=== PATIENT | female | born 1960 | race Caucasian/White ===

== ENCOUNTER 2021-08-04 07:15 | Emergency (ER) | payer MEDICAID, SELFPAY ==
[2021-08-04 07:18] VITALS: BP 138/58; PULSE 62; RESP 16; TEMP 36.5; O2SAT 97; BMI 17.6
--- NOTE | 2021-08-04 07:18 | W.ED.BACK ---
HPI - Back Pain/Injury General: Chief Complaint: Back Pain/Injury Stated Complaint: BACK PAIN Time Seen by Provider: 08/04/21 07:17 History of Present Illness: MD elicited complaint: back pain Pertinent past history: prior back pain Onset (ago): week(s) Timing: constant Severity: moderate Quality: aching Location: lumbar spine Radiation: none Exacerbating factors: none, sitting upright, walking and coughing/sneezing Relieving factors: supine Associated symptoms: Reports difficulty walking, tingling/numbness/burning and weakness; Deny abdominal pain, arthralgias, chills, change in bowel habits, dysuria, fatigue, fecal incontinence, fever(s), hematuria, myalgias, nausea, numbness, syncope, urinary frequency, urinary urgency or vomiting Review of Systems Const: Denies: fever(s), chills or fatigue ENMT: Denies: throat pain, ear or mastoid pain, nasal discharge or nasal congestion Card: Denies: syncope Resp: Denies: dyspnea, productive cough or non-productive cough GI: Denies: abdominal pain, nausea, vomiting, fecal incontinence or change in bowel habits : Denies: dysuria, urinary urgency or hematuria Skin/Breast: Denies: rash or pruritus Neuro: Reports: difficulty walking PFSH ED PFSH: Family History Mother Dementia Lung disease Cancer Sister Dementia Diabetes Cancer Father Lung disease Cancer Family/Other Stroke Brother Cancer Social History Smoking and tobacco status: current every day smoker Second hand smoke exposure: Yes Alcohol intake: current Alcohol intake frequency: 3 or more drinks per day Physical Exam Const: COMMON NORMALS: no acute distress GENERAL APPEARANCE: cooperative and comfortable ORIENTATION/CONSCIOUSNESS: Yes awake, Yes oriented to person, Yes oriented to place and Yes oriented to time HENMT: COMMON NORMALS: normocephalic, atraumatic and hearing grossly normal bilaterally HEAD & SCALP: normocephalic and atraumatic Neck/C-Spine: COMMON NORMALS: no JVD Resp: COMMON NORMALS: normal respiratory effort, No retractions, No use of accessory muscles and clear to auscultation bilaterally AUSCULTATION: clear to auscultation bilaterally Cardio: COMMON NORMALS: no JVD, regular rate, regular rhythm and No murmurs present (Cardio) RATE: regular rate RHYTHM: regular rhythm GI: COMMON NORMALS: Soft to palpation and No hepatosplenomegaly present AUSCULTATION: Yes normoactive bowel sounds PALPATION: Yes Soft to palpation, No Tenderness to palpation present (GI), No Guarding due to palpation present (GI) and Yes No hepatosplenomegaly present Extremity: COMMON NORMALS: normal to inspection, capillary refill normal, no clubbing, cyanosis or edema, no calf tenderness and no pedal edema OTHER: Straight leg raising negative deep tendon reflex patellar tendon +2/4 sensation lower extremities normal. Neuro: SENSORIUM/ORIENTATION: Yes oriented to person, Yes oriented to place and Yes oriented to time Skin: COMMON NORMALS: no rashes or lesions noted GENERAL SKIN EXAM: no rashes or lesions noted Course Vital Signs: Vital signs: Vital Signs Temperature 97.7 F 08/04/21 07:18 Pulse Rate 78 08/04/21 12:15 Respiratory Rate 18 08/04/21 12:15 Blood Pressure 128/64 08/04/21 12:15 Pulse Oximetry 93 08/04/21 12:15 MDM - Back Pain/Injury MDM Narrative: Medical decision making narrative: No acute change lumbar spine chest x-ray normal reviewed findings with the patient. Discharge home start on hydrocodone Medrol Dosepak tizanidine diclofenac. Have her stop the ibuprofen follow-up with your primary care doctor she may need further advanced imaging in an outpatient basis. Discharge Plan Discharge Patient Disposition: Home Clinical Impression: Sciatica Condition: Stable Prescriptions: New hydrocodone-acetaminophen 5-325 mg tablet 1 tab PO Q6H PRN (Reason: pain) Qty: 10 RF: 0 Medrol (Bigg) 4 mg tablets,dose pack See Rx Instructions .ROUTE .COMPLEX Qty: 21 RF: 0 tizanidine 4 mg capsule 4 mg PO Q6H PRN (Reason: muscle spasticity) Qty: 20 RF: 0 diclofenac sodium 75 mg tablet,delayed release (DR/EC) 75 mg PO Q12H PRN (Reason: pain) Qty: 20 RF: 0 Discontinued ibuprofen 200 mg capsule 400 mg PO Q6H PRNRF: 0 No Action budesonide-formoterol [Symbicort] 160-4.5 mcg/actuation HFA aerosol inhaler 2 puff inhalation BID RF: 0 metoprolol succinate 25 mg tablet extended release 24 hr 12.5 mg PO DAILY RF: 0 nitroglycerin 0.4 mg tablet, sublingual 0.4 mg sublingual Q5M PRNRF: 0 Discharge Orders: Discharge ED (Routine); Ordered 08/04/21 Ordered By: Blair Simons Referrals: Janie Moreau APN [Staff Physician] - Discharge Diet: Usual diet Discharge Activity: Increase activity as tolerated Patient Instructions: Opioid Safety Activity Restrictions/Additional Instructions: Follow-up with your primary care doctor within the next 3 to 5 days. Return to the emergency room if your pain worsens. Coding Level of Care Code ED Roads Superintendent for Bossman Fajardo
--- NOTE | 2021-08-04 07:28 | XR_ITS ---
WS: [id number] Lumbar spine, 3 views, 08/04/2021 Clinical Data: pain Comparison: None. Findings: No compression fractures or subluxation is seen. There is disc space narrowing at L5-S1. The transver se processes and SI joints are normal. There is osteoarthritic spurring of all the lumbar vertebral bodies. There is calcification of the ab dominal aorta but no aneurysm. XR/XR lumbar spine 2-3V* 01830 Impression: 1. Disc narrowing at L5-S1. 2. Osteoarthritis L1-L5.
[2021-08-04] MEDS: orphenadrine 30 mg/mL Inj 2 mL 60 MG IVP (07:48)
[2021-08-04] MEDS: dexamethasone 10 mg/mL INJ IVP (07:49)
[2021-08-04] MEDS: ketorolac 30 mg/mL INJ IVP (07:49)
[2021-08-04 09:18] VITALS: RESP 10; O2SAT 94
[2021-08-04] MEDS: morphine 4 mg/mL SDV 1 mL 2 MG IVP (09:18)
[2021-08-04 09:21] VITALS: BP 116/71; PULSE 58; RESP 12; O2SAT 94
--- NOTE | 2021-08-04 09:25 | PC.NURSE ---
Pt arrvied via EMS from home where she lives by herself, pt reports she has been having significant back pain since this past Sunday. Pt was lying on her couch when EMS arrived and attempted to get up from the couch on her own, EMS reports pt was unable to get up on her won and had to be carried to their cot. Pt reports mid-lower back pain that is constant, rates pain at /. Pt placed om monitor, Pt A/O x4.
[2021-08-04] MEDS: ipratropium-albuterol 3 mL Neb INHALATION (09:28)
[2021-08-04 09:29] VITALS: PULSE 53; RESP 16; O2SAT 93
--- NOTE | 2021-08-04 09:35 | ECG_ITS ---
[facility] Test Date: 2021-08-04 Pat Name: Martha Damico Department: Room: Gender: Female Sexual Assault Response Coordinator: : 1960 Requested By: Blair Walls Order Number: [id number] Kaila MD: Yuri Campa M.D. Measurements Intervals [place] Rate: 52 P: 44 CA: 142 QRS: 76 QRSD: 79 T: 72 QT: 433 QTc: 405 Interpretive Statements SINUS BRADYCARDIA Compared to ECG 10/12/2017 21:42:04 Sinus rhythm no longer present Electronically Signed On 08-04-2021 17:08:04 CDT by Yuri Campa M.D. [id number]
--- NOTE | 2021-08-04 10:11 | XR_ITS ---
WS: [id number] Portable AP upright chest, 08/04/2021 Clinical Data: dyspnea/cough Comparison: Portable chest, 10/12/2017. Findings: No nodules, masses or effusions are seen. The heart is normal. The pulmonary vascularity is not increased. No pneumonia or pneumothorax is seen. The diaphragms are flattened. Monitor leads are on the chest wall. XR/XR chest 1V portable [id number] Impression: Hyperinflation.
[2021-08-04 10:53] VITALS: RESP 12; O2SAT 94
[2021-08-04] MEDS: morphine 4 mg/mL SDV 1 mL IVP (10:53)
--- NOTE | 2021-08-04 12:00 | PC.NURSE ---
Pt c/o about inability to put on clothes and I cannot cook, I haven't eaten Provided pt with lunch. Notified provider and CN of pt's c/o. Pt c/o about needing paper scrubs all I have is my longjohns . Provided pt with paperscrubs. Pt stated I need a uber . Notified CN for ride. CM consulted for ride.
[2021-08-04 12:15] VITALS: BP 128/64; PULSE 78; RESP 18; O2SAT 93
--- NOTE | 2021-08-05 11:35 | DCPLANNER ---
assistant clinical nurse manager spoke with patient, she would like for piano case maker to schedule a follow up appointment for patient with primary care, to discuss getting services in the home. assistant clinical nurse manager called [facility] in , gave clinic patients information. A follow up appointment was scheduled for Sunday, August 19, 2021 at 9:00 with Janie Moreau. assistant clinical nurse manager called patient and gave patient the appointment information.
== END 2021-08-04 12:56 | disposition home or self-care (01) ==
PROVIDERS: Emergency Provider Family Medicine
DX: M54.30 Sciatica, unspecified side (principal); F17.200 Nicotine dependence, unspecified, uncomplicated
CPT/HCPCS: 71045; 72100; 93005; 94640; 96374; 96376; 99284; J1100; J1885; J2270; J2360

== ENCOUNTER 2021-09-15 08:46 | Emergency (ER) | payer MEDICAID, SELFPAY ==
--- NOTE | 2021-09-15 08:47 | XR_ITS ---
WS: [id number] XR chest 1V portable [id number] REASON FOR EXAM: Syncopal episode FINDINGS: Chest is unchanged compared to 08/04/2021. The lungs are hyperexpanded. No acute pulmonary parenchymal or pleural abnormality is identified. Mild degenerative change in the mid and lower thoracic spine. XR/XR chest 1V portable [id number] IMPRESSION: No acute chest abnormality.
--- NOTE | 2021-09-15 08:48 | ECG_ITS ---
[facility] Test Date: 2021-09-15 Pat Name: Martha Damico Department: Room: Gender: Female Inspector Line: : 1960 Requested By: Jett Bassett Order Number: [id number] Kaila MD: EULALIO HILLS Measurements Intervals [place] Rate: 71 P: -15 NE: 140 QRS: 71 QRSD: 86 T: 53 QT: 376 QTc: 409 Interpretive Statements SINUS RHYTHM Compared to ECG 09/15/2021 09:24:15 No significant changes Electronically Signed On 09-15-2021 19:54:17 STOCK PULLER by EULALIO HILLS [id number]
[2021-09-15 08:53] VITALS: BP 105/75; PULSE 85; RESP 18; TEMP 37.2; O2SAT 95; BMI 17.6
[2021-09-15 09:04] VITALS: PULSE 85; RESP 17; O2SAT 95
--- NOTE | 2021-09-15 09:19 | ED_ITS ---
Documented by User: HAN Skelton 09/16/21 07:21 HPI - Syncope General: Chief Complaint: Syncope Stated Complaint: SYNCOPE Time Seen by Provider: 09/15/21 08:47 History of Present Illness: HPI narrative: Patient is a 61-year-old female comes to the ED via EMS for syncopal episode. Patient states she has a history of an arrhythmia and and emphysema. Episode occurred around 7 AM this morning while she was sitting and watching TV. She describes feeling some heart palpitations for a few seconds and then she describes feeling like her heart was slowing down and then she lost consciousness. Patient thinks she might have been out for a few seconds at the most. When she came to she was still sitting on her couch. Denies any bladder or bowel incontinence during episode. It was unwitnessed and she was all alone at the time. After episode she feels back to her normal baseline state. Denies any preceding headache, chest pain, shortness of breath, nausea or diaphoresis preceding the episode. Afterwards she is asymptomatic and is not having any palpitations. Patient takes metoprolol in the mornings and had not taken her dose of metoprolol before syncopal episode. She does endorse having episodes where she feels dizzy when she goes from a sitting or lying position to standing up. Denies any past syncopal episodes or seizures. Associated symptoms: Deny abdominal pain, chest pain, fever(s), headache(s), lightheadedness, nausea or short of breath Review of Systems Const: Denies: fever(s), chills or fatigue Eyes: Denies: change in vision or eye discomfort ENMT: Denies: throat pain, odynophagia, nasal discharge or nasal congestion Card: Reports: palpitations and syncope; Denies: chest pain, edema, swelling of feet/ankles, lightheadedness, dyspnea on exertion or orthopnea Resp: Denies: dyspnea, productive cough or non-productive cough GI: Denies: abdominal pain, nausea, vomiting, diarrhea, constipation or hematochezia : Denies: flank pain, dysuria or hematuria Musc: Denies: neck pain, back pain or extremity swelling Skin/Breast: Denies: rash or new lesions Neuro: Denies: headache(s), numbness in extremities or weakness in extremities PFSH ED PFSH: Medical History Afib Chest pain COPD (chronic obstructive pulmonary disease) PTSD (post-traumatic stress disorder) Tobacco use Family History Mother Dementia Lung disease Cancer Sister Dementia Diabetes Cancer Father Lung disease Cancer Family/Other Stroke Brother Cancer Social History Smoking and tobacco status: current every day smoker Second hand smoke exposure: Yes Alcohol intake: current Alcohol intake frequency: 3 or more drinks per day Physical Exam Const: COMMON NORMALS: no acute distress, patient oriented x3, healthy appearing and alert GENERAL APPEARANCE: cooperative and comfortable HENMT: COMMON NORMALS: normocephalic HEAD & SCALP: normocephalic MOUTH: Normal oral and palatal mucosa present THROAT: posterior oropharynx normal and uvula midline Eye: COMMON NORMALS: Equal, round and reactive pupils present PUPIL: Yes Equal, round and reactive pupils present Neck/C-Spine: COMMON NORMALS: supple GENERAL: Yes normal visual inspection Resp: COMMON NORMALS: normal respiratory effort, No retractions, No use of accessory muscles and clear to auscultation bilaterally AUSCULTATION: clear to auscultation bilaterally Cardio: COMMON NORMALS: regular rate, regular rhythm, S1 normal heart sound present, S2 normal heart sound present, No gallops present (Cardio), No clicks present (Cardio), No murmurs present (Cardio) and Peripheral pulses 2+ throughout RATE: regular rate RHYTHM: regular rhythm HEART SOUNDS: S1 normal heart sound present and S2 normal heart sound present PERIPHERAL PULSES: Peripheral pulses 2+ throughout GI: COMMON NORMALS: Normal to inspection, nondistended, normoactive bowel sounds present, Soft to palpation, non-tender and no masses PALPATION: Yes Soft to palpation : COMMON NORMALS: Yes no CVA tenderness BLADDER/KIDNEY EXAM: Yes no CVA tenderness Back/Pelvis: COMMON NORMALS: no CVA tenderness Extremity: COMMON NORMALS: normal to inspection Neuro: COMMON NORMALS: patient oriented x3 and moves all extremities SENSORIUM/ORIENTATION: Yes alert Skin: GENERAL SKIN EXAM: dry skin Course Vital Signs: Vital signs: Vital Signs Temperature 98.9 F 09/15/21 08:53 Pulse Rate 74 09/15/21 10:55 Respiratory Rate 24 H 09/15/21 10:55 Blood Pressure 104/72 09/15/21 10:55 Pulse Oximetry 95 09/15/21 10:55 Orthostatic vitals?laying down heart rate 75 blood pressure 113/65, sitting heart rate 85 and blood pressure 107/67, standing heart rate 93 blood pressure 93/67. MDM - Syncope MDM Narrative: Medical decision making narrative: Patient is a 61-year-old female comes to the ED with syncopal episode. Patient says she was sitting down at home and felt some palpitations in a brief syncopal episode. She had no fall during episode and was still sitting when she regained consciousness. She returned back to her normal baseline state after LOC. Vitals stable. Exam benign and neuro exam showed no deficits. CBC and CMP were unremarkable. Troponin negative. Chest x-ray showed no acute findings. EKG showed normal sinus rhythm with no acute findings. CT head showed no intracranial hemorrhage or edema. Orthostatic vitals did show a drop in systolic blood pressure from lying to standing patient reports dizziness a lot of times when she gets up from lying or sitting to standing position. Patient diagnosed with vasovagal syncope and orthostatic hypotension. Patient left the unit before I was able to officially discharge patient and give her discharge instructions. The nurse called on patient and she had left ED with IV still in place. The nurse was trying to get patient come back here to the facility to have IV removed. Lab Data: Labs: Lab Results 09/15/21 09/15/21 09/15/21 09:35 09:35 09:35 WBC 7.7 10^3/uL 10^3/ uL (4.0-10.0) RBC 5.17 10^6/uL 10^6 /uL (4.1-5.3) Hgb 16.3 g/dL H g/dL (11.5-15.3) Hct 47.7 % H % (37.0-47.0) MCV 92.3 fl fl (81-99) MCH 31.5 pg pg (28.0-34.0) MCHC 34.2 g/dL g/dL (30.0-36.0) RDW 11.9 % L % (12.1-15.1) Plt Count 309 10^3/cmm 10^3 /cmm (130-400) MPV 9.8 fL fL (7.4-10.4) Neut % (Auto) 69.8 % % Lymph % (Auto) 20.0 % % [place] % (Auto) 7.3 % % Eos % (Auto) 1.8 % % Baso % (Auto) 0.8 % % Neut # (Auto) 5.39 10^3/uL 10^3 /uL (1.8-7.7) Lymph # (Auto) 1.5 10^3/uL 10^3/ uL (0.8-4.8) [place] # (Auto) 0.6 10^3/uL 10^3/ uL (0.2-0.9) Eos # (Auto) 0.1 10^3/uL 10^3/ uL (0.0-0.8) Baso # (Auto) 0.1 10^3/uL 10^3/ uL (0.0-0.1) Nucleated RBC % (a uto) 0 % % Nucleated RBCs # 0.0 /100WBC /100W BC Sodium 139 mmol/L mmol/L (136-145) Potassium 4.2 mmol/L mmol/L (3.5-5.1) Chloride 101 mmol/L mmol/L (98-107) Carbon Dioxide 22 mmol/L mmol/L (22-29) Anion Gap 20.2 H (5-19) BUN 12 mg/dL mg/dL (8-23) Creatinine 0.7 mg/dL mg/dL (0.5-0.9) GFR Calculation 84.5 mL/min L mL/ min (90-130) Glucose 123 mg/dL H mg/dL (65-115) Calculated Osmolal ity 289 mOsm/kg mOsm/ kg (285-295) Calcium 9.2 mg/dL mg/dL (8.5-10.5) Total Bilirubin 0.4 mg/dL mg/dL (0.15-1.2) AST 18 U/L U/L (0-32) ALT 19 U/L U/L (0-33) Alkaline Phosphata se 69 IU/L IU/L (35-105) Troponin T Baselin e 13 ng/L H ng/L (0-10) Troponin T 120 Min samish Delta Troponin T NT-Pro-B Natriuret Pep 72 pg/mL pg/mL (0-125) Total Protein 7.2 g/dL g/dL (6.6-8.7) Albumin 4.6 g/dL g/dL (3.5-5.2) Globulin 2.6 g/dL g/dL (1.3-4.6) Urine Color Urine Appearance Urine pH Ur Specific Gravit y Urine Protein Urine Glucose (UA) Urine Ketones Urine Blood Urine Nitrate Urine Bilirubin Urine Urobilinogen Ur Leukocyte Sandra ase 09/15/21 09/15/21 10:48 12:15 WBC RBC Hgb Hct MCV MCH MCHC RDW Plt Count MPV Neut % (Auto) Lymph % (Auto) [place] % (Auto) Eos % (Auto) Baso % (Auto) Neut # (Auto) Lymph # (Auto) [place] # (Auto) Eos # (Auto) Baso # (Auto) Nucleated RBC % (a uto) Nucleated RBCs # Sodium Potassium Chloride Carbon Dioxide Anion Gap BUN Creatinine GFR Calculation Glucose Calculated Osmolal ity Calcium Total Bilirubin AST ALT Alkaline Phosphata se Troponin T Baselin e Troponin T 120 Min samish 9.49 ng/L ng/L (0-10) Delta Troponin T -3.51 ABS# L ABS# (0-10) NT-Pro-B Natriuret Pep Total Protein Albumin Globulin Urine Color Yellow (Yellow) Urine Appearance Clear (CLEAR) Urine pH 6 (5-7) Ur Specific Gravit y 1.020 (1.005-1.030) Urine Protein Neg (Negative) Urine Glucose (UA) Norm (Normal) Urine Ketones 1+ H (Negative) Urine Blood Neg (Negative) Urine Nitrate Negative (Negative) Urine Bilirubin Neg (Negative) Urine Urobilinogen Norm mg/dL mg/dL (Negative) Ur Leukocyte Sandra ase Negative (Negative) Imaging Data^: CXR: Attestation: I personally reviewed and interpreted this imaging study as follows: Radiologist's impression: [address] [id number] ReportSigned Patient: Annabel Damico #: [id number]: 8Acct#:[id number]/Sex: 61 / FADM Date: 09/15/21Loc: ERRoom/Bed:Attending Dr: Ordering Provider/Ordering MD: Jett Bassett Date of Service: 09/15/21 Procedure(s): XR chest 1V portable [id number] Accession Number(s): [id number] Report Number: [id number] WS: [id number] XR chest 1V portable [id number] REASON FOR EXAM: Syncopal episode FINDINGS: Chest is unchanged compared to 08/04/2021. The lungs are hyperexpanded. No acute pulmonary parenchymal or pleural abnormality is identified. Mild degenerative change in the mid and lower thoracic spine. XR/XR chest 1V portable [id number] IMPRESSION: No acute chest abnormality. Dictated By:Pritesh Montana Jr MDSigned By:Pritesh Montana Jr MDSigned Date/Time:09/15/21903DD/ 1 CT Head: Attestation: I personally reviewed and interpreted this imaging study as follows: Radiologist's impression: [facility] [place] [address] CT Scan Report Signed Patient: Martha Damico Unit #: [id number] : 1960 Age/Sex: 61 / F ADM Date: 09/15/21 Loc: ER Room/Bed: Attending Dr: Ordering Provider/Ordering MD: Jett Bassett Date of Service: 09/15/21 Procedure(s): CT head wo con* [id number] Accession Number(s): [id number] Report Number: [id number] WS: [id number] CT HEAD NONCONTRAST HISTORY: Syncopal episode TECHNIQUE: Contiguous axial imaging performed through the brain in 2.5 mm imaging. Bone and soft tissue windows. Sagittal and coronal reformats reviewed. [facility] one of these dose optimization techniques: automated exposure control; mA and/or kV adjustment per patient size (includes targeted exams where dose is matched to clinical indication); or iterative reconstruction. DLP: 619.64 mGy.cm COMPARISON: None available. No acute intracranial hemorrhage, midline shift or mass effect. Prior lacunar infarct in the RIGHT caudate. No significant atrophy. Additional small lacunar infarct in the insular ribbon on the LEFT. Ventricles: Normal size with no hydrocephalus. Paranasal sinuses: As visualized are clear. Mastoid air cells: Well pneumatized. Calvarium and scalp: Skull is intact with no soft tissue edema or swelling. CT/CT head wo con* [id number] IMPRESSION: 1. No acute intracranial hemorrhage or edema. 2. Small remote lacunar infarcts in the LEFT insular ribbon and RIGHT caudate head. Dictated By: Nell Sorensen DO Signed By: Nell Sorensen DO Signed Date/Time: 09/15/21 1016 DD/ 1013 EKG Data^: EKG 1: Attestation: I personally reviewed and interpreted this EKG as follows: EKG interpretation date: 09/15/21 Interpretation: Normal sinus rhythm, 74 bpm, no ST segment elevation or depression seen. Discharge Plan Discharge Patient Disposition: Home Clinical Impression: Syncope, vasovagal, Orthostatic hypotension Condition: Stable Prescriptions: No Action budesonide-formoterol [Symbicort] 160-4.5 mcg/actuation HFA aerosol inhaler 2 puff inhalation BID RF: 0 metoprolol succinate 25 mg tablet extended release 24 hr 12.5 mg PO DAILY RF: 0 nitroglycerin 0.4 mg tablet, sublingual 0.4 mg sublingual Q5M PRNRF: 0 hydrocodone-acetaminophen 5-325 mg tablet 1 tab PO Q6H PRN (Reason: pain) Qty: 10 RF: 0 Medrol (Bigg) 4 mg tablets,dose pack See Rx Instructions .ROUTE .COMPLEX Qty: 21 RF: 0 tizanidine 4 mg capsule 4 mg PO Q6H PRN (Reason: muscle spasticity) Qty: 20 RF: 0 diclofenac sodium 75 mg tablet,delayed release (DR/EC) 75 mg PO Q12H PRN (Reason: pain) Qty: 20 RF: 0 Discharge Orders: Discharge ED (Routine); Ordered 09/15/21 Ordered By: Jett Bassett Discharge Diet: Regular Discharge Activity: Resume usual activity Activity Restrictions/Additional Instructions: Follow-up with medical provider as directed in 5 to 7 days reevaluation. Continue taking home medications as previously prescribed. Return to the ER or your medical provider if condition worsens. Please read and understand discharge instructions. Thank you for choosing [facility] for your healthcare needs today. Please realize this is an emergency room and that we are providing you with a medical screening exam and this may not be complete and all inclusive of all the testing and or work up that you may need to determine your ailment or severity of your illness. It is very important that you follow up as instructed or that you return to the Emergency Department should you have concerns or if your condi tion changes or worsens in any way. Coding Level of Care Code ED Project Lead for [employer] Fwd Exam Comprehensive Documented by User: Blair Simons DO 09/16/21 12:39 HPI - Syncope General: Chief Complaint: Syncope Stated Complaint: SYNCOPE Time Seen by Provider: 09/15/21 08:47 PFSH ED PFSH: Medical History Afib Chest pain COPD (chronic obstructive pulmonary disease) PTSD (post-traumatic stress disorder) Tobacco use Family History Mother Dementia Lung disease Cancer Sister Dementia Diabetes Cancer Father Lung disease Cancer Family/Other Stroke Brother Cancer Social History Smoking and tobacco status: current every day smoker Second hand smoke exposure: Yes Alcohol intake: current Alcohol intake frequency: 3 or more drinks per day Course Vital Signs: Vital signs: Vital Signs Temperature 98.9 F 09/15/21 08:53 Pulse Rate 74 09/15/21 10:55 Respiratory Rate 24 H 09/15/21 10:55 Blood Pressure 104/72 09/15/21 10:55 Pulse Oximetry 95 09/15/21 10:55 MDM - Syncope MDM Narrative: Medical decision making narrative: Chart reviewed and patient discussed with midlevel. Agree with assessment and plan. Lab Data: Labs: Lab Results 09/15/21 09/15/21 09/15/21 09:35 09:35 09:35 WBC 7.7 10^3/uL 10^3/ uL (4.0-10.0) RBC 5.17 10^6/uL 10^6 /uL (4.1-5.3) Hgb 16.3 g/dL H g/dL (11.5-15.3) Hct 47.7 % H % (37.0-47.0) MCV 92.3 fl fl (81-99) MCH 31.5 pg pg (28.0-34.0) MCHC 34.2 g/dL g/dL (30.0-36.0) RDW 11.9 % L % (12.1-15.1) Plt Count 309 10^3/cmm 10^3 /cmm (130-400) MPV 9.8 fL fL (7.4-10.4) Neut % (Auto) 69.8 % % Lymph % (Auto) 20.0 % % [place] % (Auto) 7.3 % % Eos % (Auto) 1.8 % % Baso % (Auto) 0.8 % % Neut # (Auto) 5.39 10^3/uL 10^3 /uL (1.8-7.7) Lymph # (Auto) 1.5 10^3/uL 10^3/ uL (0.8-4.8) [place] # (Auto) 0.6 10^3/uL 10^3/ uL (0.2-0.9) Eos # (Auto) 0.1 10^3/uL 10^3/ uL (0.0-0.8) Baso # (Auto) 0.1 10^3/uL 10^3/ uL (0.0-0.1) Nucleated RBC % (a uto) 0 % % Nucleated RBCs # 0.0 /100WBC /100W BC Sodium 139 mmol/L mmol/L (136-145) Potassium 4.2 mmol/L mmol/L (3.5-5.1) Chloride 101 mmol/L mmol/L (98-107) Carbon Dioxide 22 mmol/L mmol/L (22-29) Anion Gap 20.2 H (5-19) BUN 12 mg/dL mg/dL (8-23) Creatinine 0.7 mg/dL mg/dL (0.5-0.9) GFR Calculation 84.5 mL/min L mL/ min (90-130) Glucose 123 mg/dL H mg/dL (65-115) Calculated Osmolal ity 289 mOsm/kg mOsm/ kg (285-295) Calcium 9.2 mg/dL mg/dL (8.5-10.5) Total Bilirubin 0.4 mg/dL mg/dL (0.15-1.2) AST 18 U/L U/L (0-32) ALT 19 U/L U/L (0-33) Alkaline Phosphata se 69 IU/L IU/L (35-105) Troponin T Baselin e 13 ng/L H ng/L (0-10) Troponin T 120 Min samish Delta Troponin T NT-Pro-B Natriuret Pep 72 pg/mL pg/mL (0-125) Total Protein 7.2 g/dL g/dL (6.6-8.7) Albumin 4.6 g/dL g/dL (3.5-5.2) Globulin 2.6 g/dL g/dL (1.3-4.6) Urine Color Urine Appearance Urine pH Ur Specific Gravit y Urine Protein Urine Glucose (UA) Urine Ketones Urine Blood Urine Nitrate Urine Bilirubin Urine Urobilinogen Ur Leukocyte Sandra ase 09/15/21 09/15/21 10:48 12:15 WBC RBC Hgb Hct MCV MCH MCHC RDW Plt Count MPV Neut % (Auto) Lymph % (Auto) [place] % (Auto) Eos % (Auto) Baso % (Auto) Neut # (Auto) Lymph # (Auto) [place] # (Auto) Eos # (Auto) Baso # (Auto) Nucleated RBC % (a uto) Nucleated RBCs # Sodium Potassium Chloride Carbon Dioxide Anion Gap BUN Creatinine GFR Calculation Glucose Calculated Osmolal ity Calcium Total Bilirubin AST ALT Alkaline Phosphata se Troponin T Baselin e Troponin T 120 Min samish 9.49 ng/L ng/L (0-10) Delta Troponin T -3.51 ABS# L ABS# (0-10) NT-Pro-B Natriuret Pep Total Protein Albumin Globulin Urine Color Yellow (Yellow) Urine Appearance Clear (CLEAR) Urine pH 6 (5-7) Ur Specific Gravit y 1.020 (1.005-1.030) Urine Protein Neg (Negative) Urine Glucose (UA) Norm (Normal) Urine Ketones 1+ H (Negative) Urine Blood Neg (Negative) Urine Nitrate Negative (Negative) Urine Bilirubin Neg (Negative) Urine Urobilinogen Norm mg/dL mg/dL (Negative) Ur Leukocyte Sandra ase Negative (Negative) Discharge Plan Discharge Patient Disposition: Home Clinical Impression: Syncope, vasovagal, Orthostatic hypotension Condition: Stable Prescriptions: No Action budesonide-formoterol [Symbicort] 160-4.5 mcg/actuation HFA aerosol inhaler 2 puff inhalation BID RF: 0 metoprolol succinate 25 mg tablet extended release 24 hr 12.5 mg PO DAILY RF: 0 nitroglycerin 0.4 mg tablet, sublingual 0.4 mg sublingual Q5M PRNRF: 0 hydrocodone-acetaminophen 5-325 mg tablet 1 tab PO Q6H PRN (Reason: pain) Qty: 10 RF: 0 Medrol (Bigg) 4 mg tablets,dose pack See Rx Instructions .ROUTE .COMPLEX Qty: 21 RF: 0 tizanidine 4 mg capsule 4 mg PO Q6H PRN (Reason: muscle spasticity) Qty: 20 RF: 0 diclofenac sodium 75 mg tablet,delayed release (DR/EC) 75 mg PO Q12H PRN (Reason: pain) Qty: 20 RF: 0 Discharge Orders: Discharge ED (Routine); Ordered 09/15/21 Ordered By: Jett Bassett Discharge Diet: Regular Discharge Activity: Resume usual activity Activity Restrictions/Additional Instructions: Follow-up with medical provider as directed in 5 to 7 days reevaluation. Continue taking home medications as previously prescribed. Return to the ER or your medical provider if condition worsens. Please read and understand discharge instructions. Thank you for choosing [facility] for your healthcare needs today. Please realize this is an emergency room and that we are providing you with a medical screening exam and this may not be complete and all inclusive of all the testing and or work up that you may need to determine your ailment or severity of your illness. It is very important that you follow up as instructed or that you return to the Emergency Department should you have concerns or if your condition changes or worsens in any way. Coding Level of Care Code ED Project Lead for [employer] Fwhugh Exam Comprehensive
--- NOTE | 2021-09-15 09:20 | CT_ITS ---
WS: [id number] CT HEAD NONCONTRAST HISTORY: Syncopal episode TECHNIQUE: Contiguous axial imaging performed through the brain in 2.5 mm imaging. Bone and soft tiss ue windows. Sagittal and coronal reformats reviewed. All CT scans at [facility] use at least one of these dose optimization techniques: automated exposure control; mA and/or kV adjustment per pa tient size (includes targeted exams where dose is matched to clinical indication); or iterative recon struction. DLP: 619.64 mGy.cm COMPARISON: None available. No acute intracranial hemorrhage, midline shift or mass effect. Prior lacunar infarct in the RIGHT caudate. No significant atrophy. Additional small lacunar infarct in the insular ribbon on the LEFT. Ventricles: Normal size with no hydrocephalus. Paranasal sinuses: As visualized are clear. Mastoid air cells: Well pneumatized. Calvarium and scalp: Skull is intact with no soft tissue edema or swelling. CT/CT head wo con* [id number] IMPRESSION: 1. No acute intracranial hemorrhage or edema. 2. Small remote lacunar infarcts in the LEFT insular ribbon and RIGHT caudate head.
--- NOTE | 2021-09-15 09:42 | PC.NURSE ---
Pt placed on continual cardiac, BP, and SpO2 monitoring upon arrival into room.
[2021-09-15 09:45] LABS: Basophils # 0.1 10^3/uL (0.0-0.1); Basophils % 0.8 %; Eosinophils # 0.1 10^3/uL (0.0-0.8); Eosinophils % 1.8 %; Hematocrit 47.7 % (37.0-47.0); Hemoglobin 16.3 g/dL (11.5-15.3); Lymphocytes # 1.5 10^3/uL (0.8-4.8); Mean Corpuscular HGB Conc 34.2 g/dL (30.0-36.0); Mean Corpuscular Hemoglobin 31.5 pg (28.0-34.0); Mean Corpuscular Volume 92.3 fl (81-99); Mean Platelet Volume 9.8 fL (7.4-10.4); Monocytes # 0.6 10^3/uL (0.2-0.9); Monocytes % 7.3 %; Neutrophils # 5.39 10^3/uL (1.8-7.7); Neutrophils % 69.8 %; Nucleated Red Blood Cells % 0 %; Platelet Count 309 10^3/cmm (130-400); Red Blood Count 5.17 10^6/uL (4.1-5.3); Red Cell Distribution Width 11.9 % (12.1-15.1); White Blood Count 7.7 10^3/uL (4.0-10.0)
[2021-09-15 09:57] VITALS: BP 107/67; BP 113/65; BP 93/67; PULSE 75; PULSE 85; PULSE 93
[2021-09-15 10:03] VITALS: BP 113/65; PULSE 75; RESP 20
[2021-09-15 10:04] LABS: Troponin(5th) Baseline 13 ng/L (0-10)
[2021-09-15 10:18] LABS: Alanine Aminotransferase 19 U/L (0-33); Albumin Level 4.6 g/dL (3.5-5.2); Alkaline Phosphatase 69 IU/L (35-105); Anion Gap 20.2 (5-19); Aspartate Amino Transferase 18 U/L (0-32); Blood Urea Nitrogen 12 mg/dL (8-23); Calcium 9.2 mg/dL (8.5-10.5); Carbon Dioxide 22 mmol/L (22-29); Chloride 101 mmol/L (98-107); Globulin 2.6 g/dL (1.3-4.6); Glomerular Filtration Rate 84.5 mL/min (90-130); Glucose 123 mg/dL (65-115); NT Pro B Type Natriuretic Pept 72 pg/mL (0-125); Osmolality Calculated 289 mOsm/kg (285-295); Potassium 4.2 mmol/L (3.5-5.1); Sodium 139 mmol/L (136-145); Total Bilirubin 0.4 mg/dL (0.15-1.2); Total Protein 7.2 g/dL (6.6-8.7)
--- NOTE | 2021-09-15 10:48 | ECG_ITS ---
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
[2021-09-15 10:55] VITALS: BP 104/72; PULSE 74; RESP 24; O2SAT 95
[2021-09-15 10:58] LABS: Add Urine Microscopic? NO; Charge for UA Resulting for Rev
[2021-09-15 11:17] LABS: Bilirubin Urine Neg (Negative); Blood Urine Neg (Negative); Glucose Urine UA Norm (Normal); Ketones Urine 1+ (Negative); Leukocyte Esterase Urine Negative (Negative); Nitrate Urine Negative (Negative); Protein Urine Neg (Negative); Urine Appearance Clear (CLEAR); Urine Color Yellow (Yellow); Urobilinogen Urine Norm (Negative); pH Urine 6 (5-7)
[2021-09-15 12:43] LABS: Troponin 5 2HR 9.49 ng/L (0-10)
[2021-09-15 12:47] LABS: Troponin 5 2HR Delta -3.51 ABS# (0-10)
--- NOTE | 2021-09-15 13:38 | PC.NURSE ---
Pt was found to have left on her own without signing discharge papers. Made contact via phone with pt and she was at home and pt stated she just left. Pt did state her IV was still in place in her arm. Contacted [facility] to make contact with pt.
== END 2021-09-15 15:06 | disposition home or self-care (01) ==
PROVIDERS: Emergency Provider Physician Assistant
DX: I95.1 Orthostatic hypotension (principal); J44.9 Chronic obstructive pulmonary disease, unspecified; F17.210 Nicotine dependence, cigarettes, uncomplicated
CPT/HCPCS: 70450; 71045; 80053; 81003; 83880; 84484; 85025; 93005; 99283

== ENCOUNTER → 2022-04-11 12:30 | Outpatient (BNVA) | payer MEDICAID, SELFPAY | PROVIDERS: PCP Family Medicine; Visit Provider Internal Medicine Pulmonary Disease | DX: R06.02 Shortness of breath (principal); F17.210 Nicotine dependence, cigarettes, uncomplicated; Z12.2 Encounter for screening for malignant neoplasm of respiratory organs; Z71.6 Tobacco abuse counseling; J44.9 Chronic obstructive pulmonary disease, unspecified | CPT/HCPCS: 99204 ==

== ENCOUNTER 2022-04-19 07:01 | Outpatient (CLI) | payer MEDICAID, SELFPAY ==
--- NOTE | 2022-04-19 07:00 | CT_ITS ---
WS: [id number] LDCT LUNG CANCER SCREENING HISTORY: lung screening TECHNIQUE: Axial imaging performed from the apices to 1 cm below the costophrenic angles. Coronal and sagittal reformats are submitted with axial MIP series. All CT scans at [facility] use at least one of these dose optimization techniques: automated exposure control; mA and/or kV adjustment per patient size (includes targeted exams where dose is matched to clinical indication); or iterativ e reconstruction. DLP: 77.81 mGy.cm DIvol: Mean CTDIvol: 1.60 (mGy) COMPARISON: None available. Diagnostic quality: Satisfactory. Lung Nodules: There are a few tiny scattered micronodules. These nodules are 2 mm or less. No nodules for which follow-up is recommended. No endobronchial lesion. Lungs: Severe hyperinflation and centrilobular emphysema. Heart: Normal size heart. No pericardial effusion. Other findings: No adenopathy. Normal size pulmonary artery. Tiny hiatal hernia. LEFT adrenal 14 x [address]/CT lung screening [id number] IMPRESSION: LUNG-RADS: 2-Benign Appearance or Behavior FOLLOW UP: 12 Month: Continue annual screening with LDCT OTHER FINDINGS (S MODIFIER): None.
== END 2022-04-19 07:02 | disposition home or self-care (01) ==
PROVIDERS: PCP Family Medicine; Visit Provider Internal Medicine Pulmonary Disease
DX: Z12.2 Encounter for screening for malignant neoplasm of respiratory organs (principal); F17.210 Nicotine dependence, cigarettes, uncomplicated
CPT/HCPCS: 71271

== ENCOUNTER 2022-05-16 06:38 | Outpatient (CLI) | payer MEDICAID, SELFPAY ==
--- NOTE | 2022-05-16 13:46 | PFTS_ITS ---
Date of Study:05/16/22 Date of Dictation: MECHANICS: Forced vital capacity (FVC) is reduced. Forced expiratory volume in one second (FEV1) is reduced. FEV1/FVC is reduced. FLOW VOLUME LOOP: Reduced flow at all lung volumes with significant scooping. LUNG VOLUMES: Total lung capacity (TLC) is increased. Residual volume (RV) is increased. DIFFUSING CAPACITY FOR CARBON MONOXIDE: Severely reduced. INTERPRETATION: The prebronchodilator spirometry is consistent with very severe airflow obstruction. No postbronchodilator spirometry was performed. Lung volumes are consistent with severe hyperinflation and air trapping. Gas exchange (DLCO) is severely reduced. MTDD
== END 2022-05-16 06:39 | disposition home or self-care (01) ==
LOC: RT 06:39
PROVIDERS: PCP Family Medicine; Visit Provider Internal Medicine Pulmonary Disease
DX: R06.02 Shortness of breath (principal)
CPT/HCPCS: 94010; 94618; 94726; 94729

== ENCOUNTER → 2022-05-18 13:17 | Outpatient (BNVA) | payer MEDICAID, SELFPAY | PROVIDERS: PCP Family Medicine; Visit Provider Internal Medicine Cardiovascular Disease | DX: R06.02 Shortness of breath (principal); J44.9 Chronic obstructive pulmonary disease, unspecified; F17.210 Nicotine dependence, cigarettes, uncomplicated | CPT/HCPCS: 93005; 99204 ==

== ENCOUNTER 2023-05-08 14:14 | Outpatient (CLI) | payer OTHER, MEDICAID, SELFPAY ==
--- NOTE | 2023-05-08 14:22 | CT_ITS ---
WS: [id number] CT CHEST, ABDOMEN AND PELVIS WITH CONTRAST HISTORY: ABNORMAL WEIGHT LOSS TECHNIQUE: Contiguous 5 mm axial imaging performed through the chest, abdomen and pelvis IV contrast, oral contrast has been provided. Coronal and sagittal reformats chest. Coronal and sagittal reformat s through the abdomen and pelvis. All CT scans at [facility] use at least one of these dose o ptimization techniques: automated exposure control; mA and/or kV adjustment per patient size (include s targeted exams where dose is matched to clinical indication); or iterative reconstruction. CONTRAST: Omnipaque 350; 100 mL IV. DLP: 390.55 mGy.cm COMPARISON: No similar studies. Chest CT: Severe pulmonary hypertension with centrilobular emphysema. No mass or nodules. Moderate at herosclerosis aorta. Normal sized pulmonary artery. Normal size heart. No pericardial or pleural effu sions. No adenopathy. Abdomen CT: Normal liver and spleen. Normal gallbladder and right adrenal gland. Left adrenal mass me asures 13 x 13 mm. This was previously described on 04/19/2022 with negative Hounsfield units. Consist ent with an adenoma. Normal pancreas. Moderate atherosclerosis aorta. Normal size kidneys. Focal kenneth ical thinning and scarring superior pole right kidney. Nonobstructing calcification left renal pelvis . Stomach is well distended with oral contrast. No small bowel obstruction. No colon obstruction. Diane l appendix. No ascites or adenopathy. 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 Pelvic CT: No free fluid. Well distended urinary bladder. Uterus is midline. No destructive bone lesions. IMPRESSION: 1. Severe centrilobular emphysema. 2. No pulmonary mass or nodule. No adenopathy. 3. No ascites or adenopathy in the abdomen or pelvis. 4. Left adrenal mass, 13 x 13 mm. Consistent with an adenoma as seen on 04/19/2022. 5. High-grade stenosis versus occlusion mid left common iliac artery.
[2023-05-08] MEDS: iohexol 350 mg/mL 500 mL Btl (per mL) IV (15:36)
[2023-05-08] MEDS: iohexol 350 mg/mL 500 mL Btl (per mL) PO (15:36)
== END 2023-05-08 14:15 | disposition home or self-care (01) ==
PROVIDERS: PCP Family Medicine; Visit Provider Family Medicine
DX: R63.4 Abnormal weight loss (principal); J43.2 Centrilobular emphysema; E27.9 Disorder of adrenal gland, unspecified; I77.89 Other specified disorders of arteries and arterioles
CPT/HCPCS: 71260; 74177; Q9967

== ENCOUNTER 2025-04-21 16:36 | Observation (INO) | payer OTHER, MEDICAID, SELFPAY ==
[2025-04-21 16:40] VITALS: BP 142/82; PULSE 107; RESP 24; TEMP 36.6; O2SAT 94; BMI 14.6
--- NOTE | 2025-04-21 16:50 | ED_ITS ---
HPI - SOB/Dyspnea 2 General: Chief Complaint: Shortness of Breath/Dyspnea Stated Complaint: SOB Time Seen by Provider: 04/21/25 16:38 History of Present Illness: HPI Narrative: 65-year-old female presents emergency ro om pulmonary shortness of breath and wheezing. Progressively worse over the last several days. She does not usually use oxygen she does use nebulizers she been using a more more often she is not getting a good result with them anymore. EMS found her to be at a low O2 sat of 83% on room air. No recent fevers or chills no chest pain or abdominal pain Associated symptoms: Reports chest congestion; Deny abdominal pain, chest pain or fever(s) Related Data Home Medications ?Medication ?Instructions ?Recorded ?Confirmed budesonide-formoterol HFA 160 2 puff inhalation BID 06/28/23 mcg-4.5 mcg/actuation aerosol inhaler (Symbicort) multivitamin 1 tab PO DAILY 04/11/2206/02 acetaminophen 325 mg tablet 325 mg PO QID PRN 05/18/22 06/28/23 Allergies Allergy/AdvReac Type Severity Reaction Status Date / Time diphenhydramine (From Allergy Unknown Verified 06/28/23 11:31 Benadryl) Review of Systems 2 Const: Denies: fever(s) or chills Card: Denies: chest pain Resp: Reports: dyspnea, non-productive cough, wheezing and chest congestion GI: Denies: abdominal pain : Denies: dysuria, urinary frequency or urinary urgency Musc: Denies: neck pain or back pain Skin/Breast: Denies: rash PFSH ED 2 PFSH: Medical History Chest pain COPD (chronic obstructive pulmonary disease) Afib PTSD (post-traumatic stress disorder) Tobacco use Family History Mother Dementia Lung disease Cancer Sister Dementia Diabetes Cancer Father Lung disease Cancer Family/Other Stroke Brother Cancer Social History Smoking and tobacco/nicotine status: former use of tobacco/nicotine Quit status (tobacco/nicotine): has quit using Year quit tobacco: 15 months ago Former quit date comment: 1 pack per day x 52 years Second hand smoke exposure: Yes Alcohol intake: current Alcohol intake frequency: 3 or more drinks per day Physical Exam 2 Const: ORIENTATION/CONSCIOUSNESS: Yes awake, Yes oriented to person, Yes oriented to place and Yes oriented to time HENMT: COMMON NORMALS: normocephalic, atraumatic and hearing grossly normal bilaterally HEAD & SCALP: normocephalic and atraumatic Resp: AUSCULTATION: wheezes Cardio: COMMON NORMALS: regular rate, regular rhythm and No murmurs present (Cardio) RATE: regular rate RHYTHM: regular rhythm GI: COMMON NORMALS: Soft to palpation and No hepatosplenomegaly present A USCULTATION: Yes normoactive bowel sounds PALPATION: Yes Soft to palpation, No Tenderness to palpation present (GI), No Guarding due to palpation present (GI) and Yes No hepatosplenomegaly present Extremity: COMMON NORMALS: normal to inspection, capillary refill normal, no clubbing, cyanosis or edema, no calf tenderness and no pedal edema Neuro: SENSORIUM/ORIENTATION: Yes oriented to person, Yes oriented to place and Yes oriented to time Skin: COMMON NORMALS: no rashes or lesions noted GENERAL SKIN EXAM: no rashes or lesions noted Course 2 Vital Signs: Vital signs: Vital Signs Temperature 97.8 F 04/21/25 16:40 Pulse Rate 98 04/21/25 17:18 Respiratory Rate 18 04/21/25 17:18 Blood Pressure 142/82 04/21/25 16:40 Pulse Oximetry 95 04/21/25 17:18 Oxygen Delivery Me thod Nasal Cannula 04/21/25 17:18 Oxygen Flow Rate 3 04/21/25 17:18 MDM - SOB/Dyspnea Medical Decision Making Labs and imaging reviewed. Patient has significant hyperinflation but no pneumonia. Blood gas shows mild hypercapnia but no significant respiratory acidosis at this time. Patient has acute hypoxic respiratory failure COPD exacerbation improved with oxygen supplementation at 3 L and nebulizers. Will admit for COPD exacerbation discussed Dr. Gonzalez placed on observation Medical Records I reviewed the patient's medical records. Lab Data I reviewed the patient's lab results. 04/21/25 17:18 04/21/25 17:18 Labs/Radiology: Radiology Impressions Chest X-Ray 04/21/25 16:50 IMPRESSION: 1. No acute findings. 2. Emphysema. Laboratory Results WBC 10.49 10^3/uL (3.29-11.43) 04/21/25 17:18 RBC 5.42 10^6/uL (3.85-5.65) 04/21/25 17:18 Hgb 16.20 g/dL (11.27-16.99) 04/21/25 17:18 Hct 49.7 % (36-47) H 04/21/25 17:18 MCV 91.7 fl (85-98) 04/21/25 17:18 MCH 29.9 pg (27-33) 04/21/25 17:18 MCHC 32.6 g/dL (30-55) 04/21/25 17:18 RDW 12.3 % (12.1-15.1) 04/21/25 17:18 Plt Count 323 10^3/cmm (157-399) 04/21/25 17:18 MPV 9.9 fL (7.4-10.4) 04/21/25 17:18 Neut % (Auto) 79.6 % 04/21/25 17:18 Lymph % (Auto) 10.7 % 04/21/25 17:18 Floyd % (Auto) 8.1 % 04/21/25 17:18 Eos % (Auto) 0.8 % 04/21/25 17:18 Baso % (Auto) 0.5 % 04/21/25 17:18 Neut # (Auto) 8.36 10^3/uL (1.8-7.7) H 04/21/25 17:18 Lymph # (Auto) 1.1 10^3/uL (0.8-4.8) 04/21/25 17:18 Floyd # (Auto) 0.9 10^3/uL (0.2-0.9) 04/21/25 17:18 Eos # (Auto) 0.1 10^3/uL (0.0-0.8) 04/21/25 17:18 Baso # (Auto) 0.1 10^3/uL (0.0-0.1) 04/21/25 17:18 Nucleated RBC % (auto) 0 % 04/21/25 17:18 Nucleated RBCs # 0.0 /100WBC 04/21/25 17:18 Specimen Type Arterial 04/21/25 17:12 Sample Site Radial, left 04/21/25 17:12 ABG pH 7.41 (7.35-7.45) 04/21/25 17:12 ABG pCO2 50.0 mmHg (35-45) H 04/21/25 17:12 ABG pO2 80.4 mmHg (80.0-100.0) 04/21/25 17:12 ABG PO2/FiO2 Ratio 251 04/21/25 17:12 ABG HCO3 31.9 mmol/L (22-26) H 04/21/25 17:12 ABG O2 Saturation 96.8 04/21/25 17:12 ABG Base Excess 5.8 mmol/L (-2.0-2.0) H 04/21/25 17:12 Narendra Test Pos 04/21/25 17:12 A-a O2 Gradient 11.2 mmHg (5-10) H 04/21/25 17:12 Hematocrit 51.4 % (37-47) H 04/21/25 17:12 Hgb O2 Saturation 92.5 % (95-100) L 04/21/25 17:12 Carboxyhemoglobin 4.5 %THgb (0.4-20.1) 04/21/25 17:12 Methemoglobin 0.0 % (0.4-1.5) L 04/21/25 17:12 Total Hemoglobin 16.8 g/dL (12-16) H 04/21/25 17:12 Sodium 141.0 mmol/L (131-143) 04/21/25 17:12 Potassium 4.2 mmol/L (3.5-5.0) 04/21/25 17:12 Glucose 143.0 mg/dL (70-115) H 04/21/25 17:12 Ionized Calcium 1.2 mmol/L (1.1-1.4) 04/21/25 17:12 O2 Delivery Device Nc 04/21/25 17:12 O2 Liters/Min 3.0 % 04/21/25 17:12 FiO2 32.0 % 04/21/25 17:12 Adjunct Spanish Instructor ID glc 04/21/25 17:12 All radiology interpretation(s) finalized by discharge Discharge Plan Discharge Patient Disposition: Placed in Observation Clinical Impression: Acute respiratory failure with hypoxia, Acute exacerbation of chronic obstructive airways disease Coding Level of Care Code 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
--- NOTE | 2025-04-21 16:50 | XRR_ITS ---
PROCEDURE INFORMATION: Exam: XR Chest Exam date and time: 04/21/2025 4:53 PM Age: 65 years old Clinical indication: Shortness of breath; Additional info: Dyspnea/cough TECHNIQUE: Imaging protocol: Radiologic exam of the chest. Views: 1 view. COMPARISON: CT chest abdpel w/*[id number] 05/08/2023 3:27 PM FINDINGS: Lungs: Lung volumes are large and there is attenuation of interstitial markings in the upper lungs consistent with centrilobular emphysema. There is no consolidation. Pleural spaces: There is no pleural effusion or pneumothorax. Heart/Mediastinum: Cardiomediastinal contours are unremarkable. Bones/joints: Bones are unremarkable. XR/XR chest 1V portable [id number] IMPRESSION: 1. No acute findings. 2. Emphysema.
--- NOTE | 2025-04-21 16:51 | ECG_ITS ---
[facility] Date: 2025-04-21 Pat Name: Martha Damico Department: Room: Gender: Female Infection Prevention Specialist: : 1960 Requested By: Blair Walls Order Number: [id number] Kaila MD: Yuri Campa M.D. Measurements Intervals Melvin Rate: 106 P: -15 WI: 111 QRS: 83 QRSD: 77 T: 52 QT: 308 QTc: 409 Interpretive Statements SINUS TACHYCARDIA WITH SHORT WI INTERVAL Compared to ECG 09/15/2021 11:28:04 Short WI interval now present Sinus rhythm no longer present Electronically Signed On 04-23-2025 09:04:36 CDT by Yuri Campa M.D. [email or web address]
--- OUTSIDE RECORDS SUMMARY | 2025-04-21 16:53 | XMS_ITS | Clinical Summary ---
Author Organization [facility] Address [address] [place] [address] Care Team Providers Care Named Account Executive Name Role Phone Non-Staff, Physician Primary Care Provider Unava ilable Allergies Active Allergy Reactions Criticality Noted Date Comments Diphenhydramine Hcl Hives High 04/19/2012 Medications multivitamin (DAILY-YESIKA) Oral tablet Take 1 Tab by mouth daily. Active OMEGA-3 FATTY ACIDS (FISH OIL ORAL) Take 1 Cap by mouth daily. Active Glucosamine Sulfate 1,000 mg Capsule Take by mouth. Active ALPRAZolam (XANAX) 0.5 mg tabletIndication s:Agoraphobia Take as needed for anxiety, every 72 hrs. 20 Tablet 0 08/12/2015 Active Active Problems Problem Noted Date Diagnosed Date Cigarette dependence 08/12/2015 Family History Medical History Relation Name Comments Cancer Brother Heart Disease Brother Cancer Father Heart Disease Father Cancer Maternal Grandfather Stroke Maternal Grandfather Cancer Maternal Grandmother Stroke Maternal Grandmother Cancer Mother Heart Disease Mother Cancer Paternal Grandfather Cancer Paternal Grandmother Cancer Sister Heart Disease Sister Relation Name Status Comments Brother Father Maternal Grandfather Maternal Grandmother Mother Paternal Grandfather Paternal Grandmother Sister Social History Tobacco Use Types Packs/Day Years Used Date Smoking Tobacco: Every Day Cigarettes Smokeless Tobacco: Never Alcohol Use Standard Drinks/Week Comments No 0 (1 standard drink = 0.6 oz pur e alcohol) on weekends Comments No Sex and Gender Information Value Date Recorded Sex Assigned at Not on file Legal Sex Female 7:10 AM BEEF BREAKER Gender Identity Not on file Sexual Orientation Not on file Last Filed Vital Signs Vital Sign Reading Time Taken Comments Blood Pressure 122/72 08/12/2015 10:09 AM BEEF BREAKER Pulse 87 08/12/2015 10:09 AM BEEF BREAKER Temperature 36.4 C (97.6 F) 08/12/2015 10:09 AM BEEF BREAKER Respiratory Rate 22 08/12/2015 10:09 AM BEEF BREAKER Oxygen Saturation 96% 08/12/2015 10:09 AM BEEF BREAKER Inhaled Oxygen Concentration - - Weight 46.3 kg (102 lb) 08/12/2015 10:09 AM BEEF BREAKER Height 153 cm (5' 0.25 ) 08/12/2015 10:09 AM BEEF BREAKER Body Mass Index 19.76 08/12/2015 10:09 AM BEEF BREAKER Plan of Treatment Health Maintenance Due Date Last Done Comments DTAP/TDAP/TD VACCINES (1 - Tdap) 1977 PNEUMOCOCCAL VACCINE 50+ YEARS (1 of 2 - PCV) 02/05/19 77 BREAST CANCER SCREENING 1998 COLORECTAL SCREENING 2003 Colorectal Cancer Screening 2003 FIT-DNA Q 3 years 2003 FIT/FOBT Q 1 year 2003 Flex Sig/CT Colonography Q 5 years 2003 ZOSTER VACCINE (1 of 2) 02/06/2008 OSTEOPOROSIS SCREENING 2023 INFLUENZA VACCINE (#1) 2025 RSV VACCINE (60+ or ) (1 - 1-dose 75+ series) 2033 Insurance MEDICAID [place] Care Teams Named Account Executive Relationship Specialty Start Date End Date Non-Staff, Physician NO ADDRESS ON FILE PCP - General 08/28/18
--- OUTSIDE RECORDS SUMMARY | 2025-04-21 16:53 | XMS_ITS | Encounter Summary ---
Author Organization [facility] Address [address] [place] [address] Care Team Providers Care Block Splitter Operator Name Role Phone Non-Staff, Physician Primary Care Provider Unava ilable Encounter Details Date Type Department Care Team (Late st Contact Info) Description 08/28/2018 Ancillary Orders [facility] Admitting [address] [place] [phone] Janie Moreau, PRACTICING UROLOGIST [address] [place] [phone] Pleurodynia Social History Tobacco Use Types Packs/Day Years Used Date Smoking Tobacco: Every Day Cigarettes Smokeless Tobacco: Never Alcohol Use Standard Drinks/Week Comments No 0 (1 standard drink = 0.6 oz pur e alcohol) on weekends Comments No Sex and Gender Information Value Date Recorded Sex Assigned at Not on file Legal Sex Female 7:10 AM OCCUPATIONAL HEALTH SPECIALIST Gender Identity Not on file Sexual Orientation Not on file documented as of this encounter Plan of Treatment Not on file documented as of this encounter Results * XR RIBS UNILATERAL LEFT W PA CHEST (08/28/2018 12:52 PM OCCUPATIONAL HEALTH SPECIALIST) Anatomical Region Laterality Modality Chest Computed Radiogr aphy 08/28/2018 12:5 2 PM OCCUPATIONAL HEALTH SPECIALIST Impressions 08/28/2018 1:04 PM OCCUPATIONAL HEALTH SPECIALIST IMPRESSION: Please see below. Exam: XR RIBS UNILATERAL LEFT W PA CHEST Date/Time of Exam: 08/28/2018 12:52 PM Reason For Exam: See Diagnosis. Diagnosis: Pleurodynia. Findings: The lungs are hyperexpanded. No pneumothorax or effusion is seen. Mild reticular scarring appears unchanged since April 19, 2012. The paraspinal tissues appear normal. No rib lesions are seen. IMPRESSION: Hyperexpansion and mild reticular scarring. No left chest wall lesions are appreciated. Narrative Procedure Note Varun Jacobo MD - 08/28/2018 IMPRESSION: Please see below. Exam: XR RIBS UNILATERAL LEFT W PA CHEST Date/Time of Exam: 08/28/2018 12:52 PM Reason For Exam: See Diagnosis. Diagnosis: Pleurodynia. Findings: The lungs are hyperexpanded. No pneumothorax or effusion is seen. Mild reticular scarring appears unchanged since April 19, 2012. The paraspinal tissues appear normal. No rib lesions are seen. IMPRESSION: Hyperexpansion and mild reticular scarring. No left chest wall lesions are appreciated. Janie Moreau PRACTICING UROLOGIST DIAGNOSTIC IMAGING ORDERABLES F inal Result documented in this encounter Visit Diagnoses Diagnosis Pleurodynia Painful respiration Pleurodynia Painful respiration documented in this encounter Care Teams Block Splitter Operator Relationship Specialty Start Date End Date Non-Staff, Physician NO ADDRESS ON FILE PCP - General 08/28/18 documented as of this encounter
--- OUTSIDE RECORDS SUMMARY | 2025-04-21 16:53 | XMS_ITS | Encounter Summary ---
Author Organization [facility] Address [address] Attn: Epic Prelude ADT [place] [address] Care Team Providers Care Central Service Tech Name Role Phone Non-Staff, Physician Primary Care Provider Unava ilable Encounter Details Date Type Department Care Team (Late st Contact Info) Description 09/28/2008 Outpatient Historical Rick Wilson DO NO ADDRESS ON FILE Social History Tobacco Use Types Packs/Day Years Used Date Smoking Tobacco: Never Assessed Comments Unknown Sex and Gender Information Value Date Recorded Sex Assigned at Not on file Legal Sex Female 7:10 AM LOCK MAINTENANCE SUPERVISOR Gender Identity Not on file Sexual Orientation Not on file documented as of this encounter Plan of Treatment Not on file documented as of this encounter Procedures Procedure Name Priority Date/Time Associated Diagnosis Comments LYME AB IGG/IGM Routine 09/28/2008 9:30 PM LOCK MAINTENANCE SUPERVISOR RHEUMATOID FACTOR Routine 09/28/2008 9:3 0 PM LOCK MAINTENANCE SUPERVISOR REGINALD SCREEN W/REFLEX Routine 09/28/2008 9 :30 PM LOCK MAINTENANCE SUPERVISOR documented in this encounter Results * LYME AB IGG/IGM (09/28/2008 9:30 PM LOCK MAINTENANCE SUPERVISOR) LYME ANTIBODY (EIA) See Sep Report [facility] Blood specimen (specimen) 09/28/2008 9:30 PM LOCK MAINTENANCE SUPERVISOR 09/30/2008 9:50 AM LOCK MAINTENANCE SUPERVISOR us Rick Wilson DO CHEMISTRY ORDERABLES COM Final Result INTERFACE SYSTEM Refer to clinic/hospital department [facility] CLIA# [id number] [address] [place] [address] * RHEUMATOID FACTOR (09/28/2008 9:30 PM LOCK MAINTENANCE SUPERVISOR) RHEUMATOID FACTOR See Sep Report [facility] Blood specimen (specimen) 09/28/2008 9:30 PM LOCK MAINTENANCE SUPERVISOR 09/30/2008 9:50 AM LOCK MAINTENANCE SUPERVISOR us Rick Wilson DO CHEMISTRY ORDERABLES Final Resu lt Performing Organization Address City[facility] Phone Number INTERFACE SYSTEM Refer to clinic/hospital department [facility] CLIA# [id number] [address] [place] [address] * REGINALD (09/28/2008 9:30 PM LOCK MAINTENANCE SUPERVISOR) REGINALD Negative Negative [facility] Blood specimen (specimen) 09/28/2008 9:30 PM LOCK MAINTENANCE SUPERVISOR 09/29/2008 9:39 PM LOCK MAINTENANCE SUPERVISOR us Rick Wilson DO CHEMISTRY ORDERABLES Final Resu lt Performing Organization Address [facility] de Phone Number INTERFACE SYSTEM Refer to clinic/hospital department [facility] CLIA# [id number] [address] [place] [address] documented in this encounter Visit Diagnoses Not on filedocumented in this encounter Care Teams Central Service Tech Relationship Specialty Start Date End Date Non-Staff, Physician NO ADDRESS ON FILE PCP - General 08/28/18 documented as of this encounter
[2025-04-21 17:18] VITALS: PULSE 98; RESP 18; O2SAT 95
[2025-04-21 17:24] LABS: ABG PCO2 50.0 mmHg (35-45); ABG PH Result 7.41 (7.35-7.45); Alveolar-Arterial Oxygen Gradi 11.2 mmHg (5-10); Arterial Blood Gas Hematocrit 51.4 % (37-47); Blood Gas Allen Test Pos; Blood Gas LPM 3.0 %; Blood Gas Operator Identificat glc; Blood Gas Sample Site Radial, left; Blood Gas Sample Type Arterial; Carboxyhemoglobin 4.5 %THgb (0.4-20.1); Glucose Level-ABG 143.0 mg/dL (70-115); HCO3 ABG 31.9 mmol/L (22-26); Ionized Calcium Level - ABG 1.2 mmol/L (1.1-1.4); Methemoglobin 0.0 % (0.4-1.5); Oxygen Saturation ABG 96.8; PO2 ABG 80.4 mmHg (80.0-100.0); PO2 FiO2 Ratio Arterial Blood 251; Potassium Level - ABG 4.2 mmol/L (3.5-5.0); Sodium Level - ABG 141.0 mmol/L (131-143)
[2025-04-21 17:25] LABS: Hematocrit 49.7 % (36-47); Hemoglobin 16.20 g/dL (11.27-16.99); Mean Corpuscular HGB Conc 32.6 g/dL (30-55); Mean Corpuscular Hemoglobin 29.9 pg (27-33); Mean Corpuscular Volume 91.7 fl (85-98); Nucleated Red Blood Cells % 0 %; Platelet Count 323 10^3/cmm (157-399); Red Blood Count 5.42 10^6/uL (3.85-5.65); White Blood Count 10.49 10^3/uL (3.29-11.43)
[2025-04-21 18:00] LABS: Troponin(5th) Baseline 10 ng/L (0-10)
[2025-04-21 18:03] LABS: Alanine Aminotransferase 29 U/L (0-33); Albumin Level 4.7 g/dL (3.5-5.2); Alkaline Phosphatase 72 U/L (35-105); Anion Gap 20.4 (5-19); Aspartate Amino Transferase 22 U/L (0-32); Blood Urea Nitrogen 13 mg/dL (8-23); Calcium 10.0 mg/dL (8.5-10.5); Carbon Dioxide 26 mmol/L (22-29); Chloride 98 mmol/L (98-107); Creatinine Clr Calc Pharmacy 36.6472; Globulin 2.4 g/dL (1.3-4.6); Glucose 140 mg/dL (65-115); Osmolality Calculated 292 mOsm/kg (285-295); Potassium 4.4 mmol/L (3.5-5.1); Sodium 140 mmol/L (136-145); Total Protein 7.1 g/dL (6.6-8.7)
[2025-04-21 18:30] VITALS: BP 101/65; PULSE 107; O2SAT 95
--- NOTE | 2025-04-21 18:37 | USCV_ITS ---
Martha Damico Age: 65 Gender: F : 1960 Exam Date: 04/21/2025 19:18 Ordering Phys: Greg Gonzalez MD Technologist: CHANI Exam Location: [facility] Indication: chf, sob, wheezing, sats 83% BP: 101 / 65 HR: 90 Rhythm: Sinus Technical Quality: Adequate MEASUREMENTS (Male / Female) Normal Values 2D ECHO LV Diastolic Diameter PLAX 3.0 cm 4.2 - 5.9 / 3.9 - 5.3 cm IVS Diastolic Thickness 0.7 cm 0.6 - 1.0 / 0.6 - 0.9 cm IVS Systolic Thickness 1.0 cm LVPW Diastolic Thickness 0.9 cm 0.6 - 1.0 / 0.6 - 0.9 cm LVPW Systolic Thickness 1.1 cm LVOT Diameter 1.3 cm LV Ejection Fraction 2D Teich 59.8 % LV Ejection Fraction MOD 4C 67.4 % LV Ejection Fraction MOD 2C 76.5 % LV Ejection Fraction 2C AL 76.9 % LA Diameter 1.9 cm Aorta at Sinotubular Diameter 2.6 cm IVC Diameter 1.1 cm M-MODE LA Ao Ratio MM 0.7 AV Cusp Separation MM 1.5 cm DOPPLER AV Peak Velocity 121.0 cm/s LVOT Peak Velocity 70.0 cm/s AV Area Cont Eq vti 0.8 cm squared AV Area Cont Eq pk 0.7 cm squared MV Peak Velocity 136.0 cm/s MV Area PHT 5.4 cm squared Mitral E to A Ratio 1.0 TV Peak E Velocity 42.0 cm/s PV Peak Velocity 105.0 cm/s FINDINGS Left Ventricle Normal left ventricular size, systolic function and wall thickness, with no regional wall motion abnormalities. Left ventricular ejection fraction is estimated at 55 %. Grade I/IV diastolic dysfunction (abnormal relaxation filling pattern), normal to mildly elevated filling pressures. Right Ventricle The right ventricle is normal in size and function. Right Atrium The right atrium is normal in size. Left Atrium The left atrium is normal in size. Mitral Valve Structurally normal mitral valve without significant stenosis or prolapse. There is no mitral regurgitation. Aortic Valve Structurally normal aortic valve without significant sclerosis or stenosis. There is no aortic regurgitation. Tricuspid Valve Mild tricuspid valve regurgitation. Pulmonic Valve Structurally normal pulmonic valve without significant stenosis. There is no pulmonic regurgitation. Pericardium Normal pericardium without effusion. Aorta Normal ascending aorta dimension. IVC The inferior vena cava appears normal. CONCLUSIONS Normal left ventricular size, systolic function and wall thickness, with no regional wall motion abnormalities. Left ventricular ejection fraction is estimated at 55 %. Grade I/IV diastolic dysfunction (abnormal relaxation filling pattern), normal to mildly elevated filling pressures. Mild tricuspid valve regurgitation. There is no pericardial effusion. Right atrial pressure is around 5 mm of mercury. Luther Livingston MD (Electronically Signed) Final Date: 24 April 2025 21:01 S
--- NOTE | 2025-04-21 18:51 | ECG_ITS ---
[facility] Test Date: 2025-04-21 Pat Name: Martha Damico Department: Room: Gender: Female Unit Support Representative: : 1960 Requested By: Blair Walls Order Number: [id number] Reading MD: Measurements Intervals [place] Rate: 101 P: 26 CO: 109 QRS: 80 QRSD: 77 T: 50 QT: 326 QTc: 423 Interpretive Statements SINUS TACHYCARDIA WITH SHORT CO INTERVAL ABNORMAL RHYTHM ECG [email or web address]
[2025-04-21 20:09] VITALS: BP 109/61; PULSE 102; RESP 19; O2SAT 96
[2025-04-21] MEDS: heparin 5,000 unit/mL INJ 1 mL 5000 UNIT SUBCUT (21:00)
[2025-04-21 21:07] VITALS: BMI 14.6
[2025-04-21 21:11] LABS: Estmated Average Glucose 123; Hemoglobin A1C 5.9 % (4.0-6.0)
[2025-04-21 21:18] LABS: NT Pro B Type Natriuretic Pept 123 pg/mL (0-125); Procalcitonin 0.08 ng/mL (0-0.5); Thyroid Stimulating Hormone 3.37 uIU/mL (0.27-4.20)
--- NOTE | 2025-04-21 21:45 | PM.HP ---
Providers/Chief Complaint Admitting Physician: Greg Gonzalez MD Primary Care Provider: Bakari Gan MD Chief Complaint: SOB History of Present Illness Martha Damico is a 65 year old female with past medical history of emphysema, COPD, chronically maintained on budesonide/formoterol inhaler who presented to the hospital with complaints of increasing shortness of breath over the past several months. [facility] and has had increasing difficulty going up and down the stairs. After climbing 1 flight of stairs she has to stop and rest for several hours and this has continued to deteriorate over the past many months. Denies any chest pain with activity. She typically takes budesonide/formoterol 160/4.5 inhaler at home and has been using it on a as needed basis in addition to scheduled daily dosing without much change. States she also has albuterol for nebulization but taking increasing doses does not appear to have helped much. She states that she felt a panic attack come on today as she was unable to breathe after minimal exertion at home. EMS found her to have an O2 sat of 83% on room air and she was brought to the emergency room. She has not had a PFT in several years. Review of system is positive for a 20 pound weight loss over the past 1 year. She reports dysphagia with a sensation of solid food sticking in her throat and upper part of her chest. She states she has to drink liquids to push food boluses down. This seems to be getting worse over the past year. States she has no appetite and has been unable to eat much. She is mostly relying on protein shakes and has added high-calorie [id number] to her drinks but is worried that she is unable to put on weight. Her BMI is 14.8. She denies any current smoking. Review of Systems General: Reports: 10 or more systems reviewed and unremarkable except in HPI and below Const: Denies: fever(s), chills or body aches Eyes: Denies: change in vision, blurry vision or photophobia ENMT: Reports: hoarseness; Denies: throat pain, enlarged tonsils, odynophagia or nasal congestion Card: Denies: chest pain, palpitations, irregular heart rhythm, edema, swelling of feet/ankles, lightheadedness, pre-syncope, dyspnea on exertion or orthopnea Resp: Denies: dyspnea, productive cough, non-productive cough, wheezing, stridor, pain on inspiration, change in phlegm color, hemoptysis or chest congestion GI: Denies: abdominal pain, nausea, vomiting, hematemesis, coffee ground emesis, dysphagia, heartburn, diarrhea, constipation, GI cramping, change in stool character, hematochezia or melena : Denies: flank pain, difficulty voiding, dysuria, urinary frequency, urinary urgency, urinary hesitancy or hematuria Musc: Denies: neck pain, back pain, extremity pain, joint swelling, joint warmth or deformity Neuro: Denies: headache(s), numbness in extremities, weakness in extremities, sensory changes, difficulty walking, frequent falls, dizziness, vertigo, behavioral changes, Slurred speech present or seizure-like activity Psych: Denies: anxiety, depression, suicidal ideation or homicidal ideation Endo: Denies: polyuria, polydipsia, tired all the time, cold intolerance or hot flashes Nate/Lymph: Denies: easy bruising or easy bleeding Medications/Allergies Home Medications ?Medication ?Instructions ?Recorded ?Confirmed ?Last Taken ?Type budesonide-formoterol HFA 160 2 puff inhalation BID 03/18/21 06/28/23 Unknown History mcg-4.5 mcg/actuation aerosol inhaler (Symbicort) multivitamin 1 tab PO DAILY 04/11/22 06/28/23 Unknown History acetaminophen 325 mg tablet 325 mg PO QID PRN 05/18/22 06/28/23 Unknown History Allergies Allergy/AdvReac Type Severity Reaction Status Date / Time diphenhydramine (From Allergy Unknown Verified 06/28/23 11:31 Benadryl) PFSH Acute PFSH: Medical History Chest pain COPD (chronic obstructive pulmonary disease) Afib PTSD (post-traumatic stress disorder) Tobacco use Family History Mother Dementia Lung disease Cancer Sister Dementia Diabetes Cancer Father Lung disease Cancer Family/Other Stroke Brother Cancer Social History Smoking and tobacco/nicotine status: former use of tobacco/nicotine Quit status (tobacco/nicotine): has quit using Year quit tobacco: 15 months ago Former quit date comment: 1 pack per day x 52 years Second hand smoke exposure: Yes Alcohol intake: current Alcohol intake frequency: 3 or more drinks per day Vitals/I&O/Wt Last Vital Signs Temp 97.8 F 04/22/25 00:08 Pulse 70 04/22/25 00:08 Resp 17 04/22/25 00:08 BP 104/68 04/22/25 00:08 Pulse Ox 93 04/22/25 00:08 O2 Del Method Nasal Cannula 04/21/25 21:07 O2 Flow Rate 3 04/21/25 18:30 04/21/25 04/21/25 04/22/25 14:59 22:59 06:59 Intake Total 240 / 240 Balance 240 / 240 Weight last 48 hrs Weight 34.019 kg Weight 34.019 kg Physical Exam Narrative: General: No acute distress, AO x3 HEENT: PERRLA, pupils bilaterally equal and reactive, pallors not present Chest: Normal vesicular breath sounds, no added sounds, equal good air entry bilaterally CVS: S1-S2 regular, no murmurs, no tachycardia, no gallops, no rubs Abdomen: Soft, nontender, no organomegaly, bowel sounds present Neuro: No focal deficits, no facial deformity, AO x3, power 5/5 in all limbs Extremities: No edema clubbing or cyanosis Data 04/22/25 00:46 04/22/25 00:46 Other Labs: Ordering Provider/Ordering MD: Blair Simons DO Date of Service: 04/21/25 Procedure(s): XR chest 1V portable [id number] Accession Number(s): [id number] Report Number: [id number] PROCEDURE INFORMATION: Exam: XR Chest Exam date and time: 04/21/2025 4:53 PM Age: 65 years old Clinical indication: Shortness of breath; Additional info: Dyspnea/cough TECHNIQUE: Imaging protocol: Radiologic exam of the chest. Views: 1 view. COMPARISON: CT chest abdpel w/*[id number] 05/08/2023 3:27 PM FINDINGS: Lungs: Lung volumes are large and there is attenuation of interstitial markings in the upper lungs consistent with centrilobular emphysema. There is no consolidation. Pleural spaces: There is no pleural effusion or pneumothorax. Heart/Mediastinum: Cardiomediastinal contours are unremarkable. Bones/joints: Bones are unremarkable. XR/XR chest 1V portable [id number] IMPRESSION: 1. No acute findings. 2. Emphysema. A&P Assessment and plan 1. Exertional shortness of breath: 2. Dysphagia: 3. Acute exacerbation of chronic obstructive airways disease: Plan: 65-year-old lady with a past medical history of emphysema, maintained on Symbicort inhaler for now, presenting with worsening shortness of breath over the past several months, typically with exertion. Patient states she does not typically measure oxygen at home, more recently she was found to have O2 sat of 83% when EMS picked her up. She states she has been using her current inhalers with increasing frequency and also using nebulizers without any significant change at home. She denies any chest pain. Guirgius mild wheezing to auscultation bilaterally today. Clinically appears to be related to COPD exacerbation. Suspect that patient's COPD has been getting worse at home over the years, she has not had a PFT in several years for objective evaluation. Will start her on a short course of steroids with methylprednisolone 40 mg IV every 8 hours duoneb q6h, budesonide q12h scheduled inhalation Chest x-ray is negative for any consolidation. Patient quit smoking 4 years ago. Her inhalers were likely to be optimized prior to discharge She would like meds to beds when ready. # Additionally reporting dysphagia which has worsened over the past 6 to 7 months. She states she has had a 20 pound weight loss over the last 1 year. Current BMI is at 14.8. Reports a feeling of solid food boluses sticking in her throat and upper chest with patient needing to drink liquids to push food down . She has noted the need to clear her throat several times when eating. Additionally reports hoarseness of voice which appears to be relatively new. With her history of smoking and the above symptoms concerned about potential malignancy may be underlying. Check CT of the neck, modified barium swallow and CT chest. Per review of prior CT chest abdomen and pelvis from 2022, patient does not have any known chest malignancy. CT of the abdomen and pelvis at that time had incidentally revealed a common iliac stenosis however she had no lower extremity claudication or other symptoms therefore no intervention was indicated at the time. PDMP PDMP Reviewed: Not Reviewed Attestations Medical Necessity Statement*: Less than 2 midnight stay is currently anticipated Coding Level of Care Code Acute Code for Chg Fwd Moderate MDM includes number and complexity of problems actively addressed during encounter, amount and/or complexity of data reviewed/ordered and described risk of complication, morbidity or mortality of management as documented Diagnoses Exertional shortness of breath R06.02 Dysphagia R13.10 Acute exacerbation of chronic obstructive airways disease J44.1
[2025-04-21 21:49] VITALS: BP 102/63; PULSE 62; RESP 17; TEMP 36.6; O2SAT 92
[2025-04-21] MEDS: methylPREDNISolone sod succ 40 mg/mL INJ IVP (22:09)
[2025-04-21 22:47] VITALS: PULSE 90
[2025-04-21 23:03] LABS: Lactic Sepsis W/Reflex 2.6 mmol/L (0.5-2.2); Troponin 5 2HR 7.11 ng/L (0-10)
[2025-04-21 23:11] LABS: Troponin 5 2HR Delta -2.89 ABS# (0-10)
[2025-04-21 23:30] LABS: Total Iron Binding Capacity 284 mcg/dl; Unsaturated Iron Binding 246 ug/dL (112-347)
[2025-04-21 23:34] LABS: MRSA PCR OZH (swab) NOT DETECTED (Not Detecte)
[2025-04-21 23:46] LABS: Vitamin B12 509 pg/mL (232-1245)
[2025-04-21 23:58] LABS: Iron 38 ug/dL (37-145)
[2025-04-22] VITALS (15 sets, daily range): BP systolic 95–107; BP diastolic 62–72; PULSE 68–99; RESP 15–18; TEMP 36.4–36.8; O2SAT 89–97
[2025-04-22 00:12] LABS: Reflex Lactate Order REFLEX LACTIC ORDERD
--- NOTE | 2025-04-22 00:30 | FL_ITS ---
WS: [id number] Modified barium swallow, 04/22/2025 Clinical Data: Other dysphagia Comparison: None. Fluoroscopy time: 2min [id number] # of spot films: 0 Findings: The patient swallowed the barium with a good oral preparation. There is minimal spill from the oral contents and there is a small amount of residual in the hypopharynx. This cleared on swallowing. There is no aspiration or penetration. The patient needed additional oral liquid material to propel the barium tablet from the oral pharynx into the hypopharynx. The tablet then hesitated in the upper third of the esophagus until more oral liquid could propel it into the stomach. FL/FL barium swallow modifd [id number] Impression: 1. Minimal oral contents spill with small amount of residual in the hypopharynx . 2. No aspiration or penetration. 3. Delay in propelling barium tablet with poor motility of the of the esophagus . Note that the time stamp on the examination of 03/29/2025 is incorrect. The exam ination occurred on 04/22/2025
--- NOTE | 2025-04-22 00:32 | CT_ITS ---
WS: [id number] CT NECK WITH CONTRAST HISTORY: dysphagia, weight loss TECHNIQUE: Contiguous 2 mm axial images are performed through the neck with intravenous contrast. Sagittal and coronal reformats are also submitted. All CT scans at [facility] use at least one of these dose optimization techniques: automated exposure control; mA and/or kV adjustment per patient size (includes targeted exams where dose is matched to clinical indication); or iterative reconstruction. CONTRAST: CONTRAST: Omnipaque 350; 100 mL IV. DLP: 154.34 mGy.cm COMPARISON: None available. Nasopharynx, oropharynx, hypopharynx and larynx are unremarkable. No soft tissue masses or abnormal enhancement. Very tiny amount of increased enhancement but no mass of the uvular tip. No tracheal stenosis. Normal epiglottis. Torus tubarius and fossa of Rosenmuller and parapharyngeal fat are normal. No significant lymphadenopathy is identified. Thyroid gland and salivary glands are normally enhancing with no masses. Moderate degenerative disc disease in the mid cervical spine. C3 anterolisthesis by 5 mm. Severe degenerative disc space narrowing at C5-6 and C6-7 with hypertrophic osteophytes. Visualized portions of the skull base demonstrate no abnormalities. Orbits and globes are within normal limits. No soft tissue masses. Visualized paranasal sinuses and mastoid air cells are normal. Severe emphysematous changes at the lung apices. CT/CT neck w con* [id number] IMPRESSION: 1. No neck mass identified. 2. No tracheal stenosis. 3. No cervical chain lymphadenopathy. 4. Advanced degenerative disc disease in the mid cervical spine, most signific ant at C5-6 and C6-7. 5. C3 anterolisthesis by 5 mm.
[2025-04-22 01:08] LABS: Hematocrit 45.8 % (36-47); Hemoglobin 15.10 g/dL (11.27-16.99); Mean Corpuscular HGB Conc 33.0 g/dL (30-55); Mean Corpuscular Hemoglobin 30.4 pg (27-33); Mean Corpuscular Volume 92.3 fl (85-98); Nucleated Red Blood Cells % 0 %; Platelet Count 295 10^3/cmm (157-399); Red Blood Count 4.96 10^6/uL (3.85-5.65); White Blood Count 6.39 10^3/uL (3.29-11.43)
--- NOTE | 2025-04-22 01:23 | ECG_ITS ---
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
[2025-04-22 01:46] LABS: Alanine Aminotransferase 33 U/L (0-33); Albumin Level 4.3 g/dL (3.5-5.2); Alkaline Phosphatase 67 U/L (35-105); Anion Gap 18.2 (5-19); Aspartate Amino Transferase 22 U/L (0-32); Blood Urea Nitrogen 16 mg/dL (8-23); Calcium 9.4 mg/dL (8.5-10.5); Carbon Dioxide 27 mmol/L (22-29); Chloride 98 mmol/L (98-107); Creatinine Clr Calc Pharmacy 36.6472; Globulin 2.6 g/dL (1.3-4.6); Glucose 311 mg/dL (65-115); Magnesium 2.1 mg/dL (1.7-2.3); Osmolality Calculated 301 mOsm/kg (285-295); Potassium 4.2 mmol/L (3.5-5.1); Sodium 139 mmol/L (136-145); Total Protein 6.9 g/dL (6.6-8.7)
[2025-04-22 01:47] LABS: Cholesterol 167 mg/dL (0-200); HDL Cholesterol 81 mg/dL (60-100); Triglycerides 44 mg/dL (0-150); Troponin 5 6HR 6.44 ng/L (0-10)
[2025-04-22 01:48] LABS: Troponin 5 6HR Delta -3.56 ng/L (0-12)
[2025-04-22 01:52] LABS: Procalcitonin 0.07 ng/mL (0-0.5)
[2025-04-22 02:08] LABS: Lactic Acid level (Lactate) 4.0 mmol/L (0.5-2.2)
[2025-04-22] MEDS: methylPREDNISolone sod succ 40 mg/mL INJ IVP ×2 (04:29→16:14)
--- NOTE | 2025-04-22 05:18 | CT_ITS ---
WS: [id number] CT chest w con* [id number] HISTORY: dysphagia TECHNIQUE: Axial imaging performed through the thorax. Coronal and sagittal reformats are submitted. All CT scans at [facility] use at least one of these dose optimization techniques: automated exposure control; mA and/or kV adjustment per patient size (includes targeted exams where dose is matched to clinical indication); or iterative reconstruction. CONTRAST: Omnipaque 350; 100 mL IV. DLP: 197.20 mGy.cm COMPARISON: 05/08/2023 Lungs and central airway: Advanced emphysema with hyperinflation. No pulmonary mass or nodule. Linear scarring at the lung bases. Pleura: Normal. No pleural effusion. Heart and pericardium: Normal size heart with no pericardial effusion. Mediastinum and karina: No mediastinum or hilar adenopathy. Vessels: Minimal atherosclerosis aorta. Normal size pulmonary artery. Chest wall and lower neck: No soft tissue masses. Upper abdomen: Stable well-circumscribed LEFT adrenal mass measuring 12 x 14 mm with no change in size since 05/08/2023 RIGHT adrenal gland is negative. Visualized liver is negative. Suprarenal aortic calcifications. Osseous structures: No destructive process. CT/CT chest w con* [id number] IMPRESSION: 1. Advanced centrilobular emphysema. Marked hyperinflation of the lungs. 2. No mediastinal or hilar adenopathy. No mass at the AP window identified nikki t would contact the recurrent laryngeal nerve. 3. Mild atherosclerosis aorta. 4. Stable LEFT adrenal mass.
--- NOTE | 2025-04-22 07:01 | PC.PHAR ---
Pt uses a Symbicort inhaler and Albuterol for her nebulizer.
[2025-04-22] MEDS: heparin 5,000 unit/mL INJ 1 mL 5000 UNIT SUBCUT ×2 (08:21→20:16)
[2025-04-22] MEDS: iohexol 350 mg/mL 500 mL Btl (per mL) IV (10:17)
--- NOTE | 2025-04-22 11:21 | P.PN_ITS ---
Subjective 2 Subjective: Admitted overnight. Currently on 2 L. Denies any nausea, ting, headache. States feeling slightly better. Vitals/I&O/Wt Last Vital Signs Temp 97.8 F 04/22/25 07:20 Pulse 87 04/22/25 08:07 Resp 16 04/22/25 08:07 BP 106/72 04/22/25 07:20 Pulse Ox 93 04/22/25 08:07 O2 Del Method Nasal Cannula 04/22/25 08:07 O2 Flow Rate 2 04/22/25 08:07 FiO2 28 04/22/25 01:43 04/21/25 04/22/25 04/22/25 22:59 06:59 14:59 Intake Total 240 / 240 240 / 480 300 / 300 Balance 240 / 240 240 / 480 300 / 300 Weight last 48 hrs Weight 34.473 kg Weight 34.019 kg Weight 34.019 kg Physical Exam 2 Narrative: General: No acute distress, AO x3 HEENT: PERRLA, pupils bilaterally equal and reactive, pallors not present Chest: Normal vesicular breath sounds, no added sounds, equal good air entry bilaterally CVS: S1-S2 regular, no murmurs, no tachycardia, no gallops, no rubs Abdomen: Soft, nontender, no organomegaly, bowel sounds present Neuro: No focal deficits, no facial deformity, AO x3, power 5/5 in all limbs Extremities: No edema clubbing or cyanosis Data 04/23/25 04:20 04/23/25 04:20 Micro: Microbiology 04/22/25 06:30 Bacterial Antigens - Final Urine Kidney A&P Assessment and plan 1. Exertional shortness of breath: 2. Dysphagia: 3. Acute exacerbation of chronic obstructive airways disease: Plan: 65-year-old lady with a past medical history of emphysema, maintained on Symbicort inhaler for now, presenting with worsening shortness of breath over the past several months, typically with exertion. Patient states she does not typically measure oxygen at home, more recently she was found to have O2 sat of 83% when EMS picked her up. She states she has been using her current inhalers with increasing frequency and also using nebulizers without any significant change at home. She denies any chest pain. Guirgius mild wheezing to auscultation bilaterally today. Clinically appears to be related to COPD exacerbation. Suspect that patient's COPD has been getting worse at home over the years, she has not had a PFT in several years for objective evaluation. Will start her on a short course of steroids with methylprednisolone 40 mg IV every 8 hours duoneb q6h, budesonide q12h scheduled inhalation Chest x-ray is negative for any consolidation. Patient quit smoking 4 years ago. Her inhalers were likely to be optimized prior to discharge She would like meds to beds when ready. # Additionally reporting dysphagia which has worsened over the past 6 to 7 months. She states she has had a 20 pound weight loss over the last 1 year. Current BMI is at 14.8. Reports a feeling of solid food boluses sticking in her throat and upper chest with patient needing to drink liquids to push food down . She has noted the need to clear her throat several times when eating. Additionally reports hoarseness of voice which appears to be relatively new. With her history of smoking and the above symptoms concerned about potential malignancy may be underlying. Check CT of the neck, modified barium swallow and CT chest. Per review of prior CT chest abdomen and pelvis from 2022, patient does not have any known chest malignancy. CT of the abdomen and pelvis at that time had incidentally revealed a common iliac stenosis however she had no lower extremity claudication or other symptoms therefore no intervention was indicated at the time. Plan for the day: Continue with oxygen supplementation keeping saturation over 88%. Continue with current dose of Solu-Medrol every 8 hour. Nebulization treatment. Appreciate CT neck and chest. Diet modified as per speech evaluation. Will plan for barium swallow for further evaluation with concerns for history of throat cancer and dysphagia. PDMP PDMP Reviewed: Not Reviewed Attestations 2 Medical Necessity Statement*: Requires further hospitalization for management of hypoxia in setting of COPD exacerbation, anorexia Diagnoses Exertional shortness of breath R06.02 Dysphagia R13.10 Acute exacerbation of chronic obstructive airways disease J44.1
[2025-04-23] VITALS (9 sets, daily range): BP systolic 96–110; BP diastolic 54–65; PULSE 73–99; RESP 16–18; TEMP 36.5–36.8; O2SAT 80–93
[2025-04-23] MEDS: methylPREDNISolone sod succ 40 mg/mL INJ IVP (04:10)
[2025-04-23 05:36] LABS: Hematocrit 40.5 % (36-47); Hemoglobin 13.70 g/dL (11.27-16.99); Mean Corpuscular HGB Conc 33.8 g/dL (30-55); Mean Corpuscular Hemoglobin 30.9 pg (27-33); Mean Corpuscular Volume 91.4 fl (85-98); Nucleated Red Blood Cells % 0 %; Platelet Count 292 10^3/cmm (157-399); Red Blood Count 4.43 10^6/uL (3.85-5.65); White Blood Count 13.32 10^3/uL (3.29-11.43)
[2025-04-23 05:48] LABS: Alanine Aminotransferase 58 U/L (0-33); Albumin Level 3.9 g/dL (3.5-5.2); Alkaline Phosphatase 62 U/L (35-105); Anion Gap 13.2 (5-19); Aspartate Amino Transferase 29 U/L (0-32); Blood Urea Nitrogen 11 mg/dL (8-23); Calcium 8.9 mg/dL (8.5-10.5); Carbon Dioxide 30 mmol/L (22-29); Chloride 101 mmol/L (98-107); Creatinine Clr Calc Pharmacy 37.6254; Globulin 2.4 g/dL (1.3-4.6); Glucose 103 mg/dL (65-115); Magnesium 2.2 mg/dL (1.7-2.3); Osmolality Calculated 290 mOsm/kg (285-295); Potassium 4.2 mmol/L (3.5-5.1); Sodium 140 mmol/L (136-145); Total Protein 6.3 g/dL (6.6-8.7)
--- NOTE | 2025-04-23 08:00 | FL_ITS ---
WS: [id number] Barium swallow and esophagram, 04/23/2025 Clinical Data: concern for dysphagia Comparison: None. Fluoroscopy time: 1min [id number] # of spot films: 6 Findings: The patient swallowed the thick and thin barium, and it flowed through the hypopharynx without hesitation. No stricture, mass, polyp or erosion was seen. There is osteoarthritis of the C4-C7 vertebral bodies which impinges onto the posterior hypopharynx. No aspiration or penetration is seen. The barium entered the esophagus and there was poor motility throughout. No hiatal hernia, reflux, stricture, polyp, mass, erosion or ulcer was noted. The barium passed normally into the stomach. FL/FL barium swallow [id number] Impression: 1. 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 2. Poor motility of the esophagus.
[2025-04-23] MEDS: heparin 5,000 unit/mL INJ 1 mL 5000 UNIT SUBCUT (08:06)
--- NOTE | 2025-04-23 09:15 | P.DS_ITS ---
Discharge Providers Date of Admission: 04/21/25 17:44 Date of Discharge: April 23, 2025 Attending Provider at Admission: Greg Gonzalez MD Attending Provider at Discharge: Greg Gonzalez MD Primary Care Provider: Bakari Gan MD Diagnoses at Discharge Discharge Diagnosis 1. Exertional shortness of breath: 2. Dysphagia: 3. Acute exacerbation of chronic obstructive airways disease: Reason for Visit Reason for Visit: SOB Brief History: As per HPI Martha Damico is a 65 year old female with past medical history of emphysema, COPD, chronically maintained on budesonide/formoterol inhaler who presented to the hospital with complaints of increasing shortness of breath over the past several months. Patient states that [facility] and has had increasing difficulty going up and down the stairs. After climbing 1 flight of stairs she has to stop and rest for several hours and this has continued to deteriorate over the past many months. Denies any chest pain with activity. She typically takes budesonide/formoterol 160/4.5 inhaler at home and has been using it on a as needed basis in addition to scheduled daily dosing without much change. States she also has albuterol for nebulization but taking increasing doses does not appear to have helped much. She states that she felt a panic attack come on today as she was unable to breathe after minimal exertion at home. EMS found her to have an O2 sat of 83% on room air and she was brought to the emergency room. She has not had a PFT in several years. Review of system is positive for a 20 pound weight loss over the past 1 year. She reports dysphagia with a sensation of solid food sticking in her throat and upper part of her chest. She states she has to drink liquids to push food boluses down. This seems to be getting worse over the past year. States she has no appetite and has been unable to eat much. She is mostly relying on protein shakes and has added high-calorie [id number] to her drinks but is worried that she is unable to put on weight. Her BMI is 14.8. She denies any current smoking. Hospital Course Hospital Course Patient was admitted to the hospital for evaluation and management of hypoxia in setting of COPD exacerbation. Given concern for anorexia, weight loss within last 1 year with significant family history of throat cancer she underwent further studies with CT neck, barium swallow which were negative for any acute abnormality other than decreased motility of the esophagus. She was seen by speech therapy and diet was modified accordingly. She has been discharged in medically stable condition after home oxygen evaluation with advised to continue with nebulizing treatment with ipratropium and albuterol every 8 hours, albuterol rescue inhaler as needed for next 2 weeks after which she is to stop her nebulization treatment and restart Symbicort. She is also discharged on steroid taper. Physical Exam Narrative: General: No acute distress, AO x3 HEENT: PERRLA, pupils bilaterally equal and reactive, pallors not present Chest: Normal vesicular breath sounds, no added sounds, equal good air entry bilaterally CVS: S1-S2 regular, no murmurs, no tachycardia, no gallops, no rubs Abdomen: Soft, nontender, no organomegaly, bowel sounds present Neuro: No focal deficits, no facial deformity, AO x3, power 5/5 in all limbs Extremities: No edema clubbing or cyanosis Discharge Data Studies Completed and Pending Completed Studies During Hospitalization Category Date Time Status CT chest w con* [id number] Routine Cat Scan 04/22/25 05:[address] neck w con* [id number] Routine Cat Scan 04/22/25 00:32 Completed FL barium swallow [id number] Routine Exams 04/23/25 08:00 Completed FL barium swallow modifd [id number] Routine Exams 04/22/25 00:30 Completed XR chest 1V portable [id number] Stat Exams 04/21/25 16:50 Completed Pending at discharge Category Date Time Status Complete Blood Count w/Auto AM LABS Lab 04/24/25 04:00 Ordered Comprehensive Metabolic Panel AM LABS Lab 04/24/25 04:00 Ordered Magnesium AM LABS Lab 04/24/25 04:00 Ordered Phosphorus AM LABS Lab 04/24/25 04:00 Ordered Urinalysis Stat Lab 04/22/25 06:42 Ordered CV. echo complete* [id number] Routine Ultrasound 04/21/25 18:37 Taken Radiology Impressions Chest X-Ray 04/21/25 16:50 IMPRESSION: 1. No acute findings. 2. Emphysema. Modified Barium Swallow 04/22/25 00:30 Impression: 1. Minimal oral contents spill with small amount of residual in the hypopharynx. 2. No aspiration or penetration. 3. Delay in propelling barium tablet with poor motility of the of the esophagus. Note that the time stamp on the examination of 03/29/2025 is incorrect. The examination occurred on 04/22/[address] 04/22/25 00:32 IMPRESSION: 1. No neck mass identified. 2. No tracheal stenosis. 3. No cervical chain lymphadenopathy. 4. Advanced degenerative disc disease in the mid cervical spine, most significant at C5-6 and C6-7. 5. C3 anterolisthesis by [address] 04/22/25 05:18 IMPRESSION: 1. Advanced centrilobular emphysema. Marked hyperinflation of the lungs. 2. No mediastinal or hilar adenopathy. No mass at the AP window identified that would contact the recurrent laryngeal nerve. 3. Mild atherosclerosis aorta. 4. Stable LEFT adrenal mass. Barium Swallow X-Ray 04/23/25 08:00 Impression: 1. 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 2. Poor motility of the esophagus. Laboratory Results WBC 13.32 10^3/uL (3.29-11.43) H 04/23/25 04:20 RBC 4.43 10^6/uL (3.85-5.65) 04/23/25 04:20 Hgb 13.70 g/dL (11.27-16.99) 04/23/25 04:20 Hct 40.5 % (36-47) 04/23/25 04:20 MCV 91.4 fl (85-98) 04/23/25 04:20 MCH 30.9 pg (27-33) 04/23/25 04:20 MCHC 33.8 g/dL (30-55) 04/23/25 04:20 RDW 12.4 % (12.1-15.1) 04/23/25 04:20 Plt Count 292 10^3/cmm (157-399) 04/23/25 04:20 MPV 10.7 fL (7.4-10.4) H 04/23/25 04:20 Neut % (Auto) 86.8 % 04/23/25 04:20 Lymph % (Auto) 4.7 % 04/23/25 04:20 Davidson % (Auto) 7.8 % 04/23/25 04:20 Eos % (Auto) 0.1 % 04/23/25 04:20 Baso % (Auto) 0.1 % 04/23/25 04:20 Neut # (Auto) 11.57 10^3/uL (1.8-7.7) H 04/23/25 04:20 Lymph # (Auto) 0.6 10^3/uL (0.8-4.8) L 04/23/25 04:20 [place] # (Auto) 1.0 10^3/uL (0.2-0.9) H 04/23/25 04:20 Eos # (Auto) 0.0 10^3/uL (0.0-0.8) 04/23/25 04:20 Baso # (Auto) 0.0 10^3/uL (0.0-0.1) 04/23/25 04:20 Nucleated RBC % (auto) 0 % 04/23/25 04:20 Nucleated RBCs # 0.0 /100WBC 04/23/25 04:20 D-Dimer <= 0.27 ug/mLFEU (0-0.59) 04/21/25 17:18 Specimen Type Arterial 04/21/25 17:12 Sample Site Radial, left 04/21/25 17:12 ABG pH 7.41 (7.35-7.45) 04/21/25 17:12 ABG pCO2 50.0 mmHg (35-45) H 04/21/25 17:12 ABG pO2 80.4 mmHg (80.0-100.0) 04/21/25 17:12 ABG PO2/FiO2 Ratio 251 04/21/25 17:12 ABG HCO3 31.9 mmol/L (22-26) H 04/21/25 17:12 ABG O2 Saturation 96.8 04/21/25 17:12 ABG Base Excess 5.8 mmol/L (-2.0-2.0) H 04/21/25 17:12 Narendra Test Pos 04/21/25 17:12 A-a O2 Gradient 11.2 mmHg (5-10) H 04/21/25 17:12 Hematocrit 51.4 % (37-47) H 04/21/25 17:12 Hgb O2 Saturation 92.5 % (95-100) L 04/21/25 17:12 Carboxyhemoglobin 4.5 %THgb (0.4-20.1) 04/21/25 17:12 Methemoglobin 0.0 % (0.4-1.5) L 04/21/25 17:12 Total Hemoglobin 16.8 g/dL (12-16) H 04/21/25 17:12 Sodium 141.0 mmol/L (131-143) 04/21/25 17:12 Potassium 4.2 mmol/L (3.5-5.0) 04/21/25 17:12 Glucose 143.0 mg/dL (70-115) H 04/21/25 17:12 Ionized Calcium 1.2 mmol/L (1.1-1.4) 04/21/25 17:12 O2 Delivery Device Nc 04/21/25 17:12 O2 Liters/Min 3.0 % 04/21/25 17:12 FiO2 32.0 % 04/21/25 17:12 Shuttle Threader ID [email or web address] 04/21/25 17:12 Sodium 140 mmol/L (136-145) 04/23/25 04:20 Potassium 4.2 mmol/L (3.5-5.1) 04/23/25 04:20 Chloride 101 mmol/L (98-107) 04/23/25 04:20 Carbon Dioxide 30 mmol/L (22-29) H 04/23/25 04:20 Anion Gap 13.2 (5-19) 04/23/25 04:20 BUN 11 mg/dL (8-23) 04/23/25 04:20 Creatinine 0.5 mg/dL (0.5-0.9) 04/23/25 04:20 GFR Calculation 123.1 mL/min (90-130) 04/23/25 04:20 Glucose 103 mg/dL (65-115) 04/23/25 04:20 Estimat Average Glucose 123 04/21/25 17:18 Hemoglobin A1c 5.9 % (4.0-6.0) 04/21/25 17:18 Calculated Osmolality 290 mOsm/kg (285-295) 04/23/25 04:20 Lactic Acid 2.6 mmol/L (0.5-2.2) H 04/21/25 22:17 Lactic Acid (Sepsis) 4.0 mmol/L (0.5-2.2) H 04/22/25 00:46 Calcium 8.9 mg/dL (8.5-10.5) 04/23/25 04:20 Phosphorus 3.5 mg/dL (2.5-4.5) 04/23/25 04:20 Magnesium 2.2 mg/dL (1.7-2.3) 04/23/25 04:20 Iron 38 ug/dL (37-145) 04/21/25 22:17 TIBC 284 mcg/dl 04/21/25 22:17 % Saturation 13.3 % (20-50) L 04/21/25 22:17 Unsat Iron Binding 246 ug/dL (112-347) 04/21/25 22:17 Total Bilirubin 0.3 mg/dL (0.15-1.2) 04/23/25 04:20 AST 29 U/L (0-32) 04/23/25 04:20 ALT 58 U/L (0-33) H 04/23/25 04:20 Alkaline Phosphatase 62 U/L (35-105) 04/23/25 04:20 Troponin T Baseline 10 ng/L (0-10) 04/21/25 17:18 Troponin T 120 Minute 7.11 ng/L (0-10) 04/21/25 22:17 Delta Troponin T -2.89 ABS# (0-10) L 04/21/25 22:17 Troponin T Hi Sens 6Hr 6.44 ng/L (0-10) 04/22/25 00:46 Troponin T Hi Sens 6Hr Delta -3.56 ng/L (0-12) L 04/22/25 00:46 NT-Pro-B Natriuret Pep 123 pg/mL (0-125) 04/21/25 22:17 Total Protein 6.3 g/dL (6.6-8.7) L 04/23/25 04:20 Albumin 3.9 g/dL (3.5-5.2) 04/23/25 04:20 Globulin 2.4 g/dL (1.3-4.6) 04/23/25 04:20 Triglycerides 44 mg/dL (0-150) 04/22/25 00:46 Cholesterol 167 mg/dL (0-200) 04/22/25 00:46 LDL Cholesterol, Calc 77 mg/dL (50-129) 04/22/25 00:46 HDL Cholesterol 81 mg/dL (60-100) 04/22/25 00:46 LDL/HDL Ratio 0.95 RATIO (0.00-3.22) 04/22/25 00:46 Cholesterol/HDL Ratio 2.06 mg/dL (0.0-4.40) 04/22/25 00:46 Vitamin B12 509 pg/mL (232-1245) 04/21/25 22:17 Folate 15.5 ng/mL (4.8-37.3) 04/22/25 00:46 Procalcitonin 0.07 ng/mL (0-0.5) 04/22/25 00:46 TSH 3.37 uIU/mL (0.27-4.20) 04/21/25 22:17 Nasal MRSA (PCR) Not detected (Not Detecte) 04/21/25 21:30 Vitals Last Vital Signs Temp 97.7 F 04/23/25 07:38 Pulse 87 04/23/25 07:38 Resp 16 04/23/25 07:38 BP 105/65 04/23/25 07:38 Pulse Ox 90 04/23/25 07:38 O2 Del Method Room Air 04/23/25 07:38 O2 Flow Rate 2 04/22/25 20:00 FiO2 28 04/22/25 01:43 Discharge Plan Discharge Patient Disposition: Home Condition: Stable Prescriptions: New prednisone 10 mg tablet See Taper PO DIRECTED Qty: 42 0RF Taper: predniSONE 60-10 60 mg Daily for 2 Days and 0 Hour 50 mg Daily for 2 Days and 0 Hour 40 mg Daily for 2 Days and 0 Hour 30 mg Daily for 2 Days and 0 Hour 20 mg Daily for 2 Days and 0 Hour 10 mg Daily for 2 Days and 0 Hour Rx Instructions: see taper instructions ipratropium bromide 0.02 % solution 1.25 ml inhalation Q8H Qty: 150 0RF albuterol sulfate [Ventolin HFA] 90 mcg/actuation HFA aerosol inhaler 1 inh inhalation Q6H PRN (Reason: shortness of breath or wheezing) Qty: 8.5 0RF Continued budesonide-formoterol [Symbicort] 160-4.5 mcg/actuation HFA aerosol inhaler 2 puff inhalation BID multivitamin Tablet 1 tab PO DAILY acetaminophen 325 mg tablet 325 mg PO QID PRN (Reason: Pain) Changed albuterol sulfate 2.5 mg /3 mL (0.083 %) solution for nebulization 2.5 mg continuous nebulization Q8H Qty: 180 0RF Discharge Order = DC NOW: Discharge Order (Routine); Ordered 04/23/25 Ordered By: Greg Gonzalez Other Ambulatory Orders: DME: Oxygen (Order) Location: None Selected Ordered By: Greg Gonzalez Referrals: [facility] [Outside] Bakari Gan MD [Primary Care Provider, [facility]] - 04/29/25 11:00 am Discharge Diet: Regular Patient Instructions: Albuterol (By breathing) (ProAir, AccuNeb, Proventil, Proventil..., Ipratropium (By breathing), Prednisone (By mouth), Using Oxygen at Home (DC), COPD (Chronic Obstructive Pulmonary Disease) (DC), Opioid Safety, Pain Management, Patient Portal & Yadira Instructions Discharge Attestations Time Spent in Discharge Care*: greater than 30 min Specific Discharge Activities: educating patient, discussing with pcp/other providers, discussing with case loader operator/social workers/dc planners, documenting/other paperwork and evaluating patient/reviewing data Status at Discharge: Cognitive status at discharge: cognitively intact , Behavioral status at discharge: cooperative , Functional status at discharge: independent ambulation , Overall status at discharge: patient is back to baseline Quality Metrics Clinical Quality Measures [ No reported AMI, CVA or VTE this stay] Coding Level of Care Code 65215 Total time (in minutes) for Discharge: 65 Diagnoses Exertional shortness of breath R06.02 Dysphagia R13.10 Acute exacerbation of chronic obstructive airways disease J44.1
== END 2025-04-23 11:32 | disposition home or self-care (01) ==
LOC: ER 17:37 → ER IP 17:44 → MEDSURG 19:38
PROVIDERS: Admitting Provider Student in an Organized Health Care Education/Training Program; Emergency Provider Family Medicine; PCP Family Medicine; Visit Provider Student in an Organized Health Care Education/Training Program
DX: J44.1 Chronic obstructive pulmonary disease with (acute) exacerbation (principal); R13.10 Dysphagia, unspecified; Z68.1 Body mass index [BMI] 19.9 or less, adult; Z87.891 Personal history of nicotine dependence; Z85.819 Personal history of malignant neoplasm of unspecified site of lip, oral cavity, and pharynx; I48.91 Unspecified atrial fibrillation; F43.10 Post-traumatic stress disorder, unspecified
CPT/HCPCS: 36415; 36600; 70491; 71045; 71260; 74220; 74230; 80051; 80053; 80061; 82330; 82607; 82746; 82805; 83036; 83540; 83550; 83605; 83735; 83880; 84100; 84145; 84443; 84484; 85025; 85378; 86403; 92611; 93005; 93306; 94640; 94664; 94760; 96372; 99285; G0378; J1644; J2919; J7614; J7626; J7644; J9999

== ENCOUNTER 2025-08-13 17:08 | Inpatient (IN) | payer MEDICARE, MEDICAID, SELFPAY ==
[2025-08-13] VITALS (12 sets, daily range): BP systolic 113–138; BP diastolic 72–97; PULSE 87–108; RESP 16–20; TEMP 36.7; O2SAT 94–99; BMI 15.2
--- NOTE | 2025-08-13 17:14 | XRR_ITS ---
PROCEDURE INFORMATION: Exam: XR Chest Exam date and time: 08/13/2025 5:36 PM Age: 65 years old Clinical indication: Pain; Angina pectoris; Additional info: Chest pain TECHNIQUE: Imaging protocol: Radiologic exam of the chest. Views: 1 view. COMPARISON: CT chest w con* [id number] 04/22/2025 10:04 AM FINDINGS: Lungs: Nonspecific prominence of the pulmonary interstitium. No lobar consolidation. Pleural spaces: Trace bilateral pleural effusions. No pneumothorax. Heart/Mediastinum: Unremarkable. No cardiomegaly. Bones/joints: Unremarkable. XR/XR chest 1V portable [id number] IMPRESSION: As above.
--- NOTE | 2025-08-13 17:15 | ED_ITS ---
HPI - Chest Pain 2 General: Chief Complaint: Chest Pain Stated Complaint: chest pain - difficulty breathing Time Seen by Provider: 08/13/25 17:12 History of Present Illness: 65-year-old female with a history of TOOL TROUBLE SHOOTER D, chronic hypoxemic respiratory failure on 3 L nasal cannula at all times, tobacco dependence in remission for 4 years, atrial fibrillation, who presents to the emergency room with shortness of breath and chest pain. She describes a central chest pain and extreme shortness of breath. She is very tachypneic and her lung sounds are very tight with only some end expiratory wheeze. Related Data Home Medications ?Medication ?Instructions ?Recorded ?Confirmed budesonide-formoterol HFA 160 2 puff inhalation BID 04/22/25 mcg-4.5 mcg/actuation aerosol inhaler (Symbicort) multivitamin 1 tab PO DAILY 04/11/2204/01 acetaminophen 325 mg tablet 325 mg PO QID PRN Pain 04/22/25 Previous Rx's ?Medication ?Instructions ?Recorded albuterol sulfate 2.5 mg/3 mL 2.5 mg (3 mL) continuous 04/23/25 (0.083 %) solution for nebulization nebulization Q8H S hortness Of Breath #180 mL albuterol sulfate 90 mcg/actuation 1 inh inhalation Q6 H PRN shortness 04/23/25 aerosol inhaler (Ventolin HFA) of breath or wheezing # 8.5 grams ipratropium bromide 0.02 % 1.25 ml inhalation Q8H #150 mL 04/23/25 solution for inhalation prednisone 10 mg tablet See Taper PO DIRECTED #42 tabs 04/23/25 Allergies Allergy/AdvReac Type Severity Reaction Status Date / Time No Known Allergies Allergy Verified 08/13/25 17:16 Review of Systems 2 Narrative: Constitutional symptoms: Negative except as documented in HPI. Skin symptoms: Negative except as documented in HPI. Eye symptoms: Negative except as documented in HPI. ENMT symptoms: Negative except as documented in HPI. Respiratory symptoms: Negative except as documented in HPI. Cardiovascular symptoms: Negative except as documented in HPI. Gastrointestinal symptoms: Negative except as documented in HPI. Genitourinary symptoms: Negative except as documented in HPI. Musculoskeletal symptoms: Negative except as documented in HPI. Neurologic symptoms: Negative except as documented in HPI. Psychiatric symptoms: Negative except as documented in HPI. Endocrine symptoms: Negative except as documented in HPI. PFSH ED 2 PFSH: Medical History Chest pain COPD (chronic obstructive pulmonary disease) Afib PTSD (post-traumatic stress disorder) Tobacco use Family History Mother Dementia Lung disease Cancer Sister Dementia Diabetes Cancer Father Lung disease Cancer Family/Other Stroke Brother Cancer Social History Smoking and tobacco/nicotine status: former use of tobacco/nicotine Quit status (tobacco/nicotine): has quit using Year quit tobacco: 15 months ago Former quit date comment: 1 pack per day x 52 years Second hand smoke exposure: Yes Alcohol intake: current Alcohol intake frequency: 3 or more drinks per day Physical Exam 2 Narrative: EXAM NARRATIVE: General: Alert, moderate distress. Skin: Warm, dry. Head: Normocephalic, atraumatic. Neck: Supple, trachea midline. Eye: Extraocular movements are intact. Ears, nose, mouth and throat: Oral mucosa moist. Cardiovascular: Regular rate and rhythm, Normal peripheral perfusion. Respiratory: coarse, scattered wheeze, moderate increased wob. tachypnea, prolonged expiratory phase. breath sounds are equal, Symmetrical chest wall expansion. Gastrointestinal: Soft, Nontender, Non distended, Musculoskeletal: Normal ROM, no deformity. Neurological: Alert and oriented, No focal neurological deficit observed. Psychiatric: Cooperative, appropriate mood & affect. Course 2 Vital Signs: Vital signs: Vital Signs Temperature 98.1 F 08/13/25 17:08 Pulse Rate 90 08/13/25 19:33 Respiratory Rate 16 08/13/25 19:33 Blood Pressure 120/76 08/13/25 19:33 Pulse Oximetry 95 08/13/25 19:33 Oxygen Delivery Me thod Nasal Cannula 08/13/25 17:39 Oxygen Flow Rate 3 08/13/25 17:39 MDM - Chest Pain Medical Decision Making Medical decision making Patient's reason for coming to the emergency room: Chest pain and shortness of breath Social determinants: Patient is disabled I reviewed the patient's medical record. Patient was admitted back in March for COPD with acute exacerbation. I reviewed the patient's current home meds I do not see that she is on any blood thinners. Alternate historians: None Differential diagnosis for patient with shortness of breath includes but is not limited to and based on the above HPI, review of systems and physical exam: Pneumonia. Bronchitis. Asthma or COPD with acute exacerbation. Acute coronary syndrome / SD. Pulmonary embolism. Anxiety. Congestive heart failure. Viral infections including influenza and Covid-19. Atrial fibrillation. Anxiety. Pleural effusion. Pneumothorax. Orders placed to evaluate differential diagnosis based on the above differential, HPI and physical exam EKG: Time 1723. Rate 103. Sinus tachycardia, No ST-T changes, no ectopy, normal MS & QRS intervals, This was reviewed and interpreted by myself the ER physician at 1727 Repeat EKG: Time 1919. Rate 94. Normal sinus rhythm, No ST-T changes, no ectopy, normal MS & QRS intervals, This was reviewed and interpreted by myself the ER physician at 1925. Chest x-ray: Nonspecific prominence of the pulmonary interstitium. No lobar consolidations. Trace bilateral pleural effusions. No pneumothorax. This was reviewed and interpreted by myself the emergency room physician. I also reviewed the radiology report. Lab Review: Laboratory results were reviewed and interpreted by myself the emergency room physician. Mild leukocytosis. No anemia. No renal failure. Flu COVID and RSV are negative. Initial troponin is 16. Liver enzymes are normal. Assessment of risk: Level of risk: Moderate risk patient. Multiple comorbidities. Hospitalization considerations: Patient is being admitted. Continued chest pain and increased work of breathing. Reexamination: Patient says the Dilaudid actually did help some with her pain. Morphine did not. She still requiring 3 L nasal cannula and has quite a bit of increased work of breathing still. Tripoding. She did not tolerate BiPAP which was attempted. Consultation: I spoke Dr. Ward who is on-call for the hospital service who agrees to admission. Assessment and plan: COPD with acute exacerbation Chest pain Hypercapnia Chronic hypoxemic respiratory failure ?Patient is stable on 3 L nasal cannula at this time but still has some increased work of breathing and quite a bit of wheeze. ? IV Solu-Medrol, 2 updrafts, IV Levaquin. ?Attempted BiPAP but patient did not tolerate -I discussed the patient with the hospitalist on-call who is admitting the patient. - Discussed findings and plan with patient. Answered any questions. - All laboratory values were reviewed and interpreted personally by myself, the ER physician - All imaging was reviewed and interpreted personally by myself, the ER physician. - Evaluation and treatment of this problem were appropriate in the emergency setting Critical Care: -I spent a total of 46 minutes of critical care time managing the patient, independent of any other practitioner. -The time involved in the performance of separately reportable procedures was not counted towards critical care time. Lab Data 08/13/25 17:08/13/25 17: Radiology Impressions Chest X-Ray 08/13/25 17:14 IMPRESSION: As above. Laboratory Results WBC 12.97 10^3/uL (3.29-11.43) H 08/13/25 17: RBC 4.49 10^6/uL (3.85-5.65) 08/13/25: Hgb 13.50 g/dL (11.27-16.99) 08/13/25: Hct 41.8 % (36-47) 08/13/25: MCV 93.1 fl (85-98) 08/13/25 17: MCH 30.1 pg (27-33) 08/13/25 17: MCHC 32.3 g/dL (30-55) 08/13/25 17: RDW 11.5 % (12.1-15.1) L 08/13/25: Plt Count 296 10^3/cmm (157-399) 08/13/25 17: MPV 10.0 fL (7.4-10.4) 08/13/25: Neut % (Auto) 75.4 % 08/13/25 17: Lymph % (Auto) 12.3 % 08/13/25 17: [place] % (Auto) 9.6 % 08/13/25 17: Eos % (Auto) 1.4 % 08/13/25: Baso % (Auto) 0.5 % 08/13/25: Neut # (Auto) 9.77 10^3/uL (1.8-7.7) H 08/13/25 17: Lymph # (Auto) 1.6 10^3/uL (0.8-4.8) 08/13/25 17: [place] # (Auto) 1.3 10^3/uL (0.2-0.9) H 08/13/25 17:29 Eos # (Auto) 0.2 10^3/uL (0.0-0.8) 08/13/25 17: Baso # (Auto) 0.1 10^3/uL (0.0-0.1) 08/13/25 17:29 Nucleated RBC % (auto) 0 % 08/13/25 17: Nucleated RBCs # 0.0 /100WBC 08/13/25 17:29 Specimen Type Arterial 08/13/25 17:31 Sample Site Brachial, right 08/13/25 17:31 ABG pH 7.36 (7.35-7.45) 08/13/25 17:31 ABG pCO2 60.9 mmHg (35-45) H* 08/13/25 17:31 ABG pO2 69.1 mmHg (80.0-100.0) L 08/13/25 17:31 ABG PO2/FiO2 Ratio 215 08/13/25 17:31 ABG HCO3 34.5 mmol/L (22-26) H 08/13/25 17:31 ABG O2 Saturation 93.8 08/13/25 17:31 ABG Base Excess 7.0 mmol/L (-2.0-2.0) H 08/13/25 17:31 Narendra Test N/a 08/13/25 17:31 A-a O2 Gradient 11.2 mmHg (5-10) H 08/13/25 17:31 Hematocrit 41.9 % (37-47) 08/13/25 17:31 Hgb O2 Saturation 92.0 % (95-100) L 08/13/25 17:31 Carboxyhemoglobin 0.8 %THgb (0.4-20.1) 08/13/25 17:31 Methemoglobin 1.0 % (0.4-1.5) 08/13/25 17:31 Total Hemoglobin 13.7 g/dL (12-16) 08/13/25 17:31 Sodium 141.0 mmol/L (131-143) 08/13/25 17:31 Potassium 4.2 mmol/L (3.5-5.0) 08/13/25 17:31 Glucose 140.0 mg/dL (70-115) H 08/13/25 17:31 Ionized Calcium 1.2 mmol/L (1.1-1.4) 08/13/25 17: O2 Delivery Device Nc 08/13/25 17:31 O2 Liters/Min 3.0 % 08/13/25 17: FiO2 32.0 % 08/13/25 17:31 Sales Training Coordinator ID Amh 08/13/25 17:31 Sodium 142 mmol/L (136-145) 08/13/25 17: Potassium 4.7 mmol/L (3.5-5.1) 08/13/25 17: Chloride 97 mmol/L (98-107) L 08/13/25 17: Carbon Dioxide 35 mmol/L (22-29) H 08/13/25 17: Anion Gap 14.7 (5-19) 08/13/25 17: BUN 13 mg/dL (8-23) 08/13/25 17: Creatinine 0.6 mg/dL (0.5-0.9) 08/13/25 17: GFR Calculation 99.7 mL/min (90-130) 08/13/25 17:29 Glucose 139 mg/dL (65-115) H 08/13/25 17: Calculated Osmolality 296 mOsm/kg (285-295) H 08/13/25 17: Lactic Acid 0.8 mmol/L (0.5-2.2) 08/13/25 17: Calcium 10.0 mg/dL (8.5-10.5) 08/13/25 17: Total Bilirubin 0.4 mg/dL (0.15-1.2) 08/13/25 17:29 AST 22 U/L (0-32) 08/13/25 17:29 ALT 30 U/L (0-33) 08/13/25 17:29 Alkaline Phosphatase 74 U/L (35-105) 08/13/25 17:29 Troponin T Baseline 16 ng/L (0-10) H 08/13/25 17:29 C-Reactive Protein 3.0 mg/L (0.0-4.9) 08/13/25 17:29 NT-Pro-B Natriuret Pep 57 pg/mL (0-125) 08/13/25 17: Total Protein 7.2 g/dL (6.6-8.7) 08/13/25 17:29 Albumin 5.0 g/dL (3.5-5.2) 08/13/25 17:29 Globulin 2.2 g/dL (1.3-4.6) 08/13/25 17:29 Influenza A (PCR) Negative (Negative) 08/13/25 17:28 Influenza Type B (PCR) Negative (Negative) 08/13/25 17:28 RSV (PCR) Negative (Negative) 08/13/25 17:28 SARS-CoV-2 (PCR) Negative (Negative) 08/13/25 17:28 XR interpretation done by ED provider, pending radiology final review Discharge Plan Discharge Patient Disposition: Admitted As Inpatient Clinical Impression: COPD with acute exacerbation, Chest pain, Chronic hypoxemic respiratory failure, Hypercapnia Condition: Stable Coding Level of Care Code ED Propulsion Motor And Generator Repairer for Chg Fwd Heart Score HEART Score Components History: Slightly Suspicous EKG: Non-specific Changes Age: 65 or more yrs Risk Factors: 1 or 2 Risk Factors Troponin: Baseline Trop <16 ng/L HEART Score RESULT HEART Score: 4
--- OUTSIDE RECORDS SUMMARY | 2025-08-13 17:18 | XMS_ITS | Encounter Summary ---
Author Organization [facility] Address [address] Attn: Epic Prelude ADT [place] [address] Care Team Providers Care Electronics Engineer Name Role Phone Non-Staff, Physician Primary Care [...] on file Legal Sex Female 7:10 AM CHASSIS WIRER Gender Identity Not on file Sexual Orientation Not on file documented as of this encounter Plan of Treatment Not on file documented as of this encounter Procedures Procedure Name Priority Date/Time Associated Diagnosis Comments LYME AB IGG/IGM Routine 09/28/2008 9:30 PM CHASSIS WIRER RHEUMATOID FACTOR Routine 09/28/2008 9:3 0 PM CHASSIS WIRER REGINALD SCREEN W/REFLEX Routine 09/28/2008 9 :30 PM CHASSIS WIRER documented in this encounter Results * LYME AB IGG/IGM (09/28/2008 9:30 PM CHASSIS WIRER) LYME ANTIBODY (EIA) See Sep Report [facility] Blood specimen (specimen) 09/28/2008 9:30 PM CHASSIS WIRER 09/30/2008 9:50 AM CHASSIS WIRER us Rick Wilson DO CHEMISTRY ORDERABLES COM Final Result INTERFACE SYSTEM Refer to clinic/hospital department [facility] CLIA# [id number] [address] [place] [address] * RHEUMATOID FACTOR (09/28/2008 9:30 PM CHASSIS WIRER) RHEUMATOID FACTOR See Sep Report [facility] Blood specimen (specimen) 09/28/2008 9:30 PM CHASSIS WIRER 09/30/2008 9:50 AM CHASSIS WIRER us Rick Wilson DO CHEMISTRY ORDERABLES Final Resu lt Performing Organization Address City/[facility] Phone Number INTERFACE SYSTEM Refer to clinic/hospital department [facility] CLIA# [id number] [address] [place] [address] * REGINALD (09/28/2008 9:30 PM CHASSIS WIRER) REGINALD Negative Negative [facility] Blood specimen (specimen) 09/28/2008 9:30 PM CHASSIS WIRER 09/29/2008 9:39 PM CHASSIS WIRER us Rick Wilson DO CHEMISTRY ORDERABLES Final Resu lt Performing Organization Address [facility] Phone Number INTERFACE SYSTEM Refer to clinic/hospital department [facility] CLIA# [id number] [address] [place] [address] documented in this encounter Visit Diagnoses Not on filedocumented in this encounter Care Teams Electronics Engineer Relationship Specialty Start Date End Date Non-Staff, Physician NO ADDRESS ON FILE PCP - General 08/28/18 documented as of this encounter
--- OUTSIDE RECORDS SUMMARY | 2025-08-13 17:18 | XMS_ITS | Encounter Summary ---
Author Organization [facility] Address [address] [place] [address] Care Team Providers Care Principal Investigator Name Role Phone Non-Staff, Physician Primary Care Provider Unava ilable Encounter Details Date Type Department Care Team (Late st Contact Info) Description 08/28/2018 Ancillary Orders [facility] Admitting [address] [place] [id number] Janie Moreau, WAGON WINDER [address] [place] [phone] Pleurodynia Social History Tobacco Use Types Packs/Day Years Used Date Smoking Tobacco: Every Day Cigarettes Smokeless Tobacco: Never Alcohol Use Standard Drinks/Week Comments No 0 (1 standard drink = 0.6 oz pur e alcohol) on weekends Comments No Sex and Gender Information Value Date Recorded Sex Assigned at Not on file Legal Sex Female 7:10 AM MEDICAL REIMBURSEMENT SPECIALIST Gender Identity Not on file Sexual Orientation Not on file documented as of this encounter Plan of Treatment Not on file documented as of this encounter Results * XR RIBS UNILATERAL LEFT W PA CHEST (08/28/2018 12:52 PM MEDICAL REIMBURSEMENT SPECIALIST) Anatomical Region Laterality Modality Chest Computed Radiogr aphy 08/28/2018 12:5 2 PM MEDICAL REIMBURSEMENT SPECIALIST Impressions 08/28/2018 1:04 PM MEDICAL REIMBURSEMENT SPECIALIST IMPRESSION: Please see below. Exam: XR [...] chest wall lesions are appreciated. Janie Moreau WAGON WINDER DIAGNOSTIC IMAGING ORDERABLES F inal Result documented in this encounter Visit Diagnoses Diagnosis Pleurodynia Painful respiration Pleurodynia Painful respiration documented in this encounter Care Teams Principal Investigator Relationship Specialty Start Date End Date Non-Staff, Physician NO ADDRESS ON FILE PCP - General 08/28/18 documented as of this encounter
--- OUTSIDE RECORDS SUMMARY | 2025-08-13 17:18 | XMS_ITS | Clinical Summary ---
Author Organization [employer] Address [address] [facility] Attn: Epic Prelude ADT [place] [address] Care Team Providers Care Waste Examiner Name Role Phone Non-Staff, Physician Primary Care Provider Unava ilable Allergies Active Allergy Reactions Criticality Noted Date Comments Diphenhydramine Hcl Hives High 04/19/2012 Medications Glucosamine Sulfate 1,000 mg Capsule Take by mouth. 08/12/2015 Active ALPRAZolam (XANAX) 0.5 mg tabletIndication s:Agoraphobia [...] drink = 0.6 oz pur e alcohol) Comments Unknown Sex and Gender Information Value Date Recorded Sex Assigned at Not on file Legal Sex Female 11:08 AM RECYCLING OPERATIONS MANAGER Gender Identity Not on file Sexual Orientation Not on file Last Filed Vital Signs Vital Sign Reading Time Taken Comments Blood Pressure 122/72 08/12/2015 10:09 AM RECYCLING OPERATIONS MANAGER Pulse 87 08/12/2015 10:09 AM RECYCLING OPERATIONS MANAGER Temperature 36.4 C (97.6 F) 08/12/2015 10:09 AM RECYCLING OPERATIONS MANAGER Respiratory Rate 22 08/12/2015 10:09 AM RECYCLING OPERATIONS MANAGER Oxygen Saturation - - Inhaled Oxygen Concentration - - Weight 46.3 kg (102 lb) 08/12/2015 10:09 AM RECYCLING OPERATIONS MANAGER Height 153 cm (5' 0.25 ) 08/12/2015 10:09 AM RECYCLING OPERATIONS MANAGER Body Mass Index 19.76 08/12/2015 10:09 AM RECYCLING OPERATIONS MANAGER Plan of Treatment Health Maintenance Due Date Last Done Comments DTAP/TDAP/TD VACCINES (1 - Tdap) 1977 BREAST CANCER SCREENING 1998 COLORECTAL SCREENING 2003 Colorectal Cancer Screening 2003 FIT-DNA Q 3 years 2003 FIT/FOBT Q 1 year 2003 Flex Sig/CT Colonography Q 5 years 2003 PNEUMOCOCCAL VACCINE 50+ YEARS (1 of 1 - PCV) 02/06/20 08 ZOSTER VACCINE (1 of 2) 02/06/2008 OSTEOPOROSIS SCREENING 2023 INFLUENZA VACCINE (#1) 2025 RSV VACCINE (60+ or ) (1 - 1-dose 75+ series) 2033 Care Teams Waste Examiner Relationship Specialty Start Date End Date Non-Staff, Physician NO ADDRESS ON FILE PCP - General 08/28/18
--- OUTSIDE RECORDS SUMMARY | 2025-08-13 17:18 | XMS_ITS | Clinical Summary ---
Author Organization [facility] Address [address] [place] [address] Care Team Providers Care Tissue Recovery Technician Name Role Phone Non-Staff, Physician Primary Care [...] on file Legal Sex Female 7:10 AM POWER CHISEL OPERATOR Gender Identity Not on file Sexual Orientation Not on file Last Filed Vital Signs Vital Sign Reading Time Taken Comments Blood Pressure 122/72 08/12/2015 10:09 AM POWER CHISEL OPERATOR Pulse 87 08/12/2015 10:09 AM POWER CHISEL OPERATOR Temperature 36.4 C (97.6 F) 08/12/2015 10:09 AM POWER CHISEL OPERATOR Respiratory Rate 22 08/12/2015 10:09 AM POWER CHISEL OPERATOR Oxygen Saturation 96% 08/12/2015 10:09 AM POWER CHISEL OPERATOR Inhaled Oxygen Concentration - - Weight 46.3 kg (102 lb) 08/12/2015 10:09 AM POWER CHISEL OPERATOR Height 153 cm (5' 0.25 ) 08/12/2015 10:09 AM POWER CHISEL OPERATOR Body Mass Index 19.76 08/12/2015 10:09 AM POWER CHISEL OPERATOR Plan of Treatment Health Maintenance Due Date [...] - 1-dose 75+ series) 2033 Insurance [place]ID [place] Care Teams Tissue Recovery Technician Relationship Specialty Start Date End Date Non-Staff, Physician NO ADDRESS ON FILE PCP - General 08/28/18
--- OUTSIDE RECORDS SUMMARY | 2025-08-13 17:18 | XMS_ITS | Data Portability ---
Author Organization MARIA LUZ [facility] Rosa Suazo [facility] Address [address] [address] Assessment Encounter Date Assessment Date Assessment LastModified by Organization Details LastModified Time 04/19/2023 04/19/2023 see attached mmse to combat orthostatic hypotension, avoid bending over as far or for as long. sit up slowly and carefully and perhaps kneel for 30 seconds prior to standing to prevent falls. double fluid intake and eat salty snacks 2 times per day. if you feel light headed lie down, drink 1 qt of water and eat a salty snack. [email or web address] Not available 04/19/2023 09:35:20 Plan of Treatment Reminders Order Date Submit Date Provider Last Modified By Organization Details Last Modified Time Details Appointments None recorded. Lab troponin I, serum or plasma 2022 023 [employer] [facility], [address] [place] [address], [facility] [address] [place], [address], 3 15:29:04 vitamin B12, serum 2022 023 [employer] [facility], [address] [place] [address], [address] [place], [address], 3 06:04:44 TSH, serum or plasma 2022 023 [facility] ([facility]), [address] [place], [address], 10:33:59 T4, free, serum 2022 023 [employer] [facility], [address] [facility] [address], [address] [place], [address], 3 06:04:43 CMP, serum or plasma 2022 023 [facility] ([facility]), [address] [place], [address], 3 16:48:49 CBC 2022 023 [email or web address] [facility] ([facility]), [address] [place], [address], 3 13:45:51 Referral vascular surgeon referral 2022 023 [place] [address] [facility], [address] [facility], [facility] [address], [place], [address], 3 17:39:[address] referral [address] Pulmonology - Dr Datar, [address] [facility], [facility] [address], [place], [address], 3 17:46:37 Procedures None recorded. Surgeries None recorded. Imaging electrocard iogram 2022 023 [email or web address] 2 [facility] ([facility]), [address] [place], [address], 3 09:10:34 MRI, brain, w/wo contrast [address] (Scheduling Orders), [address] [place], [address], 3 15:06:14 CT, chest + abdomen + pelvis, w/ contrast [address] (Scheduling Orders), [address] [place], [address], 3 14:15:06 US, duplex, carotid artery - 46139 2022 023 [email or web address] [facility] ([facility]), [address] [facility], [place], [address], 3 16:32:11 Medication Orders aspirin 81 mg tablet,johanna yed release 2022 023 [email or web address] [facility], [address], [place], [address], 14:48:27 Patient TargetsNo targets recorded. Patient Instructions Encounter Date Encounter Id Patient Instructions Last Modified By Organization Details Last Modified Time 04/16/2023 [id number] Pt talks as though I should know her whole history, but I inform her I have not seen her since 03/22. The episode on Sunday that she described seemed more like a tremor, not really consistent with TIA or seizure. She is most concerned about having a stroke. I discussed reducing risk factors: no smoking, checking lipid panel. I suggested she may want to take an 81mg ASA but it is not necessary. I did not hear any carotid bruits but we will proceed with carotid u/s per her request. She did not seem interested in complete smoking cessation since she only smokes when she drinks and that is only once a month but she hasnt even smoked since Aug. [email or web address] Not available 04/16/2023 13:59:55 Reason for Referral Survey Technician Referral for S evere chronic obstructive pulmonary disease Referring Physician: Yaneth Arora, Family Medicine, Encounter Date: 05/14/2023 Vascular Surgeon Referral fo r Common iliac artery stenosis Referring Physician: Yaneth Arora Family Medicine, Encounter Date: 05/14/2023 Results Created Date Observation Date Name Description Value Unit Range Abnormal Flag Note LastModifiedBy Organization Detail LastModifiedTime 04/16/20 23 04/16/2023 lipid panel , blood cholesterol 206.0 mg/dL 0.0-20 0.0 high Not Available [facility] ([facility]) [address] [place], [address], 04/16/2023 16:49:56 04/16/20 23 04/16/2023 lipid panel , blood triglyceride s 50.0 mg/dL 0.0-15 0.0 Not Available [facility] ([facility]) [address] [place], [address], 04/16/2023 16:49:56 04/16/20 23 04/16/2023 lipid panel , blood HDL-direct 83.0 mg/dL >40.0 Not Available [facility] ([facility]) [address] [place], [address], 04/16/2023 16:49:56 04/16/20 23 04/16/2023 lipid panel , blood VLDL-direct 10.0 mg/dL Not Available [facility] ( [facility]) [address] [place], [address], 04/16/2023 16:49:56 04/16/20 23 04/16/2023 lipid panel , blood LDL-direct 113.0 mg/dL 0.0-13 0.0 Not Available [facility] ([facility]) [address] [place], [address], 04/16/2023 16:49:56 04/16/2004/16/2023 CMP, serum or plasm a glucose 112.0 mg/dL 60.0-9 9.0 high Not Available [facility] ([facility]) [address] [place], [address], 04/16/2023 11:51:18 04/16/2004/16/2023 CMP, serum or plasm a BUN (blood urea nitrogen) 10.0 mg/dL 10.0-2 6.0 Not Available [facility] ([facility]) [address] [place], [address], 04/16/2023 11:51:18 04/16/20 23 04/16/2023 CMP, serum or plasm a creatinine (serum) 0.7 mg/dL 0.4-1. 5 Not Available [facility] ([facility]) [address] [place], [address], 04/16/2023 11:51:18 04/16/20 23 04/16/2023 CMP, serum or plasm a BUN/creatini ne ratio 14.29 ratio Not Available [facility] ( [facility]) [address] [place], [address], 04/16/2023 11:51:18 04/16/20 23 04/16/2023 CMP, serum or plasm a eGFR calculated 89.3 Not Available [facility] ([facility]) [address] [place], [address], 04/16/2023 11:51:18 04/16/20 23 04/16/2023 CMP, serum or plasm a total protein 7.3 g/dL 6.0-8. 5 Not Available [facility] ([facility]) [address] [place], [address], 04/16/2023 11:51:18 04/16/20 23 04/16/2023 CMP, serum or plasm a total bilirubin 0.3 mg/dL 0.2-1. 3 Not Available [facility] ([facility]) [address] [place], [address], 04/16/2023 11:51:18 04/16/20 23 04/16/2023 CMP, serum or plasm a albuminn 4.8 g/dL 3.5-5. 5 Not Available [facility] ([facility]) [address] [place], [address], 04/16/2023 11:51:18 04/16/20 23 04/16/2023 CMP, serum or plasm a globulin 2.5 calc Not Available [facility] ([facility]) [address] [place], [address], 04/16/2023 11:51:18 04/16/20 23 04/16/2023 CMP, serum or plasm a AST (SGOT) 24.0 U/L 0.0-46 .0 Not Available [facility] ([facility]) [address] [place], [address], 04/16/2023 11:51:18 04/16/20 23 04/16/2023 CMP, serum or plasm a altv (SGPT) 21.0 U/L 13.0-6 9.0 Not Available [facility] ([facility]) [address] [place], [address], 04/16/2023 11:51:18 04/16/20 23 04/16/2023 CMP, serum or plasm a A/G ratio 1.9 ratio Not Available [facility] ([facility]) [address] [place], [address], 04/16/2023 11:51:18 04/16/20 23 04/16/2023 CMP, serum or plasm a ALP phos 66.0 U/L 30.0-1 40.0 Not Available [facility] ([facility]) [address] [place], [address], 04/16/2023 11:51:18 04/16/20 23 04/16/2023 CMP, serum or plasm a calcium 9.6 mg/dL 8.4-10 .5 Not Available [facility] ([facility]) [address] [place], [address], 04/16/2023 11:51:18 04/16/20 23 04/16/2023 CMP, serum or plasm a sodium 142.0 mmol/ L 136.0- 145.0 Not Available [facility] ([facility]) [address] [place], [address], 04/16/2023 11:51:18 04/16/20 23 04/16/2023 CMP, serum or plasm a potassium 4.5 mmol/ L 3.5-5. 1 Not Available [facility] ([facility]) [address] [place], [address], 04/16/2023 11:51:18 04/16/20 23 04/16/2023 CMP, serum or plasm a chloride 103.0 mmol/ L 98.0-1 10.0 Not Available [facility] ([facility]) [address] [place], [address], 04/16/2023 11:51:18 04/16/20 23 04/16/2023 CMP, serum or plasm a CO2 27.0 mmol/ L 22.0-3 1.0 Not Available [facility] ([facility]) [address] [place], [address], 04/16/2023 11:51:18 04/16/20 23 04/16/2023 CMP, serum or plasm a anion gap 12.0 calc Not Available [facility] ([facility]) [address] [place], [address], 04/16/2023 11:51:18 04/16/20 23 04/16/2023 CMP, serum or plasm a osmolality 292.9 calc Not Available [facility] ([facility]) [address] [place], [address], 04/16/2023 11:51:18 04/16/20 23 04/16/2023 CBC WBC 8.21 X10^3 /uL 4.0-10 .5 normal Not Available [facility] ([facility]) [address] [place], [address], 04/16/2023 11:51:24 04/16/20 23 04/16/2023 CBC RBC 4.75 X10^6 /uL 3.50-5 .50 normal Not Available [facility] ([facility]) [address] [place], [address], 04/16/2023 11:51:24 04/16/20 23 04/16/2023 CBC HGB 15.37 g/dL 12.0-1 6.0 normal Not Available [facility] ([facility]) [address] [place], [address], 04/16/2023 11:51:24 04/16/20 23 04/16/2023 CBC HCT 44.9 % 37.0-4 7.0 normal Not Available [facility] ([facility]) [address] [place], [address], 04/16/2023 11:51:24 04/16/20 23 04/16/2023 CBC MCV 94.6 fL 80.0-9 9.0 normal Not Available [facility] ([facility]) [address] [place], [address], 04/16/2023 11:51:24 04/16/20 23 04/16/2023 CBC MCH 32.4 pg 27.0-3 2.0 high Not Available [facility] ([facility]) [address] [place], [address], 04/16/2023 11:51:24 04/16/20 23 04/16/2023 CBC MCHC 34.2 g/dL 32.0-3 6.0 normal Not Available [facility] ([facility]) [address] [place], [address], 04/16/2023 11:51:24 04/16/20 23 04/16/2023 CBC RDW 13.5 % 11.5-1 4.6 normal Not Available [facility] ([facility]) [address] [place], [address], 04/16/2023 11:51:24 04/16/20 23 04/16/2023 CBC plt 283.1 10^3/ uL 140.0- 451.0 normal Not Available [facility] ([facility]) [address] [place], [address], 04/16/2023 11:51:24 04/16/20 23 04/16/2023 CBC lymphocytes % 21.77 % 20.0-5 0.0 normal Not Available [facility] ([facility]) [address] [place], [address], 04/16/2023 11:51:24 04/16/20 23 04/16/2023 CBC granulocytes % 64.68 % 30.0-7 0.0 normal Not Available [facility] ([facility]) [address] [place], [address], 04/16/2023 11:51:24 04/16/20 23 04/16/2023 CBC monocytes % 10.34 % 2.0-10 .0 high Not Available [facility] ([facility]) [address] [place], [address], 04/16/2023 11:51:24 04/16/20 23 04/16/2023 CBC granulocytes # 5.31 X10^3 /uL normal Not Available [facility] ([facility]) [address] [place], [address], 04/16/2023 11:51:24 04/16/20 23 04/16/2023 CBC lymphocytes # 1.79 X10^3 /uL normal Not Available [facility] ([facility]) [address] [place], [address], 04/16/2023 11:51:24 04/16/20 23 04/16/2023 CBC monocytes # 0.85 X10^3 /uL abnormal Not Available [facility] ([facility]) [address] [place], [address], 04/16/2023 11:51:24 04/19/20 23 04/20/2023 T4, FREE T4, free 1.3 NG/dL 0.8-1. 8 normal Not Available [facility] [address] [address] [place], [address], 04/20/2023 06:04:43 04/19/20 23 04/20/2023 VITAM IN B12 vitamin B12 575 pg/mL 200-11 00 normal Not Available [facility] [address] [place], [address], 04/20/2023 06:04:44 04/19/20 23 04/19/2023 TSH, serum or plasm a TSH 2.72 uIU/m L 0.49-3 .82 Not Available [facility] ([facility]) [address] [place], [address], 04/19/2023 09:31:39 06/18/20 23 06/19/2023 TROPO HECTOR I, HIGH SENSI TIVIT Y troponin I, high sensitivity <3 NG/L < or = 47 In accor d with publi shed recom menda tions , seria l testi ng of tropo hector I at inter vals of 2 to 4 hours for up to 12 to 24 hours is sugge sted in order to le borat e a singl e tropo hector I resul t. An eleva kristy tropo hector alone is not suffi cient to make the diagn osis of [place]. Not Available [facility] [address] [address] [place], [address], 06/19/2023 15:29:04 04/19/20 23 04/19/2023 US, mara x, carot id arter y No observ ation record ed. [email or web address] [facility] [address], [address], 04/23/2023 15:09:21 05/09/20 23 05/08/2023 CT, chest + abdom en + pelvi s, w/ contr ast No observ ation record ed. [email or web address] [facility] [address] [place], [address], 05/11/2023 09:40:52 06/18/20 23 12/21/2024 elect rocar diogr am No observ ation record ed. [email or web address] [facility] ([facility]) [address] [place], [address], 12/22/2024 08:52:26 06/18/20 23 06/18/2023 elect rocar diogr am No observ ation record ed. [email or web address] Not Available 2022 11:07:16 06/19/20 23 06/18/2023 elect rocar diogr am No observ ation record ed. [email or web address] Not Available 2022 14:15:34 Result Notes None recorded. Problems Name Problem SNOMED Code Status Onset Date Resolution Date Notes Provider Name and Address Organization Details Recorded Time Chronic obstructi ve pulmonary disease 00062696 Active 2021 COPD (CHRONIC OBSTRUCTIV E PULMONARY DISEASE); Recorded 03/15/2022 2:21PM by José Miguel Quach, Office Visit; Promoted; acuity set as *; ERICKA lozada ND - [facility] 3 14:49:07 Finding of tobacco use and exposure 196738774 Active 2021 TOBACCO USE; 09/04/2022 12:36PM by JUSTIN Redman, Office Visit; Promoted; acuity set as *; Not Available [employer] 3 03:07:56 Post-trau matic stress disorder 30366695 Active 2021 PTSD (POST-TRAU MATIC STRESS DISORDER); 09/04/2022 12:36PM by JUSTIN Redman, Office Visit; Promoted; acuity set as *; Not Available [facility] 3 03:07:57 Problem Notes None recorded. Medical Equipment None Reported. Allergies Allergen ID Allergen Name Allergen Category Reaction Reaction Severity Criticality Documentation Date Start Date Code Code System Note Provider Name and Address Organization Details Recorded Time 21115 diphenhyd ramine hydrochlo ride medicatio n other Not available Not available 04/28/2023 1362 RxNorm React ion: Weekapaug titis ;prosper dryl, orage l ,chig garex , calad ryl NYLON , Hives ;prosper dryl, orage l ,chig garex , calad ryl NYLON ; Comme nt: Recor ded 09/04 9:58A M by Radha blanc RN, Offic e Visit ; Promo kristy; Katarina orourke ce: *; Reaso n: Drug aller gy; ; Not Available [facility] 3 02:26:59 Medications Name Sig Start Date Stop Date Status Note LastModified by Organization Details LastModified Time nicotine 14 mg/24 hr daily transderm al patch active Not Available Not Available Not Available aspirin 81 mg tablet,de layed release Take 1 tablet every day by oral route for 30 days. 2022 active did not get to the pharmacy to pick them up Not Available Not Available Not Available nicotine 21 mg/24 hr daily transderm al patch APPLY 1 PATCH TOPICALL Y ONCE DAILY active Not Available Not Available No t Available nitroglyc luis 0.4 mg sublingua l tablet as directed 05/14 completed 0; Recorded 09/04/20 22 9:58AM by Radha Crum, SABIHA, Office Visit; Not Available Not Available Not Available metoprolo l succinate ER 25 mg tablet,ex tended release 24 hr TAKE 1 TABLET BY MOUTH ONCE DAILY 04/16 completed Not Available Not Available Not Available ibuprofen every four hours, as needed 05/14 completed 0; Recorded 09/04/20 9:58AM by Radha Crum RN, Office Visit; Not Available Not Available Not Available metoprolo l succinate daily 05/14 completed LB/ak; 73873; Recorded 02/24/20 9:55AM by José Miguel Quach (Authori zuly through Yaneth Arora MD), Refill Request; Refill Quantity : 90; Tablet; Not Available Not Available Not Available Symbicort 160 mcg-4.5 mcg/actua tion HFA aerosol inhaler Inhale TWO puffs BY MOUTH ONCE DAILY. active Not Available Not Available No t Available budesonid e-formote rol daily 05/14 completed vo KM/dh; 73089; Recorded 09/14/20 1:16PM by Maddie Larios LPN (Authori zuly through Devika Gan PA-C), Refill Request; Refill Quantity : 3; Each; Not Available Not Available Not Available Vitals Date Recorded Body weight Body mass index (BMI) Body height Body temperature Oxygen saturation Oxygen saturation in Arterial blood by Pulse oximetry Heart rate Systolic And Diastolic Provider Name and Address Organization Details Last Updated DateTime 3 30796.3 5 g 16.6 kg/m2 152.4 cm 98.3 [degF] 93 % 93 % 75 /min 118/80 mm[Hg] IMANI CHRISTIE [facility] 3 11:14:18 Date Recorded Body height Body mass index (BMI) Body weight Body temperature Heart rate Oxygen saturation Oxygen saturation in Arterial blood by Pulse oximetry Systolic And Diastolic Provider Name and Address Organization Details Last Updated DateTime 3 152.4 cm 16.2 kg/m2 13156.1 7 g 97.9 [degF] 90 /min 93 % 93 % 115/68 mm[Hg] LENA GENAO [facility] 3 08:44:40 Date Recorded Body height Body mass index (BMI) Body weight Body temperature Oxygen saturation Oxygen saturation in Arterial blood by Pulse oximetry Heart rate Systolic And Diastolic Provider Name and Address Organization Details Last Updated DateTime 3 152.4 cm 16.4 kg/m2 11971.7 6 g 97.3 [degF] 88 % 88 % 73 /min 108/64 mm[Hg] ERICKA LIVINGSTON [facility] 3 14:48:01 Date Recorded Body height Body mass index (BMI) Body weight Body temperature Oxygen saturation Oxygen saturation in Arterial blood by Pulse oximetry Heart rate Systolic And Diastolic Provider Name and Address Organization Details Last Updated DateTime 3 152.4 cm 16.6 kg/m2 23774.3 5 g 98.2 [degF] 97 % 97 % 59 /min 120/76 mm[Hg] ERICKA LIVINGSTON [facility] 3 11:08:28 Social History None recorded. Functional Status Question Answer Note LastModified by Organizat ion Details LastModified Time Do you use any illicit or recreational drugs? No [email or web address] Information not available 05/14/2023 What is your level of alcohol consumption? None [email or web address] Information not available 05/14/2023 Mental Status None recorded. Family History Relationship Description Onset Age of this Age Resolved Age Notes LastModified by Organization Details LastModified Time Sister Cerebrovascu lar accident Not available 08:53:57 Maternal Grandfather Cerebrovascu lar accident [email or web address] Not available 08:53:57 Maternal Aunt Cerebrovascu lar accident Not available 08:53:57 Medical History No medical history recorded. Gynecological HistoryNo gynecological history recorded. Obstetrics History GPAL:G 0 P 0 0 0 0 Immunizations Vaccine Type Date Status Note Provider Nam e and Address Organization Details Recorded Time COVID-19, mRNA, LNP-S, PF, 100 mcg/0.5mL dose or 50 mcg/0.25mL dose 12/22/2020 completed IMANI lozada [facility] 04/16/2023 11:14:33 COVID-19, mRNA, LNP-S, PF, 100 mcg/0.5mL dose or 50 mcg/0.25mL dose 02/07/2021 completed IMANI lozada [facility] 04/16/2023 11:14:33 Past Encounters Encounter ID Performer Location Encounter Start Date Encounter Closed Date Diagnosis/Indication Diagnosis SNOMED-CT Code Diagnosis ICD10 Code Diagnosis IMO Codes Diagnosis Note [id number] Yaneth Arora MD [facility] ([facility]) [address] [place] [address] 04/16/2023 10:51:05 04/16/2023 14:03:38 History of transient ischemic attack 634562541 Z86.73 Per pt report. Associated with shaking/tr emor. Poor historian 151332440 Z76.89 Anxiety 62873134 F41.9 Memory impairment 425414 006 R41.3 [id number] Bakari Gan MD [facility] ([facility]) [address] [place] [address] 04/19/2023 08:37:11 04/19/2023 10:17:02 Abnormal weight loss 685466507 R63.4 Orthostati c hypotension 01824412 I95.1 Memory impairment 875614 006 R41.3 mmse 30/30 however, has poor accuracy regarding recent and remote events. needs further evaluation . [id number] Yaneth Arora MD [facility] ([facility]) [address] [place] [address] 04/19/2023 10:55:31 04/19/2023 12:51:04 [id number] Yaneth Arora MD [facility] ([facility]) [address] [place] [address] 05/14/2023 14:38:22 05/14/2023 15:36:58 Pulmonary hypertension 96907996 I27.20 Severe chr onic obstructive pulmonary disease 271342332 J44.9 severe pulmonary hypertensi on with COPD Common grady ac artery stenosis 592140026 I77.1 asymptomat ic, noted [place] [id number] Yaneth Arora MD [facility] ([facility]) [address] [place] [address] 06/18/2023 10:37:58 06/18/2023 12:49:51 Left sided chest pain 628824434 R07.9 The pt is not willing to try an antacid - there is aluminum in them that goes straight to your brain and gives you alzheimers . Hypochondriasis 14236168 F45.20 Health Concerns Section Related Observation LastModified by Organization Detai mariaelena LastModified Time None Recorded Concern Status LastModified by Organization Details LastModified Time None Recorded Advance Directives Directive None Recorded Payers Insurance Date Sequence Insurance Name Policy Number Policy Soto Covered Member ID Soto Member ID Guarantor Name 04/26/[address] [facility] (MEDICARE REPLACEMENT/A DVANTAGE - HMO) Martha Damico [id number] Martha Damico 04/26/2025 [place] [facility] (INSTITUTION[facility] L) Martha Damico [id number] Martha Damico 04/26/2025 2 [place] Martha Damico [id number] Martha Damico Notes Date Note Type Note Provider Name and Address Organization Details Recorded Time 3 text/html she has had 2 seizures now and no one cares and no one can tell her why. she does not know when the first one was other than within the last year. she has seen these doctors and they tell her everything is fine when it is not fine. had one seizure before - within the last year, called EMS and went to the hospital. they said everything was fine...but apparently it is not fine because it happened again on Sunday (yesterday) pt was in her utility room and grabbed something and a seizure came on very quickly. her arm was shaking and she almost dropped the item. She stated as soon as she wanted to hold onto something she couldn't like her hand was locked up. she grabbed onto a vacuum building cleaner that was standing there and it helped to to not completely fall. She did not call EMS for this episode because she knew she would not see a doctor until Sunday anyway. she does not like the hospital here and she has not been happy with them. I know what it is it is TIA. Its not a seizure, it is a TIA. I just know something is wrong. I know I'm going to have a stroke and and no one cares. She was scheduled for a certain test to be done that she wanted done. But first they made her do all these other tests first. then when she went for the test she wanted done - when she got to the hospital they told her she wasn't scheduled for it. she does not know the name of the test. it was the one where they inject dye and take a look at the heart.... (did you ever f/u with pulm? did you ever f/u with cardiology?)she says she saw pulmonology and she is using her inhaler and patches. she says she saw cardiology as well and they checked all these things and checked her heart and told her that everything looked great. after her first seizure/TIA she believes she saw neurology but is not certain...they did not put her on any seizure meds - why would they when it's not a seizure but a trembling TIA. she quit smoking a year ago. she only smokes when she drinks. she drinks about once a month. Yaneth Arora MD [address] [place] [address], [phone], [facility], [place] 04/16/2023 14:00:18 3 text/html weight loss: Patient reports over the last year she has lost almost 20 pounds. She started around 100 pounds. Patient reports that her appetite is good. she quit smoking last year and eats a lot. she is currently trying to eat a lot of high fat foods, specifically dairy to try and help her gain some weight. Patient reports that she does not feel bad, she is not tired. She has no black tarry stools. She has no aches/pains/RENAE. She did have an episode on Sunday where she lost her eye sight and she became very shaky. It lasted a matter of about 8 seconds. After it passed, she states that she feels back to her normal self. No fatigue. she had weights here of 92 lbs on 08/2021 and 10/2022 this visit today is clear to the patient is for an acute visit and not to establish care with dr. gan. on further thought and questioning prior to the shaky spell and her vision briefly going dim, she had been bent over working on lifting/walking a trunk from room to room. she was bent over head down for some time. when she stood up, she became light headed and shaky and her vision with dark/dim symmetrically l 80 125/80sit 81 102/68stand 90 98/62 Bakari Gan MD [address] [place], [phone], [facility], [facility] 04/19/2023 09:39:08 3 text/html ROS as noted in the HPI lab/imaging follow up pt states that she saw Dr. Dean about 1 year ago and he said everything was fine.... Yaneth Arora MD [address] [place] [address], [phone], [facility], [place]. 05/14/2023 15:26:55 3 text/html Angina/Chest PainReported by PatientHPIFor quality, patient reportsachingandsoreness . For associated symptoms, patient reportsshortness of breathandfatiguebut reportsno coughandno associated dizziness. For location, patient reportsdoes not radiate. For onset/timing, patient reportsstarted 4 days ago.ROS as noted in the HPI my heart hurts almost constantly, I can feel that pain right now, the more I stir around the more it hurts, I'm so exhausted I sleep all the time... I'm just so tired,this pain in my heart...I have an appt with cardiology and I was wondering if you could get me in sooner.its been doing this a long long time, I can feel it. No I dont take any medicine for it. I dont take anything for reflux or heartburn - I don't have any heartburn. I wouldnt take those anyway cause they have aluminum in them and that causes Alzheimers. I know my body and I know something is wrong. You know I was 6 points away from being a genius? No, it was 7, 7 points away from being genius. I was almost in mensa. Yaneth Arora MD [address] [place], [phone], [facility], [facility] 06/24/2023 18:31:31 OBGyn Episode No OBEpisode recorded.
--- NOTE | 2025-08-13 17:23 | ECG_ITS ---
[facility] Date: 2025-08-13 Pat Name: Martha Damico Department: Room: Gender: Female Tele Tech: : 1960 Requested By: Nedra Walls Order Number: [id number] Bright MD: Doc Wiggins M.D. Measurements Intervals [place] Rate: 103 P: 77 MD: 135 QRS: 86 QRSD: 73 T: 69 QT: 308 QTc: 404 Interpretive Statements SINUS TACHYCARDIA WITH OCCASIONAL ECTOPIC SUPRAVENTRICULAR PREMATURE COMPLEXES ABNORMAL RHYTHM ECG Compared to ECG 04/22/2025 01:23:09 SUPRAVENTRICULAR ECTOPIC BEATS ARE NEW Electronically Signed On 08-13-2025 19:51:05 TESTING CONSULTANT by Doc Wiggins M.D. [email or web address] [id number]
[2025-08-13] MEDS: ondansetron 2 mg/ML SDV 2 mL 4 MG IVP (17:36)
[2025-08-13] MEDS: morphine 4 mg/mL SDV 1 mL 2 MG IVP ×2 (17:39→23:08)
[2025-08-13] MEDS: methylPREDNISolone sod succ 125 mg/2 mL INJ IVP (17:39)
[2025-08-13 17:42] LABS: ABG PH Result 7.36 (7.35-7.45); Alveolar-Arterial Oxygen Gradi 11.2 mmHg (5-10); Arterial Blood Gas Hematocrit 41.9 % (37-47); Blood Gas LPM 3.0 %; Blood Gas Operator Identificat AMH; Blood Gas Sample Site Brachial, right; Blood Gas Sample Type Arterial; Carboxyhemoglobin 0.8 %THgb (0.4-20.1); Glucose Level-ABG 140.0 mg/dL (70-115); HCO3 ABG 34.5 mmol/L (22-26); Ionized Calcium Level - ABG 1.2 mmol/L (1.1-1.4); Methemoglobin 1.0 % (0.4-1.5); Oxygen Saturation ABG 93.8; PO2 ABG 69.1 mmHg (80.0-100.0); PO2 FiO2 Ratio Arterial Blood 215; Potassium Level - ABG 4.2 mmol/L (3.5-5.0); Sodium Level - ABG 141.0 mmol/L (131-143)
[2025-08-13 17:43] LABS: ABG PCO2 60.9 mmHg (35-45)
[2025-08-13 18:01] LABS: Hematocrit 41.8 % (36-47); Hemoglobin 13.50 g/dL (11.27-16.99); Mean Corpuscular HGB Conc 32.3 g/dL (30-55); Mean Corpuscular Hemoglobin 30.1 pg (27-33); Mean Corpuscular Volume 93.1 fl (85-98); Nucleated Red Blood Cells % 0 %; Platelet Count 296 10^3/cmm (157-399); Red Blood Count 4.49 10^6/uL (3.85-5.65); White Blood Count 12.97 10^3/uL (3.29-11.43)
[2025-08-13 18:18] LABS: Troponin(5th) Baseline 16 ng/L (0-10)
[2025-08-13 18:20] LABS: Lactic Sepsis W/Reflex 0.8 mmol/L (0.5-2.2)
[2025-08-13 18:39] LABS: Alanine Aminotransferase 30 U/L (0-33); Albumin Level 5.0 g/dL (3.5-5.2); Alkaline Phosphatase 74 U/L (35-105); Anion Gap 14.7 (5-19); Aspartate Amino Transferase 22 U/L (0-32); Blood Urea Nitrogen 13 mg/dL (8-23); Calcium 10.0 mg/dL (8.5-10.5); Carbon Dioxide 35 mmol/L (22-29); Chloride 97 mmol/L (98-107); Globulin 2.2 g/dL (1.3-4.6); Glucose 139 mg/dL (65-115); NT Pro B Type Natriuretic Pept 57 pg/mL (0-125); Osmolality Calculated 296 mOsm/kg (285-295); Potassium 4.7 mmol/L (3.5-5.1); Sodium 142 mmol/L (136-145); Total Protein 7.2 g/dL (6.6-8.7)
[2025-08-13 18:57] LABS: Respiratory Syncytial Virus Ce NEGATIVE (Negative); SARS-CoV-2 PCR NEGATIVE (Negative)
[2025-08-13] MEDS: HYDROmorphone 0.5 MG/0.5 ML INJ IVP (19:12)
--- NOTE | 2025-08-13 19:19 | ECG_ITS ---
[facility] [facility] Test Date: 2025-08-13 Pat Name: Martha Damico Department: Room: Gender: Female Special Needs Tutor: : 1960 Requested By: Nedra Walls Order Number: [id number] Kaila MD: Yuri Campa M.D. Measurements Intervals [place] Rate: 94 P: 53 TX: 110 QRS: 80 QRSD: 78 T: 56 QT: 317 QTc: 398 Interpretive Statements SINUS RHYTHM WITH SHORT TX INTERVAL Compared to ECG 08/13/2025 17:23:13 Short [place] interval now present Sinus tachycardia no longer present Electronically Signed On 08-14-2025 13:16:30 HEDIS ANALYST by Yuri Campa M.D. [id number] [id number]
[2025-08-13 19:47] LABS: Troponin 5 2HR 14.42 ng/L (0-10)
[2025-08-13 19:54] LABS: Troponin 5 2HR Delta -1.58 ABS# (0-10)
--- NOTE | 2025-08-13 20:05 | CTR_ITS ---
PROCEDURE INFORMATION: Exam: CTA Chest With Contrast Exam date and time: 08/13/2025 8:22 PM Age: 65 years old Clinical indication: Shortness of breath; Additional info: SOB TECHNIQUE: Imaging protocol: Computed tomographic angiography of the chest with contrast. Exam focused on the arteries. 3D rendering (Not supervised by radiologist): MIP and/or 3D reconstructed images were created by the technologist. Radiation optimization: All CT scans at this facility use at least one of these dose optimization techniques: automated exposure control; mA and/or kV adjustment per patient size (includes targeted exams where dose is matched to clinical indication); or iterative reconstruction. Contrast material: OMNI 350; Contrast volume: 100 ml; Contrast route: INTRAVENOUS (IV); COMPARISON: CT chest w con* [id number] 04/22/2025 10:04 AM RADIATION DOSE METRICS: Total DLP (mGy-cm): 138.32 FINDINGS: Pulmonary arteries: Normal. No pulmonary emboli. Aorta: Unremarkable. No aortic aneurysm. No aortic dissection. Lungs: Emphysematous changes of the lungs. Focal area of atelectasis of the right lung base. Pleural spaces: Unremarkable. No pneumothorax. No pleural effusion. Heart: Unremarkable. No cardiomegaly. No pericardial effusion. Lymph nodes: Unremarkable. No enlarged lymph nodes. Adrenal glands: Left adrenal gland adenoma. Kidneys: Left-sided nephrolithiasis. Bones/joints: Unremarkable. No acute fracture. Soft tissues: Unremarkable. CT/CT angio chest PE protcl [id number] IMPRESSION: No pulmonary embolism. Emphysema. COMMENTS: The presence of pulmonary emphysema on CT is an independent risk factor for lung cancer. In the absence of a history or active diagnosis of lung cancer, it is recommended that this patient with emphysema be evaluated for enrollment in a low dose CT lung cancer screening program.
--- NOTE | 2025-08-13 20:16 | PM.HP ---
Providers/Chief Complaint Admitting Physician: Bud Ward MD Primary Care Provider: Bakari Gan MD Chief Complaint: chest pain - difficulty breathing History of Present Illness Martha Damico is a 65 year old female with past medical history of COPD, chronic respiratory failure, who presents to [facility] for shortness of breath and chest pain. Currently patient is alert and oriented x 3, following commands, she reports that she had substernal chest pain associate with shortness of breath today, pressure-like pain, on and off associate with shortness of breath also associated with pleurisy, cough, no hemoptysis, no calf pain, no calf swelling, no sick contacts, no recent travel. In the emergency room she was found to have hypercarbic respiratory failure however she is declining to use the BiPAP. She tells me that the BiPAP mask it is tight and makes her claustrophobic. Discussed morbidity and mortality associated with hypercarbic respiratory failure, CO2 retention, she voiced understanding, all questions answered, shared decision making for now she wants to avoid BiPAP use. Discussed if her condition worsens and she has worsening shortness of breath, her only other option would be intubation. She wants to be a full code. She said that at that point she will try the BiPAP, discussed it is better to use sooner rather than later. She voiced understanding, all questions answered, she understands morbidity or mortality, she wants to hold off on for now Review of Systems Card: Reports: chest pain Resp: Reports: dyspnea Medications/Allergies Home Medications ?Medication ?Instructions ?Recorded ?Confirmed ?Last Taken ?Type budesonide-formoterol HFA 160 2 puff inhalation BID 03/18/21 04/22/25 04/21/25 History mcg-4.5 mcg/actuation aerosol inhaler (Symbicort) multivitamin 1 tab PO DAILY 04/11/22 04/22/25 Unknown History acetaminophen 325 mg tablet 325 mg PO QID PRN Pain 05/18/22 04/22/25 Unknown History albuterol sulfate 2.5 mg/3 mL 2.5 mg (3 mL) continuous 04/23/25 04/22/25 Unknown Rx (0.083 %) solution for nebulization nebulization Q8H Shortness Of Breath #180 mL albuterol sulfate 90 mcg/actuation 1 inh inhalation Q6H PRN shortness 04/23/25 Unknown Rx aerosol inhaler (Ventolin HFA) of breath or wheezing #8.5 grams ipratropium bromide 0.02 % 1.25 ml inhalation Q8H #150 mL 04/23/25 Unknown Rx solution for inhalation prednisone 10 mg tablet See Taper PO DIRECTED #42 tabs 04/23/25 Unknown Rx Allergies Allergy/AdvReac Type Severity Reaction Status Date / Time No Known Allergies Allergy Verified 08/13/25 17:16 PFSH Acute PFSH: Medical History Chest pain COPD (chronic obstructive pulmonary disease) Afib PTSD (post-traumatic stress disorder) Tobacco use Family History Mother Dementia Lung disease Cancer Sister Dementia Diabetes Cancer Father Lung disease Cancer Family/Other Stroke Brother Cancer Social History Smoking and tobacco/nicotine status: former use of tobacco/nicotine Quit status (tobacco/nicotine): has quit using Year quit tobacco: 15 months ago Former quit date comment: 1 pack per day x 52 years Second hand smoke exposure: Yes Alcohol intake: current Alcohol intake frequency: 3 or more drinks per day Vitals/I&O/Wt Last Vital Signs Temp 98.1 F 08/13/25 17:08 Pulse 90 08/13/25 19:33 Resp 16 08/13/25 19:33 BP 120/76 08/13/25 19:33 Pulse Ox 95 08/13/25 19:33 O2 Del Method Nasal Cannula 08/13/25 17:39 O2 Flow Rate 3 08/13/25 17:39 08/13/25 08/13/25 08/13/25 06:59 14:59 22:59 Intake Total 0 / 0 Balance 0 / 0 Weight last 48 hrs Weight 35.38 kg Physical Exam Const: COMMON NORMALS: no acute distress and patient oriented x3 Eye: COMMON NORMALS: Equal, round and reactive pupils present and EOMs intact bilaterally Resp: COMMON NORMALS: normal respiratory effort, No retractions and No use of accessory muscles AUSCULTATION: crackles and wheezes Cardio: COMMON NORMALS: no JVD, regular rate, regular rhythm, S1 normal heart sound present and S2 normal heart sound present RATE: regular rate RHYTHM: regular rhythm HEART SOUNDS: S1 normal heart sound present and S2 normal heart sound present GI: COMMON NORMALS: Normal to inspection, nondistended, normoactive bowel sounds present, Soft to palpation and non-tender Extremity: COMMON NORMALS: no pedal edema Neuro: COMMON NORMALS: patient oriented x3, CN's II-XII intact bilaterally and moves all extremities Psych: COMMON NORMALS: mental status grossly normal Data 08/13/25 17:29 08/13/25 17:29 A&P Assessment and plan 1. Chest pain: 2. COPD (chronic obstructive pulmonary disease): 3. Hypercapnia: 4. Acute exacerbation of chronic obstructive airways disease: Plan: Acute hypoxic respiratory failure - Secondary to COPD - Concern for pneumonia Plan - For now patient declines BiPAP - Full code - Sputum culture - Blood culture - Rocephin - Azithromycin - DuoNeb - Budesonide - CT imaging of the chest Chest pain - Aspirin, statin - Serial EKGs, serial troponins, telemetry monitoring - Cardiac echo PDMP PDMP Reviewed: Not Reviewed Attestations Medical Necessity Statement*: Patient requires hospitalization, inpatient, greater than 2 midnights for acute hypoxic respiratory failure Diagnoses Chest pain R07.9 COPD (chronic obstructive pulmonary disease) J44.9 Hypercapnia R06.89 Acute exacerbation of chronic obstructive airways disease J44.1
[2025-08-13] MEDS: iohexol 350 mg/mL 500 mL Btl (per mL) IV (20:24)
[2025-08-13] MEDS: levofloxacin-dextrose 5 % 750 MG/150 ML PREMIX 100 MG IV (20:47)
--- NOTE | 2025-08-13 21:33 | USCV_ITS ---
Martha Damico Age: 65 Gender: F : 1960 Exam Date: 08/13/2025 22:08 Ordering Phys: Bud Ward MD Technologist: CHANI [place] [facility] [place]: chest pain and SOB, history of COPD, Chronic respiratory failure. BP: 138 / 89 HR: 90 Rhythm: Sinus Technical Quality: Adequate MEASUREMENTS (Male / Female) Normal Values 2D ECHO LV Diastolic Diameter PLAX 2.7 cm 4.2 - 5.9 / 3.9 - 5.3 cm IVS Diastolic Thickness 1.3 cm 0.6 - 1.0 / 0.6 - 0.9 cm IVS Systolic Thickness 1.2 cm LVPW Diastolic Thickness 1.0 cm 0.6 - 1.0 / 0.6 - 0.9 cm LVPW Systolic Thickness 1.5 cm LVOT Diameter 1.8 cm LV Ejection Fraction 2D Teich 59.1 % LV Ejection Fraction MOD 4C 50.0 % LV Ejection Fraction MOD 2C 67.7 % LV Ejection Fraction 2C AL 68.2 % LA Diameter 2.3 cm Aorta at Sinotubular Diameter 2.7 cm IVC Diameter 1.7 cm DOPPLER AV Peak Velocity 90.0 cm/s LVOT Peak Velocity 72.0 cm/s AV Area Cont Eq vti 2.3 cm squared AV Area Cont Eq pk 2.0 cm squared MV Peak Velocity 92.0 cm/s MV Area PHT 4.7 cm squared Mitral E to A Ratio 1.4 TV Peak Velocity 182.5 cm/s TR Peak Velocity 277.0 cm/s TR Peak Gradient 30.7 mmHg TV Peak E Velocity 45.0 cm/s PV Peak Velocity 97.0 cm/s FINDINGS Left Ventricle Normal left ventricular size and systolic function, EF 60-65%. No regional wall motion abnormalities. Right Ventricle Normal in size and function Right Atrium Normal in size Left Atrium Normal in size IA Septum Grossly normal Mitral Valve Structurally normal valve. Trace mitral regurgitation Aortic Valve Structurally normal aortic valve. No significant stenosis or regurgitation. Tricuspid Valve Mild tricuspid regurgitation. RVSP is normal Pulmonic Valve Not well visualized Pericardium Normal Aorta Normal in size IVC Appears to be normal CONCLUSIONS LV systolic function is normal with EF of 60-65% Trace mitral regurgitation Mild tricuspid regurgitation. Yuri Campa MD (Electronically Signed) Final Date: 14 August 2025 15:52 S
--- NOTE | 2025-08-13 21:36 | ECG_ITS ---
[facility] Date: 2025-08[facility]13 Pat Name: Martha Damico Department: Room: 112 Gender: Female Tobacco Farmworker: : 1960 Requested By: Bud Ward Order Number: [id number] Kaila MD: Yuri Campa M.D. Measurements Intervals [place] Rate: 95 P: 82 [place]: 131 QRS: 74 QRSD: 69 T: 68 QT: 343 QTc: 433 Interpretive Statements SINUS RHYTHM WITH OCCASIONAL SUPRAVENTRICULAR PREMATURE COMPLEXES Compared to ECG 08/13/2025 19:19:19 Short [place] interval no longer present Electronically Signed On 08-14-2025 13:06:00 CLEANER TOUCH UP WORKER by Yuri Campa M.D. [id number]
[2025-08-13 22:50] LABS: Procalcitonin 0.06 ng/mL (0-0.5)
[2025-08-13] MEDS: pantoprazole 40 mg SDV IVP (23:09)
--- NOTE | 2025-08-13 23:33 | ECG_ITS ---
[facility]: 2025-[facility]13 Pat Name: Martha Damico Department: Room: 112 Gender: Female Taker Away: : 1960 Requested By: Nedra Walls Order Number: [id number] Bright MD: Yuri Campa M.D. Measurements Intervals [place] Rate: 97 P: 71 HI: 108 QRS: 76 QRSD: 80 T: 72 QT: 349 QTc: 445 Interpretive Statements SINUS RHYTHM WITH SHORT HI INTERVAL WITH OCCASIONAL VENTRICULAR PREMATURE COMPLEXES Compared to ECG 08/13/2025 21:38:30 Ventricular premature complex(es) now present Short [place] interval now present Electronically Signed On 08-14-2025 13:15:59 WAGON DRILL OPERATOR by Yuri Campa M.D. [email or web address] [id number]
[2025-08-14] VITALS (16 sets, daily range): BP systolic 92–117; BP diastolic 52–78; PULSE 82–104; RESP 16–22; TEMP 36.4–36.6; O2SAT 92–98; BMI 15.7
[2025-08-14 00:04] LABS: Troponin 5 6HR 11.92 ng/L (0-10)
[2025-08-14 00:07] LABS: Troponin 5 6HR Delta -4.08 ng/L (0-12)
[2025-08-14 01:45] LABS: Estmated Average Glucose 105; Hemoglobin A1C 5.3 % (4.0-6.0)
--- NOTE | 2025-08-14 02:52 | PC.NURSE ---
contacted MD about 9/10 chest pain, obtained EKG, patient was refusing narcotics and nitro at this time stating that she believed it will go away on its own, an hour and half later patient stated that the pain was back and worse but still rated a 9/10 and wanted to try the morphine again, dose given see NOV.
[2025-08-14 04:09] LABS: Hematocrit 39.7 % (36-47); Hemoglobin 12.80 g/dL (11.27-16.99); Mean Corpuscular HGB Conc 32.2 g/dL (30-55); Mean Corpuscular Hemoglobin 30.3 pg (27-33); Mean Corpuscular Volume 93.9 fl (85-98); Nucleated Red Blood Cells % 0 %; Platelet Count 263 10^3/cmm (157-399); Red Blood Count 4.23 10^6/uL (3.85-5.65); White Blood Count 5.83 10^3/uL (3.29-11.43)
[2025-08-14 04:41] LABS: Alanine Aminotransferase 30 U/L (0-33); Albumin Level 4.7 g/dL (3.5-5.2); Alkaline Phosphatase 69 U/L (35-105); Anion Gap 15.7 (5-19); Aspartate Amino Transferase 20 U/L (0-32); Blood Urea Nitrogen 12 mg/dL (8-23); Calcium 9.4 mg/dL (8.5-10.5); Carbon Dioxide 29 mmol/L (22-29); Chloride 96 mmol/L (98-107); Globulin 2.5 g/dL (1.3-4.6); Glucose 159 mg/dL (65-115); Osmolality Calculated 285 mOsm/kg (285-295); Potassium 4.7 mmol/L (3.5-5.1); Sodium 136 mmol/L (136-145); Total Protein 7.2 g/dL (6.6-8.7)
[2025-08-14 04:44] LABS: NT Pro B Type Natriuretic Pept 100 pg/mL (0-125)
[2025-08-14] MEDS: methylPREDNISolone sod succ 40 mg/mL INJ IVP ×3 (05:09→21:05)
[2025-08-14] MEDS: morphine 4 mg/mL SDV 1 mL 2 MG IVP ×2 (05:10→09:00)
[2025-08-14 05:21] LABS: Rapid Strep A Test Negative (Negative)
[2025-08-14] MEDS: cefTRIAXone 1,000 mg SDV 1000 MG IVP (07:46)
--- NOTE | 2025-08-14 12:21 | PC.SOCIAL ---
IMM Update pg 2 of IMM Updated and reviewed w/ patient. Copy provided and copy dated, initialed and placed in chart.
--- NOTE | 2025-08-14 13:56 | P.PN_ITS ---
Subjective 2 Subjective: Admitted overnight. H&P and labs appreciated. Patient lying comfortably in bed on examination. States her chest pressure and pain is better. States breathing is better as well. Currently on 3 L. Denies any nausea, vomiting, headache. Vitals/I&O/Wt Last Vital Signs Temp 97.8 F 08/14/25 12:00 Pulse 94 08/14/25 12:39 Resp 18 08/14/25 12:39 BP 109/56 08/14/25 12:00 Pulse Ox 95 08/14/25 12:39 O2 Del Method Nasal Cannula 08/14/25 12:39 O2 Flow Rate 3 08/14/25 12:39 08/13/25 08/14/25 08/14/25 22:59 06:59 14:59 Intake Total 150 / 150 250 / 250 Balance 150 / 150 250 / 250 Weight last 48 hrs Weight 36.5 kg Weight 36.5 kg Weight 35.38 kg Physical Exam 2 Const: COMMON NORMALS: no acute distress and patient oriented x3 Eye: COMMON NORMALS: Equal, round and reactive pupils present and EOMs intact bilaterally PUPIL: Yes Equal, round and reactive pupils present Neck/C-Spine: COMMON NORMALS: no JVD Resp: COMMON NORMALS: normal respiratory effort, No retractions and No use of accessory muscles AUSCULTATION: crackles and wheezes Cardio: COMMON NORMALS: no JVD, regular rate, regular rhythm, S1 normal heart sound present and S2 normal heart sound present RATE: regular rate RHYTHM: regular rhythm HEART SOUNDS: S1 normal heart sound present and S2 normal heart sound present GI: COMMON NORMALS: Normal to inspection, nondistended, normoactive bowel sounds present, Soft to palpation and non-tender PALPATION: Yes Soft to palpation Extremity: COMMON NORMALS: no pedal edema Neuro: COMMON NORMALS: patient oriented x3, CN's II-XII intact bilaterally and moves all extremities Psych: COMMON NORMALS: mental status grossly normal Data 08/14/25 03:27 08/14/25 03:27 A&P Assessment and plan 1. Chest pain: 2. COPD (chronic obstructive pulmonary disease): 3. Hypercapnia: 4. Acute exacerbation of chronic obstructive airways disease: Plan: Acute hypoxic respiratory failure - Secondary to COPD - Concern for pneumonia Plan - For now patient declines BiPAP - Full code - Sputum culture - Blood culture - Rocephin - Azithromycin - DuoNeb - Budesonide - CT imaging of the chest Chest pain - Aspirin, statin - Serial EKGs, serial troponins, telemetry monitoring - Cardiac echo Plan for the day: Chest pressure and pain admission most likely in setting of COPD exacerbation secondary to bronchitis. Appreciate CTA negative for PE or consolidation. Troponin cycled negative. Echocardiogram done. Results awaited. Continue with aspirin, statin. Continue with azithromycin IV ceftriaxone for now. Solu-Medrol 40 mg Q8 hourly. Change morphine to 1 mg 6 hours as needed, tramadol to be added to 50 mg every 6 hours as needed. PDMP PDMP Reviewed: Not Reviewed Attestations 2 Medical Necessity Statement*: Requires further hospitalization for management of COPD exacerbation in setting of bronchitis leading to acute on chronic hypercapnic and hypoxic respiratory failure Diagnoses Chest pain R07.9 COPD (chronic obstructive pulmonary disease) J44.9 Hypercapnia R06.89 Acute exacerbation of chronic obstructive airways disease J44.1
[2025-08-14] MEDS: pantoprazole 40 mg SDV IVP (21:05)
[2025-08-15] VITALS (9 sets, daily range): BP systolic 91–110; BP diastolic 55–69; PULSE 79–100; RESP 14–22; TEMP 35.9–36.7; O2SAT 90–97
[2025-08-15 03:26] LABS: Hematocrit 35.7 % (36-47); Hemoglobin 11.60 g/dL (11.27-16.99); Mean Corpuscular HGB Conc 32.5 g/dL (30-55); Mean Corpuscular Hemoglobin 30.9 pg (27-33); Mean Corpuscular Volume 95.2 fl (85-98); Nucleated Red Blood Cells % 0 %; Platelet Count 240 10^3/cmm (157-399); Red Blood Count 3.75 10^6/uL (3.85-5.65); White Blood Count 17.06 10^3/uL (3.29-11.43)
[2025-08-15 03:53] LABS: Alanine Aminotransferase 26 U/L (0-33); Albumin Level 4.2 g/dL (3.5-5.2); Alkaline Phosphatase 57 U/L (35-105); Anion Gap 9.6 (5-19); Aspartate Amino Transferase 16 U/L (0-32); Blood Urea Nitrogen 17 mg/dL (8-23); Calcium 9.3 mg/dL (8.5-10.5); Carbon Dioxide 35 mmol/L (22-29); Chloride 99 mmol/L (98-107); Globulin 2.1 g/dL (1.3-4.6); Glucose 154 mg/dL (65-115); Osmolality Calculated 291 mOsm/kg (285-295); Potassium 5.6 mmol/L (3.5-5.1); Sodium 138 mmol/L (136-145); Total Protein 6.3 g/dL (6.6-8.7)
[2025-08-15] MEDS: methylPREDNISolone sod succ 40 mg/mL INJ IVP (04:55)
[2025-08-15] MEDS: morphine 4 mg/mL SDV 1 mL 1 MG IVP (06:18)
--- NOTE | 2025-08-15 06:46 | PC.NURSE ---
Notified Dr. Ward of 5.6 potassium this AM. to place orders.
[2025-08-15] MEDS: cefTRIAXone 1,000 mg SDV 1000 MG IVP (08:28)
--- NOTE | 2025-08-15 08:37 | P.DS_ITS ---
Discharge Providers Date of Admission: 08/13/25 19:57 Date of Discharge: August 15, 2025 Attending Provider at Admission: Bud Ward MD Attending Provider at Discharge: Greg Gonzalez MD Primary Care Provider: Bakari Gan MD Diagnoses at Discharge Discharge Diagnosis 1. Chest pain: 2. COPD (chronic obstructive pulmonary disease): 3. Hypercapnia: 4. Acute exacerbation of chronic obstructive airways disease: Reason for Visit Reason for Visit: chest pain - difficulty breathing Brief History: Per HPI Martha Damico is a 65 year old female with past medical history of COPD, chronic respiratory failure, who presents to [facility] for shortness of breath and chest pain. Currently patient is alert and oriented x 3, following commands, she reports that she had substernal chest pain associate with shortness of breath today, pressure-like pain, on and off associate with shortness of breath also associated with pleurisy, cough, no hemoptysis, no calf pain, no calf swelling, no sick contacts, no recent travel. In the emergency room she was found to have hypercarbic respiratory failure however she is declining to use the BiPAP. She tells me that the BiPAP mask it is tight and makes her claustrophobic. Discussed morbidity and mortality associated with hypercarbic respiratory failure, CO2 retention, she voiced understanding, all questions answered, shared decision making for now she wants to avoid BiPAP use. Discussed if her condition worsens and she has worsening shortness of breath, her only other option would be intubation. She wants to be a full code. She said that at that point she will try the BiPAP, discussed it is better to use sooner rather than later. She voiced understanding, all questions answered, she understands morbidity or mortality, she wants to hold off on for now. Hospital Course Hospital Course Patient pulmonary to the hospital further evaluation and management in setting of COPD exacerbation due to bronchitis. Pneumonia, PE was ruled out with a ne gative CTA. Echocardiogram was done which showed no regional wall motion abnormality. Troponin cycled was negative. She has been discharged in stable condition on oral antibiotic for bronchitis for 3 days and steroid taper along with nebulization treatment. Patient is back to her baseline respiratory status by discharge. Physical Exam Const: COMMON NORMALS: no acute distress and patient oriented x3 Eye: COMMON NORMALS: Equal, round and reactive pupils present and EOMs intact bilaterally PUPIL: Yes Equal, round and reactive pupils present Neck/C-Spine: COMMON NORMALS: no JVD Resp: COMMON NORMALS: normal respiratory effort, No retractions and No use of accessory muscles AUSCULTATION: crackles and wheezes Cardio: COMMON NORMALS: no JVD, regular rate, regular rhythm, S1 normal heart sound present and S2 normal heart sound present RATE: regular rate RHYTHM: regular rhythm HEART SOUNDS: S1 normal heart sound present and S2 normal heart sound present GI: COMMON NORMALS: Normal to inspection, nondistended, normoactive bowel sounds present, Soft to palpation and non-tender PALPATION: Yes Soft to palpation Extremity: COMMON NORMALS: no pedal edema Neuro: COMMON NORMALS: patient oriented x3, CN's II-XII intact bilaterally and moves all extremities Psych: COMMON NORMALS: mental status grossly normal Discharge Data Studies Completed and Pending Completed Studies During Hospitalization Category Date Time Status CT angio chest PE protcl [id number] Stat Cat Scan 08/13/25 20:05 Completed XR chest 1V portable [id number] Stat Exams 08/13/25 17:14 Completed CV. echo complete* [id number] Routine Ultrasound 08/13/25 21:33 Completed Pending at discharge Category Date Time Status Blood Culture Stat Lab 08/13/25 17:31 Received Streptococcus Culture Group A Stat Lab 08/14/25 04:10 Received Radiology Impressions Chest X-Ray 08/13/25 17:14 IMPRESSION: As above. Chest CTA 08/13/25 20:05 IMPRESSION: No pulmonary embolism. Emphysema. COMMENTS: The presence of pulmonary emphysema on CT is an independent risk factor for lung cancer. In the absence of a history or active diagnosis of lung cancer, it is recommended that this patient with emphysema be evaluated for enrollment in a low dose CT lung cancer screening program. Laboratory Results WBC 17.06 10^3/uL (3.29-11.43) H 08/15/25 03:10 RBC 3.75 10^6/uL (3.85-5.65) L 08/15/25 03:10 Hgb 11.60 g/dL (11.27-16.99) 08/15/25 03:10 Hct 35.7 % (36-47) L 08/15/25 03:10 MCV 95.2 fl (85-98) 08/15/25 03:10 MCH 30.9 pg (27-33) 08/15/25 03:10 MCHC 32.5 g/dL (30-55) 08/15/25 03:10 RDW 11.7 % (12.1-15.1) L 08/15/25 03:10 Plt Count 240 10^3/cmm (157-399) 08/15/25 03:10 MPV 10.0 fL (7.4-10.4) 08/15/25 03:10 Neut % (Auto) 93.9 % 08/15/25 03:10 Lymph % (Auto) 2.2 % 08/15/25 03:10 [place] % (Auto) 3.3 % 08/15/25 03:10 Eos % (Auto) 0.0 % 08/15/25 03:10 Baso % (Auto) 0.1 % 08/15/25 03:10 Neut # (Auto) 16.02 10^3/uL (1.8-7.7) H 08/15/25 03:10 Lymph # (Auto) 0.4 10^3/uL (0.8-4.8) L 08/15/25 03:10 [place] # (Auto) 0.6 10^3/uL (0.2-0.9) 08/15/25 03:10 Eos # (Auto) 0.0 10^3/uL (0.0-0.8) 08/15/25 03:10 Baso # (Auto) 0.0 10^3/uL (0.0-0.1) 08/15/25 03:10 Nucleated RBC % (auto) 0 % 08/15/25 03:10 Nucleated RBCs # 0.0 /100WBC 08/15/25 03:10 Specimen Type Arterial 08/13/25 17:31 Sample Site Brachial, right 08/13/25 17:31 ABG pH 7.36 (7.35-7.45) 08/13/25 17:31 ABG pCO2 60.9 mmHg (35-45) H* 08/13/25 17:31 ABG pO2 69.1 mmHg (80.0-100.0) L 08/13/25 17:31 ABG PO2/FiO2 Ratio 215 08/13/25 17:31 ABG HCO3 34.5 mmol/L (22-26) H 08/13/25 17:31 ABG O2 Saturation 93.8 08/13/25 17:31 ABG Base Excess 7.0 mmol/L (-2.0-2.0) H 08/13/25 17:31 Narendra Test N/a 08/13/25 17:31 A-a O2 Gradient 11.2 mmHg (5-10) H 08/13/25 17:31 Hematocrit 41.9 % (37-47) 08/13/25 17:31 Hgb O2 Saturation 92.0 % (95-100) L 08/13/25 17:31 Carboxyhemoglobin 0.8 %THgb (0.4-20.1) 08/13/25 17:31 Methemoglobin 1.0 % (0.4-1.5) 08/13/25 17:31 Total Hemoglobin 13.7 g/dL (12-16) 08/13/25 17:31 Sodium 141.0 mmol/L (131-143) 08/13/25 17:31 Potassium 4.2 mmol/L (3.5-5.0) 08/13/25 17:31 Glucose 140.0 mg/dL (70-115) H 08/13/25 17:31 Ionized Calcium 1.2 mmol/L (1.1-1.4) 08/13/25 17:31 O2 Delivery Device Nc 08/13/25 17:31 O2 Liters/Min 3.0 % 08/13/25 17:31 FiO2 32.0 % 08/13/25 17:31 Corporate Training Manager ID Amh 08/13/25 17:31 Sodium 138 mmol/L (136-145) 08/15/25 03:10 Potassium 5.6 mmol/L (3.5-5.1) H 08/15/25 03:10 Chloride 99 mmol/L (98-107) 08/15/25 03:10 Carbon Dioxide 35 mmol/L (22-29) H 08/15/25 03:10 Anion Gap 9.6 (5-19) 08/15/25 03:10 BUN 17 mg/dL (8-23) 08/15/25 03:10 Creatinine 0.6 mg/dL (0.5-0.9) 08/15/25 03:10 GFR Calculation 99.7 mL/min (90-130) 08/15/25 03:10 Glucose 154 mg/dL (65-115) H 08/15/25 03:10 Estimat Average Glucose 105 08/13/25 17: Hemoglobin A1c 5.3 % (4.0-6.0) 08/13/25 17: Calculated Osmolality 291 mOsm/kg (285-295) 08/15/25 03:10 Lactic Acid 0.8 mmol/L (0.5-2.2) 08/13/25 17: Calcium 9.3 mg/dL (8.5-10.5) 08/15/25 03:10 Total Bilirubin 0.3 mg/dL (0.15-1.2) 08/15/25 03:10 AST 16 U/L (0-32) 08/15/25 03:10 ALT 26 U/L (0-33) 08/15/25 03:10 Alkaline Phosphatase 57 U/L (35-105) 08/15/25 03:10 Troponin T Baseline 16 ng/L (0-10) H 08/13/25 17:29 Troponin T 120 Minute 14.42 ng/L (0-10) H 08/13/25 19:15 Delta Troponin T -1.58 ABS# (0-10) L 08/13/25 19:15 Troponin T Hi Sens 6Hr 11.92 ng/L (0-10) H 08/13/25 23:33 Troponin T Hi Sens 6Hr Delta -4.08 ng/L (0-12) L 08/13/25 23:33 C-Reactive Protein 3.0 mg/L (0.0-4.9) 08/13/25 19:15 NT-Pro-B Natriuret Pep 100 pg/mL (0-125) 08/14/25 03:27 Total Protein 6.3 g/dL (6.6-8.7) L 08/15/25 03:10 Albumin 4.2 g/dL (3.5-5.2) 08/15/25 03:10 Globulin 2.1 g/dL (1.3-4.6) 08/15/25 03:10 Procalcitonin 0.06 ng/mL (0-0.5) 08/13/25 17: Influenza A (PCR) Negative (Negative) 08/13/25 17:28 Influenza Type B (PCR) Negative (Negative) 08/13/25 17:28 RSV (PCR) Negative (Negative) 08/13/25 17:28 SARS-CoV-2 (PCR) Negative (Negative) 08/13/25 17:28 Group A Strep Rapid Negative (Negative) 08/14/25 04:10 Vitals Last Vital Signs Temp 98.0 F 08/15/25 07:24 Pulse 92 08/15/25 07:24 Resp 19 H 08/15/25 07:24 BP 110/57 08/15/25 07:24 Pulse Ox 97 08/15/25 07:24 O2 Del Method Nasal Cannula 08/15/25 07:24 O2 Flow Rate 3 08/15/25 04:59 Discharge Plan Discharge Patient Disposition: Home Condition: Stable Prescriptions: New prednisone 10 mg tablet See Taper PO DIRECTED Qty: 42 0RF Taper: predniSONE 60-10 60 mg Daily for 2 Days and 0 Hour 50 mg Daily for 2 Days and 0 Hour 40 mg Daily for 2 Days and 0 Hour 30 mg Daily for 2 Days and 0 Hour 20 mg Daily for 2 Days and 0 Hour 10 mg Daily for 2 Days and 0 Hour Rx Instructions: see taper instructions levofloxacin 750 mg tablet 750 mg PO Q24H 3 Days Qty: 3 0RF amoxicillin-pot clavulanate 875-125 mg tablet 1 tab PO BID Qty: 6 0RF Continued budesonide-formoterol [Symbicort] 160-4.5 mcg/actuation HFA aerosol inhaler 2 puff inhalation BID multivitamin Tablet 1 tab PO DAILY ibuprofen [Advil] 200 mg Tablet 400 mg PO Q6H PRN (Reason: Pain) ipratropium bromide 0.02 % solution 1.25 ml inhalation Q8H Qty: 150 0RF albuterol sulfate [Ventolin HFA] 90 mcg/actuation HFA aerosol inhaler 1 inh inhalation Q6H PRN (Reason: shortness of breath or wheezing) Qty: 8.5 0RF albuterol sulfate 2.5 mg /3 mL (0.083 %) solution for nebulization 2.5 mg continuous nebulization Q8H Qty: 180 0RF Discharge Order = DC NOW: Discharge Order (Routine); Ordered 08/15/25 Ordered By: Greg Gonzalez Referrals: Bakari Gan MD [Primary Care Provider, [facility]] Referral Note: Please call the office on Sunday to schedule a follow up appt for in the next 7-10 days. Patient Instructions: Chest Pain - Chest Wall, COPD, Prednisone (By mouth), Amoxicillin (By mouth), Levofloxacin (By mouth), COPD Stoplight, Opioid Safety, Patient Portal & Yadira Instructions Discharge Attestations Time Spent in Discharge Care*: greater than 30 min Specific Discharge Activities: educating patient, discussing with pcp/other providers, discussing with disability case manager/social workers/dc planners, documenting/other paperwork and evaluating patient/reviewing data Status at Discharge: Cognitive status at discharge: cognitively intact , Behavioral status at discharge: cooperative , Functional status at discharge: independent ambulation , Overall status at discharge: patient is back to [facility] Quality Metrics Clinical Quality Measures [ No reported AMI, CVA or VTE this stay] Coding Level of Care Code 53782 Total time (in minutes) for Discharge: 50 Diagnoses Chest pain R07.9 COPD (chronic obstructive pulmonary disease) J44.9 Hypercapnia R06.89 Acute exacerbation of chronic obstructive airways disease J44.1
--- NOTE | 2025-08-15 11:13 | PC.NURSE ---
discharge instructions given and explained.pt verb understanding of instructions.discharged via w/c to exit at this time.daughter to drive pt home
== END 2025-08-15 11:14 | disposition home or self-care (01) | DRG 189 ==
LOC: ER 19:29 → CSU 19:58
PROVIDERS: Admitting Provider Family Medicine; Emergency Provider Emergency Medicine; PCP Family Medicine; Visit Provider Student in an Organized Health Care Education/Training Program
DX: J96.21 Acute and chronic respiratory failure with hypoxia (principal); J44.1 Chronic obstructive pulmonary disease with (acute) exacerbation; J44.0 Chronic obstructive pulmonary disease with (acute) lower respiratory infection; J96.22 Acute and chronic respiratory failure with hypercapnia; J40 Bronchitis, not specified as acute or chronic; I48.91 Unspecified atrial fibrillation; F43.10 Post-traumatic stress disorder, unspecified; Z87.891 Personal history of nicotine dependence; Z99.81 Dependence on supplemental oxygen
CPT/HCPCS: 36415; 36600; 71045; 71275; 80051; 80053; 82330; 82805; 83036; 83605; 83880; 84145; 84484; 85025; 86140; 87040; 87081; 87637; 87880; 93005; 93306; 94640; 94664; 96365; 96372; 96375; 99291; J0456; J0696; J1171; J1650; J1956; J2270; J2405; J2470; J2919; J7050; J7613; J7626; J9999

== ENCOUNTER 2025-08-20 15:23 | Emergency (ER) | payer MEDICARE, MEDICAID, SELFPAY ==
[2025-08-20 15:24] VITALS: BP 131/73; PULSE 80; RESP 20; TEMP 36.8; O2SAT 94
--- NOTE | 2025-08-20 15:26 | XR_ITS ---
WS: [id number] XR chest 1V portable [id number] REASON FOR EXAM: dyspnea/cough FINDINGS: The chest is unchanged compared to 08/13/2025. The heart and mediastinum are within normal limits. The lungs are hyperexpanded with blunting of the con of the phrenic angles likely chronic. Coarse reticular central interstitial lung opacities which also appear chronic. Irregular lucencies and decreased interstitium in the upper lung ortiz indicate central lobar emphysema. No acute pulmonary parenchymal or pleural abnormality is identified. XR/XR chest 1V portable [id number] IMPRESSION: Obstructive lung disease, likely central lobar emphysema, with hyperexpansion. The chest is stable compared to the previous examination with no acute abnormal ity identified.
--- NOTE | 2025-08-20 15:29 | ED_ITS ---
HPI - General Adult 2 General: Chief complaint: Chest Pain Stated complaint: SOB - cp Time Seen by Provider: 08/20/25 15:23 History of Present Illness: 65-year-old female presents emergency ro om with complaint of chest pain worse when she takes a deep breath or cough worse with palpation no radiation of the pain. She has a history of COPD. Recent hospitalization she is chronically on 3 L by nasal cannula. No recent fever sweats chills no vomiting or diarrhea. No known history of any coronary artery disease she has had pain for several days now. Associated symptoms: Reports dyspnea; Deny chest pain or rash Related Data Home Medications ?Medication ?Instructions ?Recorded ?Confirmed budesonide-formoterol HFA 160 2 puff inhalation BID 08/14/25 mcg-4.5 mcg/actuation aerosol inhaler (Symbicort) multivitamin 1 tab PO DAILY 04/11/2208/01 ibuprofen 200 mg tablet (Advil) 400 mg PO Q6H PRN Pain 08/14/25 08/14/25 Previous Rx's ?Medication ?Instructions ?Recorded albuterol sulfate 2.5 mg/3 mL 2.5 mg (3 mL) continuous 04/23/25 (0.083 %) solution for nebulization nebulization Q8H S hortness Of Breath #180 mL albuterol sulfate 90 mcg/actuation 1 inh inhalation Q6 H PRN shortness 04/23/25 aerosol inhaler (Ventolin HFA) of breath or wheezing # 8.5 grams ipratropium bromide 0.02 % 1.25 ml inhalation Q8H #150 mL 04/23/25 solution for inhalation amoxicillin 875 mg-potassium 1 tab PO BID #6 tabs 08/01 02/22 clavulanate 125 mg tablet prednisone 10 mg tablet See Taper PO DIRECTED #42 tabs 08/15/25 tramadol 50 mg tablet 50 mg PO Q8H PRN pain #10 ta bs 08/20/25 Allergies Allergy/AdvReac Type Severity Reaction Status Date / Time No Known Allergies Allergy Verified 08/13/25 17:16 Review of Systems 2 Const: Denies: fever(s) or chills Card: Denies: chest pain Resp: Reports: dyspnea GI: Denies: abdominal pain : Denies: dysuria, urinary frequency or urinary urgency Musc: Denies: neck pain or back pain Skin/Breast: Denies: rash PFSH ED 2 PFSH: Medical History Chest pain COPD (chronic obstructive pulmonary disease) Afib PTSD (post-traumatic stress disorder) Tobacco use Family History Mother Dementia Lung disease Cancer Sister Dementia Diabetes Cancer Father Lung disease Cancer Family/Other Stroke Brother Cancer Social History Smoking and tobacco/nicotine status: former use of tobacco/nicotine Quit status (tobacco/nicotine): has quit using Year quit tobacco: 15 months ago Former quit date comment: 1 pack per day x 52 years Second hand smoke exposure: Yes Alcohol intake: current Alcohol intake frequency: 3 or more drinks per day Physical Exam 2 Const: COMMON NORMALS: no acute distress GENERAL APPEARANCE: cooperative and comfortable ORIENTATION/CONSCIOUSNESS: Yes awake, Yes oriented to person, Yes oriented to place and Yes oriented to time HENMT: COMMON NORMALS: normocephalic, atraumatic and hearing grossly normal bilaterally HEAD & SCALP: normocephalic and atraumatic Chest: OTHER: Reproducible pain in the lower sternal border particularly on the right. Pain reproducible with deep inspiration Resp: COMMON NORMALS: normal respiratory effort, No retractions, No use of accessory muscles and clear to auscultation bilaterally AUSCULTATION: clear to auscultation bilaterally Cardio: COMMON NORMALS: regular rate, regular rhythm and No murmurs present (Cardio) RATE: regular rate RHYTHM: regular rhythm GI: COMMON NORMALS: Soft to palpation and No hepatosplenomegaly present A USCULTATION: Yes normoactive bowel sounds PALPATION: Yes Soft to palpation, No Tenderness to palpation present (GI), No Guarding due to palpation present (GI) and Yes No hepatosplenomegaly present Extremity: COMMON NORMALS: normal to inspection, capillary refill normal, no clubbing, cyanosis or edema, no calf tenderness and no pedal edema Neuro: SENSORIUM/ORIENTATION: Yes oriented to person, Yes oriented to place and Yes oriented to time Skin: COMMON NORMALS: no rashes or lesions noted GENERAL SKIN EXAM: no rashes or lesions noted Course 2 Vital Signs: Vital signs: Vital Signs Temperature 98.3 F 08/20/25 15:24 Pulse Rate 81 08/20/25 16:49 Respiratory Rate 20 H 08/20/25 15:24 Blood Pressure 140/80 08/20/25 16:49 Pulse Oximetry 96 08/20/25 16:49 Oxygen Delivery Me thod Nasal Cannula 08/20/25 15:24 Oxygen Flow Rate 3 08/20/25 15:24 MDM - General Adult Medical Decision Making Musculoskeletal chest wall pain EKG normal initial [place] at baseline she has had pain for over 4 days now. No signs of pneumonia or pneumothorax on chest x-ray symptoms not consistent with PE. Will discharge her home with pain medications follow-up with primary care doctor. Medical Records I reviewed the patient's medical records. Lab Data I reviewed the patient's lab results. 08/20/25 15:36 08/20/25 15:36 Laboratory Results WBC 13.06 10^3/uL (3.29-11.43) H 08/20/25 15:36 RBC 4.30 10^6/uL (3.85-5.65) 08/20/25 15:36 Hgb 12.90 g/dL (11.27-16.99) 08/20/25 15:36 Hct 39.7 % (36-47) 08/20/25 15:36 MCV 92.3 fl (85-98) 08/20/25 15:36 MCH 30.0 pg (27-33) 08/20/25 15:36 MCHC 32.5 g/dL (30-55) 08/20/25 15:36 RDW 11.8 % (12.1-15.1) L 08/20/25 15:36 Plt Count 312 10^3/cmm (157-399) 08/20/25 15:36 MPV 10.1 fL (7.4-10.4) 08/20/25 15:36 Neut % (Auto) 94.3 % 08/20/25 15:36 Lymph % (Auto) 1.9 % 08/20/25 15:36 [place] % (Auto) 2.9 % 08/20/25 15:36 Eos % (Auto) 0.0 % 08/20/25 15:36 Baso % (Auto) 0.1 % 08/20/25 15:36 Neut # (Auto) 12.31 10^3/uL (1.8-7.7) H 08/20/25 15:36 Lymph # (Auto) 0.3 10^3/uL (0.8-4.8) L 08/20/25 15:36 [place] # (Auto) 0.4 10^3/uL (0.2-0.9) 08/20/25 15:36 Eos # (Auto) 0.0 10^3/uL (0.0-0.8) 08/20/25 15:36 Baso # (Auto) 0.0 10^3/uL (0.0-0.1) 08/20/25 15:36 Nucleated RBC % (auto) 0 % 08/20/25 15:36 Nucleated RBCs # 0.0 /100WBC 08/20/25 15:36 Sodium 137 mmol/L (136-145) 08/20/25 15:36 Potassium 5.0 mmol/L (3.5-5.1) 08/20/25 15:36 Chloride 94 mmol/L (98-107) L 08/20/25 15:36 Carbon Dioxide 35 mmol/L (22-29) H 08/20/25 15:36 Anion Gap 13.0 (5-19) 08/20/25 15:36 BUN 19 mg/dL (8-23) 08/20/25 15:36 Creatinine 0.5 mg/dL (0.5-0.9) 08/20/25 15:36 GFR Calculation 123.1 mL/min (90-130) 08/20/25 15:36 Glucose 268 mg/dL (65-115) H 08/20/25 15:36 Calculated Osmolality 296 mOsm/kg (285-295) H 08/20/25 15:36 Calcium 9.2 mg/dL (8.5-10.5) 08/20/25 15:36 Total Bilirubin 0.3 mg/dL (0.15-1.2) 08/20/25 15:36 AST 19 U/L (0-32) 08/20/25 15:36 ALT 30 U/L (0-33) 08/20/25 15:36 Alkaline Phosphatase 63 U/L (35-105) 08/20/25 15:36 Troponin T Baseline 13 ng/L (0-10) H 08/20/25 15:36 Total Protein 5.9 g/dL (6.6-8.7) L 08/20/25 15:36 Albumin 4.1 g/dL (3.5-5.2) 08/20/25 15:36 Globulin 1.8 g/dL (1.3-4.6) 08/20/25 15:36 All radiology interpretation(s) finalized by discharge EKG Data EKG 1: I personally reviewed and interpreted this EKG as follows: Prior EKG tracings: available for review Interpretation: EKG 08/20/2025 1531 sinus rhythm rate of 79 [place] interval 108 QTc [address] changes noted no ST elevation or depression. No significant change from previous EKG 08/13/2025 Discharge Plan Discharge Patient Disposition: Home Clinical Impression: Anterior chest wall pain Condition: Stable Prescriptions: New tramadol 50 mg tablet 50 mg PO Q8H PRN (Reason: pain) Qty: 10 0RF No Action budesonide-formoterol [Symbicort] 160-4.5 mcg/actuation HFA aerosol inhaler 2 puff inhalation BID multivitamin Tablet 1 tab PO DAILY ibuprofen [Advil] 200 mg Tablet 400 mg PO Q6H PRN (Reason: Pain) prednisone 10 mg tablet See Taper PO DIRECTED Qty: 42 0RF Taper: predniSONE 60-10 60 mg Daily for 2 Days and 0 Hour 50 mg Daily for 2 Days and 0 Hour 40 mg Daily for 2 Days and 0 Hour 30 mg Daily for 2 Days and 0 Hour 20 mg Daily for 2 Days and 0 Hour 10 mg Daily for 2 Days and 0 Hour Rx Instructions: see taper instructions amoxicillin-pot clavulanate 875-125 mg tablet 1 tab PO BID Qty: 6 0RF ipratropium bromide 0.02 % solution 1.25 ml inhalation Q8H Qty: 150 0RF albuterol sulfate [Ventolin HFA] 90 mcg/actuation HFA aerosol inhaler 1 inh inhalation Q6H PRN (Reason: shortness of breath or wheezing) Qty: 8.5 0RF albuterol sulfate 2.5 mg /3 mL (0.083 %) solution for nebulization 2.5 mg continuous nebulization Q8H Qty: 180 0RF Discharge Orders: Discharge ED (Routine); Ordered 08/20/25 Ordered By: Blair Simons Referrals: Bakari Gan MD [Physician, Family Practice] Discharge Diet: Usual diet Discharge Activity: Resume usual activity Patient Instructions: Opioid Safety, Pain Management, Patient Portal & Yadira Instructions Activity Restrictions/Additional Instructions: Thank you for choosing [employer] for your healthcare needs today. It is very important that you follow up as instructed or that you return to the Emergency Department should you have concerns or if your condition changes or worsens in any way. Emergency department visits are focused on emergent conditions, in some cases you may require further evaluation on an outpatient basis. You were seen in the emergency room with complaints of chest pain your chest pain is musculoskeletal in nature and it was reproducible with palpation of the chest and deep inspiration cardiac enzymes were within normal baseline EKG did not show any changes your chest x-ray had no acute changes. You were given pain medications to use as needed and recommend that you follow-up with your primary care doctor. (Please note that included in your discharge packet is information concerning opioid safety and pain management. This information is given to all patients were discharged from the ER regardless of their discharge diagnosis or the medicines they usually take or are prescribed.) Print Language: Macanese Coding Level of Care Code ED Greeting Card Editor for Bossman Fajardo
--- NOTE | 2025-08-20 15:31 | ECG_ITS ---
[facility] Test Date: 2025-08-20 Pat Name: Martha Damico Department: Room: Gender: Female Core Driller: : 1960 Requested By: Blair Walls Order Number: [id number] Kaila MD: Mohsen Kilpatrick M.D. Measurements Intervals [place] Rate: 79 P: 14 CA: 108 QRS: 78 QRSD: 90 T: 64 QT: 335 QTc: 384 Interpretive Statements SINUS RHYTHM WITH SHORT CA INTERVAL Compared to ECG 08/13/2025 23:33:17 Ventricular premature complex(es) no longer present Electronically Signed On 08-22-2025 14:09:44 GM by Mohsen Kilpatrick M.D. [email or web address]
[2025-08-20 16:03] LABS: Hematocrit 39.7 % (36-47); Hemoglobin 12.90 g/dL (11.27-16.99); Mean Corpuscular HGB Conc 32.5 g/dL (30-55); Mean Corpuscular Hemoglobin 30.0 pg (27-33); Mean Corpuscular Volume 92.3 fl (85-98); Nucleated Red Blood Cells % 0 %; Platelet Count 312 10^3/cmm (157-399); Red Blood Count 4.30 10^6/uL (3.85-5.65); White Blood Count 13.06 10^3/uL (3.29-11.43)
[2025-08-20 16:26] LABS: Troponin(5th) Baseline 13 ng/L (0-10)
[2025-08-20 16:29] LABS: Alanine Aminotransferase 30 U/L (0-33); Albumin Level 4.1 g/dL (3.5-5.2); Alkaline Phosphatase 63 U/L (35-105); Anion Gap 13.0 (5-19); Aspartate Amino Transferase 19 U/L (0-32); Blood Urea Nitrogen 19 mg/dL (8-23); Calcium 9.2 mg/dL (8.5-10.5); Carbon Dioxide 35 mmol/L (22-29); Chloride 94 mmol/L (98-107); Globulin 1.8 g/dL (1.3-4.6); Glucose 268 mg/dL (65-115); Osmolality Calculated 296 mOsm/kg (285-295); Potassium 5.0 mmol/L (3.5-5.1); Sodium 137 mmol/L (136-145); Total Protein 5.9 g/dL (6.6-8.7)
[2025-08-20 16:49] VITALS: BP 140/80; PULSE 81; O2SAT 96
--- OUTSIDE RECORDS SUMMARY | 2025-08-20 17:05 | XMS_ITS | Data Portability ---
Author Organization MARIA LUZ Luis Tong [facility] Rosa Suazo [facility] Address [address] [address] Assessment Encounter Date Assessment Date Assessment LastModified [...] of water and eat a salty snack. [email or web address] Not available 04/19/2023 09:35:20 Plan of Treatment Reminders Order Date Submit Date Provider Last Modified By Organization Details Last Modified Time Details Appointments None recorded. Lab troponin I, serum or plasma 2022 023 CNS Response [facility], [address] [place] [address], [facility] [address] [place], [address], 3 15:29:04 vitamin B12, serum 2022 023 CNS Response [facility], [address] [place] [address], [address] [place], [address], 3 06:04:44 TSH, serum or plasma 2022 023 [facility] ([facility] [place] [facility]), [address] [place], [address], 10:33:59 T4, free, serum 2022 023 CNS Response [facility], [address] [facility] [address], [address] [place], [address], 3 06:04:43 CMP, serum or plasma 2022 023 [facility] ([facility] [address] [place], [address], 3 16:48:49 CBC 2022 023 [email or web address] [facility] ([facility]), [address] [place], [address], 3 13:45:51 Referral vascular surgeon referral 2022 023 [email or web address] [id number] [facility], [address] [facility], [facility] [address], [place], [address], 3 17:39:[address] referral [address] Pulmonology - Dr Datar, [address] [facility], [facility] [address], [place], [address], 3 17:46:37 Procedures None recorded. Surgeries None recorded. Imaging electrocard iogram 2022 023 [email or web address] 2 [facility] ([facility]), [address] [place], [address], 3 09:10:34 MRI, brain, w/wo contrast [address] (Scheduling Orders), [address] [place], [address], 3 15:06:14 CT, chest + abdomen + pelvis, w/ contrast [address] (Scheduling Orders), [address] [place], [address], 3 14:15:06 US, duplex, carotid artery - [id number] 2022 023 [email or web address] [facility] ([facility] [place] [facility]), [address] [facility], [place], [address], 3 16:32:11 Medication Orders aspirin 81 mg tablet,johanna yed release 2022 023 [email or web address] [facility] [address], [place], [address], 14:48:27 Patient TargetsNo targets recorded. Patient Instructions Encounter Date Encounter Id Patient Instructions Last Modified By Organization Details Last Modified Time 04/16/2023 [id number] Pt talks as though I should know [...] Not available 04/16/2023 13:59:55 Reason for Referral Compliance Field Technician Referral for S evere chronic obstructive [...] 206.0 mg/dL 0.0-20 0.0 high Not Available [facility] ([facility]) [address] [place], [address], 04/16/2023 16:49:56 04/16/2004/16/2023 lipid panel , blood triglyceride s 50.0 mg/dL 0.0-15 0.0 Not Available [facility] ([facility] [place] [facility]) [address] [place], [address], 04/16/2023 16:49:56 04/16/20 23 04/16/2023 lipid panel , blood HDL-direct 83.0 mg/dL >40.0 Not Available [facility] ([facility]) [address] [place], [address], 04/16/2023 16:49:56 04/16/20 23 04/16/2023 lipid panel , blood VLDL-direct 10.0 mg/dL Not Available [facility] ( [facility] [place] [facility]) [address] [place], [address], 04/16/2023 16:49:56 04/16/2004/16/2023 lipid panel , blood LDL-direct 113.0 mg/dL 0.0-13 0.0 Not Available [facility] ([facility] [place] [facility]) [address] [place], [address], 04/16/2023 16:49:56 04/16/2004/16/2023 CMP, serum or plasm a glucose 112.0 mg/dL 60.0-9 9.0 high Not Available [facility] ([facility] [place] [facility]) [address] [place], [address], 04/16/2023 11:51:18 04/16/2004/16/2023 CMP, serum or plasm a BUN (blood urea nitrogen) 10.0 mg/dL 10.0-2 6.0 Not Available [facility] ([facility] [place] [facility]) [address] [place], [address], 04/16/2023 11:51:18 04/16/20 23 04/16/2023 CMP, serum or plasm a creatinine (serum) 0.7 mg/dL 0.4-1. 5 Not Available [facility] ([facility] [place] [facility]) [address] [place], [address], 04/16/2023 11:51:18 04/16/20 23 04/16/2023 CMP, serum or plasm a BUN/creatini ne ratio 14.29 ratio Not Available [facility] ( [facility] [place] [facility]) [address] [place], [address], 04/16/2023 11:51:18 04/16/20 23 04/16/2023 CMP, serum or plasm a eGFR calculated 89.3 Not Available [facility] ([facility] [place] [facility]) [address] [place], [address], 04/16/2023 11:51:18 04/16/20 23 04/16/2023 CMP, serum or plasm a total protein 7.3 g/dL 6.0-8. 5 Not Available [facility] ([facility] [place] [facility]) [address] [place], [address], 04/16/2023 11:51:18 04/16/20 23 04/16/2023 CMP, serum or plasm a total bilirubin 0.3 mg/dL 0.2-1. 3 Not Available [facility] ([facility] [place] [facility]) [address] [place], [address], 04/16/2023 11:51:18 04/16/20 23 04/16/2023 CMP, serum or plasm a albuminn 4.8 g/dL 3.5-5. 5 Not Available [facility] ([facility]) [address] [place], [address], 04/16/2023 11:51:18 04/16/20 23 04/16/2023 CMP, serum or plasm a globulin 2.5 calc Not Available [facility] ([facility]) [address] [place], [address], 04/16/2023 11:51:18 04/16/20 23 04/16/2023 CMP, serum or plasm a AST (SGOT) 24.0 U/L 0.0-46 .0 Not Available [facility] ([facility] [place] [facility]) [address] [place], [address], 04/16/2023 11:51:18 04/16/20 23 04/16/2023 CMP, serum or plasm a altv (SGPT) 21.0 U/L 13.0-6 9.0 Not Available [facility] ([facility]) [address] [place], [address], 04/16/2023 11:51:18 04/16/20 23 04/16/2023 CMP, serum or plasm a A/G ratio 1.9 ratio Not Available [facility] ([facility]) [address] [place], [address], 04/16/2023 11:51:18 04/16/20 23 04/16/2023 CMP, serum or plasm a ALP phos 66.0 U/L 30.0-1 40.0 Not Available [facility] ([facility] [place] [facility]) [address] [place], [address], 04/16/2023 11:51:18 04/16/20 23 04/16/2023 CMP, serum or plasm a calcium 9.6 mg/dL 8.4-10 .5 Not Available [facility] ([facility] [place] [facility]) [address] [place], [address], 04/16/2023 11:51:18 04/16/20 23 04/16/2023 CMP, serum or plasm a sodium 142.0 mmol/ L 136.0- 145.0 Not Available [facility] ([facility] [place] [facility]) [address] [place], [address], 04/16/2023 11:51:18 04/16/20 23 04/16/2023 CMP, serum or plasm a potassium 4.5 mmol/ L 3.5-5. 1 Not Available [facility] ([facility] [place] [facility]) [address] [place], [address], 04/16/2023 11:51:18 04/16/20 23 04/16/2023 CMP, serum or plasm a chloride 103.0 mmol/ L 98.0-1 10.0 Not Available [facility] ([facility] [place] [facility]) [address] [place], [address], 04/16/2023 11:51:18 04/16/20 23 04/16/2023 CMP, serum or plasm a CO2 27.0 mmol/ L 22.0-3 1.0 Not Available [facility] ([facility] [place] [facility]) [address] [place], [address], 04/16/2023 11:51:18 04/16/20 23 04/16/2023 CMP, serum or plasm a anion gap 12.0 calc Not Available [facility] ([facility]) [address] [place], [address], 04/16/2023 11:51:18 04/16/20 23 04/16/2023 CMP, serum or plasm a osmolality 292.9 calc Not Available [facility] ([facility]) [address] [place], [address], 04/16/2023 11:51:18 04/16/20 23 04/16/2023 CBC WBC 8.21 X10^3 /uL 4.0-10 .5 normal Not Available [facility] ([facility]) [address] [place] [address], [address], 04/16/2023 11:51:24 04/16/20 23 04/16/2023 CBC RBC 4.75 X10^6 /uL 3.50-5 .50 normal Not Available [facility] ([facility] [place] [facility]) [address] [place], [address], 04/16/2023 11:51:24 04/16/20 23 04/16/2023 CBC HGB 15.37 g/dL 12.0-1 6.0 normal Not Available [facility] ([facility] [place] [facility]) [address] [place], [address], 04/16/2023 11:51:24 04/16/20 23 04/16/2023 CBC HCT 44.9 % 37.0-4 7.0 normal Not Available [facility] ([facility] [place] [facility]) [address] [place], [address], 04/16/2023 11:51:24 04/16/20 23 04/16/2023 CBC MCV 94.6 fL 80.0-9 9.0 normal Not Available [facility] ([facility] [place] [facility]) [address] [place], [address], 04/16/2023 11:51:24 04/16/20 23 04/16/2023 CBC MCH 32.4 pg 27.0-3 2.0 high Not Available [facility] ([facility] [place] [facility]) [address] [place], [address], 04/16/2023 11:51:24 04/16/20 23 04/16/2023 CBC MCHC 34.2 g/dL 32.0-3 6.0 normal Not Available [facility] ([facility] [place] [facility]) [address] [place], [address], 04/16/2023 11:51:24 04/16/20 23 04/16/2023 CBC RDW 13.5 % 11.5-1 4.6 normal Not Available [facility] ([facility] [place] [facility]) [address] [place], [address], 04/16/2023 11:51:24 04/16/20 23 04/16/2023 CBC plt 283.1 10^3/ uL 140.0- 451.0 normal Not Available [facility] ([facility] [place] [facility]) [address] [place], [address], 04/16/2023 11:51:24 04/16/20 23 04/16/2023 CBC lymphocytes % 21.77 % 20.0-5 0.0 normal Not Available [facility] ([facility] [place] [facility]) [address] [place], [address], 04/16/2023 11:51:24 04/16/20 23 04/16/2023 CBC granulocytes % 64.68 % 30.0-7 0.0 normal Not Available [facility] ([facility] [place] [facility]) [address] [place], [address], 04/16/2023 11:51:24 04/16/20 23 04/16/2023 CBC monocytes % 10.34 % 2.0-10 .0 high Not Available [facility] ([facility] [place] [facility]) [address] [place], [address], 04/16/2023 11:51:24 04/16/20 23 04/16/2023 CBC granulocytes # 5.31 X10^3 /uL normal Not Available [facility] ([facility] [place] [facility]) [address] [place], [address], 04/16/2023 11:51:24 04/16/20 23 04/16/2023 CBC lymphocytes # 1.79 X10^3 /uL normal Not Available [facility] ([facility] [place] [facility]) [address] [place], [address], 04/16/2023 11:51:24 04/16/20 23 04/16/2023 CBC monocytes # 0.85 X10^3 /uL abnormal Not Available [facility] ([facility] [place] [facility]) [address] [place], [address], 04/16/2023 11:51:24 04/19/20 23 04/20/2023 T4, FREE T4, free 1.3 NG/dL 0.8-1. 8 normal Not Available [facility] [place] [address] [place], [address], 04/20/2023 06:04:43 04/19/20 23 04/20/2023 VITAM IN B12 vitamin B12 575 pg/mL 200-11 00 normal Not Available [facility] [place] [address] [place], [address], 04/20/2023 06:04:44 04/19/20 23 04/19/2023 TSH, serum or plasm a TSH 2.72 uIU/m L 0.49-3 .82 Not Available [facility] ([facility] [place] [facility]) [address] [place], [address], 04/19/2023 09:31:39 06/18/20 23 06/19/2023 TROPO HECTOR [...] cient to make the diagn osis of [place]. Not Available [facility] [address] [place], [address], 06/19/2023 15:29:04 04/19/20 23 04/19/2023 US, mara x, carot id arter y No observ ation record ed. [email or web address] [facility] [address], [address], 04/23/2023 15:09:21 05/09/20 23 05/08/2023 CT, chest + abdom en + pelvi s, w/ contr ast No observ ation record ed. [email or web address] [facility] [address] [place], [address], 05/11/2023 09:40:52 06/18/20 23 12/21/2024 elect rocar diogr am No observ ation record ed. [facility] ([facility] [place] [facility]) [address] [place], [address], 12/22/2024 08:52:26 06/18/20 23 06/18/2023 elect rocar [...] Recorded Time Chronic obstructi ve pulmonary disease 22337193 Active 2021 COPD (CHRONIC OBSTRUCTIV E PULMONARY DISEASE); Recorded 03/15/2022 2:21PM by José Miguel Quach, Office Visit; Promoted; acuity set as *; ERICKA lozada [place] - [facility] 3 14:49:07 Finding of tobacco use and exposure 444983335 Active 2021 TOBACCO USE; 09/04/2022 12:36PM by JUSTIN Redman, Office Visit; Promoted; acuity set as *; Not Available [facility] 3 03:07:56 Post-trau matic stress disorder 78306072 Active 2021 PTSD (POST-TRAU MATIC STRESS DISORDER); 09/04/2022 12:36PM by JUSTIN Redman, Office Visit; Promoted; acuity set as *; Not Available [facility] 3 03:07:57 Problem Notes None recorded. Medical Equipment None Reported. Allergies Allergen ID Allergen Name Allergen Category Reaction Reaction Severity Criticality Documentation Date Start Date Code Code System Note Provider Name and Address Organization Details Recorded Time 42683 diphenhyd ramine hydrochlo ride medicatio n other Not available Not available 04/28/2023 1362 RxNorm React ion: Diaz titis ;prosper dryl, orage l ,chig garex , calad ryl NYLON , Hives ;prosper dryl, orage l ,chig garex , calad ryl NYLON ; Comme nt: Recor ded 09/04 9:58A M by Radha blanc RN, Offic e Visit ; Promo kristy; Katarina orourke ce: *; Reaso n: Drug aller gy; ; Not Available [facility] 3 02:26:59 Medications Name Sig Start Date [...] as needed 05/14 completed 0; Recorded 09/04/20 22 9:58AM by Radha Crum RN, Office Visit; Not Available Not Available Not Available metoprolo l succinate daily 05/14 completed LB/ak; 81277; Recorded 02/24/20 9:55AM by José Miguel Quach (Authori zuly through Yaneth Arora MD), Refill Request; Refill Quantity : 90; Tablet; Not Available Not Available Not Available Symbicort 160 mcg-4.5 mcg/actua tion HFA aerosol inhaler Inhale TWO puffs BY MOUTH ONCE DAILY. active Not Available Not Available No t Available budesonid e-formote rol daily 05/14 completed vo KM/dh; 81294; Recorded 09/14/20 1:16PM by Maddie Larios LPN (Authori zuly through Devika Gan PA-C), Refill Request; Refill Quantity : 3; Each; Not Available Not Available Not Available Vitals Date Recorded Body weight Body mass index (BMI) Body height Body temperature Oxygen saturation Heart rate Systolic And Diastolic Provider Name and Address Organization Details Last Updated DateTime 3 34125.3 5 g 16.6 kg/m2 152.4 cm 98.3 [degF] 93 % 75 /min 118/80 mm[Hg] IMANI CHRISTIE [facility] 3 11:14:18 Date Recorded Body height Body mass index (BMI) Body weight Body temperature Heart rate Oxygen saturation Systolic And Diastolic Provider Name and Address Organization Details Last Updated DateTime 3 152.4 cm 16.2 kg/m2 46717.1 7 g 97.9 [degF] 90 /min 93 % 115/68 mm[Hg] LENA GENAO [facility] 3 08:44:40 Date Recorded Body height Body mass index (BMI) Body weight Body temperature Oxygen saturation Heart rate Systolic And Diastolic Provider Name and Address Organization Details Last Updated DateTime 3 152.4 cm 16.4 kg/m2 32416.7 6 g 97.3 [degF] 88 % 73 /min 108/64 mm[Hg] ERICKA LIVINGSTON [facility] 3 14:48:01 Date Recorded Body height Body mass index (BMI) Body weight Body temperature Oxygen saturation Heart rate Systolic And Diastolic Provider Name and Address Organization Details Last Updated DateTime 3 152.4 cm 16.6 kg/m2 33294.3 5 g 98.2 [degF] 97 % 59 /min 120/76 mm[Hg] ERICKA LIVINGSTON [facility] 3 11:08:28 Social History None recorded. Functional Status Question Answer Note LastModified by Organizat ion Details LastModified Time Do you use any illicit or recreational drugs? No Information not available 05/14/2023 What is your level of alcohol consumption? None [email or web address] Information not available 05/14/2023 Mental Status None recorded. Family History Relationship Description Onset Age of this Age Resolved Age Notes LastModified by Organization Details LastModified Time Sister Cerebrovascu lar accident Not available 08:53:57 Maternal Grandfather Cerebrovascu lar accident [email or web address] Not available 08:53:57 Maternal Aunt Cerebrovascu lar accident [email or web address] Not available 08:53:57 Medical History No medical history recorded. Gynecological HistoryNo gynecological history recorded. Obstetrics History GPAL:G 0 P 0 0 0 0 Immunizations Vaccine Type Date Status Note Provider Nam e and Address Organization Details Recorded Time COVID-19, mRNA, LNP-S, PF, 100 mcg/0.5mL dose or 50 mcg/0.25mL dose 12/22/2020 completed IMANI lozada [facility] 04/16/2023 11:14:33 COVID-19, mRNA, LNP-S, PF, 100 mcg/0.5mL dose or 50 mcg/0.25mL dose 02/07/2021 completed IMANI lozada [facility] 04/16/2023 11:14:33 Past Encounters Encounter ID Performer Location Encounter Start Date Encounter Closed Date Diagnosis/Indication Diagnosis SNOMED-CT Code Diagnosis ICD10 Code Diagnosis IMO Codes Diagnosis Note [id number] Yaneth Arora MD [facility] ([facility] [place] [facility]) [address] [place] [address] 04/16/2023 10:51:05 04/16/2023 14:03:38 History of transient ischemic attack 407833101 Z86.73 Per pt report. Associated with shaking/tr emor. Poor historian 236573744 Z76.89 Anxiety 42893296 F41.9 Memory impairment 600011 006 R41.3 [id number] Bakari Gan MD [facility] ([facility] [place] [facility]) [address] [place] [address] 04/19/2023 08:37:11 04/19/2023 10:17:02 Abnormal weight loss 730550229 R63.4 Orthostati c hypotension 36135887 I95.1 Memory impairment 474667 006 R41.3 mmse 30/30 however, has poor accuracy regarding recent and remote events. needs further evaluation . [id number] Yaneth Arora MD [facility] ([facility]) [address] [place] [address] 04/19/2023 10:55:31 04/19/2023 12:51:04 [id number] Yaneth Arora MD [facility] ([facility] [place] [facility]) [address] [place] [address] 05/14/2023 14:38:22 05/14/2023 15:36:58 Pulmonary hypertension 44945088 I27.20 Severe chr onic obstructive pulmonary disease 262594445 J44.9 severe pulmonary hypertensi on with COPD Common grady ac artery stenosis 726257119 I77.1 asymptomat ic, noted [place] [id number] Yaneth Arora MD [facility] ([facility] [place] [facility]) [address] [place] [address] 06/18/2023 10:37:58 06/18/2023 12:49:51 Left sided chest pain 513625256 R07.9 The pt is not willing to try an antacid - there is aluminum in them that goes straight to your brain and gives you alzheimers . Hypochondriasis 51192605 F45.20 Health Concerns Section Related Observation LastModified by Organization Detai ls LastModified Time None Recorded Concern Status LastModified by Organization Details LastModified Time None Recorded Advance Directives Directive None Recorded Payers Insurance Date Sequence Insurance Name Policy Number Policy Soto Covered Member ID Soto Member ID Guarantor Name 04/26/2025 1 [facility] (MEDICARE REPLACEMENT/A DVANTAGE - HMO) Martha Damico [id number] Martha [employer] 04/26/2025 [place] [facility] Martha Damico [id number] Martha Damico 04/26/2025 2 [place] Martha Damico [id number] Martha Damico Notes Date Note Type Note [...] locked up. she grabbed onto a vacuum creel cleaner that was standing there and it [...] once a month. Yaneth Arora MD [address] [place] [address], [phone], [facility], Shanelle. 04/16/2023 14:00:18 3 text/html weight loss: Patient [...] 102/68stand 90 98/62 Bakari Gan MD [address] [place], [address], [facility], LRc. 04/19/2023 09:39:08 3 text/html ROS as noted in the HPI lab/imaging follow up pt states that she saw Dr. Dean about 1 year ago and he said everything was fine.... Yaneth Arora MD [address] [place] [address], [phone], [facility] 05/14/2023 15:26:55 3 text/html Angina/Chest PainReported by [...] was almost in mensa. Yaneth Arora MD [address] [place] [address], [phone], [facility] 06/24/2023 18:31:31 OBGyn Episode No OBEpisode recorded.
== END 2025-08-20 17:00 | disposition home or self-care (01) ==
PROVIDERS: Emergency Provider Family Medicine; PCP Nurse Practitioner Family
DX: R07.89 Other chest pain (principal); Z87.891 Personal history of nicotine dependence; J44.9 Chronic obstructive pulmonary disease, unspecified; Z99.81 Dependence on supplemental oxygen
CPT/HCPCS: 36415; 71045; 80053; 84484; 85025; 93005; 99285

== ENCOUNTER 2025-08-23 03:12 | Inpatient (IN) | payer MEDICARE, MEDICAID, SELFPAY ==
[2025-08-23] VITALS (16 sets, daily range): BP systolic 89–163; BP diastolic 55–87; PULSE 77–110; RESP 17–25; TEMP 36.6–36.9; O2SAT 25–100; BMI 16.0; BMI 15.8
--- OUTSIDE RECORDS SUMMARY | 2025-08-23 03:16 | XMS_ITS | Encounter Summary ---
Author Organization [facility] Address [address] [place] [address] Care Team Providers Care Supervisor Tan Room Name Role Phone Non-Staff, Physician Primary Care Provider Unava ilable Encounter Details Date Type Department Care Team (Late st Contact Info) Description 08/28/2018 Ancillary Orders [facility] Admitting [address] [place] [phone] Janie Moreau, JOB SETTER H[employer]ING [address] [place] [phone] Pleurodynia Social History Tobacco Use Types Packs/Day Years Used Date Smoking Tobacco: Every Day Cigarettes Smokeless Tobacco: Never Alcohol Use Standard Drinks/Week Comments No 0 (1 standard drink = 0.6 oz pur e alcohol) on weekends Comments No Sex and Gender Information Value Date Recorded Sex Assigned at Not on file Legal 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 Exam: XR RIBS [...] chest wall lesions are appreciated. Janie Moreau J[employer]ING DIAGNOSTIC IMAGING ORDERABLES F inal Result documented in this encounter Visit Diagnoses Diagnosis Pleurodynia Painful respiration Pleurodynia Painful respiration documented in this encounter Care Teams Supervisor Tan Room Relationship Specialty Start Date End Date Non-Staff, Physician NO ADDRESS ON FILE PCP - General 08/28/18 documented as of this encounter
--- OUTSIDE RECORDS SUMMARY | 2025-08-23 03:16 | XMS_ITS | Clinical Summary ---
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 Gender Identity Not on file Sexual Orientation Not on file Last Filed Vital Signs Vital Sign Reading Time Taken Comments Blood Pressure 122/72 08/12/2015 10:09 AM DINING ROOM BUSSER Pulse 87 08/12/2015 10:09 AM DINING ROOM BUSSER Temperature 36.4 C (97.6 F) 08/12/2015 10:09 AM DINING ROOM BUSSER Respiratory Rate 22 08/12/2015 10:09 AM DINING ROOM BUSSER Oxygen Saturation - - Inhaled Oxygen Concentration - - Weight 46.3 kg (102 lb) 08/12/2015 10:09 AM DINING ROOM BUSSER Height 153 cm (5' 0.25 ) 08/12/2015 10:09 AM DINING ROOM BUSSER Body Mass Index 19.76 08/12/2015 10:09 AM DINING ROOM BUSSER Plan of Treatment Health Maintenance Due Date [...] - 1-dose 75+ series) 2033 Care Teams Ammunition Officer Relationship Specialty Start Date End Date Non-Staff, Physician NO ADDRESS ON FILE PCP - General 08/28/18
--- OUTSIDE RECORDS SUMMARY | 2025-08-23 03:16 | XMS_ITS | Data Portability ---
Author Organization MARIA LUZ Luis Tong [facility] Rosa Suazo [facility] Address [address] [address] Assessment Encounter Date Assessment Date Assessment LastModified [...] of water and eat a salty snack. [email or web address] Not available 04/19/2023 09:35:20 Plan of Treatment Reminders Order Date Submit Date Provider Last Modified By Organization Details Last Modified Time Details Appointments None recorded. Lab troponin I, serum or plasma 2022 023 [employer] [facility], [address] [place] [address], [facility] [address] [place], [address], 3 15:29:04 vitamin B12, serum 2022 023 [employer] [facility], [address] [place] [address], [address] [place], [address], 3 06:04:44 TSH, serum or plasma 2022 023 [facility] ([facility]), [address] [place], [address], 10:33:59 T4, free, serum 2022 023 [employer] [facility], [address] [facility] [address], [address] [place], [address], 3 06:04:43 CMP, serum or plasma 2022 023 [facility] [address] [place], [address], 3 16:48:49 CBC 2022 023 [email or web address] [facility] ([facility]), [address] [place], [address], 3 13:45:51 Referral vascular surgeon referral 2022 023 [email or web address] [address] [facility], [address] [facility], [facility] [address], [place], [address], 3 17:39:[address] referral [address] Pulmonology - Dr Datar, [address] [facility], [facility] 114, [place], [address], 3 17:46:37 Procedures None recorded. Surgeries None recorded. Imaging electrocard iogram 2022 023 [email or web address] 2 [facility] ([facility]), [address] [place], [address], 3 09:10:34 MRI, brain, w/wo contrast [address] (Scheduling Orders), [address] [place], [address], 3 15:06:14 CT, chest + abdomen + pelvis, w/ contrast [address] (Scheduling Orders), [address] [place], [address], 3 14:15:06 US, duplex, carotid artery - [id number] 2022 023 [email or web address] [facility] ([facility]), [address] [facility], [place], [address], 3 16:32:11 Medication Orders aspirin 81 mg tablet,johanna yed release 2022 023 [facility] [address], [place], [address], 14:48:27 Patient TargetsNo targets recorded. 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 Referral for S evere chronic obstructive pulmonary [...] 206.0 mg/dL 0.0-20 0.0 high Not Available [facility] ([facility]) [address] [place], [address], 04/16/2023 16:49:56 04/16/2004/16/2023 lipid panel , blood triglyceride s 50.0 mg/dL 0.0-15 0.0 Not Available [facility] ([facility]) [address] [place], [address], 04/16/2023 16:49:56 04/16/20 23 04/16/2023 lipid panel , blood HDL-direct 83.0 mg/dL >40.0 Not Available [facility] ([facility]) [address] [place], [address], 04/16/2023 16:49:56 04/16/20 23 04/16/2023 lipid panel , blood VLDL-direct 10.0 mg/dL Not Available [facility] ( [facility]) [address] [place], [address], 04/16/2023 16:49:56 04/16/2004/16/2023 lipid panel , blood LDL-direct 113.0 mg/dL 0.0-13 0.0 Not Available [facility] ([facility]) [address] [place], [address], 04/16/2023 16:49:56 04/16/2004/16/2023 CMP, serum or plasm a glucose 112.0 mg/dL 60.0-9 9.0 high Not Available [facility] ([facility]) [address] [place], [address], 04/16/2023 11:51:18 04/16/2004/16/2023 CMP, serum or plasm a BUN (blood urea nitrogen) 10.0 mg/dL 10.0-2 6.0 Not Available [facility] ([facility]) [address] [place], [address], 04/16/2023 11:51:18 04/16/20 23 04/16/2023 CMP, serum or plasm a creatinine (serum) 0.7 mg/dL 0.4-1. 5 Not Available [facility] ([facility]) [address] [place], [address], 04/16/2023 11:51:18 04/16/20 23 04/16/2023 CMP, serum or plasm a BUN/creatini ne ratio 14.29 ratio Not Available [facility] ( [facility]) [address] [place], [address], 04/16/2023 11:51:18 04/16/20 23 04/16/2023 CMP, serum or plasm a eGFR calculated 89.3 Not Available [facility] ([facility]) [address] [place], [address], 04/16/2023 11:51:18 04/16/20 23 04/16/2023 CMP, serum or plasm a total protein 7.3 g/dL 6.0-8. 5 Not Available [facility] ([facility]) [address] [place], [address], 04/16/2023 11:51:18 04/16/20 23 04/16/2023 CMP, serum or plasm a total bilirubin 0.3 mg/dL 0.2-1. 3 Not Available [facility] ([facility]) [address] [place], [address], 04/16/2023 11:51:18 04/16/20 23 04/16/2023 CMP, serum or plasm a albuminn 4.8 g/dL 3.5-5. 5 Not Available [facility] ([facility]) [address] [place], [address], 04/16/2023 11:51:18 04/16/20 23 04/16/2023 CMP, serum or plasm a globulin 2.5 calc Not Available [facility] ([facility]) [address] [place], [address], 04/16/2023 11:51:18 04/16/20 23 04/16/2023 CMP, serum or plasm a AST (SGOT) 24.0 U/L 0.0-46 .0 Not Available [facility] ([facility]) [address] [place], [address], 04/16/2023 11:51:18 04/16/20 23 04/16/2023 CMP, serum or plasm a altv (SGPT) 21.0 U/L 13.0-6 9.0 Not Available [facility] ([facility]) [address] [place], [address], 04/16/2023 11:51:18 04/16/20 23 04/16/2023 CMP, serum or plasm a A/G ratio 1.9 ratio Not Available [facility] ([facility]) [address] [place], [address], 04/16/2023 11:51:18 04/16/20 23 04/16/2023 CMP, serum or plasm a ALP phos 66.0 U/L 30.0-1 40.0 Not Available [facility] ([facility]) [address] [place], [address], 04/16/2023 11:51:18 04/16/20 23 04/16/2023 CMP, serum or plasm a calcium 9.6 mg/dL 8.4-10 .5 Not Available [facility] ([facility]) [address] [place], [address], 04/16/2023 11:51:18 04/16/20 23 04/16/2023 CMP, serum or plasm a sodium 142.0 mmol/ L 136.0- 145.0 Not Available [facility] ([facility]) [address] [place], [address], 04/16/2023 11:51:18 04/16/20 23 04/16/2023 CMP, serum or plasm a potassium 4.5 mmol/ L 3.5-5. 1 Not Available [facility] ([facility]) [address] [place], [address], 04/16/2023 11:51:18 04/16/20 23 04/16/2023 CMP, serum or plasm a chloride 103.0 mmol/ L 98.0-1 10.0 Not Available [facility] ([facility]) [address] [place], [address], 04/16/2023 11:51:18 04/16/20 23 04/16/2023 CMP, serum or plasm a CO2 27.0 mmol/ L 22.0-3 1.0 Not Available [facility] ([facility]) [address] [place], [address], 04/16/2023 11:51:18 04/16/20 23 04/16/2023 CMP, serum or plasm a anion gap 12.0 calc Not Available [facility] ([facility]) [address] [place], [address], 04/16/2023 11:51:18 04/16/20 23 04/16/2023 CMP, serum or plasm a osmolality 292.9 calc Not Available [facility] ([facility]) [address] [place], [address], 04/16/2023 11:51:18 04/16/20 23 04/16/2023 CBC WBC 8.21 X10^3 /uL 4.0-10 .5 normal Not Available [facility] ([facility]) [address] [place] [address], [address], 04/16/2023 11:51:24 04/16/20 23 04/16/2023 CBC RBC 4.75 X10^6 /uL 3.50-5 .50 normal Not Available [facility] ([facility]) [address] [place], [address], 04/16/2023 11:51:24 04/16/20 23 04/16/2023 CBC HGB 15.37 g/dL 12.0-1 6.0 normal Not Available [facility] ([facility]) [address] [place], [address], 04/16/2023 11:51:24 04/16/20 23 04/16/2023 CBC HCT 44.9 % 37.0-4 7.0 normal Not Available [facility] ([facility]) [address] [place], [address], 04/16/2023 11:51:24 04/16/20 23 04/16/2023 CBC MCV 94.6 fL 80.0-9 9.0 normal Not Available [facility] ([facility]) [address] [place], [address], 04/16/2023 11:51:24 04/16/20 23 04/16/2023 CBC MCH 32.4 pg 27.0-3 2.0 high Not Available [facility] ([facility]) [address] [place], [address], 04/16/2023 11:51:24 04/16/20 23 04/16/2023 CBC MCHC 34.2 g/dL 32.0-3 6.0 normal Not Available [facility] ([facility]) [address] [place], [address], 04/16/2023 11:51:24 04/16/20 23 04/16/2023 CBC RDW 13.5 % 11.5-1 4.6 normal Not Available [facility] ([facility]) [address] [place], [address], 04/16/2023 11:51:24 04/16/20 23 04/16/2023 CBC plt 283.1 10^3/ uL 140.0- 451.0 normal Not Available [facility] ([facility]) [address] [place], [address], 04/16/2023 11:51:24 04/16/20 23 04/16/2023 CBC lymphocytes % 21.77 % 20.0-5 0.0 normal Not Available [facility] ([facility]) [address] [place], [address], 04/16/2023 11:51:24 04/16/20 23 04/16/2023 CBC granulocytes % 64.68 % 30.0-7 0.0 normal Not Available [facility] ([facility]) [address] [place], [address], 04/16/2023 11:51:24 04/16/20 23 04/16/2023 CBC monocytes % 10.34 % 2.0-10 .0 high Not Available [facility] ([facility]) [address] [place], [address], 04/16/2023 11:51:24 04/16/20 23 04/16/2023 CBC granulocytes # 5.31 X10^3 /uL normal Not Available [facility] ([facility]) [address] [place], [address], 04/16/2023 11:51:24 04/16/20 23 04/16/2023 CBC lymphocytes # 1.79 X10^3 /uL normal Not Available [facility] ([facility]) [address] [place], [address], 04/16/2023 11:51:24 04/16/20 23 04/16/2023 CBC monocytes # 0.85 X10^3 /uL abnormal Not Available [facility] ([facility]) [address] [place], [address], 04/16/2023 11:51:24 04/19/20 23 04/20/2023 T4, FREE T4, free 1.3 NG/dL 0.8-1. 8 normal Not Available [facility] [place] [address] [place], [address], 04/20/2023 06:04:43 04/19/20 23 04/20/2023 VITAM IN B12 vitamin B12 575 pg/mL 200-11 00 normal Not Available [facility] [place] [address] [place], [address], 04/20/2023 06:04:44 04/19/20 23 04/19/2023 TSH, serum or plasm a TSH 2.72 uIU/m L 0.49-3 .82 Not Available [facility] ([facility]) [address] [place], [address], 04/19/2023 09:31:39 06/18/20 23 06/19/2023 TROPO HECTOR [...] cient to make the diagn osis of [place]. Not Available [facility] [address] [place], [address], 06/19/2023 15:29:04 04/19/20 23 04/19/2023 US, mara x, carot id arter y No observ ation record ed. [email or web address] [facility] [address], [address], 04/23/2023 15:09:21 05/09/20 23 05/08/2023 CT, chest + abdom en + pelvi s, w/ contr ast No observ ation record ed. [email or web address] [facility] [address] [place], [address], 05/11/2023 09:40:52 06/18/20 23 12/21/2024 elect rocar diogr am No observ ation record ed. [email or web address] [facility] ([facility]) [address] [place], [address], 12/22/2024 08:52:26 06/18/20 23 06/18/2023 elect rocar [...] Recorded Time Chronic obstructi ve pulmonary disease 67452189 Active 2021 COPD (CHRONIC OBSTRUCTIV E PULMONARY DISEASE); Recorded 03/15/2022 2:21PM by José Miguel Quach, Office Visit; Promoted; acuity set as *; ERICKA lozada [place] [facility] 3 14:49:07 Finding of tobacco use and exposure 882514795 Active 2021 TOBACCO USE; 09/04/2022 12:36PM by JUSTIN Redman, Office Visit; Promoted; acuity set as *; Not Available [facility] 3 03:07:56 Post-trau matic stress disorder 99721327 Active 2021 PTSD (POST-TRAU MATIC STRESS DISORDER); 09/04/2022 12:36PM by JUSTIN Redman, Office Visit; Promoted; acuity set as *; Not Available [facility] 3 03:07:57 Problem Notes None recorded. Medical Equipment None Reported. Allergies Allergen ID Allergen Name Allergen Category Reaction Reaction Severity Criticality Documentation Date Start Date Code Code System Note Provider Name and Address Organization Details Recorded Time 37808 diphenhyd ramine hydrochlo ride medicatio n other Not available Not available 04/28/2023 1362 RxNorm React ion: Deshler titis ;prosper dryl, orage l ,chig garex , calad ryl NYLON , Hives ;prosper dryl, orage l ,chig garex , calad ryl NYLON ; Comme nt: Recor ded 09/04 9:58A M by Radha blanc RN, Offic e Visit ; Promo kristy; Katarina orourke ce: *; Reaso n: Drug aller gy; ; Not Available [facility] 3 02:26:59 Medications Name Sig [...] metoprolo l succinate daily 05/14 completed LB/ak; 01734; Recorded 02/24/20 9:55AM by José Miguel Quach (Authori zuly through Yaneth Arora MD), Refill Request; Refill Quantity : 90; Tablet; Not Available Not Available Not Available Symbicort 160 mcg-4.5 mcg/actua tion HFA aerosol inhaler Inhale TWO puffs BY MOUTH ONCE DAILY. active Not Available Not Available No t Available budesonid e-formote rol daily 05/14 completed vo KM/dh; 76548; Recorded 09/14/20 1:16PM by Maddie Larios LPN (Authori zuly through Devika Gan PA-C), Refill Request; Refill Quantity : 3; Each; Not Available Not Available Not Available Vitals Date Recorded Body weight Body mass index (BMI) Body height Body temperature Oxygen saturation Heart rate Systolic And Diastolic Provider Name and Address Organization Details Last Updated DateTime 3 34001.3 5 g 16.6 kg/m2 152.4 cm 98.3 [degF] 93 % 75 /min 118/80 mm[Hg] IMANI CHRISTIE [facility] 3 11:14:18 Date Recorded Body height Body mass index (BMI) Body weight Body temperature Heart rate Oxygen saturation Systolic And Diastolic Provider Name and Address Organization Details Last Updated DateTime 3 152.4 cm 16.2 kg/m2 53004.1 7 g 97.9 [degF] 90 /min 93 % 115/68 mm[Hg] LENA GENAO [facility] 3 08:44:40 Date Recorded Body height Body mass index (BMI) Body weight Body temperature Oxygen saturation Heart rate Systolic And Diastolic Provider Name and Address Organization Details Last Updated DateTime 3 152.4 cm 16.4 kg/m2 94733.7 6 g 97.3 [degF] 88 % 73 /min 108/64 mm[Hg] ERICKA LIV[place]STON [facility] 3 14:48:01 Date Recorded Body height Body mass index (BMI) Body weight Body temperature Oxygen saturation Heart rate Systolic And Diastolic Provider Name and Address Organization Details Last Updated DateTime 3 152.4 cm 16.6 kg/m2 00138.3 5 g 98.2 [degF] 97 % 59 /min 120/76 mm[Hg] ERICKA LIV[place]STON [facility] 3 11:08:28 Social History None recorded. Functional Status Question Answer Note LastModified by Organizat ion Details LastModified Time Do you use any illicit or recreational drugs? No Information not available 05/14/2023 What is your level of alcohol consumption? None [email or web address] Information not available 05/14/2023 Mental Status None recorded. Family History Relationship Description Onset Age of this Age Resolved Age Notes LastModified by Organization Details LastModified Time Sister Cerebrovascu lar accident [email or web address] Not available 08:53:57 Maternal Grandfather Cerebrovascu lar accident [email or web address] Not available 08:53:57 Maternal Aunt Cerebrovascu lar accident [email or web address] Not available 08:53:57 Medical History No medical history recorded. Gynecological HistoryNo gynecological history recorded. Obstetrics History GPAL:G 0 P 0 0 0 0 Immunizations Vaccine Type Date Status Note Provider Nam e and Address Organization Details Recorded Time COVID-19, mRNA, LNP-S, PF, 100 mcg/0.5mL dose or 50 mcg/0.25mL dose 12/22/2020 completed IMANI lozada [facility] 04/16/2023 11:14:33 COVID-19, mRNA, LNP-S, PF, 100 mcg/0.5mL dose or 50 mcg/0.25mL dose 02/07/2021 completed IMANI lozada [facility] 04/16/2023 11:14:33 Past Encounters Encounter ID Performer Location Encounter Start Date Encounter Closed Date Diagnosis/Indication Diagnosis SNOMED-CT Code Diagnosis ICD10 Code Diagnosis IMO Codes Diagnosis Note [id number] Yaneth Arora MD [facility] ([facility]) [address] [place] [address] 04/16/2023 10:51:05 04/16/2023 14:03:38 History of transient ischemic attack 936885575 Z86.73 Per pt report. Associated with shaking/tr emor. Poor historian 999039557 Z76.89 Anxiety 46995060 F41.9 Memory impairment 869757 006 R41.3 [id number] Bakari Gan MD [facility] ([facility]) [address] [place] [address] 04/19/2023 08:37:11 04/19/2023 10:17:02 Abnormal weight loss 664270937 R63.4 Orthostati c hypotension 97906469 I95.1 Memory impairment 718769 006 R41.3 mmse 30/30 however, has poor accuracy regarding recent and remote events. needs further evaluation . [id number] Yaneth Arora MD [facility] ([facility]) [address] [place] [address] 04/19/2023 10:55:31 04/19/2023 12:51:04 [id number] Yaneth Arora MD [facility] ([facility]) [address] [place] [address] 05/14/2023 14:38:22 05/14/2023 15:36:58 Pulmonary hypertension 40606120 I27.20 Severe chr onic obstructive pulmonary disease 436572638 J44.9 severe pulmonary hypertensi on with COPD Common grady ac artery stenosis 023923578 I77.1 asymptomat ic, noted on [place] [id number] Yaneth Arora MD [facility] ([facility]) [address] [place] [address] 06/18/2023 10:37:58 06/18/2023 12:49:51 Left sided chest pain 102965784 R07.9 The pt is not willing to try an antacid - there is aluminum in them that goes straight to your brain and gives you alzheimers . Hypochondriasis 33127595 F45.20 Health Concerns Section Related Observation LastModified by Organization Detai ls LastModified Time None Recorded Concern Status LastModified by Organization Details LastModified Time None Recorded Advance Directives Directive None Recorded Payers Insurance Date Sequence Insurance Name Policy Number Policy Soto Covered Member ID Soto Member ID Guarantor Name 04/26/2025 1 [facility] (MEDICARE REPLACEMENT/A DVANTAGE - HMO) Martha Damico [id number] Martha Damico 04/26/2025 [place] [facility] Martha Damico [id number] Martha Damico 04/26/2025 2 [place] Martha Damico [id number] Martha Damico Notes Date Note Type Note [...] locked up. she grabbed onto a vacuum block cleaner that was standing there and it [...] about once a month. Yaneth Arora MD [address] [place] [address], [phone], [facility], [place]. 04/16/2023 14:00:18 3 text/html weight loss: [...] 102/68stand 90 98/62 Bakari Gan MD [address] [place], [address], [facility], LRc. 04/19/2023 09:39:08 3 text/html ROS as noted in the HPI lab/imaging follow up pt states that she saw Dr. Dean about 1 year ago and he said everything was fine.... Yaneth Arora MD [address] [place] [address], [phone], [facility] 05/14/2023 15:26:55 3 text/html Angina/Chest PainReported [...] was almost in mensa. Yaneth Arora MD [address] [place] [address], [phone], [facility] 06/24/2023 18:31:31 OBGyn Episode No OBEpisode recorded.
--- OUTSIDE RECORDS SUMMARY | 2025-08-23 03:17 | XMS_ITS | Encounter Summary ---
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 TECHNICIAN Gender Identity Not on file Sexual Orientation Not on file documented as of this encounter Plan of Treatment Not on file documented as of this encounter Procedures Procedure Name Priority Date/Time Associated Diagnosis Comments LYME AB IGG/IGM Routine 09/28/2008 9:30 PM LENS COATING TECHNICIAN RHEUMATOID FACTOR Routine 09/28/2008 9:3 0 PM LENS COATING TECHNICIAN REGINALD SCREEN W/REFLEX Routine 09/28/2008 9 :30 PM LENS COATING TECHNICIAN documented in this encounter Results * LYME AB IGG/IGM (09/28/2008 9:30 PM LENS COATING TECHNICIAN) LYME ANTIBODY (EIA) See Sep Report [facility] Blood specimen (specimen) 09/28/2008 9:30 PM LENS COATING TECHNICIAN 09/30/2008 9:50 AM LENS COATING TECHNICIAN us Rick Wilson DO CHEMISTRY ORDERABLES COM Final Result INTERFACE SYSTEM Refer to clinic/hospital department [facility] CLIA# [id number] [address] [place] [address] * RHEUMATOID FACTOR (09/28/2008 9:30 PM LENS COATING TECHNICIAN) RHEUMATOID FACTOR See Sep Report [facility] Blood specimen (specimen) 09/28/2008 9:30 PM LENS COATING TECHNICIAN 09/30/2008 9:50 AM LENS COATING TECHNICIAN us Rick Wilson DO CHEMISTRY ORDERABLES Final Resu lt Performing Organization Address City/[facility] Phone Number INTERFACE SYSTEM Refer to clinic/hospital department [facility] CLIA# [id number] [address] [place] [address] * REGINALD (09/28/2008 9:30 PM LENS COATING TECHNICIAN) REGINALD Negative Negative [facility] Blood specimen (specimen) 09/28/2008 9:30 PM LENS COATING TECHNICIAN 09/29/2008 9:39 PM LENS COATING TECHNICIAN us Rick Wilson DO CHEMISTRY ORDERABLES Final Resu lt Performing Organization Address [facility] de Phone Number INTERFACE SYSTEM Refer to clinic/hospital department [facility] CLIA# [id number] [address] [place] [address] documented in this encounter Visit Diagnoses Not on filedocumented in this encounter Care Teams Crating And Moving Estimator Relationship Specialty Start Date End Date Non-Staff, Physician NO ADDRESS ON FILE PCP - General 08/28/18 documented as of this encounter
--- OUTSIDE RECORDS SUMMARY | 2025-08-23 03:17 | XMS_ITS | Clinical Summary ---
Author Organization [facility] Address [address] [place] [address] Care Team Providers Care Door To Door Lead Generation Name Role Phone Non-Staff, Physician Primary Care [...] on file Legal Sex Female 7:10 AM PAINTER BOTTOM Gender Identity Not on file Sexual Orientation Not on file Last Filed Vital Signs Vital Sign Reading Time Taken Comments Blood Pressure 122/72 08/12/2015 10:09 AM PAINTER BOTTOM Pulse 87 08/12/2015 10:09 AM PAINTER BOTTOM Temperature 36.4 C (97.6 F) 08/12/2015 10:09 AM PAINTER BOTTOM Respiratory Rate 22 08/12/2015 10:09 AM PAINTER BOTTOM Oxygen Saturation 96% 08/12/2015 10:09 AM PAINTER BOTTOM Inhaled Oxygen Concentration - - Weight 46.3 kg (102 lb) 08/12/2015 10:09 AM PAINTER BOTTOM Height 153 cm (5' 0.25 ) 08/12/2015 10:09 AM PAINTER BOTTOM Body Mass Index 19.76 08/12/2015 10:09 AM PAINTER BOTTOM Plan of Treatment Health Maintenance Due Date [...] - 1-dose 75+ series) 2033 Insurance MEDICAID [place] Care Teams Door To Door Lead Generation Relationship Specialty Start Date End Date Non-Staff, Physician NO ADDRESS ON FILE PCP - General 08/28/18
--- NOTE | 2025-08-23 03:23 | ECG_ITS ---
[facility]23 Pat Name: Martha Damico Department: Room: Gender: Female Payroll Bookkeeper: : 1960 Requested By: Jorge Osullivan Order Number: [id number] Kaila MD: Mohsen Kilpatrick M.D. Measurements Intervals [place] Rate: 106 P: 0 TN: 0 QRS: 71 QRSD: 93 T: 54 QT: 309 QTc: 411 Interpretive Statements ATRIAL FIBRILLATION WITH RAPID VENTRICULAR RESPONSE ABNORMAL RHYTHM ECG Compared to ECG 08/20/2025 15:31:36 Sinus rhythm no longer present Short TN interval no longer present Heavy baseline artifacts; Need to repeat the study. Electronically Signed On 08-23-2025 17:24:13 SPORTS MARKETING COORDINATOR by Mohsen Kilpatrick M.D. [email or web address]
--- NOTE | 2025-08-23 03:40 | CTR_ITS ---
PROCEDURE INFORMATION: Exam: CT Chest Without Contrast; Diagnostic Exam date and time: 08/23/2025 5:04 AM Age: 65 years old Clinical indication: Other: N/a; Abdominal pain; Shortness of breath; Chest pressure; C/O chest and epigastric pain with SOB. Hypoxia. Patient diaphoretic. History of copd and emphysema. ; Additional info: Abrupt upper abd/chest pain in cormobid PT TECHNIQUE: Imaging protocol: Diagnostic computed tomography of the chest without contrast. Radiation optimization: All CT scans at this facility use at least one of these dose optimization techniques: automated exposure control; mA and/or kV adjustment per patient size (includes targeted exams where dose is matched to clinical indication); or iterative reconstruction. COMPARISON: CT angio chest PE protcl [id number] 08/13/2025 8:22 PM RADIATION DOSE METRICS: Total DLP (mGy-cm): 715.91 FINDINGS: Lungs: There is significant respiratory motion during the acquisition through the lungs. There is no evidence of focal consolidation. No significant mass lesions are detected. The lungs are markedly hyperaerated consistent with a obstructive lung disease. Findings of centrilobular pulmonary emphysema are noted diffusely. Pleural spaces: Unremarkable. No pneumothorax. No pleural effusion. Heart: Mild coronary artery calcification is present. No cardiomegaly. No pericardial effusion. Lymph nodes: Unremarkable. No enlarged lymph nodes. Vasculature: Unremarkable. No aortic aneurysm. Bones/joints: Unremarkable. No acute fracture. Soft tissues: Unremarkable. Comments: The presence of pulmonary emphysema on CT is an independent risk factor for lung cancer. The patient should be evaluated for enrollment in a low-dose CT lung cancer screening program. PROCEDURE INFORMATION: Exam: CT Abdomen And Pelvis Without Contrast Exam date and time: 08/23/2025 5:04 AM Age: 65 years old Clinical indication: Other: N/a; Abdominal pain; Shortness of breath; Chest pressure; C/O chest and epigastric pain with SOB. Hypoxia. Patient diaphoretic. History of copd and emphysema. ; Additional info: Abrupt upper abd/chest pain in cormobid PT TECHNIQUE: Imaging protocol: Computed tomography of the abdomen and pelvis without contrast. Radiation optimization: All CT scans at this facility use at least one of these dose optimization techniques: automated exposure control; mA and/or kV adjustment per patient size (includes targeted exams where dose is matched to clinical indication); or iterative reconstruction. COMPARISON: CT chest abdpel w/*[id number] 05/08/2023 3:27 PM RADIATION DOSE METRICS: Total DLP (mGy-cm): 715.91 FINDINGS: There is some image degradation secondary to respiratory motion. Liver: Normal. No mass. Gallbladder and biliary ducts: Normal. No calcified stones. No ductal dilation. Pancreas: Normal. No ductal dilation. Spleen: Normal. No splenomegaly. Adrenal glands: There is a stable hypodense left adrenal nodule. Kidneys and ureters: There is a 4 mm calculus in the lower pole of the left kidney. There is no evidence of obstructive uropathy. Stomach and bowel: There is evidence of sigmoid diverticulosis. There is no evidence of acute diverticulitis.. Appendix: No evidence of appendicitis. Intraperitoneal space: Unremarkable. No free air. No significant fluid collection. Vasculature: Scattered calcific plaque along the course of the abdominal aorta extending into the iliac vessels is present. No abdominal aortic aneurysm. Lymph nodes: Unremarkable. No enlarged lymph nodes. Urinary bladder: The urinary bladder is somewhat distended. Reproductive: There is a scant volume of free fluid in the pelvis which may be physiologic Bones/joints: Multilevel degenerative disc disease is present there is mild retrolisthesis at L4-L5. No acute fracture. Soft tissues: Unremarkable. CT/[place] [id number] IMPRESSION: The examination of the lungs is somewhat limited by respiratory motion. No discrete consolidation or evidence of mass lesion is appreciated. Marked hyperaeration secondary to obstructive lung disease and centrilobular emphysema is present. IMPRESSION: 1. The examination is somewhat limited secondary to respiratory motion. 2. There is a scant volume of free fluid in the pelvis which may be physiologic. 3. Colonic diverticulosis is noted without evidence of acute diverticulitis. 4. The urinary bladder is somewhat distended. 5. There is a 4 mm calculus in the lower pole of the left kidney. There is no evidence of obstructive uropathy. 6. There is a stable 1.5 cm left adrenal nodule.
--- NOTE | 2025-08-23 03:40 | ECG_ITS ---
[facility] [place] [place] [facility] 2025-08[facility]23 Pat Name: Martha Damico Department: Room: Gender: Female Facility Sales And Admin: : 1960 Requested By: Jorge Osullivan Order Number: [id number] Kaila MD: Mohsne Kilpatrick M.D. Measurements Intervals [place] Rate: 102 P: 0 TN: 0 QRS: 72 QRSD: 78 T: 53 QT: 305 QTc: 399 Interpretive Statements supraventricular rhythm Heavy baseline artifacts; Need to repeat the study. Electronically Signed On 08-23-2025 17:25:00 PROGRAM MANAGEMENT SPECIALIST by Mohsen Kilpatrick M.D. [id number] [id number]
--- NOTE | 2025-08-23 03:40 | XRR_ITS ---
PROCEDURE INFORMATION: Exam: XR Chest Exam date and time: 08/23/2025 3:52 AM Age: 65 years old Clinical indication: Shortness of breath; C/O SOB. History of emphysema TECHNIQUE: Imaging protocol: Radiologic exam of the chest. Views: 1 view. COMPARISON: CR XR chest 1V portable [id number] 08/20/2025 4:36 PM FINDINGS: Lungs: Stable pulmonary hyperaeration secondary to obstructive lung disease is present. Emphysematous changes are noted. No consolidation. Pleural spaces: Unremarkable. No pleural effusion. No pneumothorax. Heart/Mediastinum: Unremarkable. No cardiomegaly. Bones/joints: Unremarkable. XR/XR chest 1V portable [id number] IMPRESSION: 1. Marked pulmonary hyperaeration consistent with emphysema and chronic obstructive lung disease appears stable. 2. No consolidation.
[2025-08-23] MEDS: morphine 4 mg/mL SDV 1 mL IVP (03:52)
[2025-08-23 03:53] LABS: Base Excess VBG 9.2 mmol/L (-3.0-3.0); Blood Gas LPM 2.0 %; Blood Gas Operator Identificat gerca; Blood Gas Sample Type Venous; HCO3 VBG 34.2 mmol/L (24-28); PCO2 VBG 47.1 mmHg (41-51); PO2 VBG 32.6 mmHg (25-40); Venous Blood Gas Hematocrit 40.3 % (37-47); pH VBG 7.47 (7.32-7.42)
--- NOTE | 2025-08-23 03:54 | W.ED.CHESTPA ---
Documented by User: Jorge Osullivan DO 08/26/25 12:32 HPI - Chest Pain General: Chief Complaint: Chest Pain Stated Complaint: severe abdominal pain Time Seen by Provider: 08/23/25 03:19 History of Present Illness: Patient is a 65-year-old female with past medical history of COPD on home oxygen, who presents to the ED with abrupt diffuse chest and abdominal pain that started tonight. No clear provoking factors, states before she went to bed she was feeling okay with her baseline short of breath, she was put on prednisone recently for COPD exacerbation, she states she has been having some issues with constipation over the last couple days, has still been passing gas, no vomiting. No recent fevers, chills, no urinary symptoms. No prior history of abdominal surgeries. Associated symptoms: Reports abdominal pain and dyspnea Related Data Home Medications ?Medication ?Instructions ?Recorded ?Confirmed budesonide-formoterol HFA 160 2 puff inhalation BID 03/18/21 08/23/25 mcg-4.5 mcg/actuation aerosol inhaler (Symbicort) multivitamin 1 tab PO DAILY 04/11/22 08/23/25 ibuprofen 200 mg tablet (Advil) 400 mg PO Q6H PRN Pain 08/14/25 08/23/25 Previous Rx's ?Medication ?Instructions ?Recorded albuterol sulfate 2.5 mg/3 mL 2.5 mg (3 mL) continuous 04/23/25 (0.083 %) solution for nebulization nebulization Q8H Shortness Of Breath #180 mL albuterol sulfate 90 mcg/actuation 1 inh inhalation Q6H PRN shortness 04/23/25 aerosol inhaler (Ventolin HFA) of breath or wheezing #8.5 grams ipratropium bromide 0.02 % 1.25 ml inhalation Q8H #150 mL 04/23/25 solution for inhalation prednisone 10 mg tablet See Taper PO DIRECTED #42 tabs 08/15/25 tramadol 50 mg tablet 50 mg PO Q8H PRN pain #10 tabs 08/20/25 Allergies Allergy/AdvReac Type Severity Reaction Status Date / Time No Known Allergies Allergy Verified 08/13/25 17:16 Review of Systems General: Reports: 10 or more systems reviewed and unremarkable except in HPI and below Card: Reports: chest pain Resp: Reports: dyspnea and non-productive cough GI: Reports: abdominal pain and constipation PFSH ED PFSH: Medical History Chest pain COPD (chronic obstructive pulmonary disease) Afib PTSD (post-traumatic stress disorder) Tobacco use Family History Mother Dementia Lung disease Cancer Sister Dementia Diabetes Cancer Father Lung disease Cancer Family/Other Stroke Brother Cancer Social History Smoking and tobacco/nicotine status: former use of tobacco/nicotine Quit status (tobacco/nicotine): has quit using Year quit tobacco: 15 months ago Former quit date comment: 1 pack per day x 52 years Second hand smoke exposure: Yes Alcohol intake: current Alcohol intake frequency: 3 or more drinks per day Physical Exam Narrative: EXAM NARRATIVE: Thin, chronically ill-appearing, afebrile, mild distress secondary to pain, mildly tachypneic, saturating well on home 3 L of oxygen. Patient with soft abdomen, mild generalized tenderness, no localizing signs, bowel sounds decreased but present, no CVA tenderness, not peritonitic. Breathing is mildly labored and tachypneic on home 3 L of oxygen, decreased breath sounds but no wheezes or crackles, mild accessory muscle usage, not in respiratory distress. Normal sinus rhythm with no murmurs, no leg swelling, 2+ pulses throughout, good cap refill. GCS 15. Course Vital Signs: Vital signs: Vital Signs Temperature 97.6 F 08/26/25 09:02 Pulse Rate 90 08/26/25 12:15 Respiratory Rate 12 08/26/25 11:24 Blood Pressure 97/58 08/26/25 12:15 Pulse Oximetry 95 08/26/25 12:15 Oxygen Delivery Me thod Mechanical Ventil ation 08/26/25 11:23 Oxygen Flow Rate 6 08/25/25 21:50 Fraction of Inspir ed Oxygen 55 08/26/25 11:24 MDM - Chest Pain Medical Decision Making -ddx: SBO, hollow viscus injury, pancreatitis, cholecystitis, pneumothorax, ACS, dysrhythmia, URI, pneumonia, AMI, dehydration, electrolyte abnormality, acute versus chronic hypoxic respiratory failure - Patient arrives with abrupt onset of diffuse abdominal and chest pain, no obvious etiology, no history of abdominal surgeries, has been somewhat constipated, is on steroids for COPD exacerbation, no obvious triggers to her symptoms here tonight. She is saturating well on her home 3 L of oxygen, respirations mildly labored, her abdomen exam is overall reassuring with mild tenderness throughout, will give pain medication, get abdominal and cardiac labs, CT imaging and reassess. -patients pain hard to control, had stated she couldnt do the CT due to it, was increasingly diaphoretic, in efforts to ro surgical pathology, ativan given to facilitate scan, which worked, but remained sedated at time of signout of care, was pending results of the scan and return to mental baseline for eventual disposition, CT with no alarming pathology based on my intial read, signed out in stable condition to Dr. Elkins. I resumed care of the patient at shift change. I reviewed the patient's medical record. Patient was seen in the ER about 3 days ago. She was also admitted about 2 weeks ago I reviewed the patient's current home meds Patient is currently on steroid Alternate historians: None Lab Review: Laboratory results were reviewed and interpreted by myself the emergency room physician. Leukocytosis with a white count of 20,000. No anemia. No renal failure. Urinalysis is negative for infection. Flu COVID and RSV are negative. CT of the chest abdomen pelvis without contrast: Limited chest exam because of respiratory motion. Urinary bladder slightly distended. Cath urine she had out 500 cc. This was reviewed and interpreted by myself the emergency room physician. I also reviewed the radiology report. Assessment of risk: Level of risk: Moderate risk patient. COPD and other comorbidities. On home oxygen. Hospitalization considerations: Patient still has some increased work of breathing. Her mentation has improved some but given that she is already on steroids at home and she still working is harder to feel like she needs to be admitted Reexamination: Patient is still tachypneic. She had been sitting in bed staring straight forward and not responding breathing very fast. She is now relaxed more and laying on her side and she talks to me now and that she wants to be admitted. Stable some increased work of breathing and wheeze. Consultation: I spoke with Dr. Rosenberg who is on-call for the hospitalist service who agrees to admission Assessment and plan: COPD with acute exacerbation Urinary retention ?IV doxycycline, IV steroids, updrafts. -I discussed the patient with the hospitalist on-call who is admitting the patient. - Discussed findings and plan with patient. Answered any questions. - All laboratory values were reviewed and interpreted personally by myself, the ER physician - All imaging was reviewed and interpreted personally by myself, the ER physician. - Evaluation and treatment of this problem were appropriate in the emergency setting Lab Data 08/26/25 05:12 08/26/25 05:12 Radiology Impressions Chest/Abdomen/Pelvis CT 08/23/25 03:40 IMPRESSION: The examination of the lungs is somewhat limited by respiratory motion. No discrete consolidation or evidence of mass lesion is appreciated. Marked hyperaeration secondary to obstructive lung disease and centrilobular emphysema is present. IMPRESSION: 1. The examination is somewhat limited secondary to respiratory motion. 2. There is a scant volume of free fluid in the pelvis which may be physiologic. 3. Colonic diverticulosis is noted without evidence of acute diverticulitis. 4. The urinary bladder is somewhat distended. 5. There is a 4 mm calculus in the lower pole of the left kidney. There is no evidence of obstructive uropathy. 6. There is a stable 1.5 cm left adrenal nodule. Chest CTA 08/23/25 07:50 IMPRESSION: 1. No focal infiltrates. 2. No pulmonary embolism. 3. Severe emphysematous changes. COMMENTS: The presence of pulmonary emphysema on CT is an independent risk factor for lung cancer. In the absence of a history or active diagnosis of lung cancer, it is recommended that this patient with emphysema be evaluated for enrollment in a low dose CT lung cancer screening program. Chest X-Ray 08/25/25 22:27 IMPRESSION: 1. Findings suggestive of mild pulmonary edema or interstitial pneumonia. Findings are stable with comparison to the prior examination. 2. Small bilateral pleural effusions. 3. Lines and tubes as above. Laboratory Results WBC 20.84 10^3/uL (3.29-11.43) H 08/23/25 03:17 RBC 4.10 10^6/uL (3.85-5.65) 08/23/25 03:17 Hgb 12.30 g/dL (11.27-16.99) 08/23/25 03:17 Hct 38.7 % (36-47) 08/23/25 03:17 MCV 94.4 fl (85-98) 08/23/25 03:17 MCH 30.0 pg (27-33) 08/23/25 03:17 MCHC 31.8 g/dL (30-55) 08/23/25 03:17 RDW 11.9 % (12.1-15.1) L 08/23/25 03:17 Plt Count 407 10^3/cmm (157-399) H 08/23/25 03:17 MPV 10.4 fL (7.4-10.4) 08/23/25 03:17 Neut % (Auto) 74.2 % 08/23/25 03:17 Lymph % (Auto) 11.5 % 08/23/25 03:17 [place] % (Auto) 10.1 % 08/23/25 03:17 Eos % (Auto) 0.3 % 08/23/25 03:17 Baso % (Auto) 0.2 % 08/23/25 03:17 Neut # (Auto) 15.46 10^3/uL (1.8-7.7) H 08/23/25 03:17 Lymph # (Auto) 2.4 10^3/uL (0.8-4.8) 08/23/25 03:17 [place] # (Auto) 2.1 10^3/uL (0.2-0.9) H 08/23/25 03:17 Eos # (Auto) 0.1 10^3/uL (0.0-0.8) 08/23/25 03:17 Baso # (Auto) 0.0 10^3/uL (0.0-0.1) 08/23/25 03:17 Nucleated RBC % (auto) 0 % 08/23/25 03:17 Nucleated RBCs # 0.0 /100WBC 08/23/25 03:17 D-Dimer 1.38 ug/mLFEU (0-0.59) H 08/23/25 03:17 Specimen Type Venous 08/23/25 03:49 Narendra Test N/a 08/23/25 03:49 VBG pH 7.47 (7.32-7.42) H 08/23/25 03:49 VBG pCO2 47.1 mmHg (41-51) 08/23/25 03:49 VBG pO2 32.6 mmHg (25-40) 08/23/25 03:49 VBG HCO3 34.2 mmol/L (24-28) H 08/23/25 03:49 VBG Base Excess 9.2 mmol/L (-3.0-3.0) H 08/23/25 03:49 VBG Hematocrit 40.3 % (37-47) 08/23/25 03:49 O2 Delivery Device Nc 08/23/25 03:49 O2 Liters/Min 2.0 % 08/23/25 03:49 FiO2 28.0 % 08/23/25 03:49 Bowling Teacher ID [email or web address] 08/23/25 03:49 Sodium 134 mmol/L (136-145) L 08/23/25 03:17 Potassium 5.5 mmol/L (3.5-5.1) H 08/23/25 03:17 Chloride 93 mmol/L (98-107) L 08/23/25 03:17 Carbon Dioxide 35 mmol/L (22-29) H 08/23/25 03:17 Anion Gap 11.5 (5-19) 08/23/25 03:17 BUN 20 mg/dL (8-23) 08/23/25 03:17 Creatinine 0.5 mg/dL (0.5-0.9) 08/23/25 03:17 GFR Calculation 123.1 mL/min (90-130) 08/23/25 03:17 Glucose 132 mg/dL (65-115) H 08/23/25 03:17 Calculated Osmolality 282 mOsm/kg (285-295) L 08/23/25 03:17 Lactic Acid 1.1 mmol/L (0.5-2.2) 08/23/25 03:17 Calcium 9.2 mg/dL (8.5-10.5) 08/23/25 03:17 Phosphorus 4.7 mg/dL (2.5-4.5) H 08/23/25 03:17 Magnesium 2.1 mg/dL (1.7-2.3) 08/23/25 03:17 Total Bilirubin 0.4 mg/dL (0.15-1.2) 08/23/25 03:17 AST 20 U/L (0-32) 08/23/25 03:17 ALT 25 U/L (0-33) 08/23/25 03:17 Alkaline Phosphatase 66 U/L (35-105) 08/23/25 03:17 Troponin T Baseline 11 ng/L (0-10) H 08/23/25 03:17 Troponin T 120 Minute 10.58 ng/L (0-10) H 08/23/25 05:18 Delta Troponin T -0.42 ABS# (0-10) L 08/23/25 05:18 C-React Prot High Sens 0.660 mg/dL (0.0-0.3) H 08/23/25 03:17 NT-Pro-B Natriuret Pep 126 pg/mL (0-125) H 08/23/25 03:17 Total Protein 6.0 g/dL (6.6-8.7) L 08/23/25 03:17 Albumin 4.3 g/dL (3.5-5.2) 08/23/25 03:17 Globulin 1.7 g/dL (1.3-4.6) 08/23/25 03:17 Lipase 39 U/L (13-60) 08/23/25 03:17 Procalcitonin 0.70 ng/mL (0-0.5) H 08/23/25 05:18 TSH 11.02 uIU/mL (0.27-4.20) H 08/23/25 05:18 Urine Color Yellow (Yellow) 08/23/25 05:34 Urine Appearance Clear (CLEAR) 08/23/25 05:34 Urine pH 5.5 (5-7) 08/23/25 05:34 Ur Specific [place] 1.018 (1.005-1.030) 08/23/25 05:34 Urine Protein 1+ (Negative) A 08/23/25 05:34 Urine Glucose (UA) Negative (Normal) 08/23/25 05:34 Urine Ketones Negative (Negative) 08/23/25 05:34 Urine Blood Negative (Negative) 08/23/25 05:34 Urine Nitrate Negative (Negative) 08/23/25 05:34 Urine Bilirubin Negative (Negative) 08/23/25 05:34 Urine Urobilinogen 0.2 mg/dL (Negative) 08/23/25 05:34 Ur Leukocyte Esterase Negative (Negative) 08/23/25 05:34 Urine RBC 0-2 /hpf (0-2) 08/23/25 05:34 Urine WBC 0-5 /hpf (0-5) 08/23/25 05:34 Ur Squamous Epith Cells 0-5 /hpf (0-5) 08/23/25 05:34 Amorphous Sediment Not Reportable 08/23/25 05:34 Urine Bacteria None seen /hpf (NONE) 08/23/25 05:34 Hyaline Casts 7.01 /lpf 08/23/25 05:34 Urine Mucus 4+ /hpf 08/23/25 05:34 Influenza A (PCR) Negative (Negative) 08/23/25 03:56 Influenza Type B (PCR) Negative (Negative) 08/23/25 03:56 RSV (PCR) Negative (Negative) 08/23/25 03:56 SARS-CoV-2 (PCR) Negative (Negative) 08/23/25 03:56 All radiology interpretation(s) finalized by discharge Discharge Plan Discharge Patient Disposition: Admitted As Inpatient Admit Provider: Xavier Rosenberg Clinical Impression: COPD with acute exacerbation, Urinary retention Condition: Stable Coding Level of Care Code ED [facility]ing [facility]g Fwd Heart Score HEART Score Components History: Moderately Suspicious EKG: Normal Age: 65 or more yrs Risk Factors: >/=3 Risk Factors Troponin: Baseline Trop <16 ng/L HEART Score RESULT HEART Score: 5 Documented by User: Nedra Elkins MD 08/23/25 07:32 HPI - Chest Pain General: Chief Complaint: Chest Pain Stated Complaint: severe abdominal pain Time Seen by Provider: 08/23/25 03:19 Related Data Home Medications ?Medication ?Instructions ?Recorded ?Confirmed budesonide-formoterol HFA 160 2 puff inhalation BID 03/18/21 08/23/25 mcg-4.5 mcg/actuation aerosol inhaler (Symbicort) multivitamin 1 tab PO DAILY 04/11/22 08/23/25 ibuprofen 200 mg tablet (Advil) 400 mg PO Q6H PRN Pain 08/14/25 08/23/25 Previous Rx's ?Medication ?Instructions ?Recorded albuterol sulfate 2.5 mg/3 mL 2.5 mg (3 mL) continuous 04/23/25 (0.083 %) solution for nebulization nebulization Q8H Shortness Of Breath #180 mL albuterol sulfate 90 mcg/actuation 1 inh inhalation Q6H PRN shortness 04/23/25 aerosol inhaler (Ventolin HFA) of breath or wheezing #8.5 grams ipratropium bromide 0.02 % 1.25 ml inhalation Q8H #150 mL 04/23/25 solution for inhalation prednisone 10 mg tablet See Taper PO DIRECTED #42 tabs 08/15/25 tramadol 50 mg tablet 50 mg PO Q8H PRN pain #10 tabs 08/20/25 Allergies Allergy/AdvReac Type Severity Reaction Status Date / Time No Known Allergies Allergy Verified 08/13/25 17:16 PFS ED PFSH: Medical History Chest pain COPD (chronic obstructive pulmonary disease) Afib PTSD (post-traumatic stress disorder) Tobacco use Family History Mother Dementia Lung disease Cancer Sister Dementia Diabetes Cancer Father Lung disease Cancer Family/Other Stroke Brother Cancer Social History Smoking and tobacco/nicotine status: former use of tobacco/nicotine Quit status (tobacco/nicotine): has quit using Year quit tobacco: 15 months ago Former quit date comment: 1 pack per day x 52 years Second hand smoke exposure: Yes Alcohol intake: current Alcohol intake frequency: 3 or more drinks per day Course Vital Signs: Vital signs: Vital Signs Temperature 97.6 F 08/26/25 09:02 Pulse Rate 90 08/26/25 12:15 Respiratory Rate 12 08/26/25 11:24 Blood Pressure 97/58 08/26/25 12:15 Pulse Oximetry 95 08/26/25 12:15 Oxygen Delivery Me thod Mechanical Ventil ation 08/26/25 11:23 Oxygen Flow Rate 6 08/25/25 21:50 Fraction of Inspir ed Oxygen 55 08/26/25 11:24 MDM - Chest Pain Medical Decision Making -ddx: SBO, hollow viscus injury, pancreatitis, cholecystitis, pneumothorax, ACS, dysrhythmia, URI, pneumonia, AMI, dehydration, electrolyte abnormality, acute versus chronic hypoxic respiratory failure - Patient arrives with abrupt onset of diffuse abdominal and chest pain, no obvious etiology, no history of abdominal surgeries, has been somewhat constipated, is on steroids for COPD exacerbation, no obvious triggers to her symptoms here tonight. She is saturating well on her home 3 L of oxygen, respirations mildly labored, her abdomen exam is overall reassuring with mild tenderness throughout, will give pain medication, get abdominal and cardiac labs, CT imaging and reassess. I resumed care of the patient at shift change. I reviewed the patient's medical record. Patient was seen in the ER about 3 days ago. She was also admitted about 2 weeks ago I reviewed the patient's current home meds Patient is currently on steroid Alternate historians: None Lab Review: Laboratory results were reviewed and interpreted by myself the emergency room physician. Leukocytosis with a white count of 20,000. No anemia. No renal failure. Urinalysis is negative for infection. Flu COVID and RSV are negative. CT of the chest abdomen pelvis without contrast: Limited chest exam because of respiratory motion. Urinary bladder slightly distended. Cath urine she had out 500 cc. This was reviewed and interpreted by myself the emergency room physician. I also reviewed the radiology report. Assessment of risk: Level of risk: Moderate risk patient. COPD and other comorbidities. On home oxygen. Hospitalization considerations: Patient still has some increased work of breathing. Her mentation has improved some but given that she is already on steroids at home and she still working is harder to feel like she needs to be admitted Reexamination: Patient is still tachypneic. She had been sitting in bed staring straight forward and not responding breathing very fast. She is now relaxed more and laying on her side and she talks to me now and that she wants to be admitted. Stable some increased work of breathing and wheeze. Consultation: I spoke with Dr. Rosenberg who is on-call for the hospitalist service who agrees to admission Assessment and plan: COPD with acute exacerbation Urinary retention ?IV doxycycline, IV steroids, updrafts. -I discussed the patient with the hospitalist on-call who is admitting the patient. - Discussed findings and plan with patient. Answered any questions. - All laboratory values were reviewed and interpreted personally by myself, the ER physician - All imaging was reviewed and interpreted personally by myself, the ER physician. - Evaluation and treatment of this problem were appropriate in the emergency setting Lab Data 08/26/25 05:12 08/26/25 05:12 Radiology Impressions Chest/Abdomen/Pelvis CT 08/23/25 03:40 IMPRESSION: The examination of the lungs is somewhat limited by respiratory motion. No discrete consolidation or evidence of mass lesion is appreciated. Marked hyperaeration secondary to obstructive lung disease and centrilobular emphysema is present. IMPRESSION: 1. The examination is somewhat limited secondary to respiratory motion. 2. There is a scant volume of free fluid in the pelvis which may be physiologic. 3. Colonic diverticulosis is noted without evidence of acute diverticulitis. 4. The urinary bladder is somewhat distended. 5. There is a 4 mm calculus in the lower pole of the left kidney. There is no evidence of obstructive uropathy. 6. There is a stable 1.5 cm left adrenal nodule. Chest CTA 08/23/25 07:50 IMPRESSION: 1. No focal infiltrates. 2. No pulmonary embolism. 3. Severe emphysematous changes. COMMENTS: The presence of pulmonary emphysema on CT is an independent risk factor for lung cancer. In the absence of a history or active diagnosis of lung cancer, it is recommended that this patient with emphysema be evaluated for enrollment in a low dose CT lung cancer screening program. Chest X-Ray 08/25/25 22:27 IMPRESSION: 1. Findings suggestive of mild pulmonary edema or interstitial pneumonia. Findings are stable with comparison to the prior examination. 2. Small bilateral pleural effusions. 3. Lines and tubes as above. Laboratory Results WBC 20.84 10^3/uL (3.29-11.43) H 08/23/25 03:17 RBC 4.10 10^6/uL (3.85-5.65) 08/23/25 03:17 Hgb 12.30 g/dL (11.27-16.99) 08/23/25 03:17 Hct 38.7 % (36-47) 08/23/25 03:17 MCV 94.4 fl (85-98) 08/23/25 03:17 MCH 30.0 pg (27-33) 08/23/25 03:17 MCHC 31.8 g/dL (30-55) 08/23/25 03:17 RDW 11.9 % (12.1-15.1) L 08/23/25 03:17 Plt Count 407 10^3/cmm (157-399) H 08/23/25 03:17 MPV 10.4 fL (7.4-10.4) 08/23/25 03:17 Neut % (Auto) 74.2 % 08/23/25 03:17 Lymph % (Auto) 11.5 % 08/23/25 03:17 [place] % (Auto) 10.1 % 08/23/25 03:17 Eos % (Auto) 0.3 % 08/23/25 03:17 Baso % (Auto) 0.2 % 08/23/25 03:17 Neut # (Auto) 15.46 10^3/uL (1.8-7.7) H 08/23/25 03:17 Lymph # (Auto) 2.4 10^3/uL (0.8-4.8) 08/23/25 03:17 [place] # (Auto) 2.1 10^3/uL (0.2-0.9) H 08/23/25 03:17 Eos # (Auto) 0.1 10^3/uL (0.0-0.8) 08/23/25 03:17 Baso # (Auto) 0.0 10^3/uL (0.0-0.1) 08/23/25 03:17 Nucleated RBC % (auto) 0 % 08/23/25 03:17 Nucleated RBCs # 0.0 /100WBC 08/23/25 03:17 D-Dimer 1.38 ug/mLFEU (0-0.59) H 08/23/25 03:17 Specimen Type Venous 08/23/25 03:49 Narendra Test N/a 08/23/25 03:49 VBG pH 7.47 (7.32-7.42) H 08/23/25 03:49 VBG pCO2 47.1 mmHg (41-51) 08/23/25 03:49 VBG pO2 32.6 mmHg (25-40) 08/23/25 03:49 VBG HCO3 34.2 mmol/L (24-28) H 08/23/25 03:49 VBG Base Excess 9.2 mmol/L (-3.0-3.0) H 08/23/25 03:49 VBG Hematocrit 40.3 % (37-47) 08/23/25 03:49 O2 Delivery Device Nc 08/23/25 03:49 O2 Liters/Min 2.0 % 08/23/25 03:49 FiO2 28.0 % 08/23/25 03:49 Bowling Teacher ID [email or web address] 08/23/25 03:49 Sodium 134 mmol/L (136-145) L 08/23/25 03:17 Potassium 5.5 mmol/L (3.5-5.1) H 08/23/25 03:17 Chloride 93 mmol/L (98-107) L 08/23/25 03:17 Carbon Dioxide 35 mmol/L (22-29) H 08/23/25 03:17 Anion Gap 11.5 (5-19) 08/23/25 03:17 BUN 20 mg/dL (8-23) 08/23/25 03:17 Creatinine 0.5 mg/dL (0.5-0.9) 08/23/25 03:17 GFR Calculation 123.1 mL/min (90-130) 08/23/25 03:17 Glucose 132 mg/dL (65-115) H 08/23/25 03:17 Calculated Osmolality 282 mOsm/kg (285-295) L 08/23/25 03:17 Lactic Acid 1.1 mmol/L (0.5-2.2) 08/23/25 03:17 Calcium 9.2 mg/dL (8.5-10.5) 08/23/25 03:17 Phosphorus 4.7 mg/dL (2.5-4.5) H 08/23/25 03:17 Magnesium 2.1 mg/dL (1.7-2.3) 08/23/25 03:17 Total Bilirubin 0.4 mg/dL (0.15-1.2) 08/23/25 03:17 AST 20 U/L (0-32) 08/23/25 03:17 ALT 25 U/L (0-33) 08/23/25 03:17 Alkaline Phosphatase 66 U/L (35-105) 08/23/25 03:17 Troponin T Baseline 11 ng/L (0-10) H 08/23/25 03:17 Troponin T 120 Minute 10.58 ng/L (0-10) H 08/23/25 05:18 Delta Troponin T -0.42 ABS# (0-10) L 08/23/25 05:18 C-React Prot High Sens 0.660 mg/dL (0.0-0.3) H 08/23/25 03:17 NT-Pro-B Natriuret Pep 126 pg/mL (0-125) H 08/23/25 03:17 Total Protein 6.0 g/dL (6.6-8.7) L 08/23/25 03:17 Albumin 4.3 g/dL (3.5-5.2) 08/23/25 03:17 Globulin 1.7 g/dL (1.3-4.6) 08/23/25 03:17 Lipase 39 U/L (13-60) 08/23/25 03:17 Procalcitonin 0.70 ng/mL (0-0.5) H 08/23/25 05:18 TSH 11.02 uIU/mL (0.27-4.20) H 08/23/25 05:18 Urine Color Yellow (Yellow) 08/23/25 05:34 Urine Appearance Clear (CLEAR) 08/23/25 05:34 Urine pH 5.5 (5-7) 08/23/25 05:34 Ur Specific [place] 1.018 (1.005-1.030) 08/23/25 05:34 Urine Protein 1+ (Negative) A 08/23/25 05:34 Urine Glucose (UA) Negative (Normal) 08/23/25 05:34 Urine Ketones Negative (Negative) 08/23/25 05:34 Urine Blood Negative (Negative) 08/23/25 05:34 Urine Nitrate Negative (Negative) 08/23/25 05:34 Urine Bilirubin Negative (Negative) 08/23/25 05:34 Urine Urobilinogen 0.2 mg/dL (Negative) 08/23/25 05:34 Ur Leukocyte Esterase Negative (Negative) 08/23/25 05:34 Urine RBC 0-2 /hpf (0-2) 08/23/25 05:34 Urine WBC 0-5 /hpf (0-5) 08/23/25 05:34 Ur Squamous Epith Cells 0-5 /hpf (0-5) 08/23/25 05:34 Amorphous Sediment Not Reportable 08/23/25 05:34 Urine Bacteria None seen /hpf (NONE) 08/23/25 05:34 Hyaline Casts 7.01 /lpf 11/23/25 05:34 Urine Mucus 4+ /hpf 08/23/25 05:34 Influenza A (PCR) Negative (Negative) 08/23/25 03:56 Influenza Type B (PCR) Negative (Negative) 08/23/25 03:56 RSV (PCR) Negative (Negative) 08/23/25 03:56 SARS-CoV-2 (PCR) Negative (Negative) 08/23/25 03:56 Discharge Plan Discharge Patient Disposition: Admitted As Inpatient Admit Provider: Xavier Rosenberg Clinical Impression: COPD with acute exacerbation, Urinary retention Condition: Stable Coding Level of Care Code ED Traveling [facility] for Chg Fwd Heart Score HEART Score RESULT HEART Score: 5
[2025-08-23 04:18] LABS: Lactic Sepsis W/Reflex 1.1 mmol/L (0.5-2.2)
[2025-08-23 04:20] LABS: Troponin(5th) Baseline 11 ng/L (0-10)
[2025-08-23] MEDS: LORazepam 2 mg/mL INJ 1 mL 1 MG IVP (04:24)
[2025-08-23 04:29] LABS: Alanine Aminotransferase 25 U/L (0-33); Albumin Level 4.3 g/dL (3.5-5.2); Alkaline Phosphatase 66 U/L (35-105); Aspartate Amino Transferase 20 U/L (0-32); Blood Urea Nitrogen 20 mg/dL (8-23); Calcium 9.2 mg/dL (8.5-10.5); Carbon Dioxide 35 mmol/L (22-29); Chloride 93 mmol/L (98-107); Globulin 1.7 g/dL (1.3-4.6); Glucose 132 mg/dL (65-115); Lipase 39 U/L (13-60); Magnesium 2.1 mg/dL (1.7-2.3); NT Pro B Type Natriuretic Pept 126 pg/mL (0-125); Osmolality Calculated 282 mOsm/kg (285-295); Sodium 134 mmol/L (136-145); Total Protein 6.0 g/dL (6.6-8.7)
[2025-08-23 04:37] LABS: Anion Gap 11.5 (5-19); Potassium 5.5 mmol/L (3.5-5.1)
[2025-08-23 04:40] LABS: Respiratory Syncytial Virus Ce NEGATIVE (Negative); SARS-CoV-2 PCR NEGATIVE (Negative)
[2025-08-23 04:52] LABS: CRP High Sensitivity Cardiac 0.660 mg/dL (0.0-0.3)
[2025-08-23 05:45] LABS: Glucose Urine UA Negative (Normal); Nitrate Urine Negative (Negative); Specific Gravity, Urine 1.018 (1.005-1.030)
[2025-08-23 05:50] LABS: Add Urine Microscopic? YES; Universal Test for UA Present (0)
[2025-08-23 05:59] LABS: Hematocrit 38.7 % (36-47); Hemoglobin 12.30 g/dL (11.27-16.99); Mean Corpuscular HGB Conc 31.8 g/dL (30-55); Mean Corpuscular Hemoglobin 30.0 pg (27-33); Mean Corpuscular Volume 94.4 fl (85-98); Nucleated Red Blood Cells % 0 %; Platelet Count 407 10^3/cmm (157-399); Red Blood Count 4.10 10^6/uL (3.85-5.65); White Blood Count 20.84 10^3/uL (3.29-11.43)
[2025-08-23] MEDS: doxycycline 100 MG in sodium chloride 0.9% (plus) 100 ML IV (07:39)
--- NOTE | 2025-08-23 07:50 | CTR_ITS ---
PROCEDURE INFORMATION: Exam: CTA Chest With Contrast Exam date and time: 08/23/2025 8:06 AM Age: 65 years old Clinical indication: Abnormal findings; Abnormal diagnostic tests; Elevated d-dimer; Additional info: Elevated d-dimer, new oxygen demand, chest pain TECHNIQUE: Imaging protocol: Computed tomographic angiography of the chest with contrast. Exam focused on the arteries. 3D rendering (Not supervised by radiologist): MIP and/or 3D reconstructed images were created by the technologist. Radiation optimization: All CT scans at this facility use at least one of these dose optimization techniques: automated exposure control; mA and/or kV adjustment per patient size (includes targeted exams where dose is matched to clinical indication); or iterative reconstruction. Contrast material: OMNI 350; Contrast volume: 48 ml; Contrast route: INTRAVENOUS (IV); COMPARISON: CT angio chest PE protcl [id number] 08/13/2025 8:22 PM RADIATION DOSE METRICS: Total DLP (mGy-cm): 175.6 FINDINGS: Pulmonary arteries: Normal. No pulmonary emboli. Aorta: Unremarkable. No aortic aneurysm. No aortic dissection. Lungs: Severe centrilobular emphysematous changes are present. Pleural spaces: Unremarkable. No pneumothorax. No pleural effusion. Heart: Unremarkable. No cardiomegaly. No pericardial effusion. Lymph nodes: Unremarkable. No enlarged lymph nodes. Spleen: There are multiple calcified granulomas of the spleen. Kidneys: There are multiple left renal collecting system calcifications. Bones/joints: The thoracic spine demonstrates mild degenerative changes at multiple levels. Chronic fracture deformity of the sternum. Soft tissues: Unremarkable. Other findings: The vasculature demonstrates diffuse mild atherosclerotic calcification. CT/CT angio chest PE protcl [id number] IMPRESSION: 1. No focal infiltrates. 2. No pulmonary embolism. 3. Severe emphysematous changes. COMMENTS: The presence of pulmonary emphysema on CT is an independent risk factor for lung cancer. In the absence of a history or active diagnosis of lung cancer, it is recommended that this patient with emphysema be evaluated for enrollment in a low dose CT lung cancer screening program.
--- NOTE | 2025-08-23 07:53 | PM.HP ---
Providers/Chief Complaint Admitting Physician: Guzman Mcghee RESTORATION ECOLOGIST-C Primary Care Provider: Zuly Damico NP Chief Complaint: severe abdominal pain History of Present Illness Martha Damico is a 65 year old female w/ PMHx of chronic respiratory failure w/ oxygen dependence, COPD, CAD, AFIB, PTSD, tobacco use (52 PYH, quit ~2022) Patient presented to [facility] on 08/23/25 out of concern for pain localized to epigastric aspect of the abdomen. Pain is described as a severe burning sensation and does not radiate to the back, extremities, neck or jaw. No associated nausea, vomiting, diarrhea or constipation. In addition, she reports experiencing pleuritic chest discomfort and a one week history of a productive cough with yellow phlegm. Notes increased shortness of breath with exertion. Denies fever, chills, palpitations, syncope, hemoptysis and lower extremity edema. Recently hospitalized (08/13/25-08/15/25) for COPD exacerbation. She was discharged on course of levofloxacin and Augmentin. According to the patient she completed these medications. She was also on the tapering dose of prednisone. Today she is unable to account for her use of prednisone. VS remarkable for tachycardia and tachypnea. T 98.3 BP 117/73 NR 1100 RR 25 SpO2 93% on 3L O2 EKG - read suggests AFIB, however tracing is very poor Labs, 08/23/25 0317 Infection/Inflammation WBC 20.84, LA 1.1, CRP 0.66 Hemogram WBC 20.84 HGB 12.3 (MCV 95) PLT 407 Coags D-Dimer 1.38 CMP Na 134 K 5.5 Mg 2.1 Cl 93 Ca 9.2 PO4 4.7 Glu 132 CO2 35 AG 11.5 BUN 20 Cr 1.5 eGFR 123.1 AST 20 ALT 25 ALP 66 T.Bili 0.4 T.Protein 6.0 Alb 4.3 Pancreas Lipase 39 Cardiac HS Trop 11 ->10.58 NT-proBNP 126 Urinalysis SG 1.018, protein (1+). Not indicative of infectious process Viral Studies Influenza A/B (-), RSV (-), COVID (-) Blood Gas 08/23/25 0349 ABG pH 7.47 pCO2 47.1 HCO3 34.2 on 2L NC CXR, 08/23/25 - Marked pulmonary hyper aeration consistent with emphysema and chronic obstructive lung disease appears stable. - No consolidation. CT Abdomen & Pelvis wo contrast, 08/23/25 - The examination is somewhat limited secondary to respiratory motion. The examination of the lungs is somewhat limited by respiratory motion. No discrete consolidation or evidence of mass lesion is appreciated. Marked hyperaeration secondary to obstructive lung disease and centrilobular emphysema is present. - There is a scant volume of free fluid in the pelvis which may be physiologic. - Colonic diverticulosis is noted without evidence of acute diverticulitis. - The urinary bladder is somewhat distended. - There is a 4 mm calculus in the lower pole of the left kidney. There is no evidence of obstructive uropathy. - There is a stable 1.5 cm left adrenal nodule. Meds received in ED 0340 NS 1L bolus 0340 Morphine 4 mg IV 0412 Lorazepam 1 mg IV 0728 100 mg doxycycline IV Medications/Allergies Home Medications ?Medication ?Instructions ?Recorded ?Confirmed ?Last Taken ?Type budesonide-formoterol HFA 160 2 puff inhalation BID 03/18/21 08/23/25 08/22/25 History mcg-4.5 mcg/actuation aerosol inhaler (Symbicort) multivitamin 1 tab PO DAILY 04/11/22 08/23/25 08/22/25 History albuterol sulfate 2.5 mg/3 mL 2.5 mg (3 mL) continuous 04/23/25 08/23/25 08/13/25 Rx (0.083 %) solution for nebulization nebulization Q8H Shortness Of Breath #180 mL albuterol sulfate 90 mcg/actuation 1 inh inhalation Q6H PRN shortness 04/23/25 08/23/25 Unknown Rx aerosol inhaler (Ventolin HFA) of breath or wheezing #8.5 grams ipratropium bromide 0.02 % 1.25 ml inhalation Q8H #150 mL 04/23/25 08/23/25 08/23/25 01:00 Rx solution for inhalation ibuprofen 200 mg tablet (Advil) 400 mg PO Q6H PRN Pain 08/14/25 08/23/25 08/22/25 History prednisone 10 mg tablet See Taper PO DIRECTED #42 tabs 08/15/25 08/23/25 08/22/25 Rx tramadol 50 mg tablet 50 mg PO Q8H PRN pain #10 tabs 08/20/25 08/23/25 08/22/25 19:00 Rx Allergies Allergy/AdvReac Type Severity Reaction Status Date / Time No Known Allergies Allergy Verified 08/13/25 17:16 PFSH Acute PFSH: Medical History Chest pain COPD (chronic obstructive pulmonary disease) Afib PTSD (post-traumatic stress disorder) Tobacco use Family History Mother Dementia Lung disease Cancer Sister Dementia Diabetes Cancer Father Lung disease Cancer Family/Other Stroke Brother Cancer Social History Smoking and tobacco/nicotine status: former use of tobacco/nicotine Quit status (tobacco/nicotine): has quit using Year quit tobacco: 15 months ago Former quit date comment: 1 pack per day x 52 years Second hand smoke exposure: Yes Alcohol intake: current Alcohol intake frequency: 3 or more drinks per day Vitals/I&O/Wt Last Vital Signs Temp 98.3 F 08/23/25 03:08 Pulse 110 H 08/23/25 06:03 Resp 25 H 08/23/25 06:03 BP 117/73 08/23/25 06:03 Pulse Ox 93 08/23/25 06:03 O2 Del Method Nasal Cannula 08/23/25 06:03 O2 Flow Rate 3 08/23/25 06:03 08/22/25 08/23/25 08/23/25 22:59 06:59 14:59 Intake Total 1000 / 1000 Balance 1000 / 1000 Weight last 48 hrs Weight 37.195 kg Physical Exam Narrative: Constitutional: NAD, Frail, appears older than stated age Neuro: Awake and alertx3, however at times exhibits disorientation. No unilateral weakness or facial asymmetry. Head: NC/AT Eyes: Pupils equal round and reactive. Gaze conjugate. Ears: Normal external ears. Hearing intact to normal voice. Nose: Normal external nose. No epistaxis. Throat: Dry MM Respiratory: Diminished. No accessory muscle use. On room air at 3L Cardiovascular: Regular w/ ectopic beats. No murmur. Extremities: No edema bilaterally Gastrointestinal: Soft. NT. ND. +BS Genitourinary: No bourne catheter Data 08/23/25 03:17 08/23/25 03:17 A&P Assessment and plan 1. COPD with acute exacerbation: Plan: # Acute COPD exacerbation # Chronic Hypoxic respiratory failure w/ oxygen dependence Hx of COPD and prior longstanding tobacco use (50+ PYH, quit 4 yrs ago) Baseline oxygen 2-3L CTA chest negative for PE Influenza A/B, RSV and Covid negative HS Trop 11 ->10.58 NT-proBNP 126 - DuoNeb Q6H scheduled Budesonide 0.5 mg BID acute COPD exacerbation - RT Assess & Treat - Supplemental oxygen w/ Goal SpO2 90-92% hx of COPD (retainer) # Elevated D-Dimer D-Dimer of 1.38 - Stat CTA chest ordered, result: negative for PE # Abdominal pain Describes as burning, possibly GI related CT abdomen wo contrast with no acute intra-abdominal pathology - Start on pantoprazole 40 mg daily # Leukocytosis WBC 20.84 No fever or other systemic symptoms Recently on steroids, possibly contributing to elevated wbc - Will repeat lab later in the day, if WBC continues to be elevated, then will obtain blood cultures. # normocytic anemia HGB 12.3 - near baseline, continue trending # electrolyte abnormality # hypovolemia Na 134 K 5.5 Cl 93 Ca 9.2 PO4 4.7 Received 1L IVF bolus in ED - repeat BMP at 6 pm # Hx of AFIB Records and patient's report of AFIB do not coincide. Tracing from ED is not clear. [id number] score is 2 Currently not on chronic anticoagulation - Repeat EKG - Place on color television console monitor PDMP PDMP Reviewed: Not Reviewed Attestations Medical Necessity Statement*: Patient requires hospitalization, inpatient, greater than 2 midnights for exacerbation of COPD. Coding Level of Care Code 99048 Diagnoses COPD with acute exacerbation J44.1
[2025-08-23] MEDS: iohexol 350 mg/mL 500 mL Btl (per mL) IV (08:15)
[2025-08-23 11:07] LABS: Procalcitonin 0.70 ng/mL (0-0.5); Thyroid Stimulating Hormone 11.02 uIU/mL (0.27-4.20)
[2025-08-23 18:47] LABS: Hematocrit 34.1 % (36-47); Hemoglobin 11.00 g/dL (11.27-16.99); Mean Corpuscular HGB Conc 32.3 g/dL (30-55); Mean Corpuscular Hemoglobin 30.9 pg (27-33); Mean Corpuscular Volume 95.8 fl (85-98); Nucleated Red Blood Cells % 0 %; Platelet Count 303 10^3/cmm (157-399); Red Blood Count 3.56 10^6/uL (3.85-5.65); White Blood Count 26.93 10^3/uL (3.29-11.43)
[2025-08-23 19:07] LABS: Anion Gap 13.1 (5-19); Blood Urea Nitrogen 24 mg/dL (8-23); Calcium 9.2 mg/dL (8.5-10.5); Carbon Dioxide 32 mmol/L (22-29); Chloride 94 mmol/L (98-107); Glucose 241 mg/dL (65-115); Osmolality Calculated 290 mOsm/kg (285-295); Potassium 5.1 mmol/L (3.5-5.1); Sodium 134 mmol/L (136-145)
[2025-08-24] VITALS (59 sets, daily range): BP systolic 73–115; BP diastolic 45–79; PULSE 71–169; RESP 14–26; TEMP 36.4–37.4; O2SAT 97–100
[2025-08-24] MEDS: ondansetron 2 mg/ML SDV 2 mL 4 MG IVP (00:28)
--- NOTE | 2025-08-24 02:33 | ECG_ITS ---
[email or web address] Test Date: 2025-08-24 Pat Name: Martha Damico Department: Room: 269 Gender: Female Causticiser: : 1960 Requested By: Markie Hough Order Number: [id number] Kaila MD: Mohsen Kilpatrick M.D. Measurements Intervals [place] Rate: 113 P: 64 AK: 98 QRS: 81 QRSD: 70 T: 68 QT: 299 QTc: 410 Interpretive Statements SINUS TACHYCARDIA WITH SHORT AK INTERVAL ABNORMAL RHYTHM ECG Compared to ECG 08/23/2025 03:45:44 Short AK interval now present Atrial fibrillation no longer present Electronically Signed On 08-24-2025 10:41:51 MUSEUM DOCENT by Mohsen Kilpatrick M.D. [email or web address]
[2025-08-24 05:58] LABS: Hematocrit 23.8 % (36-47); Hemoglobin 7.60 g/dL (11.27-16.99); Mean Corpuscular HGB Conc 31.9 g/dL (30-55); Mean Corpuscular Hemoglobin 30.5 pg (27-33); Mean Corpuscular Volume 95.6 fl (85-98); Nucleated Red Blood Cells % 0 %; Platelet Count 249 10^3/cmm (157-399); Red Blood Count 2.49 10^6/uL (3.85-5.65); White Blood Count 21.60 10^3/uL (3.29-11.43)
[2025-08-24 09:14] LABS: Anion Gap 15.6 (5-19); Blood Urea Nitrogen 35 mg/dL (8-23); Calcium 8.2 mg/dL (8.5-10.5); Carbon Dioxide 26 mmol/L (22-29); Chloride 96 mmol/L (98-107); Glucose 246 mg/dL (65-115); Osmolality Calculated 292 mOsm/kg (285-295); Potassium 4.6 mmol/L (3.5-5.1); Sodium 133 mmol/L (136-145)
[2025-08-24 09:15] LABS: Ferritin 402 ng/mL (15-150); Iron 24 ug/dL (37-145)
[2025-08-24 09:22] LABS: Procalcitonin 15.10 ng/mL (0-0.5)
--- NOTE | 2025-08-24 09:40 | PC.NURSE ---
Pt arrives [place] [facility] [place]. Pt alert and orented. Pale. shortness of breath noted. Heart rate in 160's. Unit of PRBCs infusing. No skin issues noted. Pt grimaced while auscultating abdomen. She stated her RLQ is slightly more painful than the rest, but all is excruciating.
[2025-08-24] MEDS: pantoprazole 40 mg SDV IVP ×2 (10:03→20:30)
--- NOTE | 2025-08-24 10:46 | PHA.VACGOAL ---
Vancomycin Goal - Goal Vancomycin Goal:: 15-20 mg/L Vancomycin Indication:: Pneumonia - Therapy Day of therpy:: Day []of [] . Actual body weight (kg): 82 lb 1.6 oz - Data Labs: WBC 21.60 10^3/uL (3.29-11.43) H 08/24/25 05:48 RBC 2.49 10^6/uL (3.85-5.65) L 08/24/25 05:48 Hgb 7.60 g/dL (11.27-16.99) L D 08/24/25 05:48 Hct 23.8 % (36-47) L D 08/24/25 05:48 MCV 95.6 fl (85-98) 08/24/25 05:48 MCH 30.5 pg (27-33) 08/24/25 05:48 MCHC 31.9 g/dL (30-55) 08/24/25 05:48 RDW 11.9 % (12.1-15.1) L 08/24/25 05:48 Sodium 133 mmol/L (136-145) L 08/24/25 05:48 Potassium 4.6 mmol/L (3.5-5.1) 08/24/25 05:48 Chloride 96 mmol/L (98-107) L 08/24/25 05:48 Carbon Dioxide 26 mmol/L (22-29) 08/24/25 05:48 Anion Gap 15.6 (5-19) 08/24/25 05:48 BUN 35 mg/dL (8-23) H 08/24/25 05:48 Creatinine 0.6 mg/dL (0.5-0.9) 08/24/25 05:48 GFR Calculation 99.7 mL/min (90-130) 08/24/25 05:48 Treatment plan:: new consult Regimen:: 750 NOW 500 MG Q12H
--- NOTE | 2025-08-24 11:17 | XRR_ITS ---
PROCEDURE INFORMATION: Exam: XR Chest Exam date and time: 08/24/2025 12:53 PM Age: 65 years old Clinical indication: Device placement; Picc; Additional info: Post picc insertion, khushi placing in icu 8. Should be ready at 1155 TECHNIQUE: Imaging protocol: Radiologic exam of the chest. Views: 1 view. COMPARISON: CT angio chest PE protcl [id number] 08/23/2025 8:06 AM FINDINGS: Tubes, catheters and devices: Interval placement of a right arm PICC with the tip in the mid SVC. Lungs: Pulmonary hyperexpansion with emphysematous changes. No focal consolidation. Pleural spaces: Unremarkable. No pleural effusion. No pneumothorax. Heart/Mediastinum: Unremarkable. No cardiomegaly. Vasculature: Atherosclerotic aortic calcifications. Bones/joints: Unremarkable. XR/XR chest 1V portable [id number] IMPRESSION: 1. Right arm PICC tip in the mid SVC. 2. Remainder stable.
--- NOTE | 2025-08-24 11:20 | ECG_ITS ---
[facility]25[facility]24 Pat Name: Martha Damico Department: Room: [facility] Gender: Female Inter Com Servicer: : 1960 Requested By: Bud Ward Order Number: [id number] Bright MD: Mohsen Kilpatrick M.D. Measurements Intervals [place] Rate: 160 P: 0 IN: 0 QRS: 76 QRSD: 69 T: 24 QT: 244 QTc: 398 Interpretive Statements ATRIAL FIBRILLATION WITH RAPID VENTRICULAR RESPONSE NONSPECIFIC T-WAVE ABNORMALITY CRITICAL TEST RESULT Compared to ECG 08/24/2025 02:33:33 T-wave abnormality now present Sinus tachycardia no longer present Short IN interval no longer present Electronically Signed On 08-24-2025 17:49:22 CHILD NUTRITION MANAGER by Mohsen Kilpatrick M.D. [email or web address]
--- NOTE | 2025-08-24 11:26 | PM.CONSULT ---
Providers/Reason For Consult Consulting Physician/Specialty*: Dr. Wilcox general surgery Reason for Consult*: GI bleed Attending Physician: Bud Ward MD Primary Care Provider: Zuly Damico NP History of Present Illness History of Present Illness Martha Damico is a 65 year old female whom surgery was consulted to rule out GI bleed. Patient reports tarry stools. Medications/Allergies Home Medications ?Medication ?Instructions ?Recorded ?Confirmed ?Last Taken ?Type budesonide-formoterol HFA 160 2 puff inhalation BID 03/18/21 08/23/25 08/22/25 History mcg-4.5 mcg/actuation aerosol inhaler (Symbicort) multivitamin 1 tab PO DAILY 04/11/22 08/23/25 08/22/25 History albuterol sulfate 2.5 mg/3 mL 2.5 mg (3 mL) continuous 04/23/25 08/23/25 08/13/25 Rx (0.083 %) solution for nebulization nebulization Q8H Shortness Of Breath #180 mL albuterol sulfate 90 mcg/actuation 1 inh inhalation Q6H PRN shortness 04/23/25 08/23/25 Unknown Rx aerosol inhaler (Ventolin HFA) of breath or wheezing #8.5 grams ipratropium bromide 0.02 % 1.25 ml inhalation Q8H #150 mL 04/23/25 08/23/25 08/23/25 01:00 Rx solution for inhalation ibuprofen 200 mg tablet (Advil) 400 mg PO Q6H PRN Pain 08/14/25 08/23/25 08/22/25 History prednisone 10 mg tablet See Taper PO DIRECTED #42 tabs 08/15/25 08/23/25 08/22/25 Rx tramadol 50 mg tablet 50 mg PO Q8H PRN pain #10 tabs 08/20/25 08/23/25 08/22/25 19:00 Rx Allergies Allergy/AdvReac Type Severity Reaction Status Date / Time No Known Allergies Allergy Verified 08/13/25 17:16 Current Medications Generic Name Dose Route Start Last Admin Trade Name Freq PRN Reason Stop Dose Admin Albuterol/Ipratropium 3 ml 08/23/25 14:00 08/24/25 07:30 Ipratropium-Albuterol 3 Ml Neb INHALATION 3 ml Q6H.RESP YAKOV Administration Budesonide 0.5 mg 08/23/25 20:00 08/24/25 07:30 Budesonide 0.5 Mg/2 Ml Neb INHALATION 0.5 mg BID.RESPIRATORY YAKOV Administration Sodium Chloride 1,000 mls @ 75 mls/hr 08/24/25 08:30 08/24/25 10:34 Sodium Chloride 0.9% IV 75 mls/hr .[id number] YAKOV Administration Meropenem 500 mg 08/24/25 10:00 08/24/25 10:26 Meropenem 500 Mg Sdv IVP 500 mg Q12H YAKOV Administration Protocol Ondansetron HCl 4 mg 08/23/25 23:55 08/24/25 00:28 Ondansetron 2 Mg/Ml Sdv 2 Ml IVP 4 mg Q4H PRN Administration NAUSEA AND VOMITING Pantoprazole Sodium 40 mg 08/24/25 08:30 08/24/25 10:03 Pantoprazole 40 Mg Sdv IVP 40 mg Q12H YAKOV Administration Prednisone 40 mg 08/24/25 05:00 08/24/25 04:55 Prednisone 20 Mg Tablet PO 08/29/25 04:59 40 mg DAILY YAKOV Administration Sucralfate 1 gm 08/24/25 08:30 08/24/25 10:03 Sucralfate 1 Gm Tablet PO 1 gm Q6H YAKOV Administration PFSH Acute PFSH: Medical History Chest pain COPD (chronic obstructive pulmonary disease) Afib PTSD (post-traumatic stress disorder) Tobacco use Family History Mother Dementia Lung disease Cancer Sister Dementia Diabetes Cancer Father Lung disease Cancer Family/Other Stroke Brother Cancer Social History Smoking and tobacco/nicotine status: former use of tobacco/nicotine Quit status (tobacco/nicotine): has quit using Year quit tobacco: 15 months ago Former quit date comment: 1 pack per day x 52 years Second hand smoke exposure: Yes Alcohol intake: current Alcohol intake frequency: 3 or more drinks per day Vitals/I&O/Wt Last Vital Signs Temp 99.3 F 08/24/25 09:36 Pulse 169 H 08/24/25 09:36 Resp 20 H 08/24/25 09:36 BP 99/47 08/24/25 09:36 Pulse Ox 100 08/24/25 09:36 O2 Del Method Nasal Cannula 08/24/25 09:36 O2 Flow Rate 3 08/24/25 09:36 08/23/25 08/24/25 08/24/25 22:59 06:59 14:59 Intake Total 360 / 1460 980 / 2440 0 / 0 Output Total 600 / 900 Balance -240 / 560 980 / 1540 0 / 0 Weight last 48 hrs Weight 82 lb 1.6 oz Weight 81 lb 3.2 oz Weight 82 lb Physical Exam Narrative: Chest: Tachypneic, on 3 L nasal cannula Heart: A-fib on Amio drip Abdomen: Soft, nontender, nondistended. No masses or lymphadenopathy. Data 08/27/25 04:11 08/27/25 04:11 A&P Assessment and plan 1. GI bleed: Plan: 65-year-old female whom surgery was consulted to rule out GI bleed. History of melena. Will plan for EGD. PDMP PDMP Reviewed: Not Reviewed Coding Level of Care Code 54187 Diagnoses GI bleed K92.2
--- NOTE | 2025-08-24 11:30 | PC.NURSE ---
Dr escobar notified :Unit of PRBCs done. BP still soft, 73/56. NS at 75, vanc ( running at 250ml/hr, hope the fluid will bump Bp up) Received orders for 1 liter NS bolus, Amiodarone, Levophed, and PICC line
[2025-08-24] MEDS: morphine 4 mg/mL SDV 1 mL 2 MG IVP (12:18)
--- NOTE | 2025-08-24 12:25 | PICC.NOTE ---
Triple lumen PICC placed to right basilic vein. Referred to vascular access nurse for PICC placement due to poor access and possible need for vasopressors. Risks and benefits discussed and informed consent obtained from pt. Right arm assessed with right basilic vein measuring 6.0 mm, straight, and apparent best choice for placement. Using sterile technique and MST, right basilic vein accessed x 1 stick. Mid-arm circumference measured 10 cm from right AC 19 cm. Trimmed cath 38 cm with 0 cm external length noted. CXR shows tip in SVC, in position for use per radiologist. Line secured with stat-lock. Insertion site covered with Biopatch and TSM. Report given to bedside nurse, SABIHA Pinon.
[2025-08-24] MEDS: AMIODARONE HCL/D5W 900 MG/500 ML BAG 33.33 MG IV (12:26)
[2025-08-24 12:32] LABS: Hematocrit 25.0 % (36-47); Hemoglobin 8.30 g/dL (11.27-16.99)
[2025-08-24] MEDS: albumin 25 G/100 ML BAG 60 G IV ×2 (12:32→19:21)
[2025-08-24 12:44] LABS: INR 1.00 (0.8-1.2); Prothrombin Time 13.90 SECONDS (12.1-14.9)
[2025-08-24 12:45] LABS: Partial Thromboplastin Time 28.5 SECONDS (23.9-36.7)
[2025-08-24 12:49] LABS: Lactate (Lactic Acid level) 1.5 mmol/L (0.5-2.2)
[2025-08-24 13:51] LABS: Glucose Urine UA Negative (Normal); Nitrate Urine Negative (Negative); Specific Gravity, Urine 1.019 (1.005-1.030)
[2025-08-24 13:58] LABS: Add Urine Microscopic? YES
--- NOTE | 2025-08-24 16:30 | PC.NURSE ---
Dr Ward notified about bourne not inserted yet, Pt dooing well with using the bedpan, Do you still want the bourne. Per Dr Ward just continue to monitor her. Bourne assessments/ interventions closed.
--- NOTE | 2025-08-24 17:00 | PC.NURSE ---
TAR: Pleas see vital sign assessments for TAR vital signs.
--- NOTE | 2025-08-24 17:47 | PM.PN ---
Subjective Subjective: - Patient was examined multiple times throughout the day -Patient reports shortness of breath for the last few days -She does also report for the last few days she has been having black tarry bowel movements, and epigastric discomfort - Early in the morning she was seen, she had a bowel movement overnight that was black and tarry, hemoglobin was noted to be 7.6 - This morning she had an episode of black tarry bowel movement, denies any nausea, no vomiting, no history of GI bleeds, no history of EGD or colonoscopy, no history of anemia requiring blood transfusions, no falls, no injuries - She has been taking prednisone, she has been taking ibuprofen - Does have atrial fibrillation she is not on anticoagulant therapy she is not exactly sure why she is not on blood thinners - Patient due to acute anemia, and low blood pressures, she was moved to the ICU concern for hemorrhagic shock associate with GI bleed - Patient was moved down to ICU, she is receiving fluid bolus, her first unit of blood, she is alert oriented x 3, following commands, she is on nasal cannula, she is comfortable no active bloody or black stools currently - Her blood pressures remain soft, discussed PICC line, and Levophed based on clinical progress - Patient developed A-fib with RVR, placed on amiodarone drip - Heart rates are reasonable now in the 90s to 100s, blood pressures are improved with fluid bolus, albumin therapy, first unit of blood second unit of blood has been ordered no recurrent black or tarry stools - General Surgery has been consulted for EGD and colonoscopy -Started on Protonix, Carafate - Repeat hemoglobin 8.3 - She was reexamined in the evening time patient's sons are at bedside - Discussed patient's hemorrhagic shock associated with GI bleed, requiring blood transfusions, A-fib with RVR - I am also suspicious that she has septic shock associated with pneumonia, I broaden her antibiotic coverage, Levophed to maintain MAP greater than 65 Vitals/I&O/Wt Last Vital Signs Temp 98.9 F 08/24/25 15:15 Pulse 99 08/24/25 15:30 Resp 19 H 08/24/25 15:30 BP 88/54 08/24/25 15:30 Pulse Ox 99 08/24/25 15:30 O2 Del Method Nasal Cannula 08/24/25 15:30 O2 Flow Rate 3 08/24/25 15:30 08/24/25 08/24/25 08/24/25 06:59 14:59 22:59 Intake Total 980 / 2440 1350 / 1350 Balance 980 / 1540 1350 / 1350 Weight last 48 hrs Weight 37.24 kg Weight 36.832 kg Weight 37.195 kg Physical Exam Const: COMMON NORMALS: no acute distress and patient oriented x3 Eye: COMMON NORMALS: Equal, round and reactive pupils present and EOMs intact bilaterally PUPIL: Yes Equal, round and reactive pupils present Resp: COMMON NORMALS: normal respiratory effort, No retractions and No use of accessory muscles AUSCULTATION: crackles and wheezes Cardio: COMMON NORMALS: S1 normal heart sound present and S2 normal heart sound present RATE: tachycardic RHYTHM: abnormal rhythm irregularly irregular HEART SOUNDS: S1 normal heart sound present and S2 normal heart sound present GI: COMMON NORMALS: Normal to inspection, nondistended, normoactive bowel sounds present and non-tender Extremity: COMMON NORMALS: no pedal edema Neuro: COMMON NORMALS: patient oriented x3 Skin: COMMON NORMALS: turgor normal GENERAL SKIN EXAM: turgor normal Quick SOFA Score: Respiratory Rate: 19 Blood Pressure: 88/54 [place] Coma Scale: 15 qSOFA Score: 1 If qSOFA score 2 or greater, continue: Blood Pressure Mean: 65 Bilirubin (mg/dl): 0.4 Platelets (x10?/ml): 249 Creatinine (mg/dl): 0.6 Evaluation: Current stage of sepsis: septic shock Sepsis stage criteria used: [facility] Sep-1 and Sepsis-3 Crystalloid fluids: less than 30 mL/kg crystalloid fluids ordered Blood cultures ordered: Yes Possible source: pulmonary Focused Exam: Vital signs: Temp Pulse Resp BP Pulse Ox O2 Del Method O2 Flow Rate 08/24/25 15:30 99 19 H 88/54 99 Nasal Cannula 3 08/24/25 15:15 98.9 F 97 20 H 92/50 99 Nasal Cannula 3 08/24/25 15:00 91 19 H 97/54 99 Nasal Cannula 3 08/24/25 14:45 98.8 F 94 19 H 99/57 98 Nasal Cannula 3 08/24/25 14:30 108 H 19 H 86/47 100 Nasal Cannula 3 08/24/25 14:15 98.9 F 108 H 20 H 91/50 97 Nasal Cannula 3 08/24/25 14:11 98.9 F 106 H 17 91/50 99 08/24/25 14:00 108 H 08/24/25 13:57 99.3 F 104 H 20 H 90/76 100 08/24/25 13:38 104 H Nasal Cannula 3 08/24/25 13:30 100 16 98 Nasal Cannula 2 08/24/25 11:15 160 H 08/24/25 09:36 99.3 F 169 H 20 H 99/47 100 Nasal Cannula 3 08/24/25 09:15 98.4 F 117 H 18 98/45 99 08/24/25 08:50 98.5 F 104 H 18 97/61 98 08/24/25 07:45 97.6 F 103 H 17 96/65 98 Nasal Cannula 08/24/25 07:34 118 H 18 97 Nasal Cannula 3 Respiratory exam: crackles present and positive wheezes Cardiovascular exam: S1 normal heart sound, S2 normal heart sound, tachycardia and abnormal rhythm Capillary refill: > 3 Seconds Peripheral pulse strength: 2+ Slightly Diminished Peripheral pulse location: Radial and Pedal Skin exam: turgor normal Date exam was performed: 08/24/25 Time exam was performed: 17:57 Sepsis Screen No Definite Risk 08/23/25, 06:03 Respiratory Rate, (12 - 18) 19 breaths/min H Today, 15:30 Blood Pressure 88/54 mmHg Today, 15:30 [place] Coma Scale Score 15 Today, 09:38 Quick SOFA Score 1 08/23/25, 06:03 SOFA Score: [place] Coma Scale Score 15 Today, 09:38 Blood Pressure Mean 65 mmHg Today, 15:30 Total Bilirubin, (0.15-1.2) 0.4 mg/dL 08/23/25, 03:17 Platelet Count, (157-399) 249 10^3/cmm Today, 05:48 Creatinine, (0.5-0.9) 0.6 mg/dL Today, 05:48 Data 08/24/25 12:16 08/24/25 05:48 A&P Assessment and plan 1. Hemorrhagic shock: 2. GI bleed: 3. Septic shock: 4. Pneumonia: 5. Atrial fibrillation with rapid ventricular response: 6. COPD (chronic obstructive pulmonary disease): 7. Acute exacerbation of chronic obstructive airways disease: 8. Acute respiratory failure with hypoxia: 9. COPD with acute exacerbation: Plan: Gastrointestinal bleed - Upper versus lower GI bleed Plan - N.p.o. - IV fluids - Albumin therapy - Is currently receiving her second unit of blood - Monitor hemoglobin every 4 hours - Monitor for black tarry or bloody bowel movements -Protonix -Carafate -General Surgery has been consulted for EGD Shock -Multifactorial -Concern for hemorrhagic shock associated with GI bleed -Concerns for septic shock associate with pneumonia -Albumin therapy -Levophed to maintain MAP in the 65 -IV fluids Acute hypoxic respiratory failure -Secondary to pneumonia -With sepsis and septic shock -With COPD exacerbation -Plan -Follow-up cultures -Vancomycin -Meropenem -Monitor respiratory status closely Atrial fibrillation with rapid ventricular spots -Amiodarone drip Full code SCDs for DVT prophylaxis PDMP PDMP Reviewed: Not Reviewed Attestations Medical Necessity Statement*: Patient requires hospitalization, inpatient, greater than 2 midnights, for gastrointestinal bleed, shock, septic shock, hemorrhagic shock, acute hypoxic respiratory failure, pneumonia Diagnoses Hemorrhagic shock R57.8 GI bleed K92.2 Septic shock A41.9; R65.21 Pneumonia J18.9 Atrial fibrillation with rapid ventricular response I48.91 COPD (chronic obstructive pulmonary disease) J44.9 Acute exacerbation of chronic obstructive airways disease J44.1 Acute respiratory failure with hypoxia J96.01 COPD with acute exacerbation J44.1
[2025-08-24 18:23] LABS: Hematocrit 24.2 % (36-47); Hemoglobin 8.00 g/dL (11.27-16.99)
[2025-08-24 22:20] LABS: Hematocrit 22.3 % (36-47); Hemoglobin 7.70 g/dL (11.27-16.99)
[2025-08-24] MEDS: vancomycin 500 MG in sodium chloride 0.9% (plus) 100 ML 200 MG IV (22:30)
[2025-08-25] VITALS (100 sets, daily range): BP systolic 79–173; BP diastolic 41–107; PULSE 64–149; RESP 5–30; TEMP 36.6–37.1; O2SAT 88–100
[2025-08-25 02:03] LABS: Hematocrit 22.8 % (36-47); Hemoglobin 7.70 g/dL (11.27-16.99)
[2025-08-25] MEDS: albumin 25 G/100 ML BAG 60 G IV ×2 (02:21→11:51)
[2025-08-25 04:34] LABS: ABG PCO2 47.7 mmHg (35-45); ABG PH Result 7.37 (7.35-7.45); Arterial Blood Gas Hematocrit 27.4 % (37-47); Blood Gas LPM 3.0 %; Blood Gas Operator Identificat SAM; Blood Gas Sample Site Brachial, left; Blood Gas Sample Type Arterial; HCO3 ABG 27.4 mmol/L (22-26); PO2 ABG 66.0 mmHg (80.0-100.0)
[2025-08-25 05:45] LABS: Hematocrit 22.8 % (36-47); Hemoglobin 7.50 g/dL (11.27-16.99); Mean Corpuscular HGB Conc 32.9 g/dL (30-55); Mean Corpuscular Hemoglobin 29.8 pg (27-33); Mean Corpuscular Volume 90.5 fl (85-98); Nucleated Red Blood Cells % 0 %; Platelet Count 158 10^3/cmm (157-399); Red Blood Count 2.52 10^6/uL (3.85-5.65); White Blood Count 14.21 10^3/uL (3.29-11.43)
[2025-08-25 05:56] LABS: INR 0.92 (0.8-1.2); Prothrombin Time 13.10 SECONDS (12.1-14.9)
[2025-08-25 06:05] LABS: Lactate (Lactic Acid level) 0.7 mmol/L (0.5-2.2)
[2025-08-25 06:08] LABS: Alanine Aminotransferase 26 U/L (0-33); Albumin Level 3.8 g/dL (3.5-5.2); Alkaline Phosphatase 146 U/L (35-105); Anion Gap 12.9 (5-19); Aspartate Amino Transferase 27 U/L (0-32); Blood Urea Nitrogen 17 mg/dL (8-23); Calcium 8.4 mg/dL (8.5-10.5); Carbon Dioxide 26 mmol/L (22-29); Chloride 102 mmol/L (98-107); Globulin 1.4 g/dL (1.3-4.6); Glucose 122 mg/dL (65-115); Magnesium 1.9 mg/dL (1.7-2.3); Osmolality Calculated 287 mOsm/kg (285-295); Potassium 3.9 mmol/L (3.5-5.1); Sodium 137 mmol/L (136-145); Total Protein 5.2 g/dL (6.6-8.7)
[2025-08-25 06:13] LABS: Hematocrit 23.3 % (36-47); Hemoglobin 7.80 g/dL (11.27-16.99)
[2025-08-25 06:13] LABS: NT Pro B Type Natriuretic Pept 1776 pg/mL (0-125); Procalcitonin 10.83 ng/mL (0-0.5)
[2025-08-25] MEDS: pantoprazole 40 mg SDV IVP ×2 (08:07→19:42)
[2025-08-25] MEDS: AMIODARONE HCL/D5W 900 MG/500 ML BAG 16.67 MG IV (09:04)
[2025-08-25 10:14] LABS: Hematocrit 23.3 % (36-47); Hemoglobin 7.80 g/dL (11.27-16.99)
[2025-08-25] MEDS: vancomycin 500 MG in sodium chloride 0.9% (plus) 100 ML 200 MG IV ×2 (10:24→21:12)
--- NOTE | 2025-08-25 12:43 | ANES.PREANE2 ---
Pre-Anesthetic Assessment Height/Weight: Height 1.52 m Weight 46 kg Temp Pulse Resp BP Pulse Ox O2 Del Method O2 Flow Rate 98.3 F 83 22 H 129/76 97 Nasal Cannula 3 08/25/25 12:15 08/25/25 12:15 08/25/25 12:15 08/25/25 12:15 08/25/25 12:00 08/25/25 07:44 08/25/25 07:44 Operation Date: 08/25/25 14:00 Proposed Procedures p EGD(Not Applicable) - Zay Wilcox MD Familial anesthetic complications: None Was Beta Fernanda taken within 24 hours: N/A Was Clonidine taken within 24 hours: N/A Last intake: > 8hrs Social Tobacco and No alcohol Exam alert, oriented x 3, clear to auscultation bilaterally and regular rate & rhythm Airway Mallampati: Class I Pulmonary Chronic Obstructive Pulmonary Disease (ON O2) CV/HEM Atrial Fibrillation and Arrythmia Anesthetic Plan ASA status: 4 Anesthesia: MAC Risk of > 500 ml blood loss (7ml/kg in children): No Medications/Allergies Home Medications ?Medication ?Instructions ?Recorded ?Confirmed ?Last Taken ?Type budesonide-formoterol HFA 160 2 puff inhalation BID 03/18/21 08/23/25 08/22/25 History mcg-4.5 mcg/actuation aerosol inhaler (Symbicort) multivitamin 1 tab PO DAILY 04/11/22 08/23/25 08/22/25 History albuterol sulfate 2.5 mg/3 mL 2.5 mg (3 mL) continuous 04/23/25 08/23/25 08/13/25 Rx (0.083 %) solution for nebulization nebulization Q8H Shortness Of Breath #180 mL albuterol sulfate 90 mcg/actuation 1 inh inhalation Q6H PRN shortness 04/23/25 08/23/25 Unknown Rx aerosol inhaler (Ventolin HFA) of breath or wheezing #8.5 grams ipratropium bromide 0.02 % 1.25 ml inhalation Q8H #150 mL 04/23/25 08/23/25 08/23/25 01:00 Rx solution for inhalation ibuprofen 200 mg tablet (Advil) 400 mg PO Q6H PRN Pain 08/14/25 08/23/25 08/22/25 History prednisone 10 mg tablet See Taper PO DIRECTED #42 tabs 08/15/25 08/23/25 08/22/25 Rx tramadol 50 mg tablet 50 mg PO Q8H PRN pain #10 tabs 08/20/25 08/23/25 08/22/25 19:00 Rx Allergies Allergy/AdvReac Type Severity Reaction Status Date / Time No Known Allergies Allergy Verified 08/13/25 17:16 Current Medications Generic Name Dose Route Start Last Admin Trade Name Juanita PRN Reason Stop Dose Admin Albuterol/Ipratropium 3 ml 08/23/25 14:00 08/25/25 07:42 Ipratropium-Albuterol 3 Ml Neb INHALATION 3 ml Q6H.RESP YAKOV Administration Budesonide 0.5 mg 08/23/25 20:00 08/25/25 07:42 Budesonide 0.5 Mg/2 Ml Neb INHALATION 0.5 mg BID.RESPIRATORY YAKOV Administration Sodium Chloride 1,000 mls @ 125 mls/hr 08/24/25 08:30 08/25/25 10:22 Sodium Chloride 0.9% IV 125 mls/hr .Q8H YAKOV Administration Vancomycin HCl 500 mg/ Sodium 100 mls @ 200 mls/hr 08/24/25 22:00 08/25/25 11:15 Chloride IV Infused Q12H YAKOV Infusion AMIODARONE HCL/D5W 900 mg in 500 mls @ 0 mls/hr 08/24/25 11:13 08/25/25 09:04 Amiodarone 900 Mg/500 Ml-D5w IV 0.5 mg/min .Q0M YAKOV 16.67 mls/hr Protocol Administration Per Protocol Albumin Human 25 g in 100 mls @ 60 mls/hr 08/24/25 11:15 08/25/25 11:51 Albumin IV 60 mls/hr Q8H YAKOV Administration Insulin Human Lispro 0 unit 08/24/25 12:00 08/25/25 11:41 Insulin Lispro 100 Unit/1 Ml SUBCUT Not Given TIDWM YAKOV Protocol Meropenem 500 mg 08/24/25 10:00 08/25/25 10:23 Meropenem 500 Mg Sdv IVP 500 mg Q12H YAKOV Administration Protocol Morphine Sulfate 2 mg 08/24/25 08:27 08/24/25 12:18 Morphine 4 Mg/Ml Sdv 1 Ml IVP 2 mg Q4H PRN Administration SEVERE PAIN Ondansetron HCl 4 mg 08/23/25 23:55 08/24/25 00:28 Ondansetron 2 Mg/Ml Sdv 2 Ml IVP 4 mg Q4H PRN Administration NAUSEA AND VOMITING Pantoprazole Sodium 40 mg 08/24/25 08:30 08/25/25 08:07 Pantoprazole 40 Mg Sdv IVP 40 mg Q12H YAKOV Administration Prednisone 40 mg 08/24/25 05:00 08/25/25 05:38 Prednisone 20 Mg Tablet PO 08/29/25 04:59 40 mg DAILY YAKOV Administration Sucralfate 1 gm 08/24/25 08:30 08/25/25 08:09 Sucralfate 1 Gm Tablet PO 1 gm Q6H YAKOV Administration PFSH Anesthesia Medical History Chest pain COPD (chronic obstructive pulmonary disease) Afib PTSD (post-traumatic stress disorder) Tobacco use Family History Mother Dementia Lung disease Cancer Sister Dementia Diabetes Cancer Father Lung disease Cancer Family/Other Stroke Brother Cancer Social History Smoking and tobacco/nicotine status: former use of tobacco/nicotine Quit status (tobacco/nicotine): has quit using Year quit tobacco: 15 months ago Former quit date comment: 1 pack per day x 52 years Second hand smoke exposure: Yes Alcohol intake: current Alcohol intake frequency: 3 or more drinks per day Data Anesthesia 08/25/25 09:54 08/25/25 04:51 Short CBC 08/23/25 08/24/25 08/24/25 Range/Units 18:27 05:48 12:16 WBC 26.93 H 21.60 H (3.29-11.43) 10^3/uL Hgb 11.00 L 7.60 L D 8.30 L (11.27-16.99) g/dL Hct 34.1 L 23.8 L D 25.0 L (36-47) % MCV 95.8 95.6 (85-98) fl Plt Count 303 249 (157-399) 10^3/cmm Neut % (Auto) 91.7 92.1 % Neut # (Auto) 24.71 H 19.89 H (1.8-7.7) 10^3/uL 08/24/25 08/24/25 08/25/25 Range/Units 17:58 22:10 01:45 WBC (3.29-11.43) 10^3/uL Hgb 8.00 L 7.70 L 7.70 L (11.27-16.99) g/dL Hct 24.2 L 22.3 L 22.8 L (36-47) % MCV (85-98) fl Plt Count (157-399) 10^3/cmm Neut % (Auto) % Neut # (Auto) (1.8-7.7) 10^3/uL 08/25/25 08/25/25 08/25/25 Range/Units 04:51 05:53 09:54 WBC 14.21 H (3.29-11.43) 10^3/uL Hgb 7.50 L 7.80 L 7.80 L (11.27-16.99) g/dL Hct 22.8 L 23.3 L 23.3 L (36-47) % MCV 90.5 D (85-98) fl Plt Count 158 D (157-399) 10^3/cmm Neut % (Auto) 87.7 % Neut # (Auto) 12.46 H (1.8-7.7) 10^3/uL BMP 08/23/25 08/24/25 08/25/25 18:27 05:48 04:51 Sodium 134 L 133 L 137 Potassium 5.1 4.6 3.9 Chloride 94 L 96 L 102 Carbon Dioxide 32 H 26 26 BUN 24 H 35 H 17 Creatinine 0.5 0.6 0.4 L Glucose 241 H 246 H 122 H Calcium 9.2 8.2 L 8.4 L Cardiac Enzymes 08/25/25 Range/Units 04:51 Creatine Kinase 36 (26-192) U/L NT-Pro-B Natriuret Pep 1776 H (0-125) pg/mL Liver Function 08/25/25 Range/Units 04:51 Total Bilirubin 0.9 (0.15-1.2) mg/dL AST 27 (0-32) U/L ALT 26 (0-33) U/L Alkaline Phosphatase 146 H (35-105) U/L Albumin 3.8 (3.5-5.2) g/dL Urine 08/24/25 Range/Units 13:00 Urine Color Zeph[place] A (Yellow) Urine Appearance Clear (CLEAR) Urine pH 6.5 (5-7) Ur Specific [place]cc[place] 1.019 (1.005-1.030) Urine Protein Trace A (Negative) Urine Glucose (UA) Negative (Normal) Urine Ketones Negative (Negative) Urine Nitrate Negative (Negative) Urine Bilirubin Negative (Negative) Ur Leukocyte Esterase Negative (Negative) Urine RBC 0-2 (0-2) /hpf Urine WBC 0-5 (0-5) /hpf Blood Bank 08/24/25 06:42 Blood Type O Negative Rho(D) Type Rh negative Antibody Screen Negative Coags 08/24/25 08/24/25 08/25/25 05:48 12:16 04:51 PT 13.90 13.10 INR 1.00 0.92 APTT 28.5 C-Reactive Protein 213.2 H 99.5 H ABG 08/25/25 04:22 Specimen Type Arterial Sample Site Brachial, left ABG pH 7.37 ABG pCO2 47.7 H ABG pO2 66.0 L ABG HCO3 27.4 H ABG Base Excess 1.7 O2 Delivery Device Nc O2 Liters/Min 3.0 Microbiology 08/25/25 06:22 Occult Blood (FIT) - Final Stool Routine Collection 08/24/25 18:08 Blood Culture - Preliminary Blood SPECIMEN COLLECTED 08/24/25 17:58 Blood Culture - Preliminary Blood SPECIMEN COLLECTED Cardiac Studies: Echocardiogram 08/13/25
--- NOTE | 2025-08-25 13:20 | P.PN_ITS ---
Subjective 2 Subjective: NAEON No pressors On amio gtt rate controlled 1 tarry BM Vitals/I&O/Wt Last Vital Signs Temp 98.3 F 08/25/25 12:15 Pulse 88 08/25/25 13:13 Resp 18 08/25/25 13:06 BP 129/76 08/25/25 12:15 Pulse Ox 96 08/25/25 13:06 O2 Del Method Nasal Cannula 08/25/25 13:06 O2 Flow Rate 3.5 08/25/25 13:06 08/24/25 08/25/25 08/25/25 22:59 06:59 14:59 Intake Total 1450 / 3150 1800.000 / 4950.000 1041.667 / 1041.667 Output Total 900 / 900 Balance 550 / 2250 1800.000 / 4050.000 1041.667 / 1041.667 Weight last 48 hrs Weight 101 lb 6.602 oz Weight 82 lb 1.6 oz Physical Exam 2 Narrative: rate controlled on amio, HD acceptable unlabored breathing ra abdomen soft, nt, nd Data 08/25/25 09:54 08/25/25 04:51 Micro: Microbiology 08/25/25 06:22 Occult Blood (FIT) - Final Stool Routine Collection 08/24/25 18:08 Blood Culture - Preliminary Blood SPECIMEN COLLECTED 08/24/25 17:58 Blood Culture - Preliminary Blood SPECIMEN COLLECTED A&P Assessment and plan 1. GI bleed: Plan: 65 yo female whom surgery was consulted to rule out UGIB. Tarry stools. Cleared by medicine for EGD. Discussed risks and benefits and patient agrees to proceed with esophagogastroduodenoscopy. Patient understands she is at risk of IA, decompensation, worsening GIB, iatrogenic perforation, aspiration and still decides to proceed. PDMP PDMP Reviewed: Not Reviewed Attestations 2 Medical Necessity Statement*: NA Coding Level of Care Code 14460 Diagnoses GI bleed K92.2
--- NOTE | 2025-08-25 13:50 | ANE.PACU2 ---
Inpatient post-anesthesia follow up: Airway intact: Yes Vital signs: Temperature 98.3 F Pulse Rate 88 Respiratory Rate 18 Blood Pressure 129/76 Pulse Oximetry 96 Oxygen Delivery Me thod Nasal Cannula Oxygen Flow Rate 3.5 Fraction of Inspir ed Oxygen Hydration adequate: Yes Nausea and vomiting: No Pain level: 1 Mental status: Baseline
[2025-08-25 14:09] LABS: Hematocrit 28.4 % (36-47); Hemoglobin 9.40 g/dL (11.27-16.99)
--- NOTE | 2025-08-25 14:22 | P.PN_ITS ---
Subjective 2 Subjective: - Patient was seen this morning - She is alert oriented x 3, following a ll commands - She had 1 episode of black tarry bowel movement overnight - Has not had any since then - No nausea, no vomiting, hemoptysis, no abdominal pain - No shortness of breath - discussed her hemoglobin is 7.8 will give her 1 unit PRBC - Plans on EGD today - After procedure if her hemodynamics ar e reasonable we will transition her off amiodarone drip to p.o. amiodarone, start PT OT move her to the cardiac stepdown unit Vitals/I&O/Wt Last Vital Signs Temp 98.3 F 08/25/25 12:15 Pulse 88 08/25/25 13:13 Resp 18 08/25/25 13:06 BP 129/76 08/25/25 12:15 Pulse Ox 96 08/25/25 13:06 O2 Del Method Nasal Cannula 08/25/25 13:06 O2 Flow Rate 3.5 08/25/25 13:06 08/24/25 08/25/25 08/25/25 22:59 06:59 14:59 Intake Total 1450 / 3150 1800.000 / 4950.000 1041.667 / 1041.667 Output Total 900 / 900 Balance 550 / 2250 1800.000 / 4050.000 1041.667 / 1041.667 Weight last 48 hrs Weight 46 kg Weight 37.24 kg Physical Exam 2 Const: COMMON NORMALS: no acute distress and patient oriented x3 Resp: COMMON NORMALS: normal respiratory effort, No retractions, No use of accessory muscles and clear to auscultation bilaterally AUSCULTATION: clear to auscultation bilaterally Cardio: COMMON NORMALS: regular rate, regular rhythm, S1 normal heart sound present and S2 normal heart sound present RATE: regular rate RHYTHM: r egular rhythm HEART SOUNDS: S1 normal heart sound present and S2 normal heart sound present GI: COMMON NORMALS: Normal to inspection, nondistended, normoactive bowel sounds present and non-tender Extremity: COMMON NORMALS: no pedal edema Neuro: COMMON NORMALS: patient oriented x3 Psych: COMMON NORMALS: mental status grossly normal Data 08/25/25 14:03 08/25/25 04:51 Micro: Microbiology 08/25/25 06:22 Occult Blood (FIT) - Final Stool Routine Collection 08/24/25 18:08 Blood Culture - Preliminary Blood SPECIMEN COLLECTED 08/24/25 17:58 Blood Culture - Preliminary Blood SPECIMEN COLLECTED A&P Assessment and plan 1. Hemorrhagic shock: 2. GI bleed: 3. Septic shock: 4. Pneumonia: 5. Atrial fibrillation with rapid ventricular response: 6. COPD (chronic obstructive pulmonary disease): 7. Acute exacerbation of chronic obstructive airways disease: 8. Acute respiratory failure with hypoxia: 9. COPD with acute exacerbation: Plan: Gastrointestinal bleed - Upper versus lower GI bleed Plan - N.p.o. - IV fluids - Albumin therapy - Will be receiving her third unit of blood - Monitor hemoglobin - Monitor for black tarry or bloody bowel movements -Protonix -Carafate -General Surgery has been consulted for EGD Shock, resolving -Multifactorial -Concern for hemorrhagic shock associated with GI bleed -Concerns for septic shock associate with pneumonia -Albumin therapy -Levophed to maintain MAP in the 65 -IV fluids Acute hypoxic respiratory failure -Secondary to pneumonia -With sepsis and septic shock -With COPD exacerbation -Plan -Follow-up cultures -Vancomycin -Meropenem -Monitor respiratory status closely Atrial fibrillation with rapid ventricular spots -Amiodarone drip Full code SCDs for DVT prophylaxis PDMP PDMP Reviewed: Not Reviewed Attestations 2 Medical Necessity Statement*: Patient requires hospitalization for GI bleed, shock, respiratory failure, atrial fibrillation Diagnoses Hemorrhagic shock R57.8 GI bleed K92.2 Septic shock A41.9; R65.21 Pneumonia J18.9 Atrial fibrillation with rapid ventricular response I48.91 COPD (chronic obstructive pulmonary disease) J44.9 Acute exacerbation of chronic obstructive airways disease J44.1 Acute respiratory failure with hypoxia J96.01 COPD with acute exacerbation J44.1
--- NOTE | 2025-08-25 16:21 | PC.OT ---
patient will be on hold as per nursing staff . ot eval hold today
[2025-08-25] MEDS: MELATONIN 3 MG TABLET PO (21:12)
--- NOTE | 2025-08-25 21:56 | XRR_ITS ---
PROCEDURE INFORMATION: Exam: XR Chest Exam date and time: 08/25/2025 10:58 PM Age: 65 years old Clinical indication: Shortness of breath; Additional info: Respiratory distress TECHNIQUE: Imaging protocol: Radiologic exam of the chest. Views: 1 view. COMPARISON: CR XR chest 1V portable [id number] 08/24/2025 12:53 PM FINDINGS: Tubes, catheters and devices: A right upper extremity approach peripherally inserted central catheter is noted.The catheter tip terminates in the SVC. Lungs: Central and bibasilar predominant interstitial prominence is present. Pleural spaces: Small bilateral pleural effusions with associated atelectasis are present. Heart/Mediastinum: Unremarkable. No cardiomegaly. Bones/joints: Unremarkable. XR/XR chest 1V portable [id number] IMPRESSION: 1. Findings suggestive of pulmonary edema or interstitial pneumonia. 2. Small bilateral pleural effusions.
[2025-08-25] MEDS: etomidate 2 mg/mL INJ SDV 10 mL 20 MG IVP (22:22)
[2025-08-25] MEDS: vecuronium 10 mg SDV IVP (22:22)
--- NOTE | 2025-08-25 22:27 | XRR_ITS ---
PROCEDURE INFORMATION: Exam: XR Chest Exam date and time: 08/25/2025 11:32 PM Age: 65 years old Clinical indication: Device placement; Ett placement (vent status); Additional info: Ett og tube TECHNIQUE: Imaging protocol: Radiologic exam of the chest. Views: 1 view. COMPARISON: CR (CHEST, ) 08/25/2025 10:58 PM FINDINGS: Tubes, catheters and devices: The endotracheal tube terminates in the midthoracic trachea. External defibrillator pads are present, which partially obscure evaluation of underlying lung parenchyma. A right upper extremity approach peripherally inserted central catheter is noted.The catheter tip terminates in the SVC. The enteric tube takes the expected course of the esophagus terminating below the diaphragm. The tip is not visualized. Lungs: Central and bibasilar predominant interstitial prominence is present. Pleural spaces: Small bilateral pleural effusions with associated atelectasis are present. Heart/Mediastinum: Unremarkable. No cardiomegaly. Bones/joints: Unremarkable. XR/XR chest 1V portable [id number] IMPRESSION: 1. Findings suggestive of mild pulmonary edema or interstitial pneumonia. Findings are stable with comparison to the prior examination. 2. Small bilateral pleural effusions. 3. Lines and tubes as above.
--- NOTE | 2025-08-25 22:31 | W.PM.EVENTAC ---
Event Note Event Note: Contacted by RN with concern for anxiety. I visited the patient who was not responding to my questions. Orders given to repeat CXR, ABG. Discussed Bipap. I was later called as patient decompensated with increased O2 needs, not responding to commands. On reassessment, she was in severe respiratory distress, slouched over her bedside table. ED physician contacted emergently for intubation which was successful.
--- NOTE | 2025-08-25 22:40 | PC.NURSE ---
Addendum entered by Brittny Lagunas RN 08/26/25 03:11: Wasted propofol with SABIHA Marion. Original Note: Dr Simons gave verbal order for 100 mg of propofol IVP for sedation during intubation. Propofol was drawn up from RSI kit. Propofol not given to patient. Wasted 200 mg vial of propofol, witnessed by SABIHA Mart.
[2025-08-25] MEDS: propofol 1,000 MG/100 ML INJ 1.38 MG IV (22:44)
[2025-08-25] MEDS: fentaNYL 1,000 MCG/100 ML BAG 2.5 MCG IV (22:45)
--- NOTE | 2025-08-25 23:00 | PC.NURSE ---
Event: Patient had been experiencing extreme SOB and anxiety, the patient requested something to help calm her down and let her rest. Vistaril was not effective. Patient had extremely diminished breath sounds, oxygen requirements continued to increase. Dr. Isbell assessed patient at bedside and at this point patient had become mostly unresponsive, unable to follow commands due to extreme respiratory distress. BiPAP was attempted at 100% Fio2, patient was not improving. Dr. Isbell at this point contacted Dr. Simons from ER to intubate. 2220 - HR 88, BP 155/76, BiPAP 100% 2221 - etomidate 20 mg, vec 10mg 222 - 99% on vent, HR 100, BP 120/76
--- NOTE | 2025-08-25 23:06 | ECG_ITS ---
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 Measurements Intervals [place] Rate: 136 P: 0 FL: 0 QRS: 84 QRSD: 87 T: 81 QT: 293 QTc: 442 Interpretive Statements ATRIAL FIBRILLATION WITH RAPID VENTRICULAR RESPONSE WITH ABERRANT CONDUCTION OR VENTRICULAR PREMATURE COMPLEXES MODERATE ST DEPRESSION [0.05+ mV ST DEPRESSION] Compared to ECG 08/24/2025 11:20:40 Ventricular premature complex(es) now present Aberrant conduction of supraventricular beat(s) now present ST (T wave) deviation now present T-wave abnormality no longer present Electronically Signed On 08-27-2025 17:43:11 [employer] WORK[employer] by Lisa Hubbard M.D. [id number]
--- NOTE | 2025-08-25 23:14 | PM.CCN ---
Critical Care Event Note Consulted by hospitalist service for emergent intubation. Patient is in the ICU has a history of COPD began having some pursed lip breathing earlier tonight was placed on BiPAP did not tolerate now is in near respiratory arrest tripoding poorly responsive significant increased work of breathing despite BiPAP. The hospitalist service requesting emergent intubation. Critical Care Time Code activated: No Critical Care Time (min): 0 Procedures Intubation Time out performed: Yes Sedative: etomidate Mg given: 20 Paralytic: vecuronium Mg given: 10 Laryngoscope: fiber optic video scope ET tube size: 7.5 ET tube uncuffed: No Tube secured depth (cm): 21 Tube secured location: teeth Tube placement confirmation: visualized tube passing through cords, equal breath sounds bilaterally, no breath sounds over epigastrium and color change noted Patient tolerated procedure: well Intubation complications: none Coding Level of Care Code Acute Code for Chg Fwd
[2025-08-25] MEDS: DILTIAZEM HCL/D5W 125 MG/125 ML BAG IV (23:17)
[2025-08-25 23:52] LABS: Arterial Blood Gas Hematocrit 38.4 % (37-47); Blood Gas Operator Identificat SAM; Blood Gas Sample Site Brachial, left; Blood Gas Sample Type Arterial; Blood Gas Tidal Volume 0.40; HCO3 ABG 23.6 mmol/L (22-26); PEEP 10.0 cmH20; PO2 ABG 121.0 mmHg (80.0-100.0); PO2 FiO2 Ratio Arterial Blood 201
[2025-08-25 23:57] LABS: ABG PCO2 65.1 mmHg (35-45); ABG PH Result 7.17 (7.35-7.45)
[2025-08-26] VITALS (105 sets, daily range): BP systolic 80–153; BP diastolic 53–96; PULSE 69–149; RESP 12–13; TEMP 35.6–36.4; O2SAT 92–99; BMI 17.2
--- NOTE | 2025-08-26 | PC.NURSE ---
Afib RVR: Patient went into Afib RVR with rates 120-150s, confirmed with EKG. Dr. Isbell gave orders to start cardizem gtt.
[2025-08-26] MEDS: FUROsemide 10 mg/mL SDV 4mL 40 MG IVP ×2 (00:27→08:30)
[2025-08-26] MEDS: methylPREDNISolone sod succ 125 mg/2 mL INJ 80 MG IVP ×3 (00:31→16:01)
[2025-08-26 00:51] LABS: Alanine Aminotransferase 44 U/L (0-33); Albumin Level 4.4 g/dL (3.5-5.2); Alkaline Phosphatase 194 U/L (35-105); Blood Urea Nitrogen 20 mg/dL (8-23); Calcium 8.7 mg/dL (8.5-10.5); Carbon Dioxide 25 mmol/L (22-29); Chloride 99 mmol/L (98-107); Globulin 1.7 g/dL (1.3-4.6); Glucose 312 mg/dL (65-115); Osmolality Calculated 298 mOsm/kg (285-295); Sodium 137 mmol/L (136-145); Total Protein 6.1 g/dL (6.6-8.7)
[2025-08-26 00:53] LABS: Anion Gap 17.1 (5-19); Aspartate Amino Transferase 37 U/L (0-32); Potassium 4.1 mmol/L (3.5-5.1)
[2025-08-26 01:13] LABS: Hematocrit 36.7 % (36-47); Hemoglobin 12.30 g/dL (11.27-16.99); Mean Corpuscular HGB Conc 33.5 g/dL (30-55); Mean Corpuscular Hemoglobin 30.1 pg (27-33); Mean Corpuscular Volume 90.0 fl (85-98); Nucleated Red Blood Cells % 0 %; Platelet Count 222 10^3/cmm (157-399); Red Blood Count 4.08 10^6/uL (3.85-5.65)
[2025-08-26 01:17] LABS: White Blood Count 38.76 10^3/uL (3.29-11.43)
[2025-08-26] MEDS: norepinephrine 4 MG/250 ML BAG 7.5 MG IV (03:30)
[2025-08-26 04:30] LABS: ABG PH Result 7.26 (7.35-7.45); Alveolar-Arterial Oxygen Gradi 35.0 mmHg (5-10); Arterial Blood Gas Hematocrit 38.6 % (37-47); Blood Gas Operator Identificat SAM; Blood Gas Sample Site Brachial, left; Blood Gas Sample Type Arterial; Blood Gas Tidal Volume 0.40; Carboxyhemoglobin 1.1 %THgb (0.4-20.1); Glucose Level-ABG 276.0 mg/dL (70-115); HCO3 ABG 28.8 mmol/L (22-26); Ionized Calcium Level - ABG 1.2 mmol/L (1.1-1.4); Methemoglobin 0.1 % (0.4-1.5); Oxygen Saturation ABG 96.9; PEEP 10.0 cmH20; PO2 ABG 85.4 mmHg (80.0-100.0); PO2 FiO2 Ratio Arterial Blood 142; Potassium Level - ABG 3.3 mmol/L (3.5-5.0); Sodium Level - ABG 139.0 mmol/L (131-143)
[2025-08-26 04:31] LABS: ABG PCO2 63.8 mmHg (35-45)
--- NOTE | 2025-08-26 04:31 | PC.NURSE ---
Hold amiodarone: Dr. Isbell gave orders to hold PO amiodarone.
[2025-08-26] MEDS: fentaNYL 1,000 MCG/100 ML BAG 12.5 MCG IV ×3 (05:26→19:08)
[2025-08-26 05:44] LABS: Hematocrit 34.3 % (36-47); Hemoglobin 11.60 g/dL (11.27-16.99); Mean Corpuscular HGB Conc 33.8 g/dL (30-55); Mean Corpuscular Hemoglobin 29.7 pg (27-33); Mean Corpuscular Volume 87.9 fl (85-98); Nucleated Red Blood Cells % 0 %; Platelet Count 207 10^3/cmm (157-399); Red Blood Count 3.90 10^6/uL (3.85-5.65); White Blood Count 28.78 10^3/uL (3.29-11.43)
[2025-08-26 06:13] LABS: Alanine Aminotransferase 42 U/L (0-33); Albumin Level 4.3 g/dL (3.5-5.2); Alkaline Phosphatase 171 U/L (35-105); Aspartate Amino Transferase 29 U/L (0-32); Blood Urea Nitrogen 20 mg/dL (8-23); Calcium 8.5 mg/dL (8.5-10.5); Carbon Dioxide 29 mmol/L (22-29); Chloride 101 mmol/L (98-107); Globulin 1.6 g/dL (1.3-4.6); Glucose 263 mg/dL (65-115); Magnesium 1.8 mg/dL (1.7-2.3); Osmolality Calculated 304 mOsm/kg (285-295); Sodium 141 mmol/L (136-145); Total Protein 5.9 g/dL (6.6-8.7)
[2025-08-26 06:15] LABS: Anion Gap 14.9 (5-19); Potassium 3.9 mmol/L (3.5-5.1)
[2025-08-26 06:17] LABS: Procalcitonin 7.90 ng/mL (0-0.5)
--- NOTE | 2025-08-26 07:13 | PC.NURSE ---
received call from provider for status update, Orders for 25G Albumin x1, 40 mg IVP lasix x1, Intensivest consulted.
[2025-08-26 08:20] LABS: NT Pro B Type Natriuretic Pept 5466 pg/mL (0-125)
[2025-08-26] MEDS: albumin 25 G/100 ML BAG 60 G IV (08:28)
[2025-08-26] MEDS: pantoprazole 40 mg SDV IVP ×2 (08:40→21:14)
[2025-08-26] MEDS: magnesium sulfate premix 1 GM/100 ML PIGGYBACK IV (08:47)
[2025-08-26] MEDS: lidocaine 1% 5 ML in potassium chloride premix 100 ML 26.25 ML IV ×2 (08:51→19:40)
--- NOTE | 2025-08-26 09:39 | P.PN_ITS ---
Subjective 2 Subjective: No evidence of GIB Vitals/I&O/Wt Last Vital Signs Temp 97.6 F 08/26/25 09:02 Pulse 89 08/26/25 08:59 Resp 13 08/26/25 09:00 BP 98/58 08/26/25 08:45 Pulse Ox 96 08/26/25 09:00 O2 Del Method Mechanical Ventilation 08/26/25 08:59 O2 Flow Rate 6 08/25/25 21:50 FiO2 60 08/26/25 09:07 08/25/25 08/26/25 08/26/25 22:59 06:59 14:59 Intake Total 1069.19 / 2210.857 273.312 / 2484.169 27.572 / 27.572 Output Total 250 / 250 1150 / 1400 Balance 819.19 / 1960.857 -876.688 / 1084.169 27.572 / 27.572 Weight last 48 hrs Weight 88 lb 2.958 oz Weight 101 lb 6.602 oz Physical Exam 2 Narrative: intubated abdomen soft,nt, nd Urinary Catheter Management: Kim: Cath Placed During This Visit: yes Reason for Continuing Indwelling Catheter: Accurate Measurement of Urinary Output in Critically Ill Patients Urinary Catheter Date of Insertion: 08/26/25 Urinary Catheter Time of Insertion: 00:05 Data 08/27/25 04:11 08/27/25 04:11 Micro: Microbiology 08/24/25 18:08 Blood Culture - Preliminary Blood NEGATIVE TO DATE 08/24/25 17:58 Blood Culture - Preliminary Blood NEGATIVE TO DATE 08/25/25 06:22 Occult Blood (FIT) - Final Stool Routine Collection A&P Assessment and plan 1. GI bleed: Plan: 65-year-old female whom surgery was consulted for GI bleed. No evidence of GI bleed. Rest of care per hospitalist. PDMP PDMP Reviewed: Not Reviewed Attestations 2 Medical Necessity Statement*: N/A Coding Level of Care Code 80067 Diagnoses GI bleed K92.2
--- NOTE | 2025-08-26 09:46 | PM.CONSULT ---
Providers/Reason For Consult Consulting Physician/Specialty*: Dr. Farrell Reason for Consult*: Mechanical ventilation and septic shock Attending Physician: Bud Ward MD Primary Care Provider: Zuly Damico NP History of Present Illness History of Present Illness Martha Damico is a 65 year old female with past medical history of chronic respiratory failure, smoker, A-fib, COPD, CAD initially presents on 08/23/2025 due to possible GI bleed. She suddenly, decompensated last night and had to be emergently intubated. She was noted to have some pleuritic chest discomfort and productive cough prior to admission. She was seen by GI and had an EGD done no source of bleeding noted. Probably colonoscopy planned later. She was given 3 units of IV fluids as well as maintain on IV fluids out of bed subsequently stopped. Initially was also on diltiazem for A-fib but in normal sinus rhythm now it stopped currently. Review of systems unobtainable patient is intubated Medications/Allergies Home Medications ?Medication ?Instructions ?Recorded ?Confirmed ?Last Taken ?Type budesonide-formoterol HFA 160 2 puff inhalation BID 03/18/21 08/23/25 08/22/25 History mcg-4.5 mcg/actuation aerosol inhaler (Symbicort) multivitamin 1 tab PO DAILY 04/11/22 08/23/25 08/22/25 History albuterol sulfate 2.5 mg/3 mL 2.5 mg (3 mL) continuous 04/23/25 08/23/25 08/13/25 Rx (0.083 %) solution for nebulization nebulization Q8H Shortness Of Breath #180 mL albuterol sulfate 90 mcg/actuation 1 inh inhalation Q6H PRN shortness 04/23/25 08/23/25 Unknown Rx aerosol inhaler (Ventolin HFA) of breath or wheezing #8.5 grams ipratropium bromide 0.02 % 1.25 ml inhalation Q8H #150 mL 04/23/25 08/23/25 08/23/25 01:00 Rx solution for inhalation ibuprofen 200 mg tablet (Advil) 400 mg PO Q6H PRN Pain 08/14/25 08/23/25 08/22/25 History prednisone 10 mg tablet See Taper PO DIRECTED #42 tabs 08/15/25 08/23/25 08/22/25 Rx tramadol 50 mg tablet 50 mg PO Q8H PRN pain #10 tabs 08/20/25 08/23/25 08/22/25 19:00 Rx Allergies Allergy/AdvReac Type Severity Reaction Status Date / Time No Known Allergies Allergy Verified 08/13/25 17:16 Current Medications Generic Name Dose Route Start Last Admin Trade Name Freq PRN Reason Stop Dose Admin Albuterol/Ipratropium 3 ml 08/25/25 22:00 08/26/25 08:59 Ipratropium-Albuterol 3 Ml Neb INHALATION 3 ml Q4H.RESPIRATORY YAKOV Administration Budesonide 0.5 mg 08/23/25 20:00 08/26/25 08:59 Budesonide 0.5 Mg/2 Ml Neb INHALATION 0.5 mg BID.RESPIRATORY YAKOV Administration Hydroxyzine Pamoate 25 mg 08/25/25 19:26 08/25/25 19:42 Hydroxyzine 25 Mg Capsule PO 25 mg QID PRN Administration ANXIETY Vancomycin HCl 500 mg/ Sodium 100 mls @ 200 mls/hr 08/24/25 22:00 08/25/25 23:29 Chloride IV Infused Q12H YAKOV Infusion Propofol 1,000 mg in 100 mls @ 0 mls/hr 08/25/25 22:30 08/26/25 07:35 Diprivan IV 15 mcg/kg/min .Q0M YAKOV 4.14 mls/hr Protocol Titration Per Protocol Fentanyl 1,000 mcg in 100 mls @ 0 mls/hr 08/25/25 22:30 08/26/25 05:26 Sublimaze IV 125 mcg/hr .Q0M YAKOV 12.5 mls/hr Protocol Administration Per Protocol Norepinephrine Bitartrate 4 mg in 250 mls @ 0 mls/hr 08/26/25 03:30 08/26/25 07:35 Levophed IV 6 mcg/min .Q0M YAKOV 22.5 mls/hr Protocol Titration Per Protocol Lidocaine HCl 5 ml/ Potassium 105 mls @ 26.25 mls/hr 08/26/25 07:38 08/26/25 08:51 Chloride IV 08/26/25 11:37 26.25 mls/hr ONCE ONE Administration Insulin Human Lispro 0 unit 08/24/25 12:00 08/26/25 08:23 Insulin Lispro 100 Unit/1 Ml SUBCUT Not Given TIDWM YAKOV Protocol Melatonin 3 mg 08/25/25 19:26 08/25/25 21:12 Melatonin 3 Mg Tablet PO 3 mg BEDTIME PRN Administration INSOMNIA Meropenem 500 mg 08/25/25 18:00 08/26/25 02:16 Meropenem 500 Mg Sdv IVP 500 mg Q8H YAKOV Administration Protocol Methylprednisolone Sodium Succinate 80 mg 08/26/25 00:15 08/26/25 08:38 Methylprednisolone Sod Succ 125 Mg/2 Ml Inj IVP 80 mg Q8H YAKOV Administration Morphine Sulfate 2 mg 08/24/25 08:27 08/24/25 12:18 Morphine 4 Mg/Ml Sdv 1 Ml IVP 2 mg Q4H PRN Administration SEVERE PAIN Ondansetron HCl 4 mg 08/23/25 23:55 08/24/25 00:28 Ondansetron 2 Mg/Ml Sdv 2 Ml IVP 4 mg Q4H PRN Administration NAUSEA AND VOMITING Pantoprazole Sodium 40 mg 08/24/25 08:30 08/26/25 08:40 Pantoprazole 40 Mg Sdv IVP 40 mg Q12H YAKOV Administration Sucralfate 1 gm 08/24/25 08:30 08/26/25 08:42 Sucralfate 1 Gm Tablet PO 1 gm Q6H YAKOV Administration PFSH Acute PFSH: Medical History Chest pain COPD (chronic obstructive pulmonary disease) Afib PTSD (post-traumatic stress disorder) Tobacco use Family History Mother Dementia Lung disease Cancer Sister Dementia Diabetes Cancer Father Lung disease Cancer Family/Other Stroke Brother Cancer Social History Smoking and tobacco/nicotine status: former use of tobacco/nicotine Quit status (tobacco/nicotine): has quit using Year quit tobacco: 15 months ago Former quit date comment: 1 pack per day x 52 years Second hand smoke exposure: Yes Alcohol intake: current Alcohol intake frequency: 3 or more drinks per day Vitals/I&O/Wt Last Vital Signs Temp 97.6 F 08/26/25 09:02 Pulse 89 08/26/25 08:59 Resp 13 08/26/25 09:00 BP 98/58 08/26/25 08:45 Pulse Ox 96 08/26/25 09:00 O2 Del Method Mechanical Ventilation 08/26/25 08:59 O2 Flow Rate 6 08/25/25 21:50 FiO2 60 08/26/25 09:07 08/25/25 08/26/25 08/26/25 22:59 06:59 14:59 Intake Total 1069.19 / 2210.857 273.312 / 2484.169 27.572 / 27.572 Output Total 250 / 250 1150 / 1400 Balance 819.19 / 1960.857 -876.688 / 1084.169 27.572 / 27.572 Weight last 48 hrs Weight 88 lb 2.958 oz Weight 101 lb 6.602 oz Physical Exam Narrative: Per RN General: Intubated sedated HEENT: EOMI Pulmonary: Diminished breath sounds bilaterally Cardiovascular: rrr, nl s1s2, Abdomen: soft, nt, nd, no r/g, Extremities: no edema Neurologic: grossly intact Agree with above exam Urinary Catheter Management: Kim: Cath Placed During This Visit: yes Reason for Continuing Indwelling Catheter: Accurate Measurement of Urinary Output in Critically Ill Patients Urinary Catheter Date of Insertion: 08/26/25 Urinary Catheter Time of Insertion: 00:05 Data 08/26/25 05:12 08/26/25 17:36 Micro: Microbiology 08/24/25 18:08 Blood Culture - Preliminary Blood NEGATIVE TO DATE 08/24/25 17:58 Blood Culture - Preliminary Blood NEGATIVE TO DATE 08/25/25 06:22 Occult Blood (FIT) - Final Stool Routine Collection A&P Assessment and plan 1. Tobacco use: 2. COPD (chronic obstructive pulmonary disease): 3. Acute respiratory failure with hypoxia: Plan: # Acute hypoxemic hypercarbic respiratory failure Currently on mechanical ventilation tolerating VC AC mode. Plateau pressures with peaks maintained below 30. Maintain sats 88 to 92%. Bronchopulmonary hygiene bronchodilator therapy ABG reviewed currently ABG 7.26 pCO2 of 16.885% PaO2 08/26/2025. # Acute COPD exacerbation Continue DuoNebs. Continue Solu-Medrol 40 Q8 # Acute GI bleed probably related to colonic diverticulosis EGD done no source of bleed noted. Currently hemoglobin is stable at 911/. Plan for colonoscopy later. On Protonix IV twice daily. # Probable septic shock secondary to pneumonia Reviewed chest x-ray images show COPD exacerbation chest x-ray results show pulmonary vascular congestion Continue vancomycin and meropenem # Acute flash pulm edema. Reviewed labs BNP is elevated on 08/26/2025. 1 dose of Lasix given with good urine output. Monitor urine output and creatinine Lasix 40 twice daily.. Avoid and limit all fluids. Echocardiogram pending. BNP 5466. # A-fib with RVR on currently normal sinus rhythm Continue p.o. amiodarone p.o. 400 twice daily. Cardene drip as needed Echocardiogram pending # Hypokalemia-replace aggressively # Mild transaminitis most likely secondary to shock # Hyperglycemia-insulin sliding scale medium. Avoid hypoglycemia. Maintain blood sugars between 140-180. Dextrose drip if needed to maintain blood sugars above 90 # Sedation-continue Versed as needed and fentanyl drip for now. # Nutrition-start tube feeds tomorrow tube feeds, monitor BMs # DVT GI prophylaxis-SCDs and famotidine. Hold off on anticoagulation secondary to anemia which could be acute blood loss. # Goals of care- no family at bedside # CODE STATUS- FULL # Disposition-Will need full ICU support follow-up The high probability of a clinically significant, sudden or life threatening deterioration of the patient's [Respiratory, cardiac and renal] system(s) required my full and direct attention, intervention and personal management. The critical care time is as shown. This time is in addition to time spent performing any reported procedures but includes the following: [x] Data and vital sign review and interpretation [x] Patient assessment, examination and intervention [x] Documentation [x] Medication orders and management Critical Care Time (min): 45 Telemedicine Consent Patient seen today via Telemedicine by agreement and consent of patient.? Telemedicine technology used during the visit includes audio and, as available, review of images.? The patient encounter is appropriate and reasonable under the circumstances given the patient?s particular presentation at this time.? The patient has been advised of the potential risks and limitations of this mode of treatment (including but not limited to the absence of in-person examination) and has agreed to be treated in a remote fashion in spite of them.? Any, and all, of the patient?s/patient?s family?s questions on this issue have been answered and I have made no promises or guarantees to the patient. PDMP PDMP Reviewed: Not Reviewed Coding Level of Care Code Critical Care >/= 30 minutes Diagnoses Tobacco use Z72.0 COPD (chronic obstructive pulmonary disease) J44.9 Acute respiratory failure with hypoxia J96.01
[2025-08-26] MEDS: vancomycin 500 MG in sodium chloride 0.9% (plus) 100 ML 200 MG IV (10:07)
--- NOTE | 2025-08-26 13:23 | PC.SOCIAL ---
IMM Updated Updated pt's family on IMM. No questions voiced. Provided pt a copy. Initialed, dated, & timed a copy & placed in chart.
--- NOTE | 2025-08-26 14:51 | PC.OT ---
OT Evaluation is in hold secondary to Patient is not able to participate in the process at this time. Will be attempted again on another day.
[2025-08-26] MEDS: norepinephrine 4 MG/250 ML BAG 22.5 MG IV (15:37)
[2025-08-26] MEDS: propofol 1,000 MG/100 ML INJ 6.9 MG IV (15:57)
--- NOTE | 2025-08-26 17:12 | P.PN_ITS ---
Subjective 2 Subjective: - Overnight events noted - Patient had episode of acute hypoxic r espiratory failure, currently intubated - Intubated, sedated on mechanical venti lation she does awaken, she can follow commands she is able to squeeze my fingers, able to wiggle her toes - She has received Lasix overnight - Currently on 60% FiO2, 2 Levophed, on propofol and fentanyl for sedation Vitals/I&O/Wt Last Vital Signs Temp 97.6 F 08/26/25 09:02 Pulse 90 08/26/25 16:00 Resp 12 08/26/25 15:22 BP 139/78 08/26/25 16:00 Pulse Ox 96 08/26/25 16:00 O2 Del Method Mechanical Ventilation 08/26/25 15:19 O2 Flow Rate 6 08/25/25 21:50 FiO2 50 08/26/25 15:22 08/26/25 08/26/25 08/26/25 06:59 14:59 22:59 Intake Total 273.312 / 2484.169 527.299 / 527.299 220.655 / 747.954 Output Total 1150 / 1400 Balance -876.688 / 1084.169 527.299 / 527.299 220.655 / 747.954 Weight last 48 hrs Weight 40 kg Weight 46 kg Physical Exam 2 Const: COMMON NORMALS: no acute distress ORIENTATION/CONSCIOUSNESS: Yes awake and Yes oriented to person; not oriented to place and not oriented to time Eye: COMMON NORMALS: Equal, round and reactive pupils present PUPIL: Yes Equal, round and reactive pupils present Resp: COMMON NORMALS: normal respiratory effort, No retractions and No use of accessory muscles AUSCULTATION: crackles and wheezes Cardio: COMMON NORMALS: regular rate, regular rhythm, S1 normal heart sound present and S2 normal heart sound present RATE: regular rate RHYTHM: r egular rhythm HEART SOUNDS: S1 normal heart sound present and S2 normal heart sound present GI: COMMON NORMALS: Normal to inspection, nondistended, normoactive bowel sounds present and non-tender Extremity: COMMON NORMALS: no pedal edema Neuro: SENSORIUM/ORIENTATION: Yes oriented to person, No oriented to place and No oriented to time Psych: COMMON NORMALS: mental status grossly normal Skin: COMMON NORMALS: turgor normal GENERAL SKIN EXAM: turgor normal Urinary Catheter Management: Kim: Cath Placed During This Visit: yes Reason for Continuing Indwelling Catheter: Accurate Measurement of Urinary Output in Critically Ill Patients Urinary Catheter Date of Insertion: 08/26/25 Urinary Catheter Time of Insertion: 00:05 Data 08/26/25 05:12 08/26/25 05:12 Micro: Microbiology 08/24/25 18:08 Blood Culture - Preliminary Blood NEGATIVE TO DATE 08/24/25 17:58 Blood Culture - Preliminary Blood NEGATIVE TO DATE A&P Assessment and plan 1. Hemorrhagic shock: 2. GI bleed: 3. Septic shock: 4. Pneumonia: 5. Atrial fibrillation with rapid ventricular response: 6. COPD (chronic obstructive pulmonary disease): 7. Acute exacerbation of chronic obstructive airways disease: 8. Acute respiratory failure with hypoxia: 9. COPD with acute exacerbation: Plan: Gastrointestinal bleed - Upper versus lower GI bleed -Status post 4 units PRBC Plan - N.p.o. - IV fluids have been stopped - Albumin therapy currently off - Hemoglobin stable - EGD no acute findings - Monitor for black tarry or bloody bowel movements -Protonix -Carafate Shock, currently on Levophed -Multifactorial -Concern for hemorrhagic shock associated with GI bleed, resolving -Concerns for septic shock associate with pneumonia -Albumin therapy as needed -Levophed to maintain MAP in the 65 -IV fluids have been discontinued Acute hypoxic respiratory failure -Secondary to pneumonia -With sepsis and septic shock -With COPD exacerbation -Now with acute flash pulmonary edema, systolic CHF exacerbation, fluid overload -Currently intubated, sedated on mechanical ventilation -Plan -Propofol for sedation -Fentanyl for sedation -Minimize PEEP, minimize FiO2 -Follow-up cultures -Vancomycin -Meropenem -Solu-Medrol 40 mg IV every 8 hours -Lasix 40 IV twice daily monitor urine output, monitor creatinine -Cardiac echo -Pulmonary consulted -Monitor respiratory status closely Atrial fibrillation with rapid ventricular spots - Continue p.o. amiodarone -Placed on Cardene drip due to A-fib with RVR, currently off as patient converted to normal sinus rhythm Full code SCDs for DVT prophylaxis, Lovenox relatively contraindicated given GI bleed PDMP PDMP Reviewed: Not Reviewed Attestations 2 Medical Necessity Statement*: Patient requires hospitalization for acute hypoxic respiratory failure, pneumonia, sepsis, septic shock, acute flash pulmonary edema, acute systolic CHF, COPD exacerbation, GI bleed Coding Level of Care Code Critical Care >/= 30 minutes Critical care time (in minutes): 45 The high probability of a clinically significant, sudden or life threatening deterioration, as referenced in this documentation, required my full and direct attention, intervention and personal management. The critical care time shown is in addition to time spent performing any reported separately billable procedures and includes the following: [x] Data and vital sign review and interpretation [x ] Patient assessment, examination and intervention [x] Medication orders and management [x] Patient/Family updates as able [x] Care Coordination and Documentation. Diagnoses Hemorrhagic shock R57.8 GI bleed K92.2 Septic shock A41.9; R65.21 Pneumonia J18.9 Atrial fibrillation with rapid ventricular response I48.91 COPD (chronic obstructive pulmonary disease) J44.9 Acute exacerbation of chronic obstructive airways disease J44.1 Acute respiratory failure with hypoxia J96.01 COPD with acute exacerbation J44.1 Sepsis Event Note ED Sepsis Screening 2 Sepsis Screen No Definite Risk 08/23/25, 06:03 Quick SOFA Score 1 08/24/25, 17:57 If qSOFA score 2 or greater, continue SOFA Score: 2 ABG PO2/FiO2 Ratio 142 Today, 04:19 Bhaskar Coma Scale Score 11 Today, 09:07 Blood Pressure Mean 98 mmHg Today, 16:00 Total Bilirubin, (0.15-1.2) 0.6 mg/dL Today, 05:12 Platelet Count, (157-399) 207 10^3/cmm Today, 05:12 Creatinine, (0.5-0.9) 0.5 mg/dL Today, 05:12 PaO2/FiO2 Ratio (mmHg): 142 Bhaskar coma scale: 11 Blood Pressure Mean: 98 Bilirubin (mg/dl): 0.6 Platelets (x10?/ml): 207 Creatinine (mg/dl): 0.5 SOFA Score: 5 Evaluation Current stage of sepsis: sepsis Sepsis stage criteria used: CMS Sep-1 and Sepsis-3 Crystalloid fluids: less than 30 mL/kg crystalloid fluids ordered Blood cultures ordered: Yes Possible source: pulmonary Focused Exam Vital signs: Temp Pulse Resp BP Pulse Ox O2 Del Method FiO2 08/26/25 16:00 90 139/78 96 08/26/25 15:45 76 95/63 96 08/26/25 15:30 79 108/64 96 08/26/25 15:22 12 97 50 08/26/25 15:19 80 12 98 Mechanical Ventilation 50 08/26/25 15:15 69 95/63 97 08/26/25 15:00 74 100/64 96 08/26/25 14:45 74 105/59 97 08/26/25 14:30 78 126/73 95 08/26/25 14:15 122/69 08/26/25 14:00 70 08/26/25 14:00 78 112/66 97 08/26/25 13:45 79 114/62 97 08/26/25 13:30 81 100/64 96 08/26/25 13:15 82 106/65 96 08/26/25 13:00 89 108/64 96 08/26/25 12:45 86 108/65 96 08/26/25 12:30 91 105/65 96 08/26/25 12:15 90 97/58 95 08/26/25 12:00 103 H 131/71 94 08/26/25 11:45 99 123/81 96 08/26/25 11:30 84 104/66 97 08/26/25 11:24 12 96 55 08/26/25 11:23 80 12 96 Mechanical Ventilation 55 08/26/25 11:15 82 102/63 96 08/26/25 11:00 81 104/64 96 08/26/25 10:45 83 102/63 96 08/26/25 10:30 85 124/73 96 08/26/25 10:15 109 H 131/76 96 08/26/25 10:00 97 132/79 95 08/26/25 09:45 99 124/76 96 08/26/25 09:30 94 123/69 95 08/26/25 09:15 90 123/73 96 08/26/25 09:07 60 08/26/25 09:02 97.6 F 08/26/25 09:00 82 115/69 96 08/26/25 09:00 13 96 60 08/26/25 08:59 89 12 97 Mechanical Ventilation 60 08/26/25 08:45 78 98/58 98 08/26/25 08:30 71 92/58 97 08/26/25 08:15 75 100/58 96 08/26/25 08:00 73 101/59 95 08/26/25 07:45 74 88/60 95 08/26/25 07:30 76 98/66 94 08/26/25 07:15 79 80/55 96 08/26/25 07:00 82 92/58 94 08/26/25 06:45 83 88/56 94 08/26/25 06:30 84 89/57 93 08/26/25 06:15 83 92/59 92 08/26/25 06:00 87 85/59 93 Mechanical Ventilation 60 08/26/25 06:00 87 08/26/25 05:45 86 95/59 93 Mechanical Ventilation 60 08/26/25 05:30 90 93/62 94 Mechanical Ventilation 60 Respiratory exam: crackles present and positive wheezes Cardiovascular Exam: regular rate, regular rhythm, S1 normal heart sound and S2 normal heart sound Capillary refill: < 3 Seconds Peripheral pulse strength: 2+ Slightly Diminished Peripheral pulse location: Radial and Pedal Skin exam: turgor normal Details: No mottling Date exam was performed: 08/26/25 Time exam was performed: 17:18 Problem List 1. Hemorrhagic shock: 2. GI bleed: 3. Septic shock: 4. Pneumonia: 5. Atrial fibrillation with rapid ventricular response: 6. COPD (chronic obstructive pulmonary disease): 7. Acute exacerbation of chronic obstructive airways disease: 8. Acute respiratory failure with hypoxia: 9. COPD with acute exacerbation:
--- NOTE | 2025-08-26 17:52 | PC.NURSE ---
Held insulin due to NPO status, notified Dr. Ward who okayed
[2025-08-26 18:19] LABS: Anion Gap 16.7 (5-19); Blood Urea Nitrogen 19 mg/dL (8-23); Calcium 9.5 mg/dL (8.5-10.5); Carbon Dioxide 36 mmol/L (22-29); Chloride 92 mmol/L (98-107); Glucose 167 mg/dL (65-115); Osmolality Calculated 300 mOsm/kg (285-295); Sodium 142 mmol/L (136-145)
[2025-08-26 18:40] LABS: Potassium 2.7 mmol/L (3.5-5.1)
[2025-08-26] MEDS: DILTIAZEM HCL/D5W 125 MG/125 ML BAG IV (20:35)
--- NOTE | 2025-08-26 21:08 | PC.NURSE ---
Patient received critical potassium of 2.7, has lasix 40 mg ordered to be given. Physician notified and ordered to hold lasix until next BMP results.
[2025-08-26] MEDS: VANCOMYCIN IV (21:14)
[2025-08-26] MEDS: SODIUM CHLORIDE 0.9% IV (21:14)
[2025-08-27] VITALS (76 sets, daily range): BP systolic 67–147; BP diastolic 46–94; PULSE 65–146; RESP 5–14; TEMP 36.4; O2SAT 89–98
[2025-08-27] MEDS: propofol 1,000 MG/100 ML INJ 13.8 MG IV
[2025-08-27] MEDS: lidocaine 1% 5 ML in potassium chloride premix 100 ML 26.25 ML IV (00:05)
[2025-08-27 01:18] LABS: Alanine Aminotransferase 40 U/L (0-33); Albumin Level 4.6 g/dL (3.5-5.2); Alkaline Phosphatase 129 U/L (35-105); Anion Gap 10.9 (5-19); Aspartate Amino Transferase 23 U/L (0-32); Blood Urea Nitrogen 19 mg/dL (8-23); Calcium 9.2 mg/dL (8.5-10.5); Carbon Dioxide 40 mmol/L (22-29); Chloride 93 mmol/L (98-107); Globulin 1.6 g/dL (1.3-4.6); Glucose 207 mg/dL (65-115); Magnesium 2.1 mg/dL (1.7-2.3); Osmolality Calculated 298 mOsm/kg (285-295); Potassium 3.9 mmol/L (3.5-5.1); Sodium 140 mmol/L (136-145); Total Protein 6.2 g/dL (6.6-8.7)
[2025-08-27] MEDS: fentaNYL 1,000 MCG/100 ML BAG 15 MCG IV (01:20)
[2025-08-27] MEDS: norepinephrine 4 MG/250 ML BAG 22.5 MG IV (02:34)
[2025-08-27] MEDS: methylPREDNISolone sod succ 40 mg/mL INJ IVP ×3 (02:42→17:01)
[2025-08-27 04:06] LABS: ABG PCO2 59.1 mmHg (35-45); ABG PH Result 7.43 (7.35-7.45); Arterial Blood Gas Hematocrit 36.3 % (37-47); Blood Gas Allen Test Pos; Blood Gas Operator Identificat BD; Blood Gas Sample Site Brachial, left; Blood Gas Sample Type Arterial; Blood Gas Tidal Volume 0.40; HCO3 ABG 39.1 mmol/L (22-26); PEEP 10.0 cmH20; PO2 ABG 70.4 mmHg (80.0-100.0); PO2 FiO2 Ratio Arterial Blood 140
[2025-08-27 04:29] LABS: Hematocrit 33.4 % (36-47); Hemoglobin 11.40 g/dL (11.27-16.99); Mean Corpuscular HGB Conc 34.1 g/dL (30-55); Mean Corpuscular Hemoglobin 30.6 pg (27-33); Mean Corpuscular Volume 89.5 fl (85-98); Nucleated Red Blood Cells % 0 %; Platelet Count 247 10^3/cmm (157-399); Red Blood Count 3.73 10^6/uL (3.85-5.65)
[2025-08-27 04:34] LABS: White Blood Count 31.33 10^3/uL (3.29-11.43)
[2025-08-27 04:38] LABS: INR 0.89 (0.8-1.2); Prothrombin Time 12.70 SECONDS (12.1-14.9)
[2025-08-27 04:48] LABS: Alanine Aminotransferase 42 U/L (0-33); Albumin Level 4.6 g/dL (3.5-5.2); Alkaline Phosphatase 129 U/L (35-105); Anion Gap 14.6 (5-19); Aspartate Amino Transferase 25 U/L (0-32); Blood Urea Nitrogen 19 mg/dL (8-23); Calcium 9.2 mg/dL (8.5-10.5); Carbon Dioxide 35 mmol/L (22-29); Chloride 95 mmol/L (98-107); Globulin 1.6 g/dL (1.3-4.6); Glucose 199 mg/dL (65-115); Magnesium 2.2 mg/dL (1.7-2.3); Osmolality Calculated 298 mOsm/kg (285-295); Potassium 4.6 mmol/L (3.5-5.1); Sodium 140 mmol/L (136-145); Total Protein 6.2 g/dL (6.6-8.7)
[2025-08-27 04:49] LABS: Lactate (Lactic Acid level) 1.4 mmol/L (0.5-2.2)
[2025-08-27 04:52] LABS: NT Pro B Type Natriuretic Pept 3223 pg/mL (0-125); Procalcitonin 4.68 ng/mL (0-0.5)
--- NOTE | 2025-08-27 05:25 | PC.NURSE ---
Patient went back into afib RVR, physician notified new orders received to restart cardizem drip. Patient remains intubated with increasing pulse rates into the 160's. Patient remained on drip throughout most of the night with heart rate 100-120 consistently, and then converted back to normal sinus this morning.
--- NOTE | 2025-08-27 07:00 | XRR_ITS ---
PROCEDURE INFORMATION: Exam: XR Chest Exam date and time: 08/27/2025 9:01 AM Age: 65 years old Clinical indication: Shortness of breath; Additional info: SOB TECHNIQUE: Imaging protocol: Radiologic exam of the chest. Views: 1 view. COMPARISON: CR (CHEST, ) 08/25/2025 11:32 PM FINDINGS: Lungs: Mild infiltrates in the lower lobes are stable. Pleural spaces: Tiny pleural effusions are present. Heart/Mediastinum: No change in the heart or mediastinum. Bones/joints: Unremarkable. Other findings: Stable life-support lines. XR/XR chest 1V portable [id number] IMPRESSION: No significant change.
[2025-08-27] MEDS: FUROsemide 10 mg/mL SDV 4mL 40 MG IVP ×2 (08:29→20:09)
[2025-08-27] MEDS: propofol 1,000 MG/100 ML INJ 11.04 MG IV (08:30)
[2025-08-27] MEDS: pantoprazole 40 mg SDV IVP ×2 (08:30→20:09)
[2025-08-27] MEDS: fentaNYL 1,000 MCG/100 ML BAG 12.5 MCG IV (08:30)
[2025-08-27] MEDS: amiodarone 150 MG/100 ML PREMIX 400 MG IV ×2 (09:22→11:56)
[2025-08-27] MEDS: dexmedeTOMIDine 0.9 % NaCL 400 MCG/100 ML PREMIX IV (09:22)
[2025-08-27] MEDS: SODIUM CHLORIDE 0.9% IV ×2 (10:55→22:08)
[2025-08-27] MEDS: VANCOMYCIN IV ×2 (10:55→22:08)
[2025-08-27] MEDS: AMIODARONE HCL/D5W 900 MG/500 ML BAG 33.33 MG IV (10:58)
--- NOTE | 2025-08-27 12:20 | PM.PN ---
Subjective Subjective: - Patient was seen this morning - She is currently alert, she can follow commands, on 60% FiO2, 8 of Levophed - Currently in A-fib with RVR, - Normotensive, - No family numbers at bedside - Urine output 3850 Vitals/I&O/Wt Last Vital Signs Temp 97.6 F 08/26/25 09:02 Pulse 143 H 08/27/25 11:34 Resp 10 L 08/27/25 11:39 BP 147/78 08/27/25 10:30 Pulse Ox 89 L 08/27/25 11:39 O2 Del Method Mechanical Ventilation 08/27/25 11:34 O2 Flow Rate 6 08/25/25 21:50 FiO2 55 08/27/25 11:39 08/26/25 08/27/25 08/27/25 22:59 06:59 14:59 Intake Total 394.492 / 921.791 538.418 / 1460.209 289.032 / 289.032 Output Total 3050 / 3050 800 / 3850 Balance -2655.508 / -2128.209 -261.582 / -2389.791 289.032 / 289.032 Weight last 48 hrs Weight 49 kg Weight 40 kg Physical Exam Const: COMMON NORMALS: no acute distress ORIENTATION/CONSCIOUSNESS: Yes awake and Yes oriented to person; not oriented to place and not oriented to time OTHER: He can follow commands, squeezes my fingers, wiggles her toes, able to nod to yes or no questions Eye: COMMON NORMALS: Equal, round and reactive pupils present PUPIL: Yes Equal, round and reactive pupils present Lymph: LYMPHATIC: no lymphadenopathy noted Resp: COMMON NORMALS: normal respiratory effort, No retractions and No use of accessory muscles AUSCULTATION: crackles Cardio: COMMON NORMALS: S1 normal heart sound present and S2 normal heart sound present RATE: tachycardic RHYTHM: abnormal rhythm irregularly irregular HEART SOUNDS: S1 normal heart sound present and S2 normal heart sound present GI: COMMON NORMALS: Normal to inspection, nondistended, normoactive bowel sounds present and non-tender Extremity: COMMON NORMALS: no pedal edema Neuro: SENSORIUM/ORIENTATION: Yes oriented to person, No oriented to place and No oriented to time Skin: COMMON NORMALS: turgor normal GENERAL SKIN EXAM: turgor normal Urinary Catheter Management: Kim: Cath Placed During This Visit: yes Reason for Continuing Indwelling Catheter: Accurate Measurement of Urinary Output in Critically Ill Patients Urinary Catheter Date of Insertion: 08/26/25 Urinary Catheter Time of Insertion: 00:05 Quick SOFA Score: Respiratory Rate: 10 Blood Pressure: 147/78 [place] Coma Scale: 11 qSOFA Score: 1 If qSOFA score 2 or greater, continue: PaO2/FiO2 Ratio (mmHg): 140 Blood Pressure Mean: 101 Bilirubin (mg/dl): 0.7 Platelets (x10?/ml): 247 Creatinine (mg/dl): 0.5 SOFA Score: 5 Evaluation: Current stage of sepsis: septic shock Sepsis stage criteria used: [facility] Sep-1 and Sepsis-3 Focused Exam: Vital signs: Pulse Resp BP Pulse Ox O2 Del Method FiO2 08/27/25 11:39 10 L 89 L 55 08/27/25 11:34 143 H 12 90 Mechanical Ventila tion 50 08/27/25 10:30 135 H 147/78 95 08/27/25 10:00 132 H 141/94 94 08/27/25 09:41 5 L 96 50 08/27/25 09:30 134 H 100/67 93 08/27/25 09:00 119 H 114/64 92 08/27/25 08:30 133 H 111/70 93 08/27/25 08:00 85 118/66 92 08/27/25 07:38 10 L 94 50 08/27/25 07:35 83 10 L 95 Mechanical Ventila tion 50 08/27/25 07:30 82 126/61 93 08/27/25 07:00 76 117/65 93 08/27/25 06:30 71 116/61 93 08/27/25 06:15 67 119/64 93 08/27/25 06:00 65 120/62 96 08/27/25 06:00 10 L 95 50 08/27/25 06:00 95 10 L 94 Mechanical Ventila tion 50 08/27/25 05:57 66 08/27/25 05:45 65 113/62 94 08/27/25 05:30 66 108/59 93 08/27/25 05:15 68 109/61 93 08/27/25 05:00 70 108/62 93 08/27/25 04:45 74 113/64 92 08/27/25 04:30 82 111/77 91 08/27/25 04:15 108 H 103/74 97 08/27/25 04:00 103 H 94/65 94 08/27/25 03:45 81 104/65 93 08/27/25 03:30 87 106/66 93 08/27/25 03:15 95 105/62 93 08/27/25 03:00 90 101/67 94 08/27/25 02:45 89 92/54 95 08/27/25 02:37 12 95 50 08/27/25 02:30 84 90/65 94 08/27/25 02:15 109 H 108/63 98 08/27/25 02:14 99 108/63 96 08/27/25 01:45 95 101/69 97 08/27/25 01:30 95 96/61 96 08/27/25 01:15 96 93/64 97 08/27/25 01:00 113 H 97/59 95 08/27/25 00:45 102 H 99/64 96 08/27/25 00:30 104 H 89/64 95 Respiratory exam: crackles present Cardiovascular exam: S1 normal heart sound, S2 normal heart sound, tachycardia and abnormal rhythm Capillary refill: > 3 Seconds Peripheral pulse strength: 2+ Slightly Diminished Peripheral pulse location: Radial Skin exam: turgor normal Date exam was performed: 08/27/25 Time exam was performed: 12:29 Sepsis Screen No Definite Risk 08/23/25, 06:03 Respiratory Rate, (12 - 18) 10 breaths/min L Today, 11:39 Blood Pressure 147/78 mmHg Today, 10:30 [place] Coma Scale Score 11 Today, 08:00 Quick SOFA Score 1 Today, 12:23 SOFA Score: ABG PO2/FiO2 Ratio 140 Today, 03:55 [place]ar Coma Scale Score 11 Today, 08:00 Blood Pressure Mean 101 mmHg Today, 10:30 Total Bilirubin, (0.15-1.2) 0.7 mg/dL Today, 04:11 Platelet Count, (157-399) 247 10^3/cmm Today, 04:11 Creatinine, (0.5-0.9) 0.5 mg/dL Today, 04:11 SOFA Score 5 Today, 12:23 Data 08/27/25 04:11 08/27/25 04:11 A&P Assessment and plan 1. Tobacco use: 2. COPD (chronic obstructive pulmonary disease): 3. Acute respiratory failure with hypoxia: 4. Hemorrhagic shock: 5. GI bleed: 6. Septic shock: 7. Pneumonia: 8. Atrial fibrillation with rapid ventricular response: 9. Acute exacerbation of chronic obstructive airways disease: 10. COPD with acute exacerbation: Plan: Gastrointestinal bleed - Upper versus lower GI bleed -Status post 4 units PRBC Plan - N.p.o. - IV fluids have been stopped - Albumin therapy currently off - Hemoglobin stable - EGD no acute findings - Monitor for black tarry or bloody bowel movements -Protonix -Carafate Shock, currently on Levophed -Multifactorial -Concern for hemorrhagic shock associated with GI bleed, resolving -Concerns for septic shock associate with pneumonia -Albumin therapy as needed -Levophed to maintain MAP in the 65 -IV fluids have been discontinued Acute hypoxic respiratory failure -Secondary to pneumonia -With sepsis and septic shock -With COPD exacerbation -Now with acute flash pulmonary edema, systolic CHF exacerbation, fluid overload -Currently intubated, sedated on mechanical ventilation -Plan -Propofol for sedation -Fentanyl for sedation -Precedex for sedation -Minimize PEEP, minimize FiO2 -Follow-up cultures -Vancomycin -Meropenem -Solu-Medrol 40 mg IV every 8 hours -Lasix 40 IV twice daily monitor urine output, monitor creatinine -Cardiac echo -Pulmonary consulted -Monitor respiratory status closely Atrial fibrillation with rapid ventricular spots - IV amiodarone - 1 dose digoxin Full code SCDs for DVT prophylaxis, Lovenox relatively contraindicated given GI bleed Protonix for GI prophylaxis PDMP PDMP Reviewed: Not Reviewed Attestations Medical Necessity Statement*: Patient requires hospitalization for acute hypoxic respiratory failure, pneumonia, septic shock, COPD, A-fib RVR, fluid overload Coding Level of Care Code Critical Care >/= 30 minutes Critical care time (in minutes): 45 The high probability of a clinically significant, sudden or life threatening deterioration, as referenced in this documentation, required my full and direct attention, intervention and personal management. The critical care time shown is in addition to time spent performing any reported separately billable procedures and includes the following: [x] Data and vital sign review and interpretation [x] Patient assessment, examination and intervention [x] Medication orders and management [x] Patient/Family updates as able [x] Care Coordination and Documentation. Diagnoses Tobacco use Z72.0 COPD (chronic obstructive pulmonary disease) J44.9 Acute respiratory failure with hypoxia J96.01 Hemorrhagic shock R57.8 GI bleed K92.2 Septic shock A41.9; R65.21 Pneumonia J18.9 Atrial fibrillation with rapid ventricular response I48.91 Acute exacerbation of chronic obstructive airways disease J44.1 COPD with acute exacerbation J44.1
[2025-08-27] MEDS: digoxin 250 mcg/ml INJ 2 mL IVP (13:18)
--- NOTE | 2025-08-27 14:38 | P.PN_ITS ---
Subjective 2 Subjective: Martha Damico is a 65 year old female with past medical history of chronic respiratory failure, smoker, A-fib, COPD, CAD initially presents on 08/23/2025 due to possible GI bleed. She suddenly, decompensated last night and had to be emergently intubated. She was noted to have some pleuritic chest discomfort and productive cough prior to admission. She was seen by GI and had an EGD done no source of bleeding noted. Probably colonoscopy planned later. She was given 3 units of IV fluids as well as maintain on IV fluids out of bed subsequently stopped. Initially was also on diltiazem for A-fib but in normal sinus rhythm now it stopped currently. 08/27/25 No cuff leak, awake and tolerating vent well. on precedex 0.4 and fentanyl 125 mcgs. tachycardic Review of systems unobtainable patient is intubated Vitals/I&O/Wt Last Vital Signs Temp 97.6 F 08/26/25 09:02 Pulse 81 08/27/25 13:00 Resp 10 L 08/27/25 11:39 BP 90/60 08/27/25 13:00 Pulse Ox 94 08/27/25 13:00 O2 Del Method Mechanical Ventilation 08/27/25 11:34 O2 Flow Rate 6 08/25/25 21:50 FiO2 55 08/27/25 11:39 08/26/25 08/27/25 08/27/25 22:59 06:59 14:59 Intake Total 394.492 / 921.791 538.418 / 1460.209 571.506 / 571.506 Output Total 3050 / 3050 800 / 3850 Balance -2655.508 / -2128.209 -261.582 / -2389.791 571.506 / 571.506 Weight last 48 hrs Weight 108 lb 0.424 oz Weight 88 lb 2.958 oz Physical Exam 2 Narrative: Per RN General: Intubated sedated HEENT: EOMI Pulmonary: Diminished breath sounds bilaterally Cardiovascular: rrr, nl s1s2, Abdomen: soft, nt, nd, no r/g, Extremities: no edema Neurologic: grossly intact Agree with above exam Urinary Catheter Management: Kim: Cath Placed During This Visit: yes Reason for Continuing Indwelling Catheter: Accurate Measurement of Urinary Output in Critically Ill Patients Urinary Catheter Date of Insertion: 08/26/25 Urinary Catheter Time of Insertion: 00:05 Data 08/27/25 04:11 08/27/25 04:11 A&P Assessment and plan 1. Tobacco use: 2. COPD (chronic obstructive pulmonary disease): 3. Acute respiratory failure with hypoxia: Plan: # Acute hypoxemic hypercarbic respiratory failure Currently on mechanical ventilation tolerating VC AC mode. Plateau pressures with peaks maintained below 30. Maintain sats 88 to 92%. Bronchopulmonary hygiene bronchodilator therapy CXR reviewed from 08/27/25- Bibasilar infiltates. no change ABG reviewed currently ABG 7.43 pCO2 of 59 08/27/2025. #Upper airway edema - No cuff leak today. Is tolerating SBT well although - Will start benadryl, already on protonix and solumedrol # Acute COPD exacerbation Continue DuoNebs. Continue Solu-Medrol 40 Q8 # Acute GI bleed probably related to colonic diverticulosis EGD done no source of bleed noted. Currently hemoglobin is stable at - 08/27/25. Plan for colonoscopy on a later date. Did not need anymore blood products. On Protonix IV twice daily. On protonix and carafate # Probable septic shock secondary to pneumonia Reviewed chest x-ray images show COPD exacerbation chest x-ray results show pulmonary vascular congestion Continue vancomycin and meropenem Deescalate according to cultures- NGTD - 08/27/25 # Acute flash pulm edema. Reviewed labs BNP is elevated on 08/26/2025. Monitor urine output and creatinine Lasix 40 twice daily.. Avoid and limit all fluids. Echocardiogram reviewed 08/13/25- EF 60%. BNP 3223- 08/27/25. # A-fib with RVR on currently normal sinus rhythm Continue p.o. amiodarone p.o. 400 twice daily. Cardene drip as needed Echocardiogram pending # Hypokalemia-replace aggressively # Mild transaminitis most likely secondary to shock # Hyperglycemia-insulin sliding scale medium. Avoid hypoglycemia. Maintain blood sugars between 140-180. Dextrose drip if needed to maintain blood sugars above 90 # Sedation-continue Versed as needed and fentanyl drip for now. # Nutrition-start tube feeds tomorrow tube feeds, monitor BMs # DVT GI prophylaxis-SCDs and famotidine. Hold off on anticoagulation secondary to anemia which could be acute blood loss. # Goals of care- no family at bedside # CODE STATUS- FULL # Disposition-Will need full ICU support follow-up The high probability of a clinically significant, sudden or life threatening deterioration of the patient's [Respiratory, cardiac and renal] system(s) required my full and direct attention, intervention and personal management. The critical care time is as shown. This time is in addition to time spent performing any reported procedures but includes the following: [x] Data and vital sign review and interpretation [x] Patient assessment, examination and intervention [x] Documentation [x] Medication orders and management Critical Care Time (min): 35 Telemedicine Consent Patient seen today via Telemedicine by agreement and consent of patient.? Telemedicine technology used during the visit includes audio and, as available, review of images.? The patient encounter is appropriate and reasonable under the circumstances given the patient?s particular presentation at this time.? The patient has been advised of the potential risks and limitations of this mode of treatment (including but not limited to the absence of in-person examination) and has agreed to be treated in a remote fashion in spite of them.? Any, and all, of the patient?s/patient?s family?s questions on this issue have been answered and I have made no promises or guarantees to the patient. PDMP PDMP Reviewed: Not Reviewed Attestations 2 Medical Necessity Statement*: on mechanical ventillation Coding Level of Care Code Critical Care >/= 30 minutes Diagnoses Tobacco use Z72.0 COPD (chronic obstructive pulmonary disease) J44.9 Acute respiratory failure with hypoxia J96.01
[2025-08-27] MEDS: norepinephrine 4 MG/250 ML BAG 7.5 MG IV (17:02)
[2025-08-27] MEDS: diphenhydrAMINE 50 mg/mL SDV 1mL IVP (17:02)
[2025-08-27] MEDS: dexmedeTOMIDine 0.9 % NaCL 400 MCG/100 ML PREMIX 9.8 MCG IV (19:00)
--- NOTE | 2025-08-27 19:11 | PC.NURSE ---
Gtt titration: Upon arrival to shift, the following gtts were observed -propofol not infusing, MAR updated to reflect dose -precedex running at 0.8mcg/kg/hr, MAR updated to reflect dose -levophed not infusing, MAR updated to reflect dose
--- NOTE | 2025-08-27 23:30 | PC.NURSE ---
Fentanyl: Fentanyl showed infusion to be complete in MAR, this nurse observed a new bag hanging and infusing in patient room. Dayshift nurse was contacted and informed this nurse that a new bag was pulled from [facility] by a different nurse, then hung by her, medication not scanned into MAR.
[2025-08-28] VITALS (61 sets, daily range): BP systolic 78–138; BP diastolic 48–98; PULSE 66–110; RESP 6–15; TEMP 36.3–37.6; O2SAT 90–98; BMI 15.5
[2025-08-28] MEDS: fentaNYL 1,000 MCG/100 ML BAG 12.5 MCG IV ×2 (00:41→06:48)
[2025-08-28] MEDS: AMIODARONE HCL/D5W 900 MG/500 ML BAG 33.33 MG IV (01:15)
[2025-08-28] MEDS: methylPREDNISolone sod succ 40 mg/mL INJ IVP ×2 (01:20→09:30)
[2025-08-28] MEDS: dexmedeTOMIDine 0.9 % NaCL 400 MCG/100 ML PREMIX 8.58 MCG IV (04:12)
[2025-08-28 04:44] LABS: ABG PH Result 7.53 (7.35-7.45); Arterial Blood Gas Hematocrit 37.6 % (37-47); Blood Gas Allen Test Pos; Blood Gas Sample Site Radial, right; Blood Gas Sample Type Arterial; HCO3 ABG 53.0 mmol/L (22-26); PO2 ABG 82.5 mmHg (80.0-100.0)
[2025-08-28 04:45] LABS: Blood Gas Operator Identificat JDB; Blood Gas Tidal Volume 0.40; PEEP 8.0 cmH20; PO2 FiO2 Ratio Arterial Blood 165
[2025-08-28 04:47] LABS: Hematocrit 34.8 % (36-47); Hemoglobin 11.90 g/dL (11.27-16.99); Mean Corpuscular HGB Conc 34.2 g/dL (30-55); Mean Corpuscular Hemoglobin 30.7 pg (27-33); Mean Corpuscular Volume 89.7 fl (85-98); Nucleated Red Blood Cells % 0 %; Platelet Count 241 10^3/cmm (157-399); Red Blood Count 3.88 10^6/uL (3.85-5.65)
[2025-08-28 04:50] LABS: ABG PCO2 62.9 mmHg (35-45)
[2025-08-28 05:11] LABS: Lactate (Lactic Acid level) 1.4 mmol/L (0.5-2.2)
[2025-08-28 05:13] LABS: Digoxin 0.5 ng/mL (0.6-1.2)
[2025-08-28 05:14] LABS: Alanine Aminotransferase 43 U/L (0-33); Albumin Level 4.7 g/dL (3.5-5.2); Alkaline Phosphatase 120 U/L (35-105); Aspartate Amino Transferase 25 U/L (0-32); Blood Urea Nitrogen 28 mg/dL (8-23); Calcium 9.2 mg/dL (8.5-10.5); Chloride 82 mmol/L (98-107); Globulin 1.6 g/dL (1.3-4.6); Glucose 173 mg/dL (65-115); Magnesium 1.9 mg/dL (1.7-2.3); Osmolality Calculated 298 mOsm/kg (285-295); Sodium 139 mmol/L (136-145); Total Protein 6.3 g/dL (6.6-8.7)
[2025-08-28 05:16] LABS: White Blood Count 30.96 10^3/uL (3.29-11.43)
--- NOTE | 2025-08-28 05:17 | PC.NURSE ---
Hold benadryl: Dr. Rosenberg gave telephone orders to hold morning dose of benadryl.
[2025-08-28] MEDS: chlorhexidine gluconate 4% Btl 118 mL 1 APPLIC TOPICAL ×2 (05:30→20:40)
[2025-08-28 06:05] LABS: Carbon Dioxide 50 mmol/L (22-29)
[2025-08-28 06:06] LABS: Anion Gap 10.1 (5-19); Potassium 3.1 mmol/L (3.5-5.1)
[2025-08-28 06:22] LABS: INR 0.93 (0.8-1.2); Prothrombin Time 13.20 SECONDS (12.1-14.9)
[2025-08-28 07:00] LABS: NT Pro B Type Natriuretic Pept 4056 pg/mL (0-125); Procalcitonin 2.32 ng/mL (0-0.5)
--- NOTE | 2025-08-28 07:00 | XRR_ITS ---
PROCEDURE INFORMATION: Exam: XR Chest Exam date and time: 08/28/2025 8:48 AM Age: 65 years old Clinical indication: Shortness of breath; Additional info: SOB TECHNIQUE: Imaging protocol: Radiologic exam of the chest. Views: 1 view. COMPARISON: CR (CHEST, ) 08/27/2025 9:01 AM FINDINGS: Tubes, catheters and devices: Stable support hardware. Lungs: No new airspace disease. Similar mild interstitial prominence in the lung bases. Pleural spaces: Similar trace bilateral pleural effusions. Heart/Mediastinum: Unremarkable. No cardiomegaly. Bones/joints: Unremarkable. XR/XR chest 1V portable 36128 IMPRESSION: No significant interval change.
[2025-08-28] MEDS: lidocaine 1% 5 ML in potassium chloride premix 100 ML 26.25 ML IV (09:11)
[2025-08-28] MEDS: pantoprazole 40 mg SDV IVP ×2 (09:29→20:23)
[2025-08-28] MEDS: digoxin 250 mcg/ml INJ 2 mL 125 MCG IVP (09:29)
[2025-08-28] MEDS: sucralfate 1 gm/10 mL Oral Liq UDC PO ×3 (09:30→20:23)
--- NOTE | 2025-08-28 09:50 | PC.NURSE ---
Heart rhythm converted to sinus rhythm.
[2025-08-28] MEDS: VANCOMYCIN IV (10:10)
[2025-08-28] MEDS: SODIUM CHLORIDE 0.9% IV (10:10)
--- NOTE | 2025-08-28 10:43 | PC.NURSE ---
COLLEEN Lima called for update. Update provided. All questions answered.
--- NOTE | 2025-08-28 12:15 | PC.SOCIAL ---
IMM Updated Updated pt on IMM. No questions voiced. Provided pt a copy. Initialed, dated, & timed copy in chart.
[2025-08-28 14:04] LABS: ABG PH Result 7.44 (7.35-7.45); Alveolar-Arterial Oxygen Gradi 31.1 mmHg (5-10); Arterial Blood Gas Hematocrit 34.5 % (37-47); Blood Gas Allen Test Pos; Blood Gas Operator Identificat GD; Blood Gas Sample Site Radial, right; Blood Gas Sample Type Arterial; Blood Gas Tidal Volume 0.30; Carboxyhemoglobin 0.7 %THgb (0.4-20.1); Glucose Level-ABG 105.0 mg/dL (70-115); HCO3 ABG 50.7 mmol/L (22-26); Ionized Calcium Level - ABG 1.1 mmol/L (1.1-1.4); Methemoglobin 1.0 % (0.4-1.5); Oxygen Saturation ABG 98.2; PEEP 8.0 cmH20; PO2 ABG 104.0 mmHg (80.0-100.0); PO2 FiO2 Ratio Arterial Blood 173; Potassium Level - ABG 3.6 mmol/L (3.5-5.0); Sodium Level - ABG 140.0 mmol/L (131-143)
[2025-08-28 14:06] LABS: Anion Gap 7.9 (5-19); Blood Urea Nitrogen 34 mg/dL (8-23); Calcium 8.9 mg/dL (8.5-10.5); Chloride 88 mmol/L (98-107); Glucose 126 mg/dL (65-115); Osmolality Calculated 299 mOsm/kg (285-295); Potassium 3.9 mmol/L (3.5-5.1); Sodium 140 mmol/L (136-145)
[2025-08-28 14:07] LABS: Carbon Dioxide 48 mmol/L (22-29)
[2025-08-28 14:09] LABS: ABG PCO2 74.4 mmHg (35-45)
[2025-08-28] MEDS: dexmedeTOMIDine 0.9 % NaCL 400 MCG/100 ML PREMIX 12.25 MCG IV (14:31)
--- NOTE | 2025-08-28 14:51 | P.PN_ITS ---
Subjective 2 Subjective: - Currently patient was seen this coby guardado - She is alert she can follow commands s he is able to nod to yes or no questions - Currently on 1 of Levophed - In atrial fibrillation rate well-contr olled, on amiodarone drip - 60% FiO2 - Plan on spontaneous breathing trial to day Vitals/I&O/Wt Last Vital Signs Temp 99.3 F 08/28/25 14:00 Pulse 77 08/28/25 14:00 Resp 6 L 08/28/25 14:12 BP 83/54 08/28/25 14:00 Pulse Ox 98 08/28/25 14:12 O2 Del Method Mechanical Ventilation 08/28/25 14:00 O2 Flow Rate 6 08/25/25 21:50 FiO2 50 08/28/25 14:12 08/27/25 08/28/25 08/28/25 22:59 06:59 14:59 Intake Total 647.526 / 1319.032 641.694 / 1960.726 847.681 / 847.681 Output Total 3400 / 3400 750 / 4150 Balance -2752.474 / -2080.968 -108.306 / -2189.274 847.681 / 847.681 Weight last 48 hrs Weight 36 kg Weight 49 kg Physical Exam 2 Const: COMMON NORMALS: no acute distress ORIENTATION/CONSCIOUSNESS: Yes awake and Yes oriented to person Eye: COMMON NORMALS: Equal, round and reactive pupils present PUPIL: Yes Equal, round and reactive pupils present Resp: COMMON NORMALS: normal respiratory effort, No retractions and No use of accessory muscles AUSCULTATION: crackles and wheezes OTHER: Endotracheal tube in place Cardio: COMMON NORMALS: regular rate, regular rhythm, S1 normal heart sound present and S2 normal heart sound present RATE: regular rate RHYTHM: r egular rhythm HEART SOUNDS: S1 normal heart sound present and S2 normal heart sound present GI: COMMON NORMALS: Normal to inspection, nondistended, normoactive bowel sounds present and non-tender Extremity: COMMON NORMALS: no pedal edema Neuro: COMMON NORMALS: moves all extremities SENSORIUM/ORIENTATION: Yes oriented to person Psych: COMMON NORMALS: mental status grossly normal Urinary Catheter Management: Kim: Cath Placed During This Visit: yes Reason for Continuing Indwelling Catheter: Accurate Measurement of Urinary Output in Critically Ill Patients Urinary Catheter Date of Insertion: 08/26/25 Urinary Catheter Time of Insertion: 00:05 Data 08/28/25 04:20 08/28/25 13:33 A&P Assessment and plan 1. Tobacco use: 2. COPD (chronic obstructive pulmonary disease): 3. Acute respiratory failure with hypoxia: 4. Hemorrhagic shock: 5. GI bleed: 6. Septic shock: 7. Pneumonia: 8. Atrial fibrillation with rapid ventricular response: 9. Acute exacerbation of chronic obstructive airways disease: 10. COPD with acute exacerbation: Plan: Gastrointestinal bleed - Upper versus lower GI bleed -Status post 4 units PRBC Plan - N.p.o. - IV fluids have been stopped - Albumin therapy currently off - Hemoglobin stable - EGD no acute findings - Monitor for black tarry or bloody bowel movements -Protonix -Carafate Shock, currently on Levophed -Multifactorial -Concern for hemorrhagic shock associated with GI bleed, resolving -Concerns for septic shock associate with pneumonia -Albumin therapy as needed -Levophed to maintain MAP in the 65 -IV fluids have been discontinued Acute hypoxic respiratory failure -Secondary to pneumonia -With sepsis and septic shock -With COPD exacerbation -Now with acute flash pulmonary edema, systolic CHF exacerbation, fluid overload -Currently intubated, sedated on mechanical ventilation -Concern for upper airway edema, cuff leak -Plan -Propofol for sedation -Fentanyl for sedation -Precedex for sedation -Minimize PEEP, minimize FiO2 -Follow-up cultures -Vancomycin -Meropenem -Solu-Medrol 25 mg every 8 hours - Hold diuresis for today -Cardiac echo -Pulmonary consulted -Monitor respiratory status closely Atrial fibrillation with rapid ventricular spots - IV amiodarone - Digoxin 125 mg daily Full code SCDs for DVT prophylaxis, Lovenox relatively contraindicated given GI bleed Protonix for GI prophylaxis PDMP PDMP Reviewed: Not Reviewed Attestations 2 Medical Necessity Statement*: Patient requires hospitalization for acute hypoxic respiratory failure secondary to pneumonia, concern for upper airway edema, COPD, GI bleed, sepsis Coding Level of Care Code Critical Care >/= 30 minutes Critical care time (in minutes): 45 The high probability of a clinically significant, sudden or life threatening deterioration, as referenced in this documentation, required my full and direct attention, intervention and personal management. The critical care time shown is in addition to time spent performing any reported separately billable procedures and includes the following: [x] Data and vital sign review and interpretation [x ] Patient assessment, examination and intervention [x] Medication orders and management [x] Patient/Family updates as able [x] Care Coordination and Documentation. Diagnoses Tobacco use Z72.0 COPD (chronic obstructive pulmonary disease) J44.9 Acute respiratory failure with hypoxia J96.01 Hemorrhagic shock R57.8 GI bleed K92.2 Septic shock A41.9; R65.21 Pneumonia J18.9 Atrial fibrillation with rapid ventricular response I48.91 Acute exacerbation of chronic obstructive airways disease J44.1 COPD with acute exacerbation J44.1
[2025-08-28] MEDS: methylPREDNISolone sod succ 125 mg/2 mL INJ IVP ×2 (15:17→20:23)
[2025-08-28] MEDS: AMIODARONE HCL/D5W 900 MG/500 ML BAG 16.67 MG IV (17:42)
[2025-08-28] MEDS: diphenhydrAMINE 50 mg/mL SDV 1mL IVP (17:45)
--- NOTE | 2025-08-28 19:29 | PC.NURSE ---
Shift summary: Pt remains intubated with some sedation infusing. She has actually been awake, writing notes to staff and her son for most of the shift. Her restraints were released so she could do this, it seemed to improve her anxiety level some. . She has held her ETT and pushed the barnard up above her upper lip for comfort. Fentanyl decreased to 75 mcg/hr and Precedex increased to 1 mcg/kg/hr. After these changes she was calmer, the furrows in her brow decreased and she stopped fluttering her hands around as much. Amio gtt decreased to 0.5mg/min. this afternoon. She receive Digoxin this am, within half hour she had converted to Sinus rhythm and has stayed in sinus rhythm. Only vent setting change: FIO2 decreased to 50%. She really did not want to change reposition much this shift. She had 2375ml of urine output per catheter. Her son, Rick , sat at bedside with her for majority of shift.
[2025-08-28] MEDS: vancomycin 500 MG in sodium chloride 0.9% (plus) 100 ML 200 MG IV (20:23)
--- NOTE | 2025-08-28 21:08 | P.PN_ITS ---
Subjective 2 Subjective: Martha Damico is a 65 year old female with past medical history of chronic respiratory failure, smoker, A-fib, COPD, CAD initially presents on 08/23/2025 due to possible GI bleed. She suddenly, decompensated last night and had to be emergently intubated. She was noted to have some pleuritic chest discomfort and productive cough prior to admission. She was seen by GI and had an EGD done no source of bleeding noted. Probably colonoscopy planned later. She was given 3 units of IV fluids as well as maintain on IV fluids out of bed subsequently stopped. Initially was also on diltiazem for A-fib but in normal sinus rhythm now it stopped currently. 08/27/25 No cuff leak, awake and tolerating vent well. on precedex 0.4 and fentanyl 125 mcgs. tachycardic 08/28/25 minimal cuff leak today. on ns 75 ml/hr. awake on sbt settings. Review of systems unobtainable patient is intubated Vitals/I&O/Wt Last Vital Signs Temp 99.6 F 08/28/25 20:00 Pulse 66 08/28/25 19:53 Resp 11 L 08/28/25 19:54 BP 87/50 08/28/25 19:00 Pulse Ox 95 08/28/25 19:54 O2 Del Method Mechanical Ventilation 08/28/25 19:53 O2 Flow Rate 6 08/25/25 21:50 FiO2 50 08/28/25 20:00 08/28/25 08/28/25 08/28/25 06:59 14:59 22:59 Intake Total 641.694 / 2647.928 6969.192 / 1298.192 48.621 / 1346.813 Output Total 750 / 4150 375 / 375 Balance -108.306 / -2189.274 1298.192 / 1298.192 -326.379 / 971.813 Weight last 48 hrs Weight 79 lb 5.863 oz Weight 108 lb 0.424 oz Physical Exam 2 Narrative: Per RN General: Intubated awake, looks comfortable HEENT: EOMI Pulmonary: Diminished breath sounds bilaterally Cardiovascular: rrr, nl s1s2, Abdomen: soft, nt, nd, no r/g, Extremities: no edema Neurologic: grossly intact Agree with above exam Urinary Catheter Management: Kim: Cath Placed During This Visit: yes Reason for Continuing Indwelling Catheter: Accurate Measurement of Urinary Output in Critically Ill Patients Urinary Catheter Date of Insertion: 08/26/25 Urinary Catheter Time of Insertion: 00:05 Data 08/28/25 04:20 08/28/25 13:33 A&P Assessment and plan 1. Tobacco use: 2. COPD (chronic obstructive pulmonary disease): 3. Acute respiratory failure with hypoxia: Plan: # Acute hypoxemic hypercarbic respiratory failure Currently on mechanical ventilation tolerating VC AC mode. Plateau pressures with peaks maintained below 30. Maintain sats 88 to 92%. tv 300 ml Bronchopulmonary hygiene bronchodilator therapy CXR reviewed from 08/27/25- Bibasilar infiltates. no change ABG reviewed currently ABG 7.43 pCO2 of 59 08/27/2025. - daily sbt. #Upper airway edema - No cuff leak today. Is tolerating SBT well although - continuebenadryl, already on protonix and solumedrol increased to 125 q 6 # Acute COPD exacerbation Continue DuoNebs. Continue Solu-Medrol # Acute GI bleed probably related to colonic diverticulosis EGD done no source of bleed noted. Currently hemoglobin is stable at - 08/27/25. Plan for colonoscopy on a later date. Did not need anymore blood products. On Protonix IV twice daily. On protonix and carafate # Probable septic shock secondary to pneumonia Reviewed chest x-ray images show COPD exacerbation chest x-ray results show pulmonary vascular congestion Continue vancomycin and meropenem Deescalate according to cultures- NGTD - 08/28/25 # Acute flash pulm edema. Reviewed labs BNP is elevated on 08/26/2025. Monitor urine output and creatinine Lasix 40 twice daily.. Avoid and limit all fluids. Echocardiogram reviewed 08/13/25- EF 60%. BNP 3223- 08/27/25. stop NS. good uop upto 4L # A-fib with RVR on currently normal sinus rhythm Continue p.o. amiodarone p.o. 400 twice daily. Cardene drip as needed # Hypokalemia-replace aggressively # Mild transaminitis most likely secondary to shock # Hyperglycemia-insulin sliding scale medium. Avoid hypoglycemia. Maintain blood sugars between 140-180. Dextrose drip if needed to maintain blood sugars above 90 # Sedation-continue Versed as needed and fentanyl drip for now. # Nutrition-start tube feeds tomorrow tube feeds, monitor BMs # DVT GI prophylaxis-SCDs and famotidine. Hold off on anticoagulation secondary to anemia which could be acute blood loss. # Goals of care- no family at bedside # CODE STATUS- FULL # Disposition-Will need full ICU support follow-up The high probability of a clinically significant, sudden or life threatening deterioration of the patient's [Respiratory, cardiac and renal] system(s) required my full and direct attention, intervention and personal management. The critical care time is as shown. This time is in addition to time spent performing any reported procedures but includes the following: [x] Data and vital sign review and interpretation [x] Patient assessment, examination and intervention [x] Documentation [x] Medication orders and management Critical Care Time (min): 31 Telemedicine Consent Patient seen today via Telemedicine by agreement and consent of patient.? Telemedicine technology used during the visit includes audio and, as available, review of images.? The patient encounter is appropriate and reasonable under the circumstances given the patient?s particular presentation at this time.? The patient has been advised of the potential risks and limitations of this mode of treatment (including but not limited to the absence of in-person examination) and has agreed to be treated in a remote fashion in spite of them.? Any, and all, of the patient?s/patient?s family?s questions on this issue have been answered and I have made no promises or guarantees to the patient. PDMP PDMP Reviewed: Not Reviewed Attestations 2 Medical Necessity Statement*: on mechanical ventillation Coding Level of Care Code Critical Care >/= 30 minutes Diagnoses Tobacco use Z72.0 COPD (chronic obstructive pulmonary disease) J44.9 Acute respiratory failure with hypoxia J96.01
[2025-08-28] MEDS: dexmedeTOMIDine 0.9 % NaCL 400 MCG/100 ML PREMIX 13.48 MCG IV (21:57)
[2025-08-29] VITALS (53 sets, daily range): BP systolic 91–161; BP diastolic 52–96; PULSE 66–99; RESP 8–17; TEMP 37.6; O2SAT 90–97
[2025-08-29] MEDS: methylPREDNISolone sod succ 125 mg/2 mL INJ IVP ×4 (02:16→20:40)
[2025-08-29] MEDS: sucralfate 1 gm/10 mL Oral Liq UDC PO ×4 (02:16→20:40)
[2025-08-29] MEDS: fentaNYL 1,000 MCG/100 ML BAG 7.5 MCG IV (02:30)
[2025-08-29 04:05] LABS: Hematocrit 33.6 % (36-47); Hemoglobin 11.00 g/dL (11.27-16.99); Mean Corpuscular HGB Conc 32.7 g/dL (30-55); Mean Corpuscular Hemoglobin 30.2 pg (27-33); Mean Corpuscular Volume 92.3 fl (85-98); Nucleated Red Blood Cells % 0 %; Platelet Count 197 10^3/cmm (157-399); Red Blood Count 3.64 10^6/uL (3.85-5.65); White Blood Count 23.69 10^3/uL (3.29-11.43)
[2025-08-29] MEDS: digoxin 250 mcg/ml INJ 2 mL 125 MCG IVP (04:23)
[2025-08-29] MEDS: diphenhydrAMINE 50 mg/mL SDV 1mL IVP ×2 (04:23→17:14)
[2025-08-29] MEDS: vancomycin 500 MG in sodium chloride 0.9% (plus) 100 ML 200 MG IV ×3 (04:23→20:47)
[2025-08-29] MEDS: dexmedeTOMIDine 0.9 % NaCL 400 MCG/100 ML PREMIX 14.7 MCG IV ×4 (04:24→23:13)
[2025-08-29 04:28] LABS: Lactate (Lactic Acid level) 0.9 mmol/L (0.5-2.2)
[2025-08-29 04:34] LABS: Digoxin 0.6 ng/mL (0.6-1.2)
[2025-08-29 04:37] LABS: INR 0.90 (0.8-1.2); Prothrombin Time 12.80 SECONDS (12.1-14.9)
[2025-08-29 04:43] LABS: NT Pro B Type Natriuretic Pept 1278 pg/mL (0-125); Procalcitonin 1.25 ng/mL (0-0.5)
[2025-08-29 04:55] LABS: Alanine Aminotransferase 35 U/L (0-33); Albumin Level 4.2 g/dL (3.5-5.2); Alkaline Phosphatase 95 U/L (35-105); Anion Gap 13.8 (5-19); Aspartate Amino Transferase 22 U/L (0-32); Blood Urea Nitrogen 29 mg/dL (8-23); Calcium 9.0 mg/dL (8.5-10.5); Chloride 83 mmol/L (98-107); Globulin 1.3 g/dL (1.3-4.6); Glucose 148 mg/dL (65-115); Magnesium 2.1 mg/dL (1.7-2.3); Osmolality Calculated 295 mOsm/kg (285-295); Sodium 138 mmol/L (136-145); Total Protein 5.5 g/dL (6.6-8.7)
[2025-08-29 04:59] LABS: Carbon Dioxide 44 mmol/L (22-29); Potassium 2.8 mmol/L (3.5-5.1)
[2025-08-29] MEDS: potassium chloride premix 100 ML 25 MEQ IV ×2 (05:19→08:59)
[2025-08-29 05:40] LABS: ABG PH Result 7.47 (7.35-7.45); Arterial Blood Gas Hematocrit 36.0 % (37-47); Blood Gas Allen Test Pos; Blood Gas Sample Site Radial, right; Blood Gas Sample Type Arterial; Blood Gas Tidal Volume 0.30; HCO3 ABG 50.8 mmol/L (22-26); PEEP 8.0 cmH20; PO2 ABG 62.7 mmHg (80.0-100.0); PO2 FiO2 Ratio Arterial Blood 125
[2025-08-29 05:41] LABS: ABG PCO2 70.7 mmHg (35-45)
--- NOTE | 2025-08-29 07:00 | XRR_ITS ---
PROCEDURE INFORMATION: Exam: XR Chest Exam date and time: 08/29/2025 8:18 AM Age: 65 years old Clinical indication: Shortness of breath; Additional info: SOB TECHNIQUE: Imaging protocol: Radiologic exam of the chest. Views: 1 view. COMPARISON: CR XR chest 1V portable [id number] 08/28/2025 8:48 AM FINDINGS: Lungs: Emphysematous COPD. Mild interstitial prominence. Pleural spaces: Unremarkable. No pleural effusion. No pneumothorax. Heart/Mediastinum: Unremarkable. No cardiomegaly. Bones/joints: Unremarkable. Other findings: Stable life-support lines. XR/XR chest 1V portable [id number] IMPRESSION: No acute findings.
[2025-08-29] MEDS: pantoprazole 40 mg SDV IVP ×2 (08:06→20:40)
--- NOTE | 2025-08-29 12:30 | P.PN_ITS ---
Subjective 2 Subjective: Martha Damico is a 65 year old female with past medical history of chronic respiratory failure, smoker, A-fib, COPD, CAD initially presents on 08/23/2025 due to possible GI bleed. She suddenly, decompensated last night and had to be emergently intubated. She was noted to have some pleuritic chest discomfort and productive cough prior to admission. She was seen by GI and had an EGD done no source of bleeding noted. Probably colonoscopy planned later. She was given 3 units of IV fluids as well as maintain on IV fluids out of bed subsequently stopped. Initially was also on diltiazem for A-fib but in normal sinus rhythm now it stopped currently. 08/27/25 No cuff leak, awake and tolerating vent well. on precedex 0.4 and fentanyl 125 mcgs. tachycardic 08/28/25 minimal cuff leak today. on ns 75 ml/hr. awake on sbt settings. 08/29/2025 And alert following commands. No cuff leak noted today. Review of systems unobtainable patient is intubated Vitals/I&O/Wt Last Vital Signs Temp 99.6 F 08/28/25 20:00 Pulse 80 08/29/25 11:30 Resp 10 L 08/29/25 11:23 BP 91/60 08/29/25 10:00 Pulse Ox 95 08/29/25 11:23 O2 Del Method Mechanical Ventilation 08/29/25 11:22 O2 Flow Rate 6 08/25/25 21:50 FiO2 50 08/29/25 11:23 08/28/25 08/29/25 08/29/25 22:59 06:59 14:59 Intake Total 273.037 / 1571.229 182.565 / 1753.794 305.907 / 305.907 Output Total 375 / 375 750 / 1125 Balance -101.963 / 1196.229 -567.435 / 628.794 305.907 / 305.907 Weight last 48 hrs Weight 78 lb 5.12 oz Weight 79 lb 5.863 oz Physical Exam 2 Narrative: Per RN General: Intubated awake, looks comfortable HEENT: EOMI Pulmonary: Diminished breath sounds bilaterally Cardiovascular: rrr, nl s1s2, Abdomen: soft, nt, nd, no r/g, Extremities: no edema Neurologic: grossly intact Agree with above exam Urinary Catheter Management: Kim: Cath Placed During This Visit: yes Reason for Continuing Indwelling Catheter: Accurate Measurement of Urinary Output in Critically Ill Patients Urinary Catheter Date of Insertion: 08/26/25 Urinary Catheter Time of Insertion: 00:05 Data 08/29/25 03:30 08/29/25 03:30 A&P Assessment and plan 1. Tobacco use: 2. COPD (chronic obstructive pulmonary disease): 3. Acute respiratory failure with hypoxia: Plan: # Acute hypoxemic hypercarbic respiratory failure Currently on mechanical ventilation tolerating VC AC mode. Plateau pressures with peaks maintained 12. Maintain sats 88 to 92%. on PS 07/08 50% fio2 Bronchopulmonary hygiene bronchodilator therapy CXR reviewed from 08/27/25- Bibasilar infiltates. no change ABG reviewed currently ABG 7.47 pCO2 of 70 08/29/2025. - daily sbt. #Upper airway edema - No cuff leak today again. Is tolerating SBT well although - continue benadryl, already on protonix and solumedrol increased to 125 q 6 - May need tracheostomy if she does not improve by Sunday. I discussed this with family today. They will conference with her other son and let me know by tomorrow decision. # Acute COPD exacerbation Continue DuoNebs. Continue Solu-Medrol # Acute GI bleed probably related to colonic diverticulosis EGD done no source of bleed noted. Currently hemoglobin is stable at - 08/29/25. Plan for colonoscopy on a later date. Did not need anymore blood products. On Protonix IV twice daily. On protonix and carafate # Probable septic shock secondary to pneumonia Reviewed chest x-ray images show COPD exacerbation chest x-ray results show pulmonary vascular congestion Continue vancomycin and meropenem Deescalate according to cultures- NGTD - 08/28/25 # Acute flash pulm edema. Reviewed labs BNP is elevated on 08/26/2025. Monitor urine output and creatinine Lasix 40 twice daily.. Avoid and limit all fluids. Echocardiogram reviewed 08/13/25- EF 60%. BNP 3223- 08/27/25. # A-fib with RVR on currently normal sinus rhythm Continue p.o. amiodarone p.o. 400 twice daily. # Hypokalemia-replace aggressively # Mild transaminitis most likely secondary to shock # Hyperglycemia-insulin sliding scale medium. Avoid hypoglycemia. Maintain blood sugars between 140-180. Dextrose drip if needed to maintain blood sugars above 90 # Sedation-continue Precedex at 1.3 and fentanyl drip 125 mics for now. Added 1 mg of Ativan and 5 Oxy IR scheduled at Q8. # Nutrition-start tube feeds tomorrow tube feeds, monitor BMs # DVT GI prophylaxis-SCDs and famotidine. Hold off on anticoagulation secondary to anemia which could be acute blood loss. # Goals of care- - May need tracheostomy if she does not improve by Sunday. I discussed this with family today. They will conference with her other son and let me know by tomorrow decision. Discussed with Dr. Byrne as well. # CODE STATUS- FULL # Disposition-Will need full ICU support follow-up The high probability of a clinically significant, sudden or life threatening deterioration of the patient's [Respiratory, cardiac and renal] system(s) required my full and direct attention, intervention and personal management. The critical care time is as shown. This time is in addition to time spent performing any reported procedures but includes the following: [x] Data and vital sign review and interpretation [x] Patient assessment, examination and intervention [x] Documentation [x] Medication orders and management Critical Care Time (min): 35 Telemedicine Consent Patient seen today via Telemedicine by agreement and consent of patient.? Telemedicine technology used during the visit includes audio and, as available, review of images.? The patient encounter is appropriate and reasonable under the circumstances given the patient?s particular presentation at this time.? The patient has been advised of the potential risks and limitations of this mode of treatment (including but not limited to the absence of in-person examination) and has agreed to be treated in a remote fashion in spite of them.? Any, and all, of the patient?s/patient?s family?s questions on this issue have been answered and I have made no promises or guarantees to the patient. PDMP PDMP Reviewed: Not Reviewed Attestations 2 Medical Necessity Statement*: Mechanical ventilation Coding Level of Care Code Critical Care >/= 30 minutes Diagnoses Tobacco use Z72.0 COPD (chronic obstructive pulmonary disease) J44.9 Acute respiratory failure with hypoxia J96.01
[2025-08-29] MEDS: oxyCODONE 5 mg IR Tab/Cap PO ×2 (13:18→20:35)
--- NOTE | 2025-08-29 13:39 | P.PN_ITS ---
Subjective 2 Subjective: Patient was seen this morning, currently alert and oriented x 2, can follow commands on ventilation, on Precedex drip, 50% FiO2, off Levophed, currently in atrial fibrillation rate well-controlled, son at bedside - Discussed spontaneous breathing trial - Discussed with patient that she might require tracheostomy, depending clinical progress - Discussed trial of extubation, discuss ed morbidity mortality, risk of reintubation, risk of regarding tracheostomy Vitals/I&O/Wt Last Vital Signs Temp 99.6 F 08/28/25 20:00 Pulse 80 08/29/25 11:30 Resp 12 08/29/25 13:08 BP 91/60 08/29/25 10:00 Pulse Ox 97 08/29/25 13:08 O2 Del Method Mechanical Ventilation 08/29/25 11:22 O2 Flow Rate 6 08/25/25 21:50 FiO2 50 08/29/25 13:08 08/28/25 08/29/25 08/29/25 22:59 06:59 14:59 Intake Total 273.037 / 1571.229 182.565 / 1753.794 405.907 / 405.907 Output Total 375 / 375 750 / 1125 Balance -101.963 / 1196.229 -567.435 / 628.794 405.907 / 405.907 Weight last 48 hrs Weight 35.525 kg Weight 36 kg Physical Exam 2 Const: COMMON NORMALS: no acute distress ORIENTATION/CONSCIOUSNESS: Yes awake, Yes oriented to person and Yes oriented to place; not oriented to time Resp: COMMON NORMALS: normal respiratory effort, No retractions and No use of accessory muscles AUSCULTATION: crackles and wheezes Cardio: COMMON NORMALS: regular rate, regular rhythm, S1 normal heart sound present and S2 normal heart sound present RATE: regular rate RHYTHM: r egular rhythm HEART SOUNDS: S1 normal heart sound present and S2 normal heart sound present GI: COMMON NORMALS: Normal to inspection, nondistended, normoactive bowel sounds present and non-tender Extremity: COMMON NORMALS: no pedal edema Neuro: SENSORIUM/ORIENTATION: Yes oriented to person, Yes oriented to place and No oriented to time Psych: COMMON NORMALS: mental status grossly normal Urinary Catheter Management: Kim: Cath Placed During This Visit: yes Reason for Continuing Indwelling Catheter: Accurate Measurement of Urinary Output in Critically Ill Patients Urinary Catheter Date of Insertion: 08/26/25 Urinary Catheter Time of Insertion: 00:05 Data 08/29/25 03:30 08/29/25 03:30 A&P Assessment and plan 1. Tobacco use: 2. COPD (chronic obstructive pulmonary disease): 3. Acute respiratory failure with hypoxia: 4. Hemorrhagic shock: 5. GI bleed: 6. Septic shock: 7. Pneumonia: 8. Atrial fibrillation with rapid ventricular response: 9. Acute exacerbation of chronic obstructive airways disease: 10. COPD with acute exacerbation: Plan: Gastrointestinal bleed - Upper versus lower GI bleed -Status post 4 units PRBC - Hemoglobin has stabilized to 11 -No bloody black stools Plan - N.p.o. - IV fluids have been stopped - Albumin therapy currently off - Hemoglobin stable - EGD no acute findings - Monitor for black tarry or bloody bowel movements -Protonix -Carafate Shock, currently off Levophed -Multifactorial -Concern for hemorrhagic shock associated with GI bleed, resolving -Concerns for septic shock associate with pneumonia -Albumin therapy as needed -Levophed to maintain MAP in the 65 -IV fluids have been discontinued Acute hypoxic respiratory failure CTA FINDINGS: Pulmonary arteries: Normal. No pulmonary emboli. Aorta: Unremarkable. No aortic aneurysm. No aortic dissection. Lungs: Severe centrilobular emphysematous changes are present. Pleural spaces: Unremarkable. No pneumothorax. No pleural effusion. Heart: Unremarkable. No cardiomegaly. No pericardial effusion. Lymph nodes: Unremarkable. No enlarged lymph nodes. Spleen: There are multiple calcified granulomas of the spleen. Kidneys: There are multiple left renal collecting system calcifications. Bones/joints: The thoracic spine demonstrates mild degenerative changes at multiple levels. Chronic fracture deformity of the sternum. Soft tissues: Unremarkable. Other findings: The vasculature demonstrates diffuse mild atherosclerotic calcification. -Secondary to pneumonia -With sepsis and septic shock -With COPD exacerbation -Now with acute flash pulmonary edema, systolic CHF exacerbation, fluid overload -Currently intubated, sedated on mechanical ventilation -Concern for upper airway edema, cuff leak -Plan -Propofol for sedation -Fentanyl for sedation -Precedex for sedation -Gabapentin for anxiety -Minimize PEEP, minimize FiO2 -Follow-up cultures -Vancomycin -Meropenem -Solu-Medrol 125 mg every 8 hours - Hold diuresis for today -Cardiac echo -Pulmonary consulted -Monitor respiratory status closely - Discussed trial of extubation, morbidity and mortality associated, risk of reintubation, risk of tracheostomy, with underlying COPD Atrial fibrillation with rapid ventricular spots - IV amiodarone - Digoxin 125 mg daily Full code SCDs for DVT prophylaxis, Lovenox relatively contraindicated given GI bleed Protonix for GI prophylaxis PDMP PDMP Reviewed: Not Reviewed Attestations 2 Medical Necessity Statement*: Patient requires hospitalization for acute hypoxic respiratory failure, pneumonia, respiratory failure, COPD, CHF, Coding Level of Care Code Critical Care >/= 30 minutes Critical care time (in minutes): 45 The high probability of a clinically significant, sudden or life threatening deterioration, as referenced in this documentation, required my full and direct attention, intervention and personal management. The critical care time shown is in addition to time spent performing any reported separately billable procedures and includes the following: [x] Data and vital sign review and interpretation [x ] Patient assessment, examination and intervention [x] Medication orders and management [x] Patient/Family updates as able [x] Care Coordination and Documentation. Diagnoses Tobacco use Z72.0 COPD (chronic obstructive pulmonary disease) J44.9 Acute respiratory failure with hypoxia J96.01 Hemorrhagic shock R57.8 GI bleed K92.2 Septic shock A41.9; R65.21 Pneumonia J18.9 Atrial fibrillation with rapid ventricular response I48.91 Acute exacerbation of chronic obstructive airways disease J44.1 COPD with acute exacerbation J44.1
--- NOTE | 2025-08-29 13:42 | USCV_ITS ---
Martha Damico Age: 65 Gender: F : 1960 Exam Date: 08/29/2025 16:29 Ordering Phys: Bud Ward MD Technologist: Jono Wilson Exam Location: [facility] – [place] Indication: reassess, chf, fluid overload BP: 105 / 63 HR: 82 Rhythm: Sinus Technical Quality: Adequate MEASUREMENTS (Male / Female) Normal Values 2D ECHO LV Diastolic Diameter PLAX 4.3 cm 4.2 - 5.9 / 3.9 - 5.3 cm IVS Diastolic Thickness 0.4 cm 0.6 - 1.0 / 0.6 - 0.9 cm IVS Systolic Thickness 0.7 cm LVPW Diastolic Thickness 0.6 cm 0.6 - 1.0 / 0.6 - 0.9 cm LVPW Systolic Thickness 1.2 cm LVOT Diameter 2.0 cm LV Ejection Fraction 2D Teich 68.2 % LV Ejection Fraction MOD 4C 71.8 % LA Diameter 3.0 cm RA Systolic Volume 4C AL 14.8 ml RA Systolic Volume 4C MOD 14.1 ml Aorta at Sinotubular Diameter 2.2 cm IVC Diameter 2.0 cm M-MODE LA Ao Ratio MM 1.1 AV Cusp Separation MM 1.9 cm DOPPLER AV Peak Velocity 148.0 cm/s MV Peak Velocity 107.0 cm/s MV Area PHT 8.0 cm squared Mitral E to A Ratio 1.0 TR Peak Velocity 201.0 cm/s TR Peak Gradient 16.2 mmHg TR Mean Velocity 175.0 cm/s TR Mean Gradient 12.6 mmHg TR Velocity Time Integral 52.9 cm PV Peak Velocity 120.0 cm/s RV Ejection Time 0.3 s FINDINGS Left Ventricle Normal left ventricular size, systolic function and wall thickness with no regional wall motion abnormality. Left ventricular ejection fraction is 72%. Normal left ventricular diastolic function. Right Ventricle Normal right ventricular size and systolic function. Right Atrium Normal right atrial size. Left Atrium Normal left atrial size. IA Septum Normal appearance of the interatrial septum. Mitral Valve Normal mitral valve structure. No mitral valve stenosis or regurgitation. Aortic Valve Normal aortic valve structure. No aortic valve stenosis or regurgitation. Tricuspid Valve Normal tricuspid valve structure. Trace regurgitation. Normal pulmonary pressure. Pulmonic Valve Normal pulmonic valve structure. No pulmonic valve stenosis or regurgitation. Pericardium No pericardial effusion. Aorta Normal diameter of the aortic root and ascending thoracic aorta. IVC Normal IVC diameter. CONCLUSIONS Normal left ventricular size, systolic function and wall thickness with ejection fraction of 72%. Normal right ventricular size and systolic function. No significant valvular abnormalities. Doc Wiggins MD, FACC (Electronically Signed) Final Date: 29 August 2025 18:21 S
[2025-08-29] MEDS: fentaNYL 1,000 MCG/100 ML BAG 10 MCG IV (14:08)
[2025-08-29 14:40] LABS: Anion Gap 11.1 (5-19); Blood Urea Nitrogen 26 mg/dL (8-23); Calcium 8.9 mg/dL (8.5-10.5); Chloride 88 mmol/L (98-107); Glucose 152 mg/dL (65-115); Osmolality Calculated 296 mOsm/kg (285-295); Potassium 4.1 mmol/L (3.5-5.1); Sodium 139 mmol/L (136-145)
[2025-08-29 14:48] LABS: Carbon Dioxide 44 mmol/L (22-29)
--- NOTE | 2025-08-29 15:09 | PC.PT ---
Patient EMR doesn't show extubation at end of shift. Continue to hold.
--- NOTE | 2025-08-29 16:00 | PC.NURSE ---
very restless and agitated this am attempt to take down sedation for possible extubation , no air leak this am but small noted later has had episodes of pulling at et tube and other lines, reposition attempt to calm pt placed back on fent gtt and po meds per og tube to assist anxiety to help with prevent pulling tubes replaced wrist restaints and family at bedside aware
[2025-08-29] MEDS: water for injection-sterile 10 ML 10000 ML (17:15)
[2025-08-29] MEDS: AMIODARONE HCL/D5W 900 MG/500 ML BAG 16.67 MG IV (23:13)
[2025-08-29] MEDS: fentaNYL 1,000 MCG/100 ML BAG 12.5 MCG IV (23:14)
[2025-08-30] VITALS (49 sets, daily range): BP systolic 87–153; BP diastolic 48–78; PULSE 63–98; RESP 4–22; TEMP 36.6–37.6; O2SAT 89–96
[2025-08-30] MEDS: methylPREDNISolone sod succ 125 mg/2 mL INJ IVP ×4 (01:47→21:24)
[2025-08-30] MEDS: sucralfate 1 gm/10 mL Oral Liq UDC PO ×3 (01:47→21:24)
[2025-08-30 04:17] LABS: Hematocrit 31.8 % (36-47); Hemoglobin 10.30 g/dL (11.27-16.99); Mean Corpuscular HGB Conc 32.4 g/dL (30-55); Mean Corpuscular Hemoglobin 30.5 pg (27-33); Mean Corpuscular Volume 94.1 fl (85-98); Nucleated Red Blood Cells % 0 %; Platelet Count 186 10^3/cmm (157-399); Red Blood Count 3.38 10^6/uL (3.85-5.65); White Blood Count 20.47 10^3/uL (3.29-11.43)
[2025-08-30] MEDS: oxyCODONE 5 mg IR Tab/Cap PO (04:18)
[2025-08-30] MEDS: vancomycin 500 MG in sodium chloride 0.9% (plus) 100 ML 200 MG IV ×3 (04:21→21:18)
[2025-08-30] MEDS: digoxin 250 mcg/ml INJ 2 mL 125 MCG IVP (04:22)
[2025-08-30] MEDS: diphenhydrAMINE 50 mg/mL SDV 1mL IVP (04:22)
[2025-08-30 04:36] LABS: Lactate (Lactic Acid level) 0.8 mmol/L (0.5-2.2)
[2025-08-30 04:38] LABS: Digoxin 0.8 ng/mL (0.6-1.2)
[2025-08-30 04:38] LABS: ABG PH Result 7.45 (7.35-7.45); Arterial Blood Gas Hematocrit 33.8 % (37-47); Blood Gas Allen Test Pos; Blood Gas Operator Identificat BD; Blood Gas Sample Site Brachial, left; Blood Gas Sample Type Arterial; Blood Gas Tidal Volume 0.30; HCO3 ABG 48.3 mmol/L (22-26); PEEP 8.0 cmH20; PO2 ABG 71.5 mmHg (80.0-100.0); PO2 FiO2 Ratio Arterial Blood 143
[2025-08-30 04:39] LABS: ABG PCO2 69.5 mmHg (35-45)
[2025-08-30 04:45] LABS: Alanine Aminotransferase 27 U/L (0-33); Albumin Level 4.0 g/dL (3.5-5.2); Alkaline Phosphatase 87 U/L (35-105); Anion Gap 10.4 (5-19); Aspartate Amino Transferase 16 U/L (0-32); Blood Urea Nitrogen 24 mg/dL (8-23); Calcium 8.7 mg/dL (8.5-10.5); Chloride 89 mmol/L (98-107); Globulin 1.1 g/dL (1.3-4.6); Glucose 200 mg/dL (65-115); Magnesium 2.0 mg/dL (1.7-2.3); NT Pro B Type Natriuretic Pept 1180 pg/mL (0-125); Osmolality Calculated 304 mOsm/kg (285-295); Potassium 3.4 mmol/L (3.5-5.1); Procalcitonin 0.65 ng/mL (0-0.5); Sodium 142 mmol/L (136-145); Total Protein 5.1 g/dL (6.6-8.7)
[2025-08-30 04:58] LABS: Carbon Dioxide 46 mmol/L (22-29)
[2025-08-30] MEDS: dexmedeTOMIDine 0.9 % NaCL 400 MCG/100 ML PREMIX 14.7 MCG IV (05:49)
[2025-08-30] MEDS: fentaNYL 1,000 MCG/100 ML BAG 12.5 MCG IV (05:49)
[2025-08-30] MEDS: pantoprazole 40 mg SDV IVP ×2 (07:50→21:23)
--- NOTE | 2025-08-30 08:27 | PC.NURSE ---
resting this am evaluated and left resting , accucheck done insulin per sliding scale, remains on vent with fent and precedex gtt infusing .. bourne with bashir urine noted , family in for visit in waiting room until eval done by rt of airway
--- NOTE | 2025-08-30 08:39 | XRR_ITS ---
PROCEDURE INFORMATION: Exam: XR Chest Exam date and time: 08/30/2025 9:41 AM Age: 65 years old Clinical indication: Shortness of breath and other: F/u cxr; Additional info: Tube TECHNIQUE: Imaging protocol: Radiologic exam of the chest. Views: 1 view. COMPARISON: CR (CHEST, ) 08/29/2025 8:18 AM FINDINGS: Lungs: There are emphysematous changes and mild interstitial prominence, unchanged from 08/2005/09/2025. No organized alveolar consolidation. Pleural spaces: No pleural effusion. No pneumothorax. Heart/Mediastinum: Normal cardiomediastinal sillhouette. Bones/joints: Unremarkable. Tubes, catheters, and devices: Endotracheal tube is seen with tip 4 cm above the randal. Nasogastric tube is seen with tip in the stomach. Right upper extremity PICC line is seen with tip in the superior vena cava. XR/XR chest 1V portable [id number] IMPRESSION: No acute cardiopulmonary abnormality.
--- NOTE | 2025-08-30 08:49 | PC.NURSE ---
cxr done verify placement after reposition .. weaning sedation for possible extubation
[2025-08-30] MEDS: water for injection-sterile 10 ML 10000 ML ×2 (09:34→17:27)
[2025-08-30] MEDS: potassium phosphate (mEq K) 40 MEQ in sodium chloride 0.9% (100 ml) 100 ML 27.25 MEQ IV (09:34)
--- NOTE | 2025-08-30 12:07 | P.PN_ITS ---
Subjective 2 Subjective: - Patient was seen this morning - She is alert to person, she awakens, b ut falls back asleep, - Plan on sedation vacation this morning , with spontaneous breathing trial and plans on extubation today - Discussed case with pulmonary - Patient's son and daughter at bedside - Discussed case in detail with - Patient is hospitalization for GI blee d, respiratory failure, COPD, pneumonia, concerns for persistent respiratory failure requiring prolonged intubation, concerns for upper airway edema - Overall she is clinically improved - Discussed plans on possible extubation today - Discussed risk of reintubation, and mo rbidity and mortality associated - With underlying severe COPD, risk of p otential requiring a tracheostomy - After discussing with them the risk an d benefits of all options, they voiced understanding, all Qs answered they understand the risk of reintubation, and morbidity mortality associated, with risk of tracheostomy, prolonged stay at long-term care facility - After discussion with the risk and enrique efits of all options, they voiced understanding, all questions answered, shared decision making, agreed to proceed - Will continue spontaneous breathing tr ial today, Vitals/I&O/Wt Last Vital Signs Temp 98 F 08/30/25 08:00 Pulse 88 08/30/25 11:50 Resp 9 L 08/30/25 11:52 BP 102/49 08/30/25 10:00 Pulse Ox 94 08/30/25 11:52 O2 Del Method Mechanical Ventilation 08/30/25 11:40 O2 Flow Rate 6 08/25/25 21:50 FiO2 50 08/30/25 11:52 08/29/25 08/30/25 08/30/25 22:59 06:59 14:59 Intake Total 326.04 / 1012.447 962.972 / 1975.419 156.646 / 156.646 Output Total 650 / 3250 750 / 4000 Balance -323.96 / -2237.553 212.972 / -2024.581 156.646 / 156.646 Weight last 48 hrs Weight 36.423 kg Weight 35.525 kg Physical Exam 2 Const: COMMON NORMALS: no acute distress ORIENTATION/CONSCIOUSNESS: Yes awake and Yes oriented to person Eye: COMMON NORMALS: Equal, round and reactive pupils present and EOMs intact bilaterally PUPIL: Yes Equal, round and reactive pupils present Resp: COMMON NORMALS: normal respiratory effort, No retractions, No use of accessory muscles and clear to auscultation bilaterally AUSCULTATION: clear to auscultation bilaterally Cardio: COMMON NORMALS: regular rate, regular rhythm, S1 normal heart sound present and S2 normal heart sound present RATE: regular rate RHYTHM: r egular rhythm HEART SOUNDS: S1 normal heart sound present and S2 normal heart sound present GI: COMMON NORMALS: Normal to inspection, nondistended, normoactive bowel sounds present and non-tender Extremity: COMMON NORMALS: no pedal edema Neuro: SENSORIUM/ORIENTATION: Yes oriented to person Urinary Catheter Management: Kim: Cath Placed During This Visit: yes Reason for Continuing Indwelling Catheter: Accurate Measurement of Urinary Output in Critically Ill Patients Urinary Catheter Date of Insertion: 08/26/25 Urinary Catheter Time of Insertion: 00:05 Quick SOFA Score: Respiratory Rate: 9 Blood Pressure: 102/49 [place] Coma Scale: 15 qSOFA Score: 0 If qSOFA score 2 or greater, continue: PaO2/FiO2 Ratio (mmHg): 143 Blood Pressure Mean: 66 Bilirubin (mg/dl): 0.8 Platelets (x10?/ml): 186 C reatinine (mg/dl): 0.4 SOFA Score: 4 Evaluation: Current stage of sepsis: sepsis Sepsis stage criteria used: [facility] Sep-1 and Sepsis-3 Blood cultures ordered: Yes Possible source: pulmonary Focused Exam: Vital signs: Temp Pulse Resp BP Pulse Ox O2 Del Method FiO2 08/30/25 11:52 9 L 94 50 08/30/25 11:50 88 08/30/25 11:40 85 11 L 94 Mechanical Ventila tion 50 08/30/25 10:10 5 L 96 50 08/30/25 10:00 65 102/49 96 08/30/25 09:53 4 L 95 50 08/30/25 09:00 70 87/49 94 08/30/25 08:42 69 08/30/25 08:28 11 L 93 50 08/30/25 08:26 67 13 93 Mechanical Ventila tion 50 08/30/25 08:00 98 F 68 126/63 94 08/30/25 08:00 70 126/63 08/30/25 07:00 70 126/63 94 08/30/25 06:00 71 124/63 94 08/30/25 05:31 73 08/30/25 05:00 74 126/64 94 08/30/25 04:00 68 117/55 94 08/30/25 04:00 99.6 F 08/30/25 04:00 10 L 94 50 08/30/25 04:00 68 11 L 93 Mechanical Ventila tion 50 08/30/25 03:00 70 117/60 93 08/30/25 02:14 71 116/60 93 08/30/25 01:00 75 112/58 94 Respiratory exam: CTA bilaterally Cardiovascular exam: regular rate, regular rhythm, S1 normal heart sound and S2 normal heart sound Date exam was performed: 08/30/25 Time exam was performed: 12:10 2 Sepsis Screen No Definite Risk 08/23/25, 06:03 Respiratory Rate, (12 - 18) 9 breaths/min L Today, 11:52 Blood Pressure 153/78 mmHg Today, 12:00 [place] Coma Scale Score 15 Today, 08:00 Quick SOFA Score 1 08/27/25, 12:29 SOFA Score: 2 ABG PO2/FiO2 Ratio 143 Today, 04:00 [place] Coma Scale Score 15 Today, 08:00 Blood Pressure Mean 103 mmHg Today, 12:00 Total Bilirubin, (0.15-1.2) 0.8 mg/dL Today, 03:56 Platelet Count, (157-399) 186 10^3/cmm Today, 03:56 Creatinine, (0.5-0.9) 0.4 mg/dL L Today, 03:56 SOFA Score 5 08/27/25, 12:29 Data 08/30/25 03:56 08/30/25 03:56 Micro: Microbiology 08/24/25 18:08 Blood Culture - Final Blood NO GROWTH AFTER 5 DAYS 08/24/25 17:58 Blood Culture - Final Blood NO GROWTH AFTER 5 DAYS A&P Assessment and plan 1. Tobacco use: 2. COPD (chronic obstructive pulmonary disease): 3. Acute respiratory failure with hypoxia: 4. Hemorrhagic shock: 5. GI bleed: 6. Septic shock: 7. Pneumonia: 8. Atrial fibrillation with rapid ventricular response: 9. Acute exacerbation of chronic obstructive airways disease: 10. COPD with acute exacerbation: Plan: Gastrointestinal bleed - Upper versus lower GI bleed -Status post 4 units PRBC - Hemoglobin has stabilized to 11 -No bloody black stools Plan - N.p.o. - IV fluids have been stopped - Albumin therapy currently off - Hemoglobin stable - EGD no acute findings - Monitor for black tarry or bloody bowel movements -Protonix -Carafate Shock, currently off Levophed -Multifactorial -Concern for hemorrhagic shock associated with GI bleed, resolving -Concerns for septic shock associate with pneumonia -Albumin therapy as needed -Levophed to maintain MAP in the 65 -IV fluids have been discontinued Acute hypoxic respiratory failure CTA FINDINGS: Pulmonary arteries: Normal. No pulmonary emboli. Aorta: Unremarkable. No aortic aneurysm. No aortic dissection. Lungs: Severe centrilobular emphysematous changes are present. Pleural spaces: Unremarkable. No pneumothorax. No pleural effusion. Heart: Unremarkable. No cardiomegaly. No pericardial effusion. Lymph nodes: Unremarkable. No enlarged lymph nodes. Spleen: There are multiple calcified granulomas of the spleen. Kidneys: There are multiple left renal collecting system calcifications. Bones/joints: The thoracic spine demonstrates mild degenerative changes at multiple levels. Chronic fracture deformity of the sternum. Soft tissues: Unremarkable. Other findings: The vasculature demonstrates diffuse mild atherosclerotic calcification. -Secondary to pneumonia -With sepsis and septic shock -With COPD exacerbation -Now with acute flash pulmonary edema, systolic CHF exacerbation, fluid overload -Currently intubated, sedated on mechanical ventilation -Concern for upper airway edema, cuff leak -Plan -Propofol for sedation -Fentanyl for sedation -Precedex for sedation -Gabapentin for anxiety -Minimize PEEP, minimize FiO2 -Follow-up cultures -Vancomycin -Meropenem -Solu-Medrol 125 mg every 8 hours - Hold diuresis for today -Cardiac echo CONCLUSIONS Normal left ventricular size, systolic function and wall thickness with ejection fraction of 72%. Normal right ventricular size and systolic function. No significant valvular abnormalities. -Pulmonary consulted -Monitor respiratory status closely - Discussed trial of extubation, morbidity and mortality associated, risk of reintubation, risk of tracheostomy, with underlying COPD Atrial fibrillation with rapid ventricular spots - IV amiodarone - Digoxin 125 mg daily Full code SCDs for DVT prophylaxis, Lovenox relatively contraindicated given GI bleed Protonix for GI prophylaxis PDMP PDMP Reviewed: Not Reviewed Attestations 2 Medical Necessity Statement*: Patient requires hospitalization for respiratory failure, upper airway edema, COPD, CHF, pneumonia Coding Level of Care Code Critical Care >/= 30 minutes Critical care time (in minutes): 45 The high probability of a clinically significant, sudden or life threatening deterioration, as referenced in this documentation, required my full and direct attention, intervention and personal management. The critical care time shown is in addition to time spent performing any reported separately billable procedures and includes the following: [x] Data and vital sign review and interpretation [x ] Patient assessment, examination and intervention [x] Medication orders and management [x] Patient/Family updates as able [x] Care Coordination and Documentation. Diagnoses Tobacco use Z72.0 COPD (chronic obstructive pulmonary disease) J44.9 Acute respiratory failure with hypoxia J96.01 Hemorrhagic shock R57.8 GI bleed K92.2 Septic shock A41.9; R65.21 Pneumonia J18.9 Atrial fibrillation with rapid ventricular response I48.91 Acute exacerbation of chronic obstructive airways disease J44.1 COPD with acute exacerbation J44.1
--- NOTE | 2025-08-30 18:12 | PC.NURSE ---
extubated remains on bipap small amts of po fluids with meds taking ice chips no swelling noted airway , weaning medication at this time very anxious and restless precedex gtt remains on and increased
--- NOTE | 2025-08-30 19:29 | P.PN_ITS ---
Subjective 2 Subjective: Martha Damico is a 65 year old female with past medical history of chronic respiratory failure, smoker, A-fib, COPD, CAD initially presents on 08/23/2025 due to possible GI bleed. She suddenly, decompensated last night and had to be emergently intubated. She was noted to have some pleuritic chest discomfort and productive cough prior to admission. She was seen by GI and had an EGD done no source of bleeding noted. Probably colonoscopy planned later. She was given 3 units of IV fluids as well as maintain on IV fluids out of bed subsequently stopped. Initially was also on diltiazem for A-fib but in normal sinus rhythm now it stopped currently. 08/27/25 No cuff leak, awake and tolerating vent well. on precedex 0.4 and fentanyl 125 mcgs. tachycardic 08/28/25 minimal cuff leak today. on ns 75 ml/hr. awake on sbt settings. 08/29/2025 And alert following commands. No cuff leak noted today. 08/30/25 good cuff leak today. off fentanyl drip, only on precedex 0.5 Review of systems unobtainable patient is intubated Vitals/I&O/Wt Last Vital Signs Temp 98 F 08/30/25 12:00 Pulse 82 08/30/25 18:15 Resp 11 L 08/30/25 15:40 BP 111/61 08/30/25 18:00 Pulse Ox 92 08/30/25 18:15 O2 Del Method Nasal Cannula 08/30/25 15:40 O2 Flow Rate 6 08/30/25 15:40 FiO2 50 08/30/25 18:15 08/30/25 08/30/25 08/30/25 06:59 14:59 22:59 Intake Total 962.972 / 1975.871 867.2292 / 371.6629 127.109 / 498.7719 Output Total 750 / 4000 Balance 212.972 / -4.846 514.2338 / 371.6629 127.109 / 498.7719 Weight last 48 hrs Weight 80 lb 4.8 oz Weight 78 lb 5.12 oz Physical Exam 2 Narrative: Per RN General: Intubated awake, looks comfortable HEENT: EOMI Pulmonary: Diminished breath sounds bilaterally Cardiovascular: rrr, nl s1s2, Abdomen: soft, nt, nd, no r/g, Extremities: no edema Neurologic: grossly intact Agree with above exam Urinary Catheter Management: Kim: Cath Placed During This Visit: yes Reason for Continuing Indwelling Catheter: Accurate Measurement of Urinary Output in Critically Ill Patients Urinary Catheter Date of Insertion: 08/26/25 Urinary Catheter Time of Insertion: 00:05 Data 08/30/25 03:56 08/30/25 03:56 Micro: Microbiology 08/24/25 18:08 Blood Culture - Final Blood NO GROWTH AFTER 5 DAYS 08/24/25 17:58 Blood Culture - Final Blood NO GROWTH AFTER 5 DAYS A&P Assessment and plan 1. Tobacco use: 2. COPD (chronic obstructive pulmonary disease): 3. Acute respiratory failure with hypoxia: Plan: # Acute hypoxemic hypercarbic respiratory failure Currently on mechanical ventilation tolerating VC AC mode. Plateau pressures with peaks maintained 12. Maintain sats 88 to 92%. Plan to extubate today after 2 hours of SBT CXR 08/29/25 reviewed personally, looks clear Bronchopulmonary hygiene bronchodilator therapy CXR reviewed from 08/27/25- Bibasilar infiltates. no change ABG reviewed currently ABG 7.47 pCO2 of 70 08/29/2025. #Upper airway edema - Good cuff leak today - continue benadryl, already on protonix and solumedrol increased to 125 q 6 # Acute COPD exacerbation Continue DuoNebs. Continue Solu-Medrol -change to prednisone po tomorrow once she can take po # Acute GI bleed probably related to colonic diverticulosis EGD done no source of bleed noted. Currently hemoglobin is stable at 11- 08/29/25. Plan for colonoscopy on a later date. Did not need anymore blood products. On Protonix IV twice daily. On protonix and carafate # Probable septic shock secondary to pneumonia Reviewed chest x-ray images show COPD exacerbation chest x-ray results show pulmonary vascular congestion- improved today Continue vancomycin and meropenem Deescalate according to cultures- NGTD - 08/28/25 # Acute flash pulm edema. Reviewed labs BNP is elevated on 08/26/2025. Monitor urine output and creatinine Lasix 40 twice daily.. Avoid and limit all fluids. Echocardiogram reviewed 08/13/25- EF 60%. BNP 3223- 08/27/25. # A-fib with RVR on currently normal sinus rhythm Continue p.o. amiodarone p.o. 400 twice daily. # Hypokalemia-replace aggressively # Mild transaminitis most likely secondary to shock # Hyperglycemia-insulin sliding scale medium. Avoid hypoglycemia. Maintain blood sugars between 140-180. Dextrose drip if needed to maintain blood sugars above 90 # Sedation-cDC 1 mg of Ativan and 5 Oxy IR and precedex # Nutrition- advance after quick bedside swollow eval # DVT GI prophylaxis-SCDs and famotidine. Hold off on anticoagulation secondary to anemia which could be acute blood loss. # Goals of care- - Family wants to keep patient full code and are okay with reintubation and trach # CODE STATUS- FULL # Disposition-Will need full ICU support follow-up The high probability of a clinically significant, sudden or life threatening deterioration of the patient's [Respiratory, cardiac and renal] system(s) required my full and direct attention, intervention and personal management. The critical care time is as shown. This time is in addition to time spent performing any reported procedures but includes the following: [x] Data and vital sign review and interpretation [x] Patient assessment, examination and intervention [x] Documentation [x] Medication orders and management Critical Care Time (min): 32 Telemedicine Consent Patient seen today via Telemedicine by agreement and consent of patient.? Telemedicine technology used during the visit includes audio and, as available, review of images.? The patient encounter is appropriate and reasonable under the circumstances given the patient?s particular presentation at this time.? The patient has been advised of the potential risks and limitations of this mode of treatment (including but not limited to the absence of in-person examination) and has agreed to be treated in a remote fashion in spite of them.? Any, and all, of the patient?s/patient?s family?s questions on this issue have been answered and I have made no promises or guarantees to the patient. PDMP PDMP Reviewed: Not Reviewed Attestations 2 Medical Necessity Statement*: intubated Coding Level of Care Code Critical Care >/= 30 minutes Diagnoses Tobacco use Z72.0 COPD (chronic obstructive pulmonary disease) J44.9 Acute respiratory failure with hypoxia J96.01
[2025-08-30] MEDS: dexmedeTOMIDine 0.9 % NaCL 400 MCG/100 ML PREMIX 6.13 MCG IV (21:55)
[2025-08-31] VITALS (57 sets, daily range): BP systolic 68–133; BP diastolic 47–92; PULSE 68–115; RESP 12–18; TEMP 36.3–36.9; O2SAT 84–100
[2025-08-31] MEDS: sucralfate 1 gm/10 mL Oral Liq UDC PO ×4 (03:09→21:12)
[2025-08-31] MEDS: methylPREDNISolone sod succ 125 mg/2 mL INJ IVP (03:09)
[2025-08-31 04:31] LABS: Hematocrit 35.0 % (36-47); Hemoglobin 11.40 g/dL (11.27-16.99); Mean Corpuscular HGB Conc 32.6 g/dL (30-55); Mean Corpuscular Hemoglobin 30.4 pg (27-33); Mean Corpuscular Volume 93.3 fl (85-98); Nucleated Red Blood Cells % 0 %; Platelet Count 222 10^3/cmm (157-399); Red Blood Count 3.75 10^6/uL (3.85-5.65); White Blood Count 28.24 10^3/uL (3.29-11.43)
[2025-08-31 04:36] LABS: ABG PCO2 58.2 mmHg (35-45); ABG PH Result 7.52 (7.35-7.45); Arterial Blood Gas Hematocrit 36.6 % (37-47); Blood Gas LPM 5.0 %; Blood Gas Operator Identificat SAM; Blood Gas Sample Site Brachial, left; Blood Gas Sample Type Arterial; HCO3 ABG 47.5 mmol/L (22-26); PO2 ABG 54.0 mmHg (80.0-100.0)
[2025-08-31 04:43] LABS: INR 1.03 (0.8-1.2); Prothrombin Time 14.20 SECONDS (12.1-14.9)
[2025-08-31 04:50] LABS: Alanine Aminotransferase 25 U/L (0-33); Albumin Level 3.7 g/dL (3.5-5.2); Alkaline Phosphatase 76 U/L (35-105); Anion Gap 8.2 (5-19); Aspartate Amino Transferase 19 U/L (0-32); Blood Urea Nitrogen 26 mg/dL (8-23); Calcium 8.3 mg/dL (8.5-10.5); Chloride 90 mmol/L (98-107); Globulin 1.0 g/dL (1.3-4.6); Glucose 169 mg/dL (65-115); Magnesium 1.9 mg/dL (1.7-2.3); Osmolality Calculated 299 mOsm/kg (285-295); Potassium 3.2 mmol/L (3.5-5.1); Sodium 140 mmol/L (136-145); Total Protein 4.7 g/dL (6.6-8.7)
[2025-08-31 04:55] LABS: Lactate (Lactic Acid level) 1.3 mmol/L (0.5-2.2)
[2025-08-31 04:58] LABS: NT Pro B Type Natriuretic Pept 894 pg/mL (0-125); Procalcitonin 0.47 ng/mL (0-0.5)
[2025-08-31] MEDS: LORazepam 2 mg/mL INJ 1 mL 1 MG IVP (05:00)
[2025-08-31] MEDS: vancomycin 500 MG in sodium chloride 0.9% (plus) 100 ML 200 MG IV ×3 (05:02→21:13)
[2025-08-31 05:18] LABS: Carbon Dioxide 45 mmol/L (22-29)
[2025-08-31] MEDS: potassium chloride premix 100 ML 25 MEQ IV ×2 (06:18→10:00)
--- NOTE | 2025-08-31 06:28 | PC.NURSE ---
Contacted Dr. Isbell in reference to low potassiu at 3.2, received orders for replacement. Also, contacted Dr. Isbell in reference to patient's continued hypotension the last few reads. Received orders for a single 250cc bolus and to contact hospitalist for pressor if needed due to risk of fluid overload.
--- NOTE | 2025-08-31 07:00 | XR_ITS ---
WS: [id number] Exam: XR chest 1V portable [id number] Date/Time of Exam: 08/31/2025 7:02 AM Reason For Exam: sob Comparison 08/30/2025. ET tube and enteric tube have been removed. The lungs are hyperinflated and clear. Chronic interstitial changes. Normal cardiomediastinal silhouette. No pleural effusion or pneumothorax. Right-sided PICC line ends in the lower one third of the SVC. XR/XR chest 1V portable [id number] IMPRESSION: 1. Marked pulmonary hyperinflation. No acute process.
[2025-08-31] MEDS: pantoprazole 40 mg SDV IVP ×2 (09:48→21:13)
[2025-08-31] MEDS: dexmedeTOMIDine 0.9 % NaCL 400 MCG/100 ML PREMIX IV (10:00)
--- NOTE | 2025-08-31 10:49 | PC.NURSE ---
Held morning dose of steroids per Dr. Powers verbal orders, going to adjust dosage.
--- NOTE | 2025-08-31 11:18 | PC.OT ---
PER ROUNDS THIS A.M.: HOLD OT EVALUATION TODAY
--- NOTE | 2025-08-31 12:49 | PC.SOCIAL ---
IMM Update pg 2 of IMM Updated and reviewed w/ patient. Copy provided and copy dated, initialed and placed in chart.
--- NOTE | 2025-08-31 15:36 | PC.NURSE ---
Patient requesting dinner, looked at ST notes, called Dr. Oliva who gave verbal orders to proceed with ST recommendations. Orders placed
--- NOTE | 2025-08-31 16:06 | PM.PN ---
Subjective Subjective: 65 year old female with past medical history of COPD, chronic respiratory failure, who presents to [facility] for shortness of breath and chest pain. feels anxious having tremors ativan given, bp soft on precedex nurse reports abnormal stool Vitals/I&O/Wt Last Vital Signs Temp 98.4 F 08/31/25 07:00 Pulse 92 08/31/25 15:30 Resp 16 08/31/25 15:06 BP 100/59 08/31/25 15:30 Pulse Ox 90 08/31/25 15:30 O2 Del Method Nasal Cannula 08/31/25 15:06 O2 Flow Rate 6 08/31/25 15:06 FiO2 50 08/31/25 00:45 08/31/25 08/31/25 08/31/25 06:59 14:59 22:59 Intake Total 208.923 / 818.3469 1053.321 / 1053.321 Output Total 600 / 600 Balance -391.077 / 218.3469 1053.321 / 1053.321 Weight last 48 hrs Weight 35.5 kg Weight 36.423 kg Physical Exam Narrative: appears anxious, tremor Eye: COMMON NORMALS: Equal, round and reactive pupils present and EOMs intact bilaterally PUPIL: Yes Equal, round and reactive pupils present Chest: OTHER: tachycardia Resp: COMMON NORMALS: normal respiratory effort, No retractions and No use of accessory muscles Cardio: COMMON NORMALS: S1 normal heart sound present and S2 normal heart sound present HEART SOUNDS: S1 normal heart sound present and S2 normal heart sound present GI: COMMON NORMALS: Normal to inspection, nondistended, normoactive bowel sounds present and non-tender Extremity: COMMON NORMALS: no pedal edema Urinary Catheter Management: Kim: Cath Placed During This Visit: yes Reason for Continuing Indwelling Catheter: Accurate Measurement of Urinary Output in Critically Ill Patients Urinary Catheter Date of Insertion: 08/26/25 Urinary Catheter Time of Insertion: 00:05 Data 08/31/25 04:09 08/31/25 04:09 A&P Assessment and plan 1. Atrial fibrillation with rapid ventricular response: 2. COPD (chronic obstructive pulmonary disease): Plan: 1. Chest pain: 2. COPD (chronic obstructive pulmonary disease): 3. Hypercapnia: 4. Acute exacerbation of chronic obstructive airways disease: 5. anxiety Plan: 1. wean O2 2. dc iv steroids, start prednisone 3. nebs 4. continue azithroycin, rocephin, followup cx 5. BIPAP PRN 6. wean precedex, consider oral medication 7. monitor GI bleed, Hgb PDMP PDMP Reviewed: Not Reviewed Attestations Medical Necessity Statement*: wean steroids, O2 Coding Level of Care Code 82098 Diagnoses Atrial fibrillation with rapid ventricular response I48.91 COPD (chronic obstructive pulmonary disease) J44.9
--- NOTE | 2025-08-31 18:08 | PC.NURSE ---
Patient educated multiple times on turns, patient turned by staff but patient wiggles back to being on backside.
--- NOTE | 2025-08-31 22:31 | PC.NURSE ---
Bedtime POC BG 111.
[2025-09-01] VITALS (45 sets, daily range): BP systolic 111–162; BP diastolic 55–93; PULSE 66–111; RESP 17–32; TEMP 36.4–36.7; O2SAT 87–98
[2025-09-01] MEDS: sucralfate 1 gm/10 mL Oral Liq UDC PO ×4 (02:56→20:07)
[2025-09-01 03:35] LABS: Hematocrit 35.0 % (36-47); Hemoglobin 11.50 g/dL (11.27-16.99); Mean Corpuscular HGB Conc 32.9 g/dL (30-55); Mean Corpuscular Hemoglobin 30.2 pg (27-33); Mean Corpuscular Volume 91.9 fl (85-98); Nucleated Red Blood Cells % 0 %; Platelet Count 216 10^3/cmm (157-399); Red Blood Count 3.81 10^6/uL (3.85-5.65); White Blood Count 28.39 10^3/uL (3.29-11.43)
[2025-09-01 03:48] LABS: INR 0.93 (0.8-1.2); Prothrombin Time 13.20 SECONDS (12.1-14.9)
[2025-09-01 03:56] LABS: Alanine Aminotransferase 30 U/L (0-33); Albumin Level 3.8 g/dL (3.5-5.2); Alkaline Phosphatase 90 U/L (35-105); Anion Gap 10.4 (5-19); Aspartate Amino Transferase 24 U/L (0-32); Blood Urea Nitrogen 23 mg/dL (8-23); Calcium 8.7 mg/dL (8.5-10.5); Chloride 96 mmol/L (98-107); Globulin 1.5 g/dL (1.3-4.6); Glucose 89 mg/dL (65-115); Magnesium 1.9 mg/dL (1.7-2.3); Osmolality Calculated 303 mOsm/kg (285-295); Potassium 3.4 mmol/L (3.5-5.1); Sodium 145 mmol/L (136-145); Total Protein 5.3 g/dL (6.6-8.7)
[2025-09-01 03:57] LABS: Lactate (Lactic Acid level) 0.9 mmol/L (0.5-2.2)
[2025-09-01 03:59] LABS: Carbon Dioxide 42 mmol/L (22-29)
[2025-09-01 04:05] LABS: NT Pro B Type Natriuretic Pept 1403 pg/mL (0-125); Procalcitonin 0.37 ng/mL (0-0.5)
[2025-09-01] MEDS: vancomycin 500 MG in sodium chloride 0.9% (plus) 100 ML 200 MG IV ×3 (05:09→20:07)
--- NOTE | 2025-09-01 05:29 | PC.NURSE ---
Patient refused to take Prednisone during morning medication pass, stating prednisone is what caused all of this . Education provided on purpose of medication and potential benefits and risks of not taking the medication. Patient continued to refuse and seemed to get more anxious. Dr. Isbell notified.
--- NOTE | 2025-09-01 06:05 | PC.NURSE ---
Throughout the shift, patient had 4 small to moderate loose dark tarry BM's. Patient has stage 2 sacral wound, frequently cleaned and covered with optifoam. Despite numerous attempts at education and provided turnings, patient frequently resumed a supine position, placing frequent pressure on her sacral wound area. Numerous attempts at education provided.
[2025-09-01] MEDS: pantoprazole 40 mg SDV IVP ×2 (09:00→20:07)
--- NOTE | 2025-09-01 11:22 | PC.OT ---
OT EVALUATION ATTEMPTED. PER NURSING, PATIENT IS SLEEPING AND NURSE REQUEST OT TO RETURN THIS AFTERNOON.
--- NOTE | 2025-09-01 14:10 | P.PN_ITS ---
Subjective 2 Subjective: feeling better less tremors off precedex Vitals/I&O/Wt Last Vital Signs Temp 98 F 09/01/25 04:00 Pulse 99 09/01/25 13:00 Resp 24 H 09/01/25 13:00 BP 146/93 09/01/25 13:00 Pulse Ox 88 L 09/01/25 13:00 O2 Del Method Nasal Cannula 09/01/25 11:15 O2 Flow Rate 5 09/01/25 11:15 FiO2 50 08/31/25 00:45 08/31/25 09/01/25 09/01/25 22:59 06:59 14:59 Intake Total 210.625 / 1263.946 180.615 / 1444.561 30 / 30 Output Total 650 / 650 450 / 1100 Balance -439.375 / 613.946 -269.385 / 344.561 30 / 30 Weight last 48 hrs Weight 35.593 kg Weight 35.5 kg Physical Exam 2 Narrative: appears anxious, tremor Eye: COMMON NORMALS: Equal, round and reactive pupils present and EOMs intact bilaterally PUPIL: Yes Equal, round and reactive pupils present Chest: OTHER: tachycardia Resp: COMMON NORMALS: normal respiratory effort, No retractions and No use of accessory muscles Cardio: COMMON NORMALS: S1 normal heart sound present and S2 normal heart sound present HEART SOUNDS: S1 normal heart sound present and S2 normal heart sound present GI: COMMON NORMALS: Normal to inspection, nondistended, normoactive bowel sounds present and non-tender Extremity: COMMON NORMALS: no pedal edema Urinary Catheter Management: Kim: Cath Placed During This Visit: yes Reason for Continuing Indwelling Catheter: Accurate Measurement of Urinary Output in Critically Ill Patients Urinary Catheter Date of Insertion: 08/26/25 Urinary Catheter Time of Insertion: 00:05 Data 09/01/25 03:25 09/01/25 03:25 A&P Assessment and plan 1. COPD (chronic obstructive pulmonary disease): Plan: 1. Atrial fibrillation with rapid ventricular response: 2. COPD (chronic obstructive pulmonary disease): Plan: 1. Chest pain: 2. COPD (chronic obstructive pulmonary disease): 3. Hypercapnia: 4. Acute exacerbation of chronic obstructive airways disease: 5. anxiety Plan: 1. wean O2 2. prednisone 3. nebs 4. continue azithroycin, rocephin, followup cx 5. BIPAP PRN 6. transfer to floor 7. monitor GI bleed, Hgb dispo: DC soon PDMP PDMP Reviewed: Not Reviewed Attestations 2 Medical Necessity Statement*: monitor overnight, dc soon Coding Level of Care Code 86422 Diagnoses COPD (chronic obstructive pulmonary disease) J44.9
--- NOTE | 2025-09-01 16:27 | PC.NURSE ---
Report called to Devika on [facility]
--- NOTE | 2025-09-01 16:35 | PC.NURSE ---
Called Son Anthony to update family on room change
[2025-09-02] VITALS (32 sets, daily range): BP systolic 112–140; BP diastolic 52–103; PULSE 68–107; RESP 16–32; TEMP 36.5–36.9; O2SAT 88–99
[2025-09-02] MEDS: sucralfate 1 gm/10 mL Oral Liq UDC PO ×3 (02:30→14:13)
[2025-09-02] MEDS: chlorhexidine gluconate 4% Btl 118 mL 1 APPLIC TOPICAL (02:37)
[2025-09-02] MEDS: ondansetron 2 mg/ML SDV 2 mL 4 MG IVP (03:53)
--- NOTE | 2025-09-02 04:00 | PC.RESP ---
Pt had decrease in Sats. placed on BIPAP very briefly as patient was confused and anxious. attempted to call her family but they did not answer. Gave her a treatment after much persuasion. Pt refused ativan but took Zofran. Sats were up after her anxiety subsided.
[2025-09-02] MEDS: vancomycin 500 MG in sodium chloride 0.9% (plus) 100 ML 200 MG IV ×3 (04:18→20:49)
[2025-09-02] MEDS: LORazepam 2 mg/mL INJ 1 mL 1 MG IVP (04:20)
[2025-09-02] MEDS: pantoprazole 40 mg SDV IVP ×2 (07:46→19:31)
[2025-09-02 08:30] LABS: Anion Gap 10.3 (5-19); Blood Urea Nitrogen 24 mg/dL (8-23); Calcium 8.2 mg/dL (8.5-10.5); Carbon Dioxide 38 mmol/L (22-29); Chloride 100 mmol/L (98-107); Glucose 177 mg/dL (65-115); Osmolality Calculated 308 mOsm/kg (285-295); Potassium 3.3 mmol/L (3.5-5.1); Sodium 145 mmol/L (136-145)
--- NOTE | 2025-09-02 12:31 | XR_ITS ---
WS: [id number] Exam: XR abdomen 1V* [id number] Date/Time of Exam: 09/02/2025 12:58 PM Reason For Exam: abdominal distension DLP: There appears to be free air in the upper abdomen. Additionally there is some separation of bowel loops that might indicate ascites. No sign of organ enlargement. Opaque material noted in the stomach and bowel. Bony structures are intact. No sign of bowel obstruction. XR/XR abdomen 1V* [id number] IMPRESSION: 1. Findings suspicious for pneumoperitoneum. Perforated viscus is a considerati on. This might also be a result of recent abdominal instrumentation. 2. Suggestion of abdominal ascites. Recommendation: Contrast CT scan of the abdomen and pelvis recommended for foll ow-up. Results and recommendations were discussed by phone with Marie, the patient's nurse at 1:39 p.m. 09/02/2025. Phone message also LEFT at Dr. Oliva's office at approximately 1:15 p.m. 09/02/2025.
--- NOTE | 2025-09-02 12:32 | P.PN_ITS ---
Subjective 2 Subjective: feels better less anxious family at bedside on 3L Vitals/I&O/Wt Last Vital Signs Temp 98.4 F 09/02/25 11:07 Pulse 80 09/02/25 11:36 Resp 16 09/02/25 11:31 BP 133/65 09/02/25 11:07 Pulse Ox 93 09/02/25 11:31 O2 Del Method Nasal Cannula 09/02/25 11:31 O2 Flow Rate 3 09/02/25 11:31 FiO2 50 08/31/25 00:45 09/01/25 09/02/25 09/02/25 22:59 06:59 14:59 Intake Total 200 / 230 100 / 330 240 / 240 Output Total 500 / 500 600 / 1100 Balance -300 / -270 -500 / -770 240 / 240 Weight last 48 hrs Weight 35.862 kg Weight 35.593 kg Physical Exam 2 Narrative: appears anxious, tremor Eye: COMMON NORMALS: Equal, round and reactive pupils present and EOMs intact bilaterally PUPIL: Yes Equal, round and reactive pupils present Chest: OTHER: tachycardia Resp: COMMON NORMALS: normal respiratory effort, No retractions and No use of accessory muscles Cardio: COMMON NORMALS: S1 normal heart sound present and S2 normal heart sound present HEART SOUNDS: S1 normal heart sound present and S2 normal heart sound present GI: COMMON NORMALS: Normal to inspection, nondistended, normoactive bowel sounds present (RLQ tenderness) Extremity: COMMON NORMALS: no pedal edema Urinary Catheter Management: Kim: Cath Placed During This Visit: yes Reason for Continuing Indwelling Catheter: Accurate Measurement of Urinary Output in Critically Ill Patients Urinary Catheter Date of Insertion: 08/26/25 Urinary Catheter Time of Insertion: 00:05 Data 09/01/25 03:25 09/02/25 08:03 A&P Assessment and plan 1. COPD (chronic obstructive pulmonary disease): Plan: 1. Atrial fibrillation with rapid ventricular response: 2. COPD (chronic obstructive pulmonary disease): Plan: 1. Chest pain: 2. COPD (chronic obstructive pulmonary disease): 3. Hypercapnia: 4. Acute exacerbation of chronic obstructive airways disease: 5. anxiety Plan: 1. wean O2 2. prednisone wean 3. nebs 4. continue azithroycin, rocephin, followup cx 5. BIPAP PRN 6. PT OT 7. monitor GI bleed, Hgb 8. check abdomen xray likely dc soon when auth approved PDMP PDMP Reviewed: Not Reviewed Attestations 2 Medical Necessity Statement*: wean O2 Coding Level of Care Code 38761 Diagnoses COPD (chronic obstructive pulmonary disease) J44.9
--- NOTE | 2025-09-02 13:40 | CTR_ITS ---
PROCEDURE INFORMATION: Exam: CT Abdomen And Pelvis With Contrast Exam date and time: 09/02/2025 2:50 PM Age: 65 years old Clinical indication: Abdominal pain; Free air seen on prev XR, CT ordered to TECHNIQUE: Imaging protocol: Computed tomography of the abdomen and pelvis with contrast. Radiation optimization: All CT scans at this facility use at least one of these dose optimization techniques: automated exposure control; mA and/or kV adjustment per patient size (includes targeted exams where dose is matched to clinical indication); or iterative reconstruction. Contrast material: [id number]; Contrast volume: 60 ml; Contrast route: INTRAVENOUS (IV); COMPARISON: 1. CT chest abdpel w/*[id number] 05/08/2023 3:[address] lung screening [id number] 04/19/2022 7:43 AM RADIATION DOSE METRICS: Total DLP (mGy-cm): 251.4 FINDINGS: Lungs: Small amount of compressive atelectasis lower lobes of each lung, [id number]. Centrilobular and panlobular emphysema in the lung bases. Pleural spaces: Very small amount of right pleural fluid. No pneumothorax noted of the lung bases. Heart: No pericardial effusion. Liver: No liver mass noted. Gallbladder and biliary ducts: Gallbladder mildly distended with transverse diameter 3.2 cm. No calcified gallstones noted. Common bile duct diameter appears upper normal at about 6 mm. No obvious biliary ductal dilatation. Pancreas: Pancreas appears unremarkable. No pancreatic ductal dilatation. Spleen: Spleen nonenlarged. Couple of small calcified granulomas inferior aspect of the spleen. Increased amount of fluid in the pelvis. Small amount of fluid adjacent to the spleen. Adrenal glands: Right adrenal gland appears unremarkable. 14 x 13 mm predominantly hypodense lesion measuring 22 Hounsfield units apex left adrenal gland with similar appearance to previous exam 2 years ago probably representing adenoma. This also appears similar to chest CT 3 years ago. Kidneys and ureters: 3-4 mm stone lower pole left kidney. No hydronephrosis. Ureters appear grossly unremarkable. No renal mass noted. Stomach and bowel: No bowel herniation. No bowel obstruction. Small amount of radiopaque material probably ingested within the stomach, small bowel and colon. Scattered diverticula of sigmoid colon and left colon. Terminal ileum appears grossly unremarkable. Mild diffuse prominence of small bowel; no marked focal bowel wall thickening noted. Appendix: The appendix appears present and grossly unremarkable in appearance. Intraperitoneal space: Pneumoperitoneum demonstrated in the abdomen and pelvis concerning for perforated viscus. No large volume ascites. Vasculature: Patent portal vein. Patent hepatic veins. Diffuse atherosclerotic calcification. No aneurysm. Inferior vena cava appears grossly unremarkable. No obvious significant stenosis noted of the origins of superior mesenteric artery and celiac axis. Inferior mesenteric artery appears patent. No acute thrombus noted. Lymph nodes: No adenopathy noted. Urinary bladder: Kim catheter in the bladder with some associated gas in the bladder lumen. Reproductive: Uterus appears present and grossly unremarkable. No adnexal mass noted. Bones/joints: Some osteopenia. Facet hypertrophy lower lumbar spine. Soft tissues: No abdominal wall mass. 14 mm area of increased density subcutaneous tissue left lower quadrant of abdomen image 39 series 3 may represent medication injection site. CT/CT abdomen pelvis w con* [id number] follow up IMPRESSION: 1. Pneumoperitoneum. Findings concerning for perforated viscus. Surgical consultation recommended. Critical call result made and findings discussed with Dr. Oliva on 09/02/2025 at 4:03 p.m.. 2. Mildly distended gallbladder. Gallbladder ultrasound may be helpful for further evaluation when patient's condition permits. 3. Some fluid in the pelvis with small amount of fluid adjacent to the spleen probably reactive. No large volume ascites. 4. Left nephrolithiasis. No hydronephrosis. 5. No adenopathy noted. 6. No bowel obstruction. 7. Very small amount of right pleural effusion. 8. Findings compatible with left adrenal adenoma similar to previous exams.
[2025-09-02] MEDS: lidocaine 2% viscous 15 ML, aluminum-mag hydrox-simethicon 30 ML, sucralfate oral liq 1 GM PO (14:13)
--- NOTE | 2025-09-02 14:16 | PM.CONSULT ---
Providers/Reason For Consult Consulting Physician/Specialty*: General Surgery Reason for Consult*: Possible pneumoperitoneum Attending Physician: Rachel Oliva MD Primary Care Provider: Zuly Damico NP History of Present Illness History of Present Illness Martha Damico is a 65 year old female with extensive medical comorbidities who is admitted to the hospital with COPD exacerbation, sepsis, GI bleed. She has been slowly improving but this morning she complained of some abdominal pain and therefore an x-ray of the abdomen was obtained. The x-ray of the abdomen was concerning for the possibility of pneumoperitoneum and therefore I was consulted for evaluation. On my evaluation patient denies any significant abdominal pain has been tolerating diet, no fever no chills normal vital signs. Review of Systems General: Reports: 10 or more systems reviewed and unremarkable except in HPI and below Medications/Allergies Home Medications ?Medication ?Instructions ?Recorded ?Confirmed ?Last Taken ?Type budesonide-formoterol HFA 160 2 puff inhalation BID 03/18/21 08/23/25 08/22/25 History mcg-4.5 mcg/actuation aerosol inhaler (Symbicort) multivitamin 1 tab PO DAILY 04/11/22 08/23/25 08/22/25 History albuterol sulfate 2.5 mg/3 mL 2.5 mg (3 mL) continuous 04/23/25 08/23/25 08/13/25 Rx (0.083 %) solution for nebulization nebulization Q8H Shortness Of Breath #180 mL albuterol sulfate 90 mcg/actuation 1 inh inhalation Q6H PRN shortness 04/23/25 08/23/25 Unknown Rx aerosol inhaler (Ventolin HFA) of breath or wheezing #8.5 grams ipratropium bromide 0.02 % 1.25 ml inhalation Q8H #150 mL 04/23/25 08/23/25 08/23/25 01:00 Rx solution for inhalation ibuprofen 200 mg tablet (Advil) 400 mg PO Q6H PRN Pain 08/14/25 08/23/25 08/22/25 History prednisone 10 mg tablet See Taper PO DIRECTED #42 tabs 08/15/25 08/23/25 08/22/25 Rx tramadol 50 mg tablet 50 mg PO Q8H PRN pain #10 tabs 08/20/25 08/23/25 08/22/25 19:00 Rx Allergies Allergy/AdvReac Type Severity Reaction Status Date / Time No Known Allergies Allergy Verified 08/13/25 17:16 Current Medications Generic Name Dose Route Start Last Admin Trade Name Dineshq PRN Reason Stop Dose Admin Albuterol/Ipratropium 3 ml 08/25/25 22:00 09/02/25 11:30 Ipratropium-Albuterol 3 Ml Neb INHALATION 3 ml Q4H.RESPIRATORY YAKOV Administration Amiodarone HCl 400 mg 08/30/25 17:00 09/02/25 04:21 Amiodarone 200 Mg Tablet PO 400 mg BID YAKOV Administration Budesonide 0.5 mg 08/23/25 20:00 09/02/25 07:56 Budesonide 0.5 Mg/2 Ml Neb INHALATION 0.5 mg BID.RESPIRATORY YAKOV Administration Chlorhexidine Gluconate 1 applic 08/28/25 02:00 09/02/25 02:37 Chlorhexidine Gluconate 4% Btl 118 Ml TOPICAL 1 applic Q24H YAKOV Administration Digoxin 125 mcg 08/31/25 05:00 09/02/25 04:20 Digoxin 125 Mcg Tablet PO 125 mcg DAILY YAKOV Administration Epinephrine 0.5 ml 08/30/25 10:34 08/30/25 12:35 Racepinephrine 0.5 Ml Neb INHALATION 0.5 ml Q4H.RESPIRATORY PRN Administration SHORTNESS OF BREATH Vancomycin HCl 500 mg/ Sodium 100 mls @ 200 mls/hr 08/28/25 21:00 09/02/25 13:43 Chloride IV Infused Q8H YAKOV Infusion Sodium Chloride 1,000 mls @ 75 mls/hr 09/02/25 13:45 09/02/25 14:13 Sodium Chloride 0.9% IV 75 mls/hr .[id number] YAKOV Administration Insulin Human Lispro 0 unit 08/24/25 12:00 09/02/25 12:37 Insulin Lispro 100 Unit/1 Ml SUBCUT 4 unit TIDWM YAKOV Administration Protocol Lanolin 1 applic 08/24/25 16:52 08/28/25 14:41 Lanolin Oint 7 Gm TOPICAL 1 applic PRN PRN Administration DRYNESS Lorazepam 1 mg 08/27/25 12:22 09/02/25 04:20 Lorazepam 2 Mg/Ml Inj 1 Ml IVP 1 mg Q8H PRN Administration ANXIETY Melatonin 3 mg 08/25/25 19:26 08/25/25 21:12 Melatonin 3 Mg Tablet PO 3 mg BEDTIME PRN Administration INSOMNIA Meropenem 500 mg 08/25/25 18:00 09/02/25 09:17 Meropenem 500 Mg Sdv IVP 500 mg Q8H YAKOV Administration Protocol Morphine Sulfate 2 mg 08/24/25 08:27 08/24/25 12:18 Morphine 4 Mg/Ml Sdv 1 Ml IVP 2 mg Q4H PRN Administration SEVERE PAIN Ondansetron HCl 4 mg 08/23/25 23:55 09/02/25 03:53 Ondansetron 2 Mg/Ml Sdv 2 Ml IVP 4 mg Q4H PRN Administration NAUSEA AND VOMITING Pantoprazole Sodium 40 mg 08/24/25 08:30 09/02/25 07:46 Pantoprazole 40 Mg Sdv IVP 40 mg Q12H YAKOV Administration Prednisone 40 mg 09/01/25 05:00 09/02/25 04:21 Prednisone 20 Mg Tablet PO 40 mg DAILY YAKOV Administration Sucralfate 1 gm 08/28/25 08:30 09/02/25 14:13 Sucralfate 1 Gm/10 Ml Oral Liq Udc PO 1 gm Q6H YAKOV Administration PFSH Acute PFSH: Medical History Chest pain COPD (chronic obstructive pulmonary disease) Afib PTSD (post-traumatic stress disorder) Tobacco use Family History Mother Dementia Lung disease Cancer Sister Dementia Diabetes Cancer Father Lung disease Cancer Family/Other Stroke Brother Cancer Social History Smoking and tobacco/nicotine status: former use of tobacco/nicotine Quit status (tobacco/nicotine): has quit using Year quit tobacco: 15 months ago Former quit date comment: 1 pack per day x 52 years Second hand smoke exposure: Yes Alcohol intake: current Alcohol intake frequency: 3 or more drinks per day Vitals/I&O/Wt Last Vital Signs Temp 98.4 F 09/02/25 11:07 Pulse 80 09/02/25 11:36 Resp 16 09/02/25 11:31 BP 133/65 09/02/25 11:07 Pulse Ox 93 09/02/25 11:31 O2 Del Method Nasal Cannula 09/02/25 11:31 O2 Flow Rate 3 09/02/25 11:31 FiO2 50 08/31/25 00:45 09/01/25 09/02/25 09/02/25 22:59 06:59 14:59 Intake Total 200 / 230 100 / 330 580 / 580 Output Total 500 / 500 600 / 1100 Balance -300 / -270 -500 / -770 580 / 580 Weight last 48 hrs Weight 79 lb 1 oz Weight 78 lb 7.5 oz Physical Exam Narrative: Abdominal examination is completely benign, the abdomen is soft minimally tender in the epigastrium nondistended, no peritoneal signs. Urinary Catheter Management: Kim: Cath Placed During This Visit: yes Reason for Continuing Indwelling Catheter: Accurate Measurement of Urinary Output in Critically Ill Patients Urinary Catheter Date of Insertion: 08/26/25 Urinary Catheter Time of Insertion: 00:05 Data 09/01/25 03:25 09/02/25 08:03 A&P Assessment and plan 1. Septic shock: 2. Pneumonia: 3. COPD (chronic obstructive pulmonary disease): 4. Pneumoperitoneum of unknown etiology: Plan: This is a 65-year-old female with COPD and multiple comorbidities admitted to the hospital who was found to possibly have pneumoperitoneum on x-ray. Per my interview and physical examination is not compatible with hollow viscus perforation she does not have any significant abdominal pain although vital signs are normal and there is no peritonitis or physical signs of perforation. Taking this in consideration I think it will be appropriate to obtain a stat CT of the abdomen pelvis with contrast for further evaluation. It has been described in the literature as spontaneous pneumoperitoneum in patients with severe COPD which can often be managed conservatively if there is no evidence of other secondary signs suggestive of perforation of hollow viscus. Once we have the results of the imaging I will follow-up and will discuss with the patient the options. We Today in consideration also patient's extremely frail and is a very poor candidate for any kind of surgical intervention at this point. She shows understanding agrees with plan PDMP PDMP Reviewed: Not Reviewed Coding Level of Care Code Acute Code for Chg Fwd Diagnoses Septic shock A41.9; R65.21 Pneumonia J18.9 COPD (chronic obstructive pulmonary disease) J44.9 Pneumoperitoneum of unknown etiology K66.8
[2025-09-02 14:46] LABS: Lactate (Lactic Acid level) 1.7 mmol/L (0.5-2.2)
[2025-09-02] MEDS: iohexol 350 mg/mL 500 mL Btl (per mL) IV (14:52)
--- NOTE | 2025-09-02 15:48 | P.PN_ITS ---
Subjective 2 Subjective: This is an update after CT scan of the abdomen pelvis has been done. Patient remains stable very minimal abdominal pain. Vitals/I&O/Wt Last Vital Signs Temp 98.4 F 09/02/25 11:07 Pulse 80 09/02/25 11:36 Resp 16 09/02/25 11:31 BP 133/65 09/02/25 11:07 Pulse Ox 93 09/02/25 11:31 O2 Del Method Nasal Cannula 09/02/25 11:31 O2 Flow Rate 3 09/02/25 11:31 FiO2 50 08/31/25 00:45 09/02/25 09/02/25 09/02/25 06:59 14:59 22:59 Intake Total 100 / 330 580 / 580 Output Total 600 / 1100 Balance -500 / -770 580 / 580 Weight last 48 hrs Weight 79 lb 1 oz Weight 78 lb 7.5 oz Physical Exam 2 GI: OTHER: Abdomen is soft very mild tenderness in epigastrium. Urinary Catheter Management: Kim: Cath Placed During This Visit: yes Reason for Continuing Indwelling Catheter: Accurate Measurement of Urinary Output in Critically Ill Patients Urinary Catheter Date of Insertion: 08/26/25 Urinary Catheter Time of Insertion: 00:05 Data 09/01/25 03:25 09/02/25 08:03 A&P Assessment and plan 1. Pneumoperitoneum of unknown etiology: Plan: I have personally reviewed the imaging, there is significant amount of free intra-abdominal air, there are some mesenteric fat haziness that may represent inflammation and there is free fluid in the pelvis. With this findings there is high concern for the possibility of holes viscus perforation. Unfortunately did not do official read from the radiologist not back but with the significant findings I do not think we should continue waiting and rather we should proceed to the OR for exploration. I discussed with the patient and family members the possibility of a laparoscopy, possible laparotomy and related procedures. I explained the possible need of bowel resection, colon resection, ostomy creation, need for open abdomen, need for additional procedures, I Explained the risk of injury to the surrounding structures, risk of sepsis, . I have explained to the patient and family member that her risks of serious complications including that he is extremely high due to the baseline comorbidities as well as the possibility of a hollow viscus perforation. Patient and family member showed understanding they agreed to proceed and they want to proceed with surgery. Patient most likely will require ICU after surgery. We will update the family as soon as the procedure is finished. Case has been discussed with medical team PDMP PDMP Reviewed: Not Reviewed Attestations 2 Medical Necessity Statement*: Per medical team Coding Level of Care Code Acute Code for Chg Fwd Diagnoses Pneumoperitoneum of unknown etiology K66.8
--- NOTE | 2025-09-02 16:02 | P.ANESASSM_ITS ---
Pre-Anesthetic Assessment Height/Weight: Height 1.52 m Weight 35.862 kg Temp Pulse Resp BP Pulse Ox O2 Del Method O2 Flow Rate 98.4 F 80 16 133/65 93 Nasal Cannula 3 09/02/25 11:07 09/02/25 11:36 09/02/25 11:31 09/02/25 11:07 09/02/25 11:31 09/02/25 11:31 09/02/25 11:31 FiO2 50 08/31/25 00:45 Operation Date: 08/25/25 14:00 Proposed Procedures p EGD(Not Applicable) - Zay Wilcxo MD Operation Date: 09/02/25 16:30 Proposed Procedures p Laparoscopy Diagnostic(Not Applicable) - Richard Cormier MD s Exploratory Laparotomy(Not Applicable) - Richard Cormier MD Familial anesthetic complications: none Social No alcohol and No tobacco Exam alert, oriented x 3, clear to auscultation bilaterally and regular rate & rhythm Airway Dentition: full Pulmonary Chronic Obstructive Pulmonary Disease CV/HEM Atrial Fibrillation Anesthetic Plan ASA status: 3E Anesthesia: General Risk of > 500 ml blood loss (7ml/kg in children): No Medications/Allergies Home Medications ?Medication ?Instructions ?Recorded ?Confirmed ?Last Taken ?Type budesonide-formoterol HFA 160 2 puff inhalation BID 08/23/25 08/22/25 History mcg-4.5 mcg/actuation aerosol inhaler (Symbicort) multivitamin 1 tab PO DAILY 04/11/22 1112/2308/22/25 History albuterol sulfate 2.5 mg/3 mL 2.5 mg (3 mL) continuous 04/23/25 08/23/25 08/13/25 Rx (0.083 %) solution for nebulization nebulization Q8H S hortness Of Breath #180 mL albuterol sulfate 90 mcg/actuation 1 inh inhalation Q6 H PRN shortness 04/23/25 08/23/25 Unknown Rx aerosol inhaler (Ventolin HFA) of breath or wheezing # 8.5 grams ipratropium bromide 0.02 % 1.25 ml inhalation Q8H #150 mL 04/23/25 08/23/25 08/23/25 01:00 Rx solution for inhalation ibuprofen 200 mg tablet (Advil) 400 mg PO Q6H PRN Pain 08/14/25 08/23/25 08/22/25 History prednisone 10 mg tablet See Taper PO DIRECTED #42 tabs 08/15/25 08/23/25 08/22/25 Rx tramadol 50 mg tablet 50 mg PO Q8H PRN pain #10 ta bs 08/20/25 08/23/25 08/22/25 19:00 Rx Allergies Allergy/AdvReac Type Severity Reaction Status Date / Time No Known Allergies Allergy Verified 08/13/25 17:16 Current Medications Generic Name Dose Route Start Last Admin Trade Name Freq PRN Reason Stop Dose Admin Albuterol/Ipratropium 3 ml 08/25/25 22:00 09/02/25 11:30 Ipratropium-Albuterol 3 Ml Neb INHALATION 3 ml On Hold: 09/02/25 15:37 Q4H.RESPIRATORY YAKOV Administration Comment: Order held by Process Transfer Amiodarone HCl 400 mg 08/30/25 17:00 09/02/25 04:21 Amiodarone 200 Mg Tablet PO 400 mg On Hold: 09/02/25 15:37 BID YAKOV Administration Comment: Order held by Process Transfer Budesonide 0.5 mg 08/23/25 20:00 09/02/25 07:56 Budesonide 0.5 Mg/2 Ml Neb INHALATION 0.5 mg On Hold: 09/02/25 15:37 BID.RESPIRATORY YAKOV Administration Comment: Order held by Process Transfer Chlorhexidine Gluconate 1 applic 08/28/25 02:00 09/02/25 02:37 Chlorhexidine Gluconate 4% Btl 118 Ml TOPICAL 1 applic On Hold: 09/02/25 15:37 Q24H YAKOV Administration Comment: Order held by Process Transfer Digoxin 125 mcg 08/31/25 05:00 09/02/25 04:20 Digoxin 125 Mcg Tablet PO 125 mcg On Hold: 09/02/25 15:37 DAILY YAKOV Administration Comment: Order held by Process Transfer Epinephrine 0.5 ml 08/30/25 10:34 08/30/25 12:35 Racepinephrine 0.5 Ml Neb INHALATION 0.5 ml On Hold: 09/02/25 15:37 Q4H.RESPIRATORY PRN Administration Comment: Order held by Process SHORTNESS OF BREATH Transfer Vancomycin HCl 500 mg/ Sodium 100 mls @ 200 mls/hr 08/28/25 21:00 09/02/25 13:43 Chloride IV Infused Q8H YAKOV Infusion Sodium Chloride 1,000 mls @ 75 mls/hr 09/02/25 13:45 09/02/25 14:13 Sodium Chloride 0.9% IV 75 mls/hr On Hold: 09/02/25 15:37 .[id number] YAKOV Administration Comment: Order held by Process Transfer Insulin Human Lispro 0 unit 08/24/25 12:00 09/02/25 12:37 Insulin Lispro 100 Unit/1 Ml SUBCUT 4 unit On Hold: 09/02/25 15:37 TIDWM YAKOV Administration Comment: Order held by Process Protocol Transfer Lanolin 1 applic 08/24/25 16:52 08/28/25 14:41 Lanolin Oint 7 Gm TOPICAL 1 applic On Hold: 09/02/25 15:37 PRN PRN Administration Comment: Order held by Process DRYNESS Transfer Lorazepam 1 mg 08/27/25 12:22 09/02/25 04:20 Lorazepam 2 Mg/Ml Inj 1 Ml IVP 1 mg On Hold: 09/02/25 15:37 Q8H PRN Administration Comment: Order held by Process ANXIETY Transfer Melatonin 3 mg 08/25/25 19:26 08/25/25 21:12 Melatonin 3 Mg Tablet PO 3 mg On Hold: 09/02/25 15:37 BEDTIME PRN Administration Comment: Order held by Process INSOMNIA Transfer Meropenem 500 mg 08/25/25 18:00 09/02/25 09:17 Meropenem 500 Mg Sdv IVP 500 mg Q8H [facility], [facility]–1983 Administration Protocol Morphine Sulfate 2 mg 08/24/25 08:27 08/24/25 12:18 Morphine 4 Mg/Ml Sdv 1 Ml IVP 2 mg On Hold: 09/02/25 15:37 Q4H PRN Administration Comment: Order held by Process SEVERE PAIN Transfer Ondansetron HCl 4 mg 08/23/25 23:55 09/02/25 03:53 Ondansetron 2 Mg/Ml Sdv 2 Ml IVP 4 mg On Hold: 09/02/25 15:37 Q4H PRN Administration Comment: Order held by Process NAUSEA AND VOMITING Transfer Pantoprazole Sodium 40 mg 08/24/25 08:30 09/02/25 07:46 Pantoprazole 40 Mg Sdv IVP 40 mg On Hold: 09/02/25 15:37 Q12H YAKOV Administration Comment: Order held by Process Transfer Prednisone 40 mg 09/01/25 05:00 09/02/25 04:21 Prednisone 20 Mg Tablet PO 40 mg On Hold: 09/02/25 15:37 DAILY YAKOV Administration Comment: Order held by Process Transfer Sucralfate 1 gm 08/28/25 08:30 09/02/25 14:13 Sucralfate 1 Gm/10 Ml Oral Liq Udc PO 1 gm On Hold: 09/02/25 15:37 Q6H YAKOV Administration Comment: Order held by Process Transfer PFSH Anesthesia Medical History Chest pain COPD (chronic obstructive pulmonary disease) Afib PTSD (post-traumatic stress disorder) Tobacco use Family History Mother Dementia Lung disease Cancer Sister Dementia Diabetes Cancer Father Lung disease Cancer Family/Other Stroke Brother Cancer Social History Smoking and tobacco/nicotine status: former use of tobacco/nicotine Quit status (tobacco/nicotine): has quit using Year quit tobacco: 15 months ago Former quit date comment: 1 pack per day x 52 years Second hand smoke exposure: Yes Alcohol intake: current Alcohol intake frequency: 3 or more drinks per day Data Anesthesia 09/01/25 03:25 09/02/25 08:03 Short CBC 09/01/25 Range/Units 03:25 WBC 28.39 H (3.29-11.43) 10^3/uL Hgb 11.50 (11.27-16.99) g/dL Hct 35.0 L (36-47) % MCV 91.9 (85-98) fl Plt Count 216 (157-399) 10^3/cmm Neut % (Auto) 94.5 % Neut # (Auto) 26.81 H (1.8-7.7) 10^3/uL BMP 09/01/25 09/02/25 03:25 08:03 Sodium 145 145 Potassium 3.4 L 3.3 L Chloride 96 L 100 Carbon Dioxide 42 H* 38 H BUN 23 24 H Creatinine 0.3 L 0.4 L Glucose 89 177 H Calcium 8.7 8.2 L Cardiac Enzymes 09/01/25 Range/Units 03:25 Creatine Kinase 59 (26-192) U/L NT-Pro-B Natriuret Pep 1403 H (0-125) pg/mL Liver Function 09/01/25 Range/Units 03:25 Total Bilirubin 1.0 (0.15-1.2) mg/dL AST 24 (0-32) U/L ALT 30 (0-33) U/L Alkaline Phosphatase 90 (35-105) U/L Albumin 3.8 (3.5-5.2) g/dL Coags 09/01/25 03:25 PT 13.20 INR 0.93 C-Reactive Protein 79.7 H Cardiac Studies: 2 Echocardiogram 08/29/25
[2025-09-02] MEDS: lidocaine-epi 1% 20 mL INJ 10 ML INJECTION (17:49)
[2025-09-02] MEDS: BUPivacaine 0.25% INJ 10 mL INJECTION (18:39)
--- NOTE | 2025-09-02 18:47 | P.OP_ITS ---
Operative Report Date of procedure: September 02, 2025 Pre-op diagnosis: Pneumoperitoneum Post-op diagnosis: Duodenal perforation Post-op findings: There was a 1 cm perforation in the anterior face of the duodenum, there was localized changes suggestive of peritonitis with peritoneal rants and small pocket of bile in the right upper quadrant below the gallbladder. Procedure done: Diagnostic laparoscopy, laparoscopic repair of duodenal perforation with modified Guillermo patch Specimens removed/disposition: none Surgeon: Richard Cormier MD Fruit Picker Machine Operator: PAUL OR Staff Estimated blood loss: 10 Complications: none Brief History: 65-year-old female with COPD exacerbation who was admitted to the hospital for several days, today she complained of some mild abdominal pain and therefore an abdominal x-ray was obtained show evidence of pneumoperitoneum, her white count was elevated to 28,000, vital signs were stable, CT scan showed evidence of intra-abdominal free air and fluid in the pelvis Procedure: Patient was brought into the OR, she was placed in a spine position. General anesthesia was given. The abdomen was prepped and draped in the usual sterile fashion. Timeout was conducted. The abdomen was accessed in the left upper quadrant with a 5 mm Optiview trocar, initial pneumoperitoneum was obtained and no evidence of visceral injury during entry was noted. Additional 5 mm trocar was placed in the infraumbilical location. Initial laparoscopy was initiated and it was apparent that there was inflammatory process in the right upper quadrant and what significant amounts of peritoneal rants and some free fluid. The rest of the abdomen appear healthy with no significant ongoing inflammation noted. An additional 5 mm trocar was placed in the right upper quadrant under direct visualization and another 5 mm trocar was placed in the left flank under direct visualization. I then elevated the liver, immediately after elevation of the liver a small pocket of free bile was accessed, the bile was evacuated with suction and irrigation, at this point I was able to visualize a perforation in the anterior aspect of the duodenum measuring 1 cm and leaking bile. The duodenum had inflammatory adhesions to the liver and to the gallbladder that were bluntly taken down taking careful consideration of not injuring the duodenum during the process. I then also pulled some omentum down from the gallbladder dome and another pocket of bile was identified, this was irrigated and suction. At this point I decided to proceed with modified Guillermo patch repair of the duodenal ulcer perforation. I approximated the perforation that appeared to have clear margins with 4 separate #3-0 Vicryl sutures with laparoscopic suturing. The perforation appeared to be completely sealed the are a was irrigated and no evidence of leakage of air or bile was noted. I then proceeded to fashion a piece of omentum using ligature to cover the area I used the LigaSure to transect the omentum into the shape of a wedge, this portion of the omentum was collapsed cuff for the repair and then I fixed it to the duodenum using #3-0 Vicryl sutures, the sutures were superficial and Lusonal prevent devitalization of the omentum. The abdomen was irrigated and suctioned with about 3 L of saline. I finally placed Vistaseal over the area of the repair. A drain was placed into the abdomen and located in the Morison's pouch and delivered through the right upper quadrant trocar. The drain was fixed to the skin with #2-0 nylon. The infraumbilical trocar was removed and the trocar site was closed using a Alonso-Tl suture passer with a 0 Vicryl under direct visualization. The left flank trocar was removed and direct visualization the left upper quadrant trocar was used to evacuate the pneumo peritoneum and subsequently removed. Local anesthesia was infiltrated in the wounds. Hemostasis was achieved. The wound were closed in layers with 3-0 Vicryl for the subcutaneous tissue and #4 Monocryl for the skin. Dermabond was applied. At the end of the procedure all counts were correct, the patient tolerated well the procedure and was transferred to the ICU in stable condition
[2025-09-02] MEDS: acetaminophen 1,000 MG/100 ML PIGGYBACK 400 MG IV (19:31)
--- NOTE | 2025-09-02 20:59 | XRR_ITS ---
PROCEDURE INFORMATION: Exam: XR Chest Exam date and time: 09/02/2025 10:08 PM Age: 65 years old Clinical indication: Ng placement TECHNIQUE: Imaging protocol: Radiologic exam of the chest. Views: 1 view. COMPARISON: CR XR chest 1V portable [id number] 08/31/2025 8:03 AM FINDINGS: Tubes, catheters and devices: Right upper extremity PICC with the catheter tip terminating near the superior cavoatrial junction. Enteric tube courses below the diaphragm midline with the tip projecting over the expected region of the stomach with the side hole beyond the GE junction. Lungs: No pulmonary consolidation. Pleural spaces: No pneumothorax. No pleural effusion. Heart/Mediastinum: Unremarkable. No cardiomegaly. Bones/joints: Unremarkable. Intraperitoneal space: Pneumoperitoneum is better visualized on same day CT abdomen and pelvis. XR/XR chest 1V [id number] IMPRESSION: 1. Enteric tube with the tip projecting over the expected region of the stomach. 2. No acute cardiopulmonary abnormality.
--- NOTE | 2025-09-02 22:00 | PC.NURSE ---
Physician Communication PO medications ordered while patient NPO and two maintenance fluid orders active. Dr. Cormier contacted; orders received to put NG tube to low intermittent suction, make patient strictly NPO and hold all po medications, and discontinue the 30 ml/hr NS while keeping active the 75 ml/hr NS fluid order. All PO medications placed on hold. Furthermore, no morning labs ordered. Dr. Isbell contacted regarding PO medications being held; orders to be placed by physician for IV replacements.
[2025-09-03] VITALS (91 sets, daily range): BP systolic 101–137; BP diastolic 49–100; PULSE 67–90; RESP 16–31; TEMP 36.6–37; O2SAT 88–100
[2025-09-03] MEDS: acetaminophen 1,000 MG/100 ML PIGGYBACK 400 MG IV ×2 (02:56→12:10)
[2025-09-03] MEDS: methylPREDNISolone sod succ 40 mg/mL INJ 30 MG IVP (04:59)
[2025-09-03] MEDS: vancomycin 500 MG in sodium chloride 0.9% (plus) 100 ML 200 MG IV ×3 (05:00→22:06)
[2025-09-03] MEDS: digoxin 250 mcg/ml INJ 2 mL 80 MCG IVP (05:13)
[2025-09-03 06:20] LABS: Hematocrit 29.6 % (36-47); Hemoglobin 9.50 g/dL (11.27-16.99); Mean Corpuscular HGB Conc 32.1 g/dL (30-55); Mean Corpuscular Hemoglobin 30.4 pg (27-33); Mean Corpuscular Volume 94.9 fl (85-98); Nucleated Red Blood Cells % 0 %; Platelet Count 207 10^3/cmm (157-399); Red Blood Count 3.12 10^6/uL (3.85-5.65); White Blood Count 15.40 10^3/uL (3.29-11.43)
[2025-09-03 06:38] LABS: Alanine Aminotransferase 25 U/L (0-33); Albumin Level 3.0 g/dL (3.5-5.2); Alkaline Phosphatase 65 U/L (35-105); Anion Gap 12.0 (5-19); Aspartate Amino Transferase 20 U/L (0-32); Blood Urea Nitrogen 16 mg/dL (8-23); Calcium 7.2 mg/dL (8.5-10.5); Carbon Dioxide 32 mmol/L (22-29); Chloride 109 mmol/L (98-107); Globulin 1.2 g/dL (1.3-4.6); Glucose 73 mg/dL (65-115); Osmolality Calculated 310 mOsm/kg (285-295); Potassium 3.0 mmol/L (3.5-5.1); Sodium 150 mmol/L (136-145); Total Protein 4.2 g/dL (6.6-8.7)
--- NOTE | 2025-09-03 07:03 | PC.NURSE ---
K/Blood sugar Patient's potassium level 3.0 and her blood sugar 85. Dr. Oliva notified.
[2025-09-03 08:03] LABS: Hematocrit 29.6 % (36-47); Hemoglobin 9.40 g/dL (11.27-16.99); Mean Corpuscular HGB Conc 31.8 g/dL (30-55); Mean Corpuscular Hemoglobin 30.4 pg (27-33); Mean Corpuscular Volume 95.8 fl (85-98); Nucleated Red Blood Cells % 0 %; Platelet Count 208 10^3/cmm (157-399); Red Blood Count 3.09 10^6/uL (3.85-5.65); White Blood Count 17.10 10^3/uL (3.29-11.43)
[2025-09-03] MEDS: pantoprazole 40 mg SDV IVP ×2 (08:49→19:55)
[2025-09-03] MEDS: dextrose 5% + KCl 20 mEq 20 MEQ/1,000 ML BAG 100 MEQ IV ×2 (08:52→19:55)
[2025-09-03] MEDS: potassium chloride premix 100 ML 25 MEQ IV (09:45)
--- NOTE | 2025-09-03 12:32 | P.PN_ITS ---
Subjective 2 Subjective: Status post surgery for duodenal perforation Seen with family. Less abdominal pain, afebrile NG tube in place Vitals/I&O/Wt Last Vital Signs Temp 98.6 F 09/03/25 05:15 Pulse 86 09/03/25 12:01 Resp 18 09/03/25 12:01 BP 122/61 09/03/25 10:45 Pulse Ox 99 09/03/25 12:01 O2 Del Method Nasal Cannula 09/03/25 12:01 O2 Flow Rate 4 09/03/25 12:01 FiO2 50 08/31/25 00:45 09/02/25 09/03/25 09/03/25 22:59 06:59 14:59 Intake Total 1293 / 1873 200 / 2073 Output Total 70 / 70 780 / 850 Balance 1223 / 1803 -580 / 1223 Weight last 48 hrs Weight 37.467 kg Weight 35.862 kg Physical Exam 2 Const: OTHER: No acute distress, NG tube in place she is alert and oriented x 3 HENMT: OTHER: NG tube Resp: OTHER: Clear to auscultation Cardio: OTHER: Regular rhythm GI: OTHER: Incision sites intact, nontender Extremity: NARRATIVE EXTREMITY EXAM: No edema Urinary Catheter Management: Kim: Cath Placed During This Visit: yes Reason for Continuing Indwelling Catheter: Accurate Measurement of Urinary Output in Critically Ill Patients Urinary Catheter Date of Insertion: 08/26/25 Urinary Catheter Time of Insertion: 00:05 Data 09/03/25 06:54 09/03/25 04:58 A&P Assessment and plan 1. COPD (chronic obstructive pulmonary disease): 2. GI bleed: 3. Duodenal perforation: Plan: 65 year old female w/ PMHx of chronic respiratory failure w/ oxygen dependence, COPD, CAD, AFIB, PTSD, tobacco use (52 PYH, quit ~2022) presented with abdominal pain Duodenal perforation History of GI bleed -- Status post surgery appreciate surgical eval and treatment. Postop care. Antibiotics, as needed analgesics. Will need PT OT COPD Acute on chronic respiratory failure Continue inhalers oxygen Anxiety -- Improved since on reduced dose of steroid Atrial fibrillation --Rate controlled, continue digoxin PDMP PDMP Reviewed: Not Reviewed Attestations 2 Medical Necessity Statement*: Continue antibiotics postop care Coding Level of Care Code 99716 Diagnoses COPD (chronic obstructive pulmonary disease) J44.9 GI bleed K92.2 Duodenal perforation K63.1
--- NOTE | 2025-09-03 12:35 | P.PN_ITS ---
Subjective 2 Subjective: Postoperative day 1 status post exploratory laparoscopy, Guillermo patch repair of duodenal perforation. Patient doing very well no significant abdominal pain vital signs are stable NG tube to low intermittent suction with minimal output and JONNIE with serosanguineous effluent Vitals/I&O/Wt Last Vital Signs Temp 98.6 F 09/03/25 05:15 Pulse 86 09/03/25 12:01 Resp 18 09/03/25 12:01 BP 122/61 09/03/25 10:45 Pulse Ox 99 09/03/25 12:01 O2 Del Method Nasal Cannula 09/03/25 12:01 O2 Flow Rate 4 09/03/25 12:01 FiO2 50 08/31/25 00:45 09/02/25 09/03/25 09/03/25 22:59 06:59 14:59 Intake Total 1293 / 1873 200 / 2073 Output Total 70 / 70 780 / 850 Balance 1223 / 1803 -580 / 1223 Weight last 48 hrs Weight 82 lb 9.6 oz Weight 79 lb 1 oz Physical Exam 2 GI: OTHER: Benign abdominal examination abdomen soft nontender nondistended Urinary Catheter Management: Kim: Cath Placed During This Visit: yes Reason for Continuing Indwelling Catheter: Accurate Measurement of Urinary Output in Critically Ill Patients Urinary Catheter Date of Insertion: 08/26/25 Urinary Catheter Time of Insertion: 00:05 Data 09/03/25 06:54 09/03/25 04:58 A&P Assessment and plan 1. Duodenal perforation: Plan: Patient progression is good, white count has trended down to 17,000, vital signs are stable, no abdominal pain or distention at this time. Plan will be to keep n.p.o. for additional 24 hours tomorrow will do UGI to evaluate for any leaks and if the upper GI is negative we will allow the patient to have clears. All other management per medical team. Recommend replacing potassium to a level of 4 to ensure adequate GI motility PDMP PDMP Reviewed: Not Reviewed Attestations 2 Medical Necessity Statement*: Per medical team Coding Level of Care Code Acute Code for Chg Fwd Diagnoses Duodenal perforation K63.1
--- NOTE | 2025-09-03 17:00 | PC.OT ---
OT TREATMENT HELD TODAY DUE TO PATIENT DECLINE IN FUNCTION AND NURSING REQUEST TO HOLD. HOWEVER, OT GOALS REMAIN APPROPRIATE.CONTINUE TREATMENT PER POC.
[2025-09-04] VITALS (56 sets, daily range): BP systolic 90–141; BP diastolic 47–80; PULSE 63–96; RESP 14–30; TEMP 36.4–37; O2SAT 90–100
[2025-09-04] MEDS: morphine 4 mg/mL SDV 1 mL 2 MG IVP ×2 (03:39→12:02)
[2025-09-04] MEDS: digoxin 250 mcg/ml INJ 2 mL 80 MCG IVP (05:45)
[2025-09-04] MEDS: methylPREDNISolone sod succ 40 mg/mL INJ 30 MG IVP (05:45)
[2025-09-04] MEDS: vancomycin 500 MG in sodium chloride 0.9% (plus) 100 ML 200 MG IV ×3 (05:50→21:11)
[2025-09-04 05:56] LABS: Hematocrit 30.6 % (36-47); Hemoglobin 9.70 g/dL (11.27-16.99); Mean Corpuscular HGB Conc 31.7 g/dL (30-55); Mean Corpuscular Hemoglobin 29.3 pg (27-33); Mean Corpuscular Volume 92.4 fl (85-98); Nucleated Red Blood Cells % 0 %; Platelet Count 233 10^3/cmm (157-399); Red Blood Count 3.31 10^6/uL (3.85-5.65); White Blood Count 19.04 10^3/uL (3.29-11.43)
[2025-09-04 06:15] LABS: Alanine Aminotransferase 25 U/L (0-33); Albumin Level 3.0 g/dL (3.5-5.2); Alkaline Phosphatase 91 U/L (35-105); Anion Gap 7.3 (5-19); Aspartate Amino Transferase 20 U/L (0-32); Blood Urea Nitrogen 8 mg/dL (8-23); Calcium 7.8 mg/dL (8.5-10.5); Carbon Dioxide 37 mmol/L (22-29); Chloride 98 mmol/L (98-107); Globulin 1.5 g/dL (1.3-4.6); Glucose 144 mg/dL (65-115); Magnesium 1.7 mg/dL (1.7-2.3); Osmolality Calculated 287 mOsm/kg (285-295); Potassium 4.3 mmol/L (3.5-5.1); Sodium 138 mmol/L (136-145); Total Protein 4.5 g/dL (6.6-8.7)
--- NOTE | 2025-09-04 08:48 | FL_ITS ---
WS: [id number] Exam: FL upper GI gastrografin [id number] Date/Time of Exam: 09/04/2025 8:48 AM Reason For Exam: duodenal perforation repaired with patch. Fluoroscopy time: 8min [id number] minutes # of spot films: Gastrografin upper GI is performed. Opacification of the stomach shows prominent gastric mucosa. There was marked pylorospasm and delayed gastric emptying. Contrast eventually passed through the pyloric channel into the duodenum. There is mucosal prominence and irregularity of the duodenal bulb. 1 small post bulbar outpocketing of contrast might represent an ulcer. No extravasation of contrast from the GI tract was noted. Contrast spills into the proximal small bowel without obstruction. An NG tube is noted in the fundus of the stomach. IMPRESSION1. FL/FL upper GI gastrografin [id number] IMPRESSION: 1. Small outpocketing of contrast noted in the post bulbar region of the duoden um that may represent an ulcer. No gastric ulcer was noted. No extravasation of contrast outside the confines of the GI tract was observed 2. Prominent gastric and duodenal mucosa suggesting gastroduodenitis. 3. Marked pylorospasm and delayed gastric emptying. Contrast eventually passed through the pyloric channel and into the small bowel without obstruction.
[2025-09-04] MEDS: pantoprazole 40 mg SDV IVP ×2 (08:55→21:12)
--- NOTE | 2025-09-04 09:09 | P.PN_ITS ---
Subjective 2 Subjective: Postoperative day 2 status post laparoscopic repair of duodenal perforation. Patient is doing okay vital signs are stable no significant abdominal pain minimal NG output. White count is mildly elevated today from 17-19. Noted that she is doing fine Vitals/I&O/Wt Last Vital Signs Temp 97.9 F 09/04/25 04:00 Pulse 78 09/04/25 08:08 Resp 14 09/04/25 08:08 BP 126/65 09/04/25 06:00 Pulse Ox 96 09/04/25 08:08 O2 Del Method Nasal Cannula 09/04/25 08:08 O2 Flow Rate 4 09/04/25 08:08 FiO2 50 08/31/25 00:45 09/03/25 09/04/25 09/04/25 22:59 06:59 14:59 Intake Total 1100 / 1100 100 / 1200 Output Total 1000 / 1000 1960 / 2960 Balance 100 / 100 -1860 / -1760 Weight last 48 hrs Weight 88 lb 2.958 oz Weight 82 lb 9.6 oz Physical Exam 2 GI: OTHER: Abdomen soft nontender nondistended in the drain serosanguineous Urinary Catheter Management: Kim: Cath Placed During This Visit: yes Reason for Continuing Indwelling Catheter: Accurate Measurement of Urinary Output in Critically Ill Patients Urinary Catheter Date of Insertion: 08/26/25 Urinary Catheter Time of Insertion: 00:05 Data 09/04/25 04:50 09/04/25 04:50 A&P Assessment and plan 1. Duodenal perforation: Plan: Patient showing very good progression. Her abdomen is soft nontender nondistended. The drain is serosanguineous. She does have a slight elevation in the white count from 17-19 today but clinically looking very well. I will obtain upper GI study today depending on the upper GI we might decide on starting clears. PDMP PDMP Reviewed: Not Reviewed Attestations 2 Medical Necessity Statement*: Per medical Coding Level of Care Code Acute Code for [facility] Diagnoses Duodenal perforation K63.1
--- NOTE | 2025-09-04 09:26 | PC.SOCIAL ---
IMM Update pg 2 of IMM Updated and reviewed w/ patient. Copy provided and copy dated, initialed and placed in chart.
--- NOTE | 2025-09-04 12:43 | PC.SOCIAL ---
IMM Update pg 2 of IMM updated and reviewed w/ patient. Copy provided and copy dated, initialed and placed in chart.
--- NOTE | 2025-09-04 14:01 | PC.SLP ---
Nursing stated to hold speech therapy due to NPO for testing
[2025-09-04] MEDS: dextrose 5% + KCl 20 mEq 20 MEQ/1,000 ML BAG 100 MEQ IV (16:56)
--- NOTE | 2025-09-04 17:03 | PC.NURSE ---
Called Dr Cormier regarding changing patient diet, order received to remove NG tube and start clear liquid diet
--- NOTE | 2025-09-04 18:55 | P.PN_ITS ---
Subjective 2 Subjective: vitals stable requesting NG tube to be out Vitals/I&O/Wt Last Vital Signs Temp 97.9 F 09/04/25 04:00 Pulse 82 09/04/25 18:30 Resp 19 H 09/04/25 18:30 BP 110/63 09/04/25 18:30 Pulse Ox 95 09/04/25 18:30 O2 Del Method Nasal Cannula 09/04/25 15:36 O2 Flow Rate 3 09/04/25 15:36 FiO2 50 08/31/25 00:45 09/04/25 09/04/25 09/04/25 06:59 14:59 22:59 Intake Total 1200 / 2300 300 / 300 200 / 500 Output Total 1959 / 2960 1959 Balance -760 / -660 -1660 / -1660 197 / -1463 Weight last 48 hrs Weight 40 kg Weight 37.467 kg Physical Exam 2 Const: OTHER: No acute distress, NG tube in place she is alert and oriented x 3 HENMT: OTHER: NG tube Resp: OTHER: Clear to auscultation Cardio: OTHER: Regular rhythm GI: OTHER: Incision sites intact, nontender Extremity: NARRATIVE EXTREMITY EXAM: No edema Urinary Catheter Management: Kim: Cath Placed During This Visit: yes Reason for Continuing Indwelling Catheter: Accurate Measurement of Urinary Output in Critically Ill Patients Urinary Catheter Date of Insertion: 08/26/25 Urinary Catheter Time of Insertion: 00:05 Data 09/04/25 04:50 09/04/25 04:50 A&P Assessment and plan 1. Septic shock: 2. Duodenal perforation: 3. COPD (chronic obstructive pulmonary disease): 4. GI bleed: Plan: 65 year old female w/ PMHx of chronic respiratory failure w/ oxygen dependence, COPD, CAD, AFIB, PTSD, tobacco use (52 PYH, quit ~2022) presented with abdominal pain Duodenal perforation History of GI bleed s/p laporoscopic repair of duodenal perforation -- Status post surgery appreciate surgical eval and treatment. Postop care. Antibiotics, as needed analgesics. Will need PT OT NG imaging completed today advance diet per surgery COPD Acute on chronic respiratory failure Continue inhalers oxygen Anxiety -- Improved since on reduced dose of steroid Atrial fibrillation --Rate controlled, continue digoxin PDMP PDMP Reviewed: Not Reviewed Attestations 2 Medical Necessity Statement*: abx Coding Level of Care Code 70614 Diagnoses Septic shock A41.9; R65.21 Duodenal perforation K63.1 COPD (chronic obstructive pulmonary disease) J44.9 GI bleed K92.2
[2025-09-05] VITALS (49 sets, daily range): BP systolic 100–126; BP diastolic 50–97; PULSE 62–89; RESP 16–25; TEMP 36.8–37.3; O2SAT 92–100
[2025-09-05] MEDS: morphine 4 mg/mL SDV 1 mL 2 MG IVP ×3 (01:08→21:27)
[2025-09-05] MEDS: dextrose 5% + KCl 20 mEq 20 MEQ/1,000 ML BAG 100 MEQ IV (04:30)
[2025-09-05 04:42] LABS: Hematocrit 31.3 % (36-47); Hemoglobin 10.40 g/dL (11.27-16.99); Mean Corpuscular HGB Conc 33.2 g/dL (30-55); Mean Corpuscular Hemoglobin 30.2 pg (27-33); Mean Corpuscular Volume 91.0 fl (85-98); Nucleated Red Blood Cells % 0 %; Platelet Count 245 10^3/cmm (157-399); Red Blood Count 3.44 10^6/uL (3.85-5.65); White Blood Count 17.13 10^3/uL (3.29-11.43)
[2025-09-05] MEDS: vancomycin 500 MG in sodium chloride 0.9% (plus) 100 ML 200 MG IV ×3 (04:42→20:10)
[2025-09-05] MEDS: digoxin 250 mcg/ml INJ 2 mL 80 MCG IVP (04:42)
[2025-09-05] MEDS: methylPREDNISolone sod succ 40 mg/mL INJ 30 MG IVP (04:43)
[2025-09-05 05:09] LABS: Alanine Aminotransferase 23 U/L (0-33); Albumin Level 3.1 g/dL (3.5-5.2); Alkaline Phosphatase 78 U/L (35-105); Anion Gap 9.0 (5-19); Aspartate Amino Transferase 14 U/L (0-32); Blood Urea Nitrogen 8 mg/dL (8-23); Calcium 8.0 mg/dL (8.5-10.5); Carbon Dioxide 35 mmol/L (22-29); Chloride 95 mmol/L (98-107); Globulin 1.5 g/dL (1.3-4.6); Glucose 87 mg/dL (65-115); Magnesium 1.6 mg/dL (1.7-2.3); Osmolality Calculated 278 mOsm/kg (285-295); Potassium 4.0 mmol/L (3.5-5.1); Sodium 135 mmol/L (136-145); Total Protein 4.6 g/dL (6.6-8.7)
[2025-09-05] MEDS: pantoprazole 40 mg SDV IVP ×2 (09:11→20:10)
[2025-09-05] MEDS: water for injection-sterile 10 ML 10000 ML ×2 (09:16→17:15)
--- NOTE | 2025-09-05 09:28 | P.PN_ITS ---
Subjective 2 Subjective: 65-year-old female who is postoperative day 3 status post laparoscopic repair of perforated duodenum with Guillermo patch. Patient is doing very well Gastrografin trial done yesterday showed no evidence of leakage. She is tolerating clear liquid diet. Vitals/I&O/Wt Last Vital Signs Temp 98.4 F 09/05/25 04:00 Pulse 80 09/05/25 08:30 Resp 22 H 09/05/25 09:11 BP 120/54 09/05/25 07:30 Pulse Ox 95 09/05/25 08:30 O2 Del Method Nasal Cannula 09/05/25 07:49 O2 Flow Rate 3 09/05/25 07:49 FiO2 50 08/31/25 00:45 09/04/25 09/05/25 09/05/25 22:59 06:59 14:59 Intake Total 400 / 700 1340 / 2040 1000 / 1000 Output Total 1962 / 3963 Balance 397 / -1263 -660 / -1923 1000 / 1000 Weight last 48 hrs Weight 77 lb 2.589 oz Weight 88 lb 2.958 oz Physical Exam 2 Narrative: Benign abdominal exam, JONNIE drain with serosanguineous output. Urinary Catheter Management: Kim: Cath Placed During This Visit: yes Reason for Continuing Indwelling Catheter: Accurate Measurement of Urinary Output in Critically Ill Patients Urinary Catheter Date of Insertion: 08/26/25 Urinary Catheter Time of Insertion: 00:05 Data 09/05/25 04:21 09/05/25 04:21 A&P Assessment and plan 1. Duodenal perforation: Plan: Patient doing well tolerating diet having bowel movements, white count trending down. Will advance to full liquid diet today if she is tolerating by tomorrow we will advance her to a GI soft diet and will remove her JONNIE drain. All other management per medical team. She is cleared to be downgraded from the ICU from the surgical standpoint, I encouraged that she start ambulating PDMP PDMP Reviewed: Not Reviewed Attestations 2 Medical Necessity Statement*: Per medical team Coding Level of Care Code Acute Code for Chg Fwd Diagnoses Duodenal perforation K63.1
--- NOTE | 2025-09-05 10:09 | PC.NURSE ---
assisted up to bsc remains weak but tolerated well, had small liquid bm noted william care done nonblanching noted coccyx am clear liquid given with good appititie noted
--- NOTE | 2025-09-05 15:15 | P.PN_ITS ---
Subjective 2 Subjective: feels better diet advanced per surgery transferring to floor Vitals/I&O/Wt Last Vital Signs Temp 99.1 F 09/05/25 13:37 Pulse 79 09/05/25 15:08 Resp 16 09/05/25 15:07 BP 109/54 09/05/25 14:00 Pulse Ox 96 09/05/25 15:07 O2 Del Method Nasal Cannula 09/05/25 15:07 O2 Flow Rate 3 09/05/25 15:07 FiO2 50 08/31/25 00:45 09/05/25 09/05/25 09/05/25 06:59 14:59 22:59 Intake Total 134 / 0 2460 / 2460 Output Total 19993 Balance -660 / -1923 246 / 2460 Weight last 48 hrs Weight 35 kg Weight 40 kg Physical Exam 2 Const: OTHER: No acute distress, NG tube in place she is alert and oriented x 3 HENMT: OTHER: NG tube Resp: OTHER: Clear to auscultation Cardio: OTHER: Regular rhythm GI: OTHER: Incision sites intact, nontender Extremity: NARRATIVE EXTREMITY EXAM: No edema Urinary Catheter Management: Kim: Cath Placed During This Visit: yes Reason for Continuing Indwelling Catheter: Accurate Measurement of Urinary Output in Critically Ill Patients Urinary Catheter Date of Insertion: 08/26/25 Urinary Catheter Time of Insertion: 00:05 Data 09/05/25 04:21 09/05/25 04:21 A&P Assessment and plan 1. Septic shock: 2. Duodenal perforation: 3. COPD (chronic obstructive pulmonary disease): 4. GI bleed: Plan: 65 year old female w/ PMHx of chronic respiratory failure w/ oxygen dependence, COPD, CAD, AFIB, PTSD, tobacco use (52 PYH, quit ~2022) presented with abdominal pain Duodenal perforation History of GI bleed s/p laporoscopic repair of duodenal perforation -- Status post surgery appreciate surgical eval and treatment. Postop care. Antibiotics, as needed analgesics. diet advanced PT OT COPD Acute on chronic respiratory failure Continue inhalers oxygen Anxiety -- Improved since on reduced dose of steroid Atrial fibrillation --Rate controlled, continue digoxin anticipate dc next week PDMP PDMP Reviewed: Not Reviewed Attestations 2 Medical Necessity Statement*: abx Coding Level of Care Code 53457 Diagnoses Septic shock A41.9; R65.21 Duodenal perforation K63.1 COPD (chronic obstructive pulmonary disease) J44.9 GI bleed K92.2
[2025-09-06] VITALS (17 sets, daily range): BP systolic 102–130; BP diastolic 50–66; PULSE 66–96; RESP 16–24; TEMP 36.7–37; O2SAT 90–100
[2025-09-06] MEDS: morphine 4 mg/mL SDV 1 mL 2 MG IVP ×3 (01:22→14:17)
--- NOTE | 2025-09-06 03:40 | PC.NURSE ---
Report called to Nell on medsurg. Patient transferred to room 278-2 at 0329. All belongings were taken up to patients room.
[2025-09-06 04:20] LABS: Hematocrit 32.1 % (36-47); Hemoglobin 10.70 g/dL (11.27-16.99); Mean Corpuscular HGB Conc 33.3 g/dL (30-55); Mean Corpuscular Hemoglobin 30.1 pg (27-33); Mean Corpuscular Volume 90.2 fl (85-98); Nucleated Red Blood Cells % 0 %; Platelet Count 283 10^3/cmm (157-399); Red Blood Count 3.56 10^6/uL (3.85-5.65); White Blood Count 16.93 10^3/uL (3.29-11.43)
[2025-09-06 04:44] LABS: Alanine Aminotransferase 25 U/L (0-33); Albumin Level 3.4 g/dL (3.5-5.2); Alkaline Phosphatase 99 U/L (35-105); Anion Gap 10.0 (5-19); Aspartate Amino Transferase 22 U/L (0-32); Blood Urea Nitrogen 9 mg/dL (8-23); Calcium 8.3 mg/dL (8.5-10.5); Carbon Dioxide 33 mmol/L (22-29); Chloride 100 mmol/L (98-107); Globulin 1.7 g/dL (1.3-4.6); Glucose 87 mg/dL (65-115); Magnesium 1.7 mg/dL (1.7-2.3); Osmolality Calculated 286 mOsm/kg (285-295); Potassium 4.0 mmol/L (3.5-5.1); Sodium 139 mmol/L (136-145); Total Protein 5.1 g/dL (6.6-8.7)
[2025-09-06] MEDS: vancomycin 500 MG in sodium chloride 0.9% (plus) 100 ML 200 MG IV ×2 (04:55→20:44)
[2025-09-06] MEDS: methylPREDNISolone sod succ 40 mg/mL INJ 30 MG IVP (04:56)
[2025-09-06] MEDS: digoxin 250 mcg/ml INJ 2 mL 80 MCG IVP (04:58)
--- NOTE | 2025-09-06 08:49 | P.PN_ITS ---
Subjective 2 Subjective: Patient doing very well this morning feeling fine no significant abdominal pain. JONNIE drain is serosanguineous. Has tolerated diet and had bowel movements. Vitals/I&O/Wt Last Vital Signs Temp 98.6 F 09/06/25 07:33 Pulse 79 09/06/25 08:20 Resp 18 09/06/25 08:00 BP 107/66 09/06/25 07:33 Pulse Ox 94 09/06/25 08:00 O2 Del Method Nasal Cannula 09/06/25 08:00 O2 Flow Rate 3 09/06/25 08:00 FiO2 50 08/31/25 00:45 09/05/25 09/06/25 09/06/25 22:59 06:59 14:59 Intake Total 110 / 2570 340 / 2910 160 / 160 Output Total 2050 / 0 900 / 900 Balance -1940 / 520 340 / 860 -740 / -740 Weight last 48 hrs Weight 77 lb Weight 77 lb 2.589 oz Physical Exam 2 GI: OTHER: Benign abdominal exam abdomen soft nontender nondistended. Urinary Catheter Management: Kim: Cath Placed During This Visit: yes Reason for Continuing Indwelling Catheter: Accurate Measurement of Urinary Output in Critically Ill Patients Urinary Catheter Date of Insertion: 08/26/25 Urinary Catheter Time of Insertion: 00:05 Data 09/06/25 04:10 09/06/25 04:10 A&P Assessment and plan 1. Duodenal perforation: Plan: Patient is showing very good progression after laparoscopic repair of duodenal perforation. Patient is doing well and tolerating full liquid diet, we will advance to a GI soft diet today, if patient is tolerating well by tomorrow we will plan to remove her JONNIE drain and she will be able to transition to the outpatient setting from the surgical standpoint. White count still elevated at 16 but is consistently trending down, I think this was going to take some time to normalize due to the length of inflammation that the patient had, prior to surgery her white count was elevated up to 30,000. I encouraged ambulation, we will continue monitoring. All other management per primary PDMP PDMP Reviewed: Not Reviewed Attestations 2 Medical Necessity Statement*: Per primary team Coding Level of Care Code Acute Code for [facility] Diagnoses Duodenal perforation K63.1
[2025-09-06] MEDS: pantoprazole 40 mg SDV IVP ×2 (08:58→20:43)
--- NOTE | 2025-09-06 11:38 | P.PN_ITS ---
Subjective 2 Subjective: feels better denies nausea reports appetitie better ambulating ok Vitals/I&O/Wt Last Vital Signs Temp 98.6 F 09/06/25 07:33 Pulse 79 09/06/25 08:20 Resp 20 H 09/06/25 09:08 BP 107/66 09/06/25 07:33 Pulse Ox 94 09/06/25 08:00 O2 Del Method Nasal Cannula 09/06/25 08:00 O2 Flow Rate 3 09/06/25 08:00 FiO2 50 08/31/25 00:45 09/05/25 09/06/25 09/06/25 22:59 06:59 14:59 Intake Total 110 / 2570 340 / 2910 160 / 160 Output Total 2049 / 2049 900 / 900 Balance -1940 / 520 340 / 860 -740 / -740 Weight last 48 hrs Weight 34.927 kg Weight 35 kg Physical Exam 2 Const: OTHER: No acute distress, alert and oriented x 3 HENMT: OTHER: Resp: OTHER: Clear to auscultation Cardio: OTHER: Regular rhythm GI: OTHER: Incision sites intact, nontender Extremity: NARRATIVE EXTREMITY EXAM: No edema Urinary Catheter Management: Kim: Cath Placed During This Visit: yes Reason for Continuing Indwelling Catheter: Accurate Measurement of Urinary Output in Critically Ill Patients Urinary Catheter Date of Insertion: 08/26/25 Urinary Catheter Time of Insertion: 00:05 Data 09/06/25 04:10 09/06/25 04:10 A&P Assessment and plan 1. Septic shock: 2. Duodenal perforation: 3. COPD (chronic obstructive pulmonary disease): 4. GI bleed: Plan: 65 year old female w/ PMHx of chronic respiratory failure w/ oxygen dependence, COPD, CAD, AFIB, PTSD, tobacco use (52 PYH, quit ~2022) presented with abdominal pain Duodenal perforation History of GI bleed s/p laporoscopic repair of duodenal perforation -- Status post surgery appreciate surgical eval and treatment. Postop care. Antibiotics, as needed analgesics. diet advanced PT OT ambulate wbc down trending COPD Acute on chronic respiratory failure Continue inhalers oxygen Anxiety -- Improved since on reduced dose of steroid Atrial fibrillation --Rate controlled, continue digoxin anticipate dc next week PDMP PDMP Reviewed: Not Reviewed Attestations 2 Medical Necessity Statement*: abx Coding Level of Care Code Acute Code for Chg Fwd Diagnoses Septic shock A41.9; R65.21 Duodenal perforation K63.1 COPD (chronic obstructive pulmonary disease) J44.9 GI bleed K92.2
[2025-09-06] MEDS: vancomycin 500 MG in sodium chloride 0.9% (plus) 100 ML 100 MG IV (13:31)
[2025-09-07] VITALS (13 sets, daily range): BP systolic 97–116; BP diastolic 56–69; PULSE 73–119; RESP 16–18; TEMP 36.6–36.8; O2SAT 92–98; BMI 14.5
[2025-09-07] MEDS: vancomycin 500 MG in sodium chloride 0.9% (plus) 100 ML 200 MG IV ×3 (04:29→22:42)
[2025-09-07] MEDS: methylPREDNISolone sod succ 40 mg/mL INJ 30 MG IVP (04:30)
[2025-09-07] MEDS: digoxin 250 mcg/ml INJ 2 mL 80 MCG IVP (04:31)
[2025-09-07] MEDS: pantoprazole 40 mg SDV IVP ×2 (08:45→22:43)
[2025-09-07 08:54] LABS: Hematocrit 33.9 % (36-47); Hemoglobin 11.00 g/dL (11.27-16.99); Mean Corpuscular HGB Conc 32.4 g/dL (30-55); Mean Corpuscular Hemoglobin 30.2 pg (27-33); Mean Corpuscular Volume 93.1 fl (85-98); Nucleated Red Blood Cells % 0 %; Platelet Count 270 10^3/cmm (157-399); Red Blood Count 3.64 10^6/uL (3.85-5.65); White Blood Count 17.80 10^3/uL (3.29-11.43)
[2025-09-07 09:11] LABS: Alanine Aminotransferase 28 U/L (0-33); Albumin Level 3.2 g/dL (3.5-5.2); Alkaline Phosphatase 99 U/L (35-105); Anion Gap 14.2 (5-19); Aspartate Amino Transferase 19 U/L (0-32); Blood Urea Nitrogen 16 mg/dL (8-23); Calcium 8.0 mg/dL (8.5-10.5); Carbon Dioxide 28 mmol/L (22-29); Chloride 103 mmol/L (98-107); Globulin 2.1 g/dL (1.3-4.6); Glucose 192 mg/dL (65-115); Osmolality Calculated 298 mOsm/kg (285-295); Potassium 4.2 mmol/L (3.5-5.1); Sodium 141 mmol/L (136-145); Total Protein 5.3 g/dL (6.6-8.7)
--- NOTE | 2025-09-07 09:55 | PC.SOCIAL ---
IMM Updated Updated pt on IMM. No questions voiced. Provided pt a copy. Initialed, dated, & timed copy in chart.
--- NOTE | 2025-09-07 10:02 | P.PN_ITS ---
Subjective 2 Subjective: Postoperative day 4 status post laparoscopic repair of duodenal perforation. Patient doing very well from the clinical standpoint I will program with the date has been serous she only has some abdominal pain at the area of the drain insertion site better and that she is feeling fine tolerating diet having bowel movements passing gas. Vitals/I&O/Wt Last Vital Signs Temp 97.9 F 09/07/25 07:34 Pulse 76 09/07/25 07:49 Resp 18 09/07/25 07:49 BP 116/66 09/07/25 07:34 Pulse Ox 94 09/07/25 07:49 O2 Del Method Nasal Cannula 09/07/25 07:49 O2 Flow Rate 2.5 09/07/25 07:49 FiO2 50 08/31/25 00:45 09/06/25 09/07/25 09/07/25 22:59 06:59 14:59 Intake Total 800 / 1080 100 / 1180 240 / 240 Output Total 700 / 1600 400 / 2000 Balance 100 / -520 -300 / -820 240 / 240 Weight last 48 hrs Weight 74 lb 4.8 oz Weight 77 lb Physical Exam 2 Narrative: Benign abdominal exam, abdomen is soft nontender nondistended surgical incisions healing well drain was removed Urinary Catheter Management: Kim: Cath Placed During This Visit: yes Reason for Continuing Indwelling Catheter: Accurate Measurement of Urinary Output in Critically Ill Patients Urinary Catheter Date of Insertion: 08/26/25 Urinary Catheter Time of Insertion: 00:05 Data 09/07/25 08:44 09/07/25 08:44 A&P Assessment and plan 1. Duodenal perforation: 2. GI bleed: Plan: Patient is doing well from the surgical standpoint, white count remains elevated around 17 but has not further trended up it was significantly higher before surgery. She has been tolerating diet that her drain was removed today. She is advanced to a GI soft diet. Once tolerating from the surgical standpoint she is cleared from discharge, she can follow-up in my office in 2 weeks remove some sutures and to do a postoperative check. PDMP PDMP Reviewed: Not Reviewed Attestations 2 Medical Necessity Statement*: Per medical team Coding Level of Care Code Acute Code for Chg Fwd Diagnoses Duodenal perforation K63.1 GI bleed K92.2
--- NOTE | 2025-09-07 11:38 | P.PN_ITS ---
Subjective 2 Subjective: afebrile reports feeling tired Vitals/I&O/Wt Last Vital Signs Temp 97.8 F 09/07/25 11:23 Pulse 80 09/07/25 11:23 Resp 17 09/07/25 11:23 BP 115/69 09/07/25 11:23 Pulse Ox 92 09/07/25 11:23 O2 Del Method Nasal Cannula 09/07/25 11:23 O2 Flow Rate 3 09/07/25 11:19 FiO2 50 08/31/25 00:45 09/06/25 09/07/25 09/07/25 22:59 06:59 14:59 Intake Total 800 / 1080 100 / 1180 240 / 240 Output Total 700 / 1600 400 / 2000 Balance 100 / -520 -300 / -820 240 / 240 Weight last 48 hrs Weight 33.702 kg Weight 34.927 kg Physical Exam 2 Const: OTHER: No acute distress, alert and oriented x 3 HENMT: OTHER: Resp: OTHER: Clear to auscultation Cardio: OTHER: Regular rhythm GI: OTHER: Incision sites intact, nontender Extremity: NARRATIVE EXTREMITY EXAM: No edema Urinary Catheter Management: Kim: Cath Placed During This Visit: yes Reason for Continuing Indwelling Catheter: Accurate Measurement of Urinary Output in Critically Ill Patients Urinary Catheter Date of Insertion: 08/26/25 Urinary Catheter Time of Insertion: 00:05 Data 09/07/25 08:44 09/07/25 08:44 A&P Assessment and plan 1. Septic shock: 2. Duodenal perforation: 3. COPD (chronic obstructive pulmonary disease): 4. GI bleed: Plan: 65 year old female w/ PMHx of chronic respiratory failure w/ oxygen dependence, COPD, CAD, AFIB, PTSD, tobacco use (52 PYH, quit ~2022) presented with abdominal pain Duodenal perforation History of GI bleed s/p laporoscopic repair of duodenal perforation -- Status post surgery appreciate surgical eval and treatment. Postop care. Antibiotics, as needed analgesics. diet advanced PT OT ambulate wbc down trending COPD Acute on chronic respiratory failure Continue inhalers oxygen Anxiety -- Improved since on reduced dose of steroid Atrial fibrillation --Rate controlled, continue digoxin anticipate in next 24 hours PDMP PDMP Reviewed: Not Reviewed Attestations 2 Medical Necessity Statement*: possible dc today Coding Level of Care Code Acute Code for Chg Fwd Diagnoses Septic shock A41.9; R65.21 Duodenal perforation K63.1 COPD (chronic obstructive pulmonary disease) J44.9 GI bleed K92.2
--- NOTE | 2025-09-07 17:05 | PC.OT ---
OT TREATMENT ATTEMPTED. PATIENT STATES THAT SHE IS DISCHARGING TOMORROW AND WOULD RATHER WAIT TO PERFORM ADLS IN THE MORNING.
[2025-09-07] MEDS: oxyCODONE 5 mg IR Tab/Cap PO (23:22)
[2025-09-08] VITALS (9 sets, daily range): BP systolic 103–124; BP diastolic 61–72; PULSE 80–88; RESP 16–20; TEMP 36.4–36.9; O2SAT 94–96; BMI 14.5
[2025-09-08] MEDS: vancomycin 500 MG in sodium chloride 0.9% (plus) 100 ML 200 MG IV (06:05)
[2025-09-08] MEDS: digoxin 250 mcg/ml INJ 2 mL 80 MCG IVP (06:06)
[2025-09-08] MEDS: methylPREDNISolone sod succ 40 mg/mL INJ 30 MG IVP (06:06)
--- NOTE | 2025-09-08 08:33 | PM.DCS ---
Discharge Providers Date of Admission: 08/23/25 07:24 Date of Discharge: September 08, 2025 Attending Provider at Admission: Xavier Rosenberg Attending Provider at Discharge: Rachel Oliva MD Primary Care Provider: Zuly Damico NP Diagnoses at Discharge Discharge Diagnosis 1. Septic shock: 2. Duodenal perforation: 3. COPD (chronic obstructive pulmonary disease): 4. GI bleed: Reason for Visit Reason for Visit: severe abdominal pain Hospital Course Hospital Course H&P Martha Damico is a 65 year old female w/ PMHx of chronic respiratory failure w/ oxygen dependence, COPD, CAD, AFIB, PTSD, tobacco use (52 PYH, quit ~2022) Patient presented to [facility] on 08/23/25 out of concern for pain localized to epigastric aspect of the abdomen. Pain is described as a severe burning sensation and does not radiate to the back, extremities, neck or jaw. No associated nausea, vomiting, diarrhea or constipation. In addition, she reports experiencing pleuritic chest discomfort and a one week history of a productive cough with yellow phlegm. Notes increased shortness of breath with exertion. Denies fever, chills, palpitations, syncope, hemoptysis and lower extremity edema. Recently hospitalized (08/13/25-08/15/25) for COPD exacerbation. She was discharged on course of levofloxacin and Augmentin. According to the patient she completed these medications. She was also on the tapering dose of prednisone. Today she is unable to account for her use of prednisone. Hospital course: Patient was admitted with GI bleed. Surgery was consulted. ICU was consulted 2. She was intubated. EGD did not show any source of bleeding. She did require some fluids. The patient was extubated. Noted to have some upper airway edema. Also concern for COPD exacerbation. Other concerns include A-fib with RVR as well as acute flash pulmonary edema as well as septic shock secondary pneumonia. The patient was also noted to be briefly on Precedex. Had severe anxiety. Her steroids were weaned. She was monitored closely in the ICU. The patient was also seen to have some abdominal pain. X-ray showed possible air. CT was done. She was emergently taken to the OR for exploratory laparotomy and repair. She was kept in the hospital. Diet was advanced. At time of discharge she was discharged in stable condition. See discharge med rec. Physical Exam Const: OTHER: No acute distress, alert and oriented x 3 HENMT: OTHER: Resp: OTHER: Clear to auscultation Cardio: OTHER: Regular rhythm GI: OTHER: Incision sites intact, nontender Extremity: NARRATIVE EXTREMITY EXAM: No edema Urinary Catheter Management: Kim: Cath Placed During This Visit: yes Reason for Continuing Indwelling Catheter: Accurate Measurement of Urinary Output in Critically Ill Patients Urinary Catheter Date of Insertion: 08/26/25 Urinary Catheter Time of Insertion: 00:05 Discharge Data Studies Completed and Pending Completed Studies During Hospitalization Category Date Time Status CT abdomen pelvis w con* 40300 Stat Cat Scan 09/02/25 13:[address] [place] [id number] Stat Cat Scan 08/23/25 03:40 Completed CTA chest [CT angio chest PE protcl 42827] Stat Cat Scan 08/23/25 07:50 Completed CXRP [XR chest 1V portable 48823] Routine Exams 08/24/25 11:17 Completed CXRP [XR chest 1V portable 61945] Routine Exams 08/30/25 08:39 Completed CXRP [XR chest 1V portable 28113] Stat Exams 08/23/25 03:40 Completed CXRP [XR chest 1V portable 07681] Stat Exams 08/25/25 21:56 Completed FL UGI gastrografin [FL upper GI gastrografin 59951] Exams 09/04/25 08:48 Completed Routine XR abdomen 1V* 07115 Routine Exams 09/02/25 12:31 Completed XR chest 1V 00239 Routine Exams 09/02/25 20:59 Completed XR chest 1V portable 32072 Routine Exams 08/27/25 07:00 Completed XR chest 1V portable 59337 Routine Exams 08/28/25 07:00 Completed XR chest 1V portable 83326 Routine Exams 08/29/25 07:00 Completed XR chest 1V portable 75200 Routine Exams 08/31/25 07:00 Completed XR chest 1V portable 23734 Stat Exams 08/25/25 22:27 Completed CV. echo complete* [id number] Routine Ultrasound 08/29/25 13:42 Completed Pending at discharge Category Date Time Status VBG [Venous Blood Gas] Stat Lab 08/23/25 03:49 Results Radiology Impressions Chest/Abdomen/Pelvis CT 08/23/25 03:40 IMPRESSION: The examination of the lungs is somewhat limited by respiratory motion. No discrete consolidation or evidence of mass lesion is appreciated. Marked hyperaeration secondary to obstructive lung disease and centrilobular emphysema is present. IMPRESSION: 1. The examination is somewhat limited secondary to respiratory motion. 2. There is a scant volume of free fluid in the pelvis which may be physiologic. 3. Colonic diverticulosis is noted without evidence of acute diverticulitis. 4. The urinary bladder is somewhat distended. 5. There is a 4 mm calculus in the lower pole of the left kidney. There is no evidence of obstructive uropathy. 6. There is a stable 1.5 cm left adrenal nodule. Chest CTA 08/23/25 07:50 IMPRESSION: 1. No focal infiltrates. 2. No pulmonary embolism. 3. Severe emphysematous changes. COMMENTS: The presence of pulmonary emphysema on CT is an independent risk factor for lung cancer. In the absence of a history or active diagnosis of lung cancer, it is recommended that this patient with emphysema be evaluated for enrollment in a low dose CT lung cancer screening program. Abdomen X-Ray 09/02/25 12:31 IMPRESSION: 1. Findings suspicious for pneumoperitoneum. Perforated viscus is a consideration. This might also be a result of recent abdominal instrumentation. 2. Suggestion of abdominal ascites. Recommendation: Contrast CT scan of the abdomen and pelvis recommended for follow-up. Results and recommendations were discussed by phone with Marie, the patient's nurse at 1:39 p.m. 09/02/2025. Phone message also LEFT at Dr. Oliva's office at approximately 1:15 p.m. 09/02/2025. Abdomen/Pelvis CT 09/02/25 13:40 follow up IMPRESSION: 1. Pneumoperitoneum. Findings concerning for perforated viscus. Surgical consultation recommended. Critical call result made and findings discussed with Dr. Oliva on 09/02/2025 at 4:03 p.m.. 2. Mildly distended gallbladder. Gallbladder ultrasound may be helpful for further evaluation when patient's condition permits. 3. Some fluid in the pelvis with small amount of fluid adjacent to the spleen probably reactive. No large volume ascites. 4. Left nephrolithiasis. No hydronephrosis. 5. No adenopathy noted. 6. No bowel obstruction. 7. Very small amount of right pleural effusion. 8. Findings compatible with left adrenal adenoma similar to previous exams. Chest X-Ray 09/02/25 20:59 IMPRESSION: 1. Enteric tube with the tip projecting over the expected region of the stomach. 2. No acute cardiopulmonary abnormality. Gastrografin Study 09/04/25 08:48 IMPRESSION: 1. Small outpocketing of contrast noted in the post bulbar region of the duodenum that may represent an ulcer. No gastric ulcer was noted. No extravasation of contrast outside the confines of the GI tract was observed 2. Prominent gastric and duodenal mucosa suggesting gastroduodenitis. 3. Marked pylorospasm and delayed gastric emptying. Contrast eventually passed through the pyloric channel and into the small bowel without obstruction. Laboratory Results WBC 17.80 10^3/uL (3.29-11.43) H 09/07/25 08:44 RBC 3.64 10^6/uL (3.85-5.65) L 09/07/25 08:44 Hgb 11.00 g/dL (11.27-16.99) L 09/07/25 08:44 Hct 33.9 % (36-47) L 09/07/25 08:44 MCV 93.1 fl (85-98) 09/07/25 08:44 MCH 30.2 pg (27-33) 09/07/25 08:44 MCHC 32.4 g/dL (30-55) 09/07/25 08:44 RDW 12.9 % (12.1-15.1) 09/07/25 08:44 Plt Count 270 10^3/cmm (157-399) 09/07/25 08:44 MPV 10.0 fL (7.4-10.4) 09/07/25 08:44 Neut % (Auto) 95.8 % 09/07/25 08:44 Lymph % (Auto) 1.3 % 09/07/25 08:44 Bracken % (Auto) 2.0 % 09/07/25 08:44 Eos % (Auto) 0.1 % 09/07/25 08:44 Baso % (Auto) 0.2 % 09/07/25 08:44 Reticulocyte % (Auto) 1.6 % (0.5-2.0) 08/24/25 05:48 Neut # (Auto) 17.06 10^3/uL (1.8-7.7) H 09/07/25 08:44 Lymph # (Auto) 0.2 10^3/uL (0.8-4.8) L 09/07/25 08:44 [place] # (Auto) 0.4 10^3/uL (0.2-0.9) 09/07/25 08:44 Eos # (Auto) 0.0 10^3/uL (0.0-0.8) 09/07/25 08:44 Baso # (Auto) 0.0 10^3/uL (0.0-0.1) 09/07/25 08:44 Nucleated RBC % (auto) 0 % 09/07/25 08:44 Nucleated RBCs # 0.0 /100WBC 09/07/25 08:44 PT 13.20 SECONDS (12.1-14.9) 09/01/25 03:25 INR 0.93 (0.8-1.2) 09/01/25 03:25 APTT 28.5 SECONDS (23.9-36.7) 08/24/25 12:16 D-Dimer 1.38 ug/mLFEU (0-0.59) H 08/23/25 03:17 Specimen Type Arterial 08/31/25 04:25 Sample Site Brachial, left 08/31/25 04:25 ABG pH 7.52 (7.35-7.45) H 08/31/25 04:25 ABG pCO2 58.2 mmHg (35-45) H 08/31/25 04:25 ABG pO2 54.0 mmHg (80.0-100.0) L 08/31/25 04:25 ABG PO2/FiO2 Ratio 143 08/30/25 04:00 ABG HCO3 47.5 mmol/L (22-26) H 08/31/25 04:25 ABG O2 Saturation 98.2 08/28/25 13:50 ABG Base Excess 21.4 mmol/L (-2.0-2.0) H 08/31/25 04:25 Narendra Test N/a 08/31/25 04:25 VBG pH 7.47 (7.32-7.42) H 08/23/25 03:49 VBG pCO2 47.1 mmHg (41-51) 08/23/25 03:49 VBG pO2 32.6 mmHg (25-40) 08/23/25 03:49 VBG HCO3 34.2 mmol/L (24-28) H 08/23/25 03:49 VBG Base Excess 9.2 mmol/L (-3.0-3.0) H 08/23/25 03:49 VBG Hematocrit 40.3 % (37-47) 08/23/25 03:49 A-a O2 Gradient 31.1 mmHg (5-10) H 08/28/25 13:50 Hematocrit 36.6 % (37-47) L 08/31/25 04:25 Hgb O2 Saturation 96.6 % (95-100) 08/28/25 13:50 Carboxyhemoglobin 0.7 %THgb (0.4-20.1) 08/28/25 13:50 Methemoglobin 1.0 % (0.4-1.5) 08/28/25 13:50 Total Hemoglobin 11.3 g/dL (12-16) L 08/28/25 13:50 Sodium 140.0 mmol/L (131-143) 08/28/25 13:50 Potassium 3.6 mmol/L (3.5-5.0) 08/28/25 13:50 Glucose 105.0 mg/dL (70-115) 08/28/25 13:50 Ionized Calcium 1.1 mmol/L (1.1-1.4) 08/28/25 13:50 O2 Delivery Device Nc 08/31/25 04:25 O2 Liters/Min 5.0 % 08/31/25 04:25 FiO2 50.0 % 08/30/25 04:00 Tidal Volume 0.30 08/30/25 04:00 PEEP 8.0 cmH20 08/30/25 04:00 Human Performance Technologist ID Aric 08/31/25 04:25 Sodium 141 mmol/L (136-145) 09/07/25 08:44 Potassium 4.2 mmol/L (3.5-5.1) 09/07/25 08:44 Chloride 103 mmol/L (98-107) 09/07/25 08:44 Carbon Dioxide 28 mmol/L (22-29) 09/07/25 08:44 Anion Gap 14.2 (5-19) 09/07/25 08:44 BUN 16 mg/dL (8-23) 09/07/25 08:44 Creatinine 0.4 mg/dL (0.5-0.9) L 09/07/25 08:44 GFR Calculation 159.2 mL/min (90-130) H 09/07/25 08:44 Glucose 192 mg/dL (65-115) H 09/07/25 08:44 POC Glucose 121 mg/dL (70-110) H 09/07/25 20:39 Calculated Osmolality 298 mOsm/kg (285-295) H 09/07/25 08:44 Lactic Acid 1.1 mmol/L (0.5-2.2) 08/23/25 03:17 Lactate 1.7 mmol/L (0.5-2.2) 09/02/25 14:19 Calcium 8.0 mg/dL (8.5-10.5) L 09/07/25 08:44 Phosphorus 2.3 mg/dL (2.5-4.5) L D 09/06/25 04:10 Magnesium 1.7 mg/dL (1.7-2.3) 09/06/25 04:10 Iron 24 ug/dL (37-145) L 08/24/25 05:48 Ferritin 402 ng/mL (15-150) H 08/24/25 05:48 Total Bilirubin 0.6 mg/dL (0.15-1.2) 09/07/25 08:44 AST 19 U/L (0-32) 09/07/25 08:44 ALT 28 U/L (0-33) 09/07/25 08:44 Alkaline Phosphatase 99 U/L (35-105) 09/07/25 08:44 Creatine Kinase 59 U/L (26-192) 09/01/25 03:25 Troponin T Baseline 11 ng/L (0-10) H 08/23/25 03:17 Troponin T 120 Minute 10.58 ng/L (0-10) H 08/23/25 05:18 Delta Troponin T -0.42 ABS# (0-10) L 08/23/25 05:18 C-Reactive Protein 79.7 mg/L (0.0-4.9) H 09/01/25 03:25 C-React Prot High Sens 0.660 mg/dL (0.0-0.3) H 08/23/25 03:17 NT-Pro-B Natriuret Pep 1403 pg/mL (0-125) H 09/01/25 03:25 Total Protein 5.3 g/dL (6.6-8.7) L 09/07/25 08:44 Albumin 3.2 g/dL (3.5-5.2) L 09/07/25 08:44 Globulin 2.1 g/dL (1.3-4.6) 09/07/25 08:44 Lipase 39 U/L (13-60) 08/23/25 03:17 Procalcitonin 0.37 ng/mL (0-0.5) 09/01/25 03:25 TSH 11.02 uIU/mL (0.27-4.20) H 08/23/25 05:18 Urine Color [place] (Yellow) A 08/24/25 13:00 Urine Appearance Clear (CLEAR) 08/24/25 13:00 Urine pH 6.5 (5-7) 08/24/25 13:00 Ur Specific [place] 1.019 (1.005-1.030) 08/24/25 13:00 Urine Protein Trace (Negative) A 08/24/25 13:00 Urine Glucose (UA) Negative (Normal) 08/24/25 13:00 Urine Ketones Negative (Negative) 08/24/25 13:00 Urine Blood Trace (Negative) A 08/24/25 13:00 Urine Nitrate Negative (Negative) 08/24/25 13:00 Urine Bilirubin Negative (Negative) 08/24/25 13:00 Urine Urobilinogen 0.2 mg/dL (Negative) 08/24/25 13:00 Ur Leukocyte Esterase Negative (Negative) 08/24/25 13:00 Urine RBC 0-2 /hpf (0-2) 08/24/25 13:00 Urine WBC 0-5 /hpf (0-5) 08/24/25 13:00 Ur Squamous Epith Cells 0-5 /hpf (0-5) 08/24/25 13:00 Amorphous Sediment Not Reportable 08/24/25 13:00 Urine Bacteria None seen /hpf (NONE) 08/24/25 13:00 Hyaline Casts 0.40 /lpf 08/24/25 13:00 Urine Mucus 4+ /hpf 08/23/25 05:34 Vancomycin Trough 15.9 ug/mL (10-15) H 09/06/25 11:47 Digoxin 0.8 ng/mL (0.6-1.2) 08/30/25 03:56 Influenza A (PCR) Negative (Negative) 08/23/25 03:56 Influenza Type B (PCR) Negative (Negative) 08/23/25 03:56 RSV (PCR) Negative (Negative) 08/23/25 03:56 SARS-CoV-2 (PCR) Negative (Negative) 08/23/25 03:56 Blood Type O Negative 08/24/25 06:42 Rho(D) Type Rh negative 08/24/25 06:42 Antibody Screen Negative 08/24/25 06:42 Crossmatch See Detail 08/24/25 06:42 Vitals Last Vital Signs Temp 97.5 F L 09/08/25 08:00 Pulse 82 09/08/25 08:00 Resp 18 09/08/25 08:00 BP 113/62 09/08/25 08:00 Pulse Ox 96 09/08/25 08:00 O2 Del Method Nasal Cannula 09/08/25 08:00 O2 Flow Rate 3 09/08/25 07:41 FiO2 50 08/31/25 00:45 Discharge Plan Discharge Patient Disposition: Xfer [facility] Condition: Stable Prescriptions: New acetaminophen 325 mg Tablet 650 mg PO Q6H PRN (Reason: Mild/Mod Pain Or Temp >/= 101) Qty: 1 0RF Phospha 250 Neutral 250 mg Tablet 1 tab PO BID Qty: 30 0RF digoxin 62.5 mcg (0.0625 mg) tablet 62.5 mcg PO DAILY Qty: 30 0RF amoxicillin-pot clavulanate 875-125 mg tablet 1 tab PO Q12H Qty: 10 0RF oxycodone 5 mg Tablet 5 mg PO Q4H PRN (Reason: Moderate Pain) Qty: 12 0RF Continued budesonide-formoterol [Symbicort] 160-4.5 mcg/actuation HFA aerosol inhaler 2 puff inhalation BID multivitamin Tablet 1 tab PO DAILY tramadol 50 mg tablet 50 mg PO Q8H PRN (Reason: pain) Qty: 10 0RF ipratropium bromide 0.02 % solution 1.25 ml inhalation Q8H Qty: 150 0RF albuterol sulfate [Ventolin HFA] 90 mcg/actuation HFA aerosol inhaler 1 inh inhalation Q6H PRN (Reason: shortness of breath or wheezing) Qty: 8.5 0RF albuterol sulfate 2.5 mg /3 mL (0.083 %) solution for nebulization 2.5 mg continuous nebulization Q8H Qty: 180 0RF Held ibuprofen [Advil] 200 mg Tablet 400 mg PO Q6H PRN (Reason: Pain) Hold Instructions: Resume on 09/15/25. Discontinued prednisone 10 mg tablet See Taper PO DIRECTED Qty: 42 0RF Taper: predniSONE 60-10 60 mg Daily for 2 Days and 0 Hour 50 mg Daily for 2 Days and 0 Hour 40 mg Daily for 2 Days and 0 Hour 30 mg Daily for 2 Days and 0 Hour 20 mg Daily for 2 Days and 0 Hour 10 mg Daily for 2 Days and 0 Hour Rx Instructions: see taper instructions Discharge Order = DC NOW: Discharge Order (Routine); Ordered 09/08/25 Ordered By: Rachel Oliva Referrals: [facility] [Other] Richard Cormier MD [Physician, General Surgery] - 09/15/25 9:40 am Referral Note: Zuly Damico NP [Primary Care Provider, Unknown] Discharge Diet: As Directed Discharge Activity: Resume usual activity Patient Instructions: Acute Wound Care (DC), Upper Endoscopy (DC), GI Post Discharge Instructions w/ Anesthesia, Opioid Safety, Post Anesthesia Care, Patient Portal & [facility] Instructions Plan of Treatment: take medicine as prescribed, followup with pcp and surgery as scheduled Discharge Attestations Time Spent in Discharge Care*: less than 30 min Status at Discharge: Cognitive status at discharge: cognitively intact, Behavioral status at discharge: cooperative, Quality Metrics Clinical Quality Measures [ No reported AMI, CVA or VTE this stay] Coding Level of Care Code Acute Code for Chg Fwd Diagnoses Septic shock A41.9; R65.21 Duodenal perforation K63.1 COPD (chronic obstructive pulmonary disease) J44.9 GI bleed K92.2
[2025-09-08] MEDS: oxyCODONE 5 mg IR Tab/Cap PO (11:06)
== END 2025-09-08 12:20 | disposition skilled nursing facility (03) | DRG 853 ==
LOC: ER 07:29 → MEDSURG 07:58 → ICU 08-24 09:32 → MEDSURG 09-01 16:40 → ICU 09-02 18:48 → MEDSURG 09-06 03:41
PROVIDERS: Family Medicine; Nurse Practitioner Gerontology; Student in an Organized Health Care Education/Training Program; Surgery; Admitting Provider Internal Medicine; Emergency Provider Emergency Medicine; PCP Nurse Practitioner Family; Visit Provider Internal Medicine
PROC: 0DJ08ZZ Inspection of Upper Intestinal Tract, Via Natural or Artificial Opening Endoscopic (ICD-10-PCS; principal; 2025-08-25 14:00)
PROC: (CPT 49320; principal; 2025-09-02 16:20)
DX: A41.9 Sepsis, unspecified organism (principal); I50.21 Acute systolic (congestive) heart failure; J18.9 Pneumonia, unspecified organism; J96.02 Acute respiratory failure with hypercapnia; J96.21 Acute and chronic respiratory failure with hypoxia; K63.1 Perforation of intestine (nontraumatic); R65.21 Severe sepsis with septic shock; R57.8 Other shock; K29.51 Unspecified chronic gastritis with bleeding; J44.1 Chronic obstructive pulmonary disease with (acute) exacerbation; J44.0 Chronic obstructive pulmonary disease with (acute) lower respiratory infection; D62 Acute posthemorrhagic anemia; I31.9 Disease of pericardium, unspecified; Z99.81 Dependence on supplemental oxygen; I25.10 Atherosclerotic heart disease of native coronary artery without angina pectoris; I48.91 Unspecified atrial fibrillation; F43.10 Post-traumatic stress disorder, unspecified; Z87.891 Personal history of nicotine dependence; F41.9 Anxiety disorder, unspecified; E86.1 Hypovolemia; Z83.6 Family history of other diseases of the respiratory system; Z79.51 Long term (current) use of inhaled steroids; R33.9 Retention of urine, unspecified; E87.6 Hypokalemia; R74.01 Elevation of levels of liver transaminase levels; R73.9 Hyperglycemia, unspecified
CPT/HCPCS: 36415; 36416; 36430; 36573; 36592; 36600; 43235; 51701; 51702; 71045; 71250; 71275; 74018; 74176; 74177; 74240; 80048; 80051; 80053; 80162; 80202; 81001; 82274; 82330; 82550; 82728; 82803; 82805; 82962; 83540; 83605; 83690; 83735; 83880; 84100; 84145; 84443; 84484; 85014; 85018; 85025; 85045; 85378; 85610; 85730; 86140; 86141; 86850; 86900; 86920; 87040; 87637; 92523; 92526; 92610; 93005; 93306; 94003; 94640; 94660; 94799; 96365; 96372; 96375; 97110; 97116; 97162; 97167; 97530; 97535; 99285; A4222; C1751; C9250; J0131; J0282; J0283; J1160; J1200; J1650; J1815; J1938; J2060; J2185; J2250; J2270; J2405; J2470; J2704; J2919; J3010; J3373; J3475; J3480; J3490; J7030; J7040; J7050; J7512; J7626; J9999; P9016; P9046